=== PATIENT | male | born 1945 | race Caucasian/White ===

== ENCOUNTER 2017-07-20 22:21 | Inpatient (IN) | payer MEDICARE, MEDICAID ==
--- NOTE | 2017-07-20 23:10 | ED Physician Chart ---
ED Chief Complaint/HPI - Patient Information Date Seen:: 07/20/17 Time Seen:: 23:08 Chief Complaint:: Confusion History of Present Illness:: 71 yo homeless male was brought from street to ER by police due to confusion at a store. He was put on 5150 hold as a gravely disabled person. Allergies:: Allergies Allergy/AdvReac Type Severity Reaction Status Date / Time UNOBTN - Unobtainable Allergy Verified 07/20/17 22:44 Vitals:: Vital Signs - 8 hr 07/20/17 22:25 Temp 97.9 F HR 81 RR 18 BP 132/68 O2 Sat % 98 ED Review of Systems - Review of Systems General/Constitutional: No fever Skin: No bruising Head: No headache Eyes: No pain ENT: No nasal drainage Neck: No neck pain Cardio Vascular: No chest pain Pulmonary: No SOB GI: No nausea, No vomiting Musculoskeletal: Bone or joint pain Psychiatric: Prior psych history Neurological: No focal symptoms ED Past Medical History - Past Medical History Past Medical History: Arthritis, Other (B/L planta fasciitis) Social History: Non Smoker, No Alcohol, No Drug Use Surgical History: other (B/L knee replacement) Family Medical History - Family Member Mother History Unknown: Yes ED Physical Exam - Physical Examination General/Constitutional: Awake Head: Atraumatic Eyes: PERRL ENMT: Nasal exam nl Neck: No nuchal rigidity Respiratory: No Wheeze/Rhonchi/Rales Cardio Vascular: RRR, No murmur, gallop, rubs, NL S1 S2 GI: No tenderness/rebounding/guarding Other Extremities comments:: B/L knee pain, B/L feet pain Neuro/Psych: No focal deficits ED Labs/Radiology/EKG Results - Radiology Results Results: CXR: no focal consolidation ED Assessment - Assessment General Assessment: Psychosis Anemia, normocytic Thrombocytopenia B/L planta fasciitis Assessment/Comments:: CBC, CMP, UA CXR, EKG Clear for geropsych admit ED Septic Shock - . Is Septic Shock (SBP<90, OR Lactate>4 mmol\L) present?: No - <6hrs of presentation: Vital Signs: Vital Signs - 8 hr 07/20/17 22:25 Temp 97.9 F HR 81 RR 18 BP 132/68 O2 Sat % 98 ED Reassessment (Disposition) - Reassessment Reassessment Condition:: Unchanged - Patient Disposition Discharge/Transfer:: Debbie w/in this hosp Admitting Medical Physician:: Silas Talley Admitting Psych Physician:: Prashant Barraza ED Discharge Plan - Patient Disposition Admit/Discharge/Transfer: Other Care w/in this hosp Condition at Disposition: Stable
[2017-07-20 23:29] LABS: % BASOPHILS 0.5 % (0.0-2.0); % LYMPHOCYTES 19.6 % (20.0-50.0); % MONOCYTES 8.2 % (2.0-10.0); % NEUTROPHILS 70.7 % (40.0-80.0); EOSINOPHILE ABSOLUTE 0.1 Th/cmm (0.1-0.4); HEMOGLOBIN 10.1 gm/dL (12-16); LYMPHOCYTE ABSOLUTE 1.5 Th/cmm (1.5-3.0); MEAN CELL VOLUME 81.1 fl (80-99); MEAN CORPUSCULAR HEMOGLOBIN 27.3 pg (27.0-31.0); MEAN CORPUSCULAR HGB CONC 33.7 pg (28.0-36.0); MONOCYTE ABSOLUTE 0.6 Th/cmm (0.3-1.0); NEUTROPHILE ABSOLUTE 5.4 Th/cmm (1.8-8.0); PLATELET COUNT 109 Th/cmm (150-400); RED CELL DISTRIBUTION WIDTH 16.6 % (11.5-20.0); WHITE BLOOD COUNT 7.6 Th/cmm (4.8-10.8)
[2017-07-20 23:48] LABS: ALB/GLOB RATIO 1.3 (1.0-1.8); ALBUMIN 3.8 gm/dL (4.2-5.5); ALKALINE PHOSPHATASE 79 U/L (34-104); ANION GAP 11.3 (7.0-16.0); BILIRUBIN,TOTAL 1.1 mg/dL (0.3-1.0); BUN - UREA NITROGEN 33 mg/dL (7-25); CALCIUM SERUM 9.1 mg/dL (8.6-10.3); CARBON DIOXIDE 22.4 mEq/L (21.0-31.0); CHLORIDE 107 mEq/L (98-107); CREATININE - SERUM 1.3 mg/dL (0.7-1.3); GLUCOSE 101 mg/dL (70-105); POTASSIUM SERUM 3.7 mEq/L (3.5-5.1); SGOT 23 U/L (13-39); SGPT/ALT 20 U/L (7-52); SODIUM SERUM 137 mEq/L (136-145); TOTAL PROTEIN,SERUM 6.8 gm/dL (6.0-8.3)
[2017-07-21 02:16] VITALS: BP 153/71
[2017-07-21] MEDS ORDERED: Maalox 30 mL Cup PO PRN (02:19)
[2017-07-21] MEDS ORDERED: Magnesium Hydroxide (MOM) 30 mL UDC PO PRN (02:19)
--- NOTE | 2017-07-21 08:11 | Diagnostic Imaging Report ---
Chest x-ray single view History: Shortness of breath Comparison: None The heart size is normal. No focal pulmonary parenchymal processes. No hilar or mediastinal abnormalities. Very mild congestion cannot be excluded. Impression: No acute abnormalities
[2017-07-21] MEDS: Multivitamin Tab PO SCH (08:18)
--- NOTE | 2017-07-21 10:36 | History & Physical ---
ADMIT DATE: 07/21/2017 REQUESTING PHYSICIAN: Prashant Barraza M.D. CHIEF COMPLAINT: "How long is my hold?" HISTORY OF PRESENT ILLNESS: A 71-year-old [place] male admitted by Dr. Barraza with legal status of 5150 after the patient was found on the street in cold weather with wearing only tank top and noted to have a confused and unable to direct employment security officer where to send him his home. The patient is alert, awake right now and tells me he lives on the street. PAST MEDICAL HISTORY: Negative for diabetes, hypertension, kidney disease, liver disease, but remarkable for osteoarthritis. PAST SURGICAL HISTORY: Remarkable for bilateral knee replacement. MEDICATIONS AT HOME: He is not taking any medicine. ALLERGIES: None. SOCIAL HISTORY: The patient currently lives in the street. The patient has no history of smoking cigarette, alcohol, or drug abuse. FAMILY MEDICAL HISTORY: Remarkable for hypertension. REVIEW OF SYSTEMS: The patient currently denies any headache, blurred vision, double vision, dysphagia, odynophagia, runny nose, stuffy nose, fever, chills, cough, chest pain, shortness of breath, palpitation, dizziness, nausea, vomiting, diarrhea, dysuria, hematuria, hematochezia, melena, no seizure or syncopal episode. PHYSICAL EXAMINATION: GENERAL: Alert, awake, oriented, lying in the bed without any acute distress. VITAL SIGNS: Temperature 97.4, pulse 68, respiratory rate is 20, blood pressure 130/78. HEENT: Normocephalic, atraumatic. Extraocular muscles intact. Tongue was pink and coated. Absent upper and lower dentition noted. NECK: Supple, no JVD, no hepatojugular reflex. No lymphadenopathy, thyromegaly, or carotid bruit. HEART: Both heart sounds are regular. No S3, no S4, no murmur. CHEST: Lung equal in expansion, no wheezing, no crackles. ABDOMEN: Soft. No guarding, no rigidity. Liver and spleen are not palpable. No palpable mass. EXTERNAL GENITALIA AND RECTAL: The patient refused. EXTREMITIES: No edema, no cyanosis. There is tenderness in the bottom of both heel noted as well as surgical scar in both the knee noted. NEUROLOGIC: Alert, awake, oriented to time, place, person, 2-12 cranial nerves are intact. Power in upper and lower extremities 5+. Sensation to touch intact. Babinskis in both toes are going down. No cerebral sign. AVAILABLE DIAGNOSTIC DATA: Hemoglobin reported 10.1, hematocrit is 30.0, and platelet count of 109. White count of 7.6, creatinine is 1.3. Liver functions are within normal limits. TSH is 0.60. Chest x-ray, no infiltrate or no congestion. EKG, no ST-T wave change representing acute ischemia. CLINICAL IMPRESSION: 1. Normocytic normochromic anemia. 2. Mild thrombocytopenia. 3. Bilateral plantar fasciitis. 4. Degenerative joint disease. 5. Status post bilateral knee replacement. 6. Homelessness. 7. Underlying psychotic disorder. PLAN: The patient currently remained medically stable. The patient is cleared to get his psychiatric treatment provided by Dr. Barraza. The patient will have a followup CBC and the patient has persistent thrombocytopenia as well as anemia. We will pursue further workup for now. The patient has been advised to have an arch support for his plantar fasciitis and gave naproxen sodium 500 b.i.d. with food p.r.n. The patient will have further workup as an outpatient for his thrombocytopenia and anemia if persistently present on next CBC. Age appropriate health maintenance has been discussed with the patient as well. I sincerely thank you, Dr. Prashant Barraza, for giving me the opportunity to participate in patient of yours. [facility]# [id number]
--- NOTE | 2017-07-22 01:40 | Psychosocial Evaluation ---
DATE OF SERVICE: 07/21/2017 INITIAL EVALUATION AND MENTAL STATUS EXAM CHIEF COMPLAINT: 5150 hold for dangerous to self and grave disability. REASON FOR HOSPITALIZATION: The patient was admitted to the hospital on a 5150 hold after he was picked up by [place] police and placed on a hold after the patient did not eat all day and he tried to take ferry home and he was not able to provide any information with his address or where he lives. The patient also was incoherent and he was making unknown statements. He also was confused and also walking in cold weather with only top tank. Chart reviewed and the patient interviewed. I also discussed the patient's condition with the staff and reviewed records and labs. The patient seems to be confused and disheveled. The patient also was not able to tell me what kind of arrangement he has for placement or living. He also has been anxious, but at the same time, he was calm and did not have any major behavioral problems during my interview or since he came to the hospital. The patient was not able to tell me when was the last time he ate and what did he eat, but later on he told me "I ate yesterday," but he was not able to tell me what kind of food he ate. PAST PSYCHIATRIC HISTORY: The patient denies. PAST MEDICAL HISTORY: The patient denies and the patient denies taking any medications at home. SOCIAL HISTORY: The patient said that he lives "with other people," but he was not able to tell me where does he live exactly and what kind of arrangement he has for living. He also said that he is and he has 1 son, but no contact and he was not able to give me any more information. 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 He denies alcohol or street drug use or legal issues. ALLERGIES: No known allergies. MENTAL STATUS EXAMINATION: The patient appears slightly older than his stated age. Flat affect. Disheveled. Depressed mood. Thought processes are circumstantial, but no flight of ideas. The patient denies any auditory or visual hallucinations, but seems to be suspicious and paranoid. The patient denies any suicide or homicide. The patient is alert, but seems to be disoriented to place. The patient is alert to the situation and the year he mentioned "2018." Impaired immediate and recent memory, but intact remote memory and he did remember his date. Poor insight and poor judgment. ASSESSMENT: PRIMARY DIAGNOSIS: Unspecified psychosis. SECONDARY DIAGNOSIS: Rule out dementia. TREATMENT PLAN: We will monitor the patient's behavior closely. We will try to get more information about the patient's condition. We will follow up closely. ESTIMATED LENGTH OF STAY: 5-7 days. THE PATIENT'S STRENGTHS AND WEAKNESSES: The patient's strength is not clear at this time. Weaknesses are in effective coping and poor judgment. AFTER DISCHARGE PLANS: The patient might need placement and outpatient treatment and followup will continue as an outpatient. CRITERIA FOR DISCHARGE: Stabilize psychotropic medications and establish outpatient treatment plans. [facility]# [id number]
[2017-07-22 07:37] LABS: % BASOPHILS 0.2 % (0.0-2.0); % EOSINOPHILS 2.1 % (0.0-5.0); % LYMPHOCYTES 18.2 % (20.0-50.0); % MONOCYTES 7.9 % (2.0-10.0); % NEUTROPHILS 71.6 % (40.0-80.0); EOSINOPHILE ABSOLUTE 0.1 Th/cmm (0.1-0.4); HEMATOCRIT 29.5 % (41.0-60); HEMOGLOBIN 10.1 gm/dL (12-16); LYMPHOCYTE ABSOLUTE 0.9 Th/cmm (1.5-3.0); MEAN CELL VOLUME 80.8 fl (80-99); MEAN CORPUSCULAR HEMOGLOBIN 27.8 pg (27.0-31.0); MEAN CORPUSCULAR HGB CONC 34.4 pg (28.0-36.0); MEAN PLATELET VOLUME 7.5 fl; MONOCYTE ABSOLUTE 0.4 Th/cmm (0.3-1.0); NEUTROPHILE ABSOLUTE 3.6 Th/cmm (1.8-8.0); PLATELET COUNT 99 Th/cmm (150-400); RED BLOOD COUNT 3.65 Mil/cmm (3.80-5.80); RED CELL DISTRIBUTION WIDTH 15.9 % (11.5-20.0)
[2017-07-22] MEDS: Multivitamin Tab PO SCH (08:26)
--- NOTE | 2017-07-22 09:59 | General Progress Note ---
Subjective - Review of Systems Subjective: Patient is seen and examined. No new complaints. Objective - Results Result Diagrams: 07/22/17 07:24 07/20/17 23:22 Recent Labs: Laboratory Last Values WBC 5.0 Th/cmm (4.8-10.8) D 07/22/17 07:24 RBC 3.65 Mil/cmm (3.80-5.80) L 07/22/17 07:24 Hgb 10.1 gm/dL (12-16) L 07/22/17 07:24 Hct 29.5 % (41.0-60) L 07/22/17 07:24 MCV 80.8 fl (80-99) 07/22/17 07:24 MCH 27.8 pg (27.0-31.0) 07/22/17 07:24 MCHC Differential 34.4 pg (28.0-36.0) 07/22/17 07:24 RDW 15.9 % (11.5-20.0) 07/22/17 07:24 Plt Count 99 Th/cmm (150-400) L 07/22/17 07:24 MPV 7.5 fl 07/22/17 07:24 Neutrophils % 71.6 % (40.0-80.0) 07/22/17 07:24 Lymphocytes % 18.2 % (20.0-50.0) L 07/22/17 07:24 Monocytes % 7.9 % (2.0-10.0) 07/22/17 07:24 Eosinophils % 2.1 % (0.0-5.0) 07/22/17 07:24 Basophils % 0.2 % (0.0-2.0) 07/22/17 07:24 Sodium 137 mEq/L (136-145) 07/20/17 23:22 Potassium 3.7 mEq/L (3.5-5.1) 07/20/17 23:22 Chloride 107 mEq/L (98-107) 07/20/17 23:22 Carbon Dioxide 22.4 mEq/L (21.0-31.0) 07/20/17 23:22 Anion Gap 11.3 (7.0-16.0) 07/20/17 23:22 BUN 33 mg/dL (7-25) H 07/20/17 23:22 Creatinine 1.3 mg/dL (0.7-1.3) 07/20/17 23:22 Est GFR ( Amer) TNP 07/20/17 23:22 Est GFR (Non-Af Amer) TNP 07/20/17 23:22 BUN/Creatinine Ratio 25.4 07/20/17 23:22 Glucose 101 mg/dL (70-105) 07/20/17 23:22 Calcium 9.1 mg/dL (8.6-10.3) 07/20/17 23:22 Total Bilirubin 1.1 mg/dL (0.3-1.0) H 07/20/17 23:22 AST 23 U/L (13-39) 07/20/17 23:22 ALT 20 U/L (7-52) 07/20/17 23:22 Alkaline Phosphatase 79 U/L (34-104) 07/20/17 23:22 Total Protein 6.8 gm/dL (6.0-8.3) 07/20/17 23:22 Albumin 3.8 gm/dL (4.2-5.5) L 07/20/17 23:22 Globulin 3.0 gm/dL 07/20/17 23:22 Albumin/Globulin Ratio 1.3 (1.0-1.8) 07/20/17 23:22 TSH 0.60 uIU/ml (0.34-5.60) 07/20/17 23:22 - Physical Exam Vitals and I&O: Vital Signs Temp 97.8 F 07/21/17 14:00 Pulse 70 07/21/17 14:00 Resp 20 07/21/17 14:00 BP 139/71 07/21/17 14:00 Pulse Ox 97 07/21/17 14:00 Intake & Output 07/21/17 07/22/17 07/22/17 18:59 06:59 18:59 Intake Total 800 Balance 800 Intake: Oral 800 Other: # Voids 3 # Bowel Movements 0 Active Medications: Current Medications Acetaminophen (Tylenol) 650 mg PO Q4HR PRN PRN Reason: Mild Pain / Temp above 100 Stop: 09/19/17 02:18 Al Hydrox/Mg Hydrox/Simethicone (Maalox) 30 ml PO Q4HR PRN PRN Reason: GI DISTRESS Stop: 09/19/17 02:18 Lorazepam (Ativan) 0.5 mg PO Q4HR PRN; Protocol PRN Reason: Anxiety Stop: 08/20/17 02:18 Magnesium Hydroxide (Milk Of Magnesia) 30 ml PO HS PRN PRN Reason: Constipation Multivitamins/Vitamin C (Theragran) 1 tab PO DAILY CRISTELA Stop: 09/19/17 08:59 Last Admin: 07/22/17 08:26 Dose: 1 tab Naproxen (Naprosyn) 500 mg PO BIDWM PRN PRN Reason: bilateral foot pain Stop: 09/19/17 17:59 Quetiapine Fumarate (Seroquel) 50 mg PO TID CRISTELA PRN Reason: Protocol Stop: 09/20/17 08:59 Last Admin: 07/22/17 08:28 Dose: 50 mg Zolpidem Tartrate (Ambien) 5 mg PO HS PRN PRN Reason: Insomnia Stop: 09/19/17 02:18 General: Alert, Oriented x3, Cooperative, No acute distress HEENT: Atraumatic, PERRLA Neck: Supple, +2 carotid pulse wo bruit Cardiovascular: Regular rate, Normal S1, Normal S2 Lungs: Clear to auscultation Abdomen: Bowel sounds, Soft Extremities: Other (No edema.) Neurological: Normal gait Assessment/Plan - Assessment Assessment: Thrombocytopenia. NCNC Anemia. DJD Psych disorder. S/P Bilateral TKR. - Plan Plan: Work up for anemia and thrombocytopenia. Psych meds and follow up. Fall precautions. General nursing care. Continue current care.
[2017-07-22 12:17] LABS: INR 1.14 (0.5-1.4)
[2017-07-23 08:17] LABS: IRON LC 20 ug/dL (38-169); TIBC (LC) 159 ug/dL (250-450); UIBC 139 ug/dL (111-343)
[2017-07-23] MEDS: Multivitamin Tab PO SCH (09:53)
[2017-07-23 12:14] LABS: FOLIC ACID 12.2 ng/mL (>3.0)
--- NOTE | 2017-07-23 16:48 | Progress Notes ---
DATE: 07/22/2017 SUBJECTIVE: Chart reviewed and the patient interviewed. Also discussed the patient's condition with the staff and reviewed records and labs. The patient is still easily agitated and is still suspicious and paranoid. The patient also is still restless and is still in irritable and angry mood. The patient also is having difficulty following any of staff directions. He also is still guarded and does not want to talk much about his moods. Otherwise, the patient is cooperative in regard to his treatment and medications. ASSESSMENT: The patient is still psychotic and agitated. TREATMENT PLAN: Continue to monitor his behavior and his condition closely. Also, we will start the patient on Seroquel 50 mg three times a day, and we will continue to follow closely. JOB# [id number]
--- NOTE | 2017-07-24 05:13 | Progress Notes ---
DATE: 07/23/2017 SUBJECTIVE: The patient seen and examined. The patient is lying in the bed. The patient has no new complaint. The patient did have further workup for his thrombocytopenia and anemia, which did reveal the patient had a D-dimer of 878. The PT and PTT and fibrinogen are normal. Iron level was 20, TIBC was 159, iron saturation 13%, total bilirubin 1.1 was reported. The patient currently remaining asymptomatic. PHYSICAL EXAMINATION: Today's exam; VITAL SIGNS: Temperature 97.0, pulse is 58, respiratory is 18, and blood pressure 128/65. HEENT: Poor dentition. NECK: Supple, no JVD, no lymphadenopathy. HEART: Both heart sounds are regular. CHEST AND LUNG: Equal in expansion. No wheezing, no crackles. ABDOMEN: Soft. No guarding, rigidity. Bowel sounds present. No palpable mass. EXTREMITIES: No edema, no cyanosis. NEUROLOGIC: Nonfocal. CLINICAL IMPRESSION: 1. Normocytic normochromic anemia, most likely secondary to chronic inflammation. 2. Thrombocytopenia, workup under progress. Elevated D-dimer with a normal fibrinogen does not need any further intervention. 3. Degenerative joint disease. 4. Psychotic disorder. 5. Status post bilateral knee replacement. PLAN: Await further workup for thrombocytopenia. Anemia, we will be observing at this time, we will not do any further workup for now and we will try to evaluate further cause of anemia and thrombocytopenia. After this blood tests are available, if the patient's blood test are in conclusive, the patient may require bone marrow biopsy, which can be done as an outpatient. Psychiatric medication management deferred to psychiatrist. Care plan reviewed and discussed with staff. JOB# [id number]
--- NOTE | 2017-07-24 06:28 | Progress Notes ---
DATE: SUBJECTIVE: Chart reviewed and the patient interviewed. Also discussed the patient's condition with the staff and reviewed the records and labs. The patient is still depressed and his affect is flat. The patient also is still interacting minimally with peers and with others. Also, still having poor personal hygiene. He also is having difficulty with his mood and needs redirections and is still easily agitated. Otherwise, the patient is compliant with taking his medications with no side effects of medications. ASSESSMENT: The patient is still depressed and is still easily agitated. TREATMENT PLAN: Continue to monitor his behavior and his condition closely. Also, continue Seroquel same dose. Also, working with correctional casework specialist in regard to placement issue and discharge plans. JOB# [id number]
[2017-07-24] MEDS: Multivitamin Tab PO SCH (09:21)
[2017-07-25] MEDS: Multivitamin Tab PO SCH (10:00)
--- NOTE | 2017-07-25 14:14 | Progress Notes ---
DATE: SUBJECTIVE: The patient was seen and evaluated. The patient's chart reviewed. This is Dr. Thompson covering for Dr. Barraza. The patient is a 71-year-old male, who was brought in here in a 5150 by [place] after the patient was not eating. He tried to take a ferry home and was not able to provide much information. Today on [id number] evaluation, the patient presents slightly disorganized, is not able to engage in linear conversation, easily derails and tangentially jumps from one topic to another topic and observed to be easily depressed. MENTAL STATUS EXAMINATION: Still depressed and easily agitated. ASSESSMENT AND PLAN: The patient continues to be disorganized, melancholic, and unable to formulate a safe plan. We will continue with primary psychiatric treatment plan and goals as medications were recently initiated as quetiapine 50 mg p.o. t.i.d. [facility]# [id number]
[2017-07-26] MEDS: Multivitamin Tab PO SCH (08:22)
--- NOTE | 2017-07-26 14:30 | Progress Notes ---
DATE: SUBJECTIVE: The patient was seen and evaluated. The patient's chart reviewed. Overnight, nursing staff reported that the patient continues to be easily disorganized. Today on [id number] evaluation, the patient continues to jump from one topic to another topic, disorganized. MENTAL STATUS EXAMINATION: Disorganized, disheveled and malodorous. ASSESSMENT AND PLAN: The patient is a 71-year-old male who continues to find himself disorganized, unable to formulate a safe plan. We will continue with Seroquel at 50 mg p.o. t.i.d., as it was recently increased less than 72 hours ago to target the patient's still residual psychotic symptoms and reduce the risk of any medication interactions and side effects due to his age. [facility]# [id number] MTDD
--- NOTE | 2017-07-26 23:15 | Progress Notes ---
DATE: 07/26/[address] Barraza. Case was discussed with staff of the patient, reviewed record. This is a 71-year-old male who was admitted on 07/21/2017 on a hold for danger to self and grave disability. The patient was picked up by [employer] on a hold after the patient did not eat all day and tried to take ferry home and he was not able to provide any information or his address of where he lives. He was confused, incoherent, making incoherent statements, confused, walking in cold weather with only top tank, unable to provide any statement about where he lives. The patient continues to be unable to provide much information, continues to be acting bizarre with poor memory, unable to participate in a meaningful conversation, unpredictable and impulsive. He has been compliant with the medication with no side effects. He is on Seroquel 50 mg three times a day and a multivitamin. No sedation, no nausea, no extrapyramidal symptoms. We will continue to work with the patient in group therapy, milieu therapy, and adjust medications as needed. JOB# [id number]
[2017-07-27] MEDS: Multivitamin Tab PO SCH (08:25)
--- NOTE | 2017-07-27 16:28 | Progress Notes ---
DATE: 07/27/[address] Barraza. Case was discussed with staff, reviewed records. The patient continues to be depressed, continues to be unable to provide any information about where he is. He is very evasive when I talked to him making including the same time. Unable to make safe plan for self-care or participate in meaningful conversation. He is sleeping better, eating better. He has been compliant with the medication with no side effects, no sedation, no nausea, Debbie symptoms. We will continue to work with the patient in group therapy, milieu therapy, and adjust medications as needed. JOB# [id number]
[2017-07-28] MEDS: Multivitamin Tab PO SCH (08:45)
[2017-07-28 09:22] LABS: HLA CLASS 1 ANTIBODY NEGATIVE; IIB/IIIA ANTIBODY NEGATIVE; Ib/IX ANTIBODY NEGATIVE
[2017-07-28 09:23] LABS: Ia/IIa ANTIBODY NEGATIVE
--- NOTE | 2017-07-29 06:36 | Progress Notes ---
DATE: 07/28/2017 SUBJECTIVE: Chart reviewed and the patient interviewed. Also discussed the patient's condition with the staff and reviewed records and labs. The patient is doing slightly better today and he is able to carry on conversation and "I need shoes". The patient's judgment seems to be slightly better, but he is still most of the time was confused and he still needs lots of redirections. At times, also seems to be suspicious and paranoid and thinks that people stole his shoes that is why has no shoes. Otherwise, the patient is compliant with taking his medications with no side effect of Seroquel 50 mg 3 times a day. ASSESSMENT: The patient is still psychotic and confused. TREATMENT PLAN: Continue monitoring his behavior and his condition closely and continue adjusting psychotropic medications and work on behavioral modification. JOB# [id number]
[2017-07-29] MEDS: Multivitamin Tab PO SCH (09:26)
[2017-07-30] MEDS: Multivitamin Tab PO SCH (08:15)
[2017-07-30 15:52] LABS: PLT ASSOCIATED ANTI-IB/IX NEGATIVE; PLT ASSOCIATED ANTI-IIB/IIIA NEGATIVE
[2017-07-30 15:55] LABS: PLT ASSOCIATED ANTI-IA/IIA NEGATIVE
--- NOTE | 2017-07-31 02:41 | Discharge Summary ---
DATE OF DISCHARGE: 07/30/2017 THE PATIENT'S AGE: 71. SEX: Male. PHYSICIAN: Prashant Barraza M.D., M.P.H. FINAL DIAGNOSIS/PRIMARY DIAGNOSIS: Unspecified psychosis. SECONDARY DIAGNOSIS: Dementia, moderate. REASON FOR HOSPITALIZATION: The patient was admitted to the hospital on 5150 hold after the patient was picked up by the [place] police and the patient has not been eating or drinking 4 days prior to his admission and was confused and was walking in cold weather with only top tank. HOSPITAL COURSE: The patient continued to be agitated and confused. Also was irritable. The patient also was having difficulty following the staff directions. The patient was given Seroquel and dose adjusted to 50 mg 3 times a day. Gradually, the patient's affect was brighter. The patient was less agitated. Placement was an issue. [facility] accepts the patient and the patient was discharged to there. Physical exam of the patient showed no major medical problems, but patient has generalized weakness and needed rehabilitation. AFTER DISCHARGE PLANS: The patient discharged from the hospital with plans to continue his treatment in [facility]. EXPECTED OUTCOME AFTER DISCHARGE: Fair if the patient continue with his outpatient treatment and follow up there. JOB# [id number]
--- NOTE | 2017-08-01 12:34 | Progress Notes ---
DATE: 07/30/2017 SUBJECTIVE: Chart reviewed and the patient interviewed. Also discussed the patient's condition with the staff and reviewed records and labs. The patient's affect is slightly brighter and the patient seems to be less irritable and less agitated. The patient also is cooperative with the staff and he is less irritable and less angry. Also, is compliant with taking his medications with no side effect of medications. ASSESSMENT: The patient is less agitated and less irritable. TREATMENT PLAN: We will continue monitoring his behavior and his condition closely. Also, we will continue Seroquel 50 mg 3 times a day and we will continue to work on discharge plans and placement issue. I spoke with [facility] staff and they are coming to evaluate the patient today. JOB# [id number]
== END 2017-07-30 11:30 | DRG 885 ==
LOC: ER 22:21 → GERO 07-21 00:15
PROVIDERS: ADMIT Psychiatry & Neurology Psychiatry; ATTEND Psychiatry & Neurology Psychiatry
DX: F29 Unspecified psychosis not due to a substance or known physiological condition (principal); D69.6 Thrombocytopenia, unspecified; F03.91 Unspecified dementia, unspecified severity, with behavioral disturbance; D64.9 Anemia, unspecified; M72.2 Plantar fascial fibromatosis; M19.90 Unspecified osteoarthritis, unspecified site; Z96.653 Presence of artificial knee joint, bilateral; Z82.49 Family history of ischemic heart disease and other diseases of the circulatory system; Z59.0 Homelessness
CPT/HCPCS: 36415-UA; 71045-TC; 80053-TC; 82607-90; 82746-90; 83540-90; 83550-90; 84443-TC; 85025-TC; 85049-TC; 85379-TC; 85384-TC; 85610-TC; 85730-TC; 86023-90; 93005; G0410; Z7610

== ENCOUNTER 2017-08-03 13:28 | Inpatient (IN) | payer MEDICARE, MEDICAID ==
[2017-08-03 15:32] VITALS: BP 152/81
[2017-08-03] MEDS ORDERED: Maalox 30 mL Cup PO PRN (15:33)
[2017-08-03] MEDS ORDERED: Magnesium Hydroxide (MOM) 30 mL UDC PO PRN (15:33)
[2017-08-03] MEDS ORDERED: Haloperidol Lactate 5 mg/mL 1mL Vial ONE (16:04)
[2017-08-03] MEDS ORDERED: Haloperidol Lactate 5 mg/mL 1mL Vial IM ONE ×2 (16:05)
[2017-08-04] MEDS ORDERED: Maalox 30 mL Cup PO PRN (05:55)
[2017-08-04] MEDS ORDERED: Magnesium Hydroxide (MOM) 30 mL UDC PO PRN (05:56)
[2017-08-04] MEDS ORDERED: Multivitamin Tab PO SCH (09:00)
[2017-08-04] MEDS: Multivitamin Tab PO SCH (11:23)
[2017-08-04 12:53] LABS: % EOSINOPHILS 1.7 % (0.0-5.0); % LYMPHOCYTES 17.9 % (20.0-50.0); % MONOCYTES 5.2 % (2.0-10.0); % NEUTROPHILS 74.2 % (40.0-80.0); BASOPHILE ABSOLUTE 0.1 Th/cumm (0-0.2); EOSINOPHILE ABSOLUTE 0.1 Th/cmm (0.1-0.4); HEMOGLOBIN 11.5 gm/dL (12-16); LYMPHOCYTE ABSOLUTE 0.9 Th/cmm (1.5-3.0); MEAN CORPUSCULAR HEMOGLOBIN 27.8 pg (27.0-31.0); MEAN CORPUSCULAR HGB CONC 33.9 pg (28.0-36.0); MEAN PLATELET VOLUME 7.4 fl; MONOCYTE ABSOLUTE 0.3 Th/cmm (0.3-1.0); NEUTROPHILE ABSOLUTE 3.8 Th/cmm (1.8-8.0); RED BLOOD COUNT 4.14 Mil/cmm (3.80-5.80); RED CELL DISTRIBUTION WIDTH 15.9 % (11.5-20.0); WHITE BLOOD COUNT 5.2 Th/cmm (4.8-10.8)
[2017-08-04 12:54] LABS: HEMATOCRIT 33.9 % (41.0-60); PLATELET COUNT 145 Th/cmm (150-400)
[2017-08-04 13:05] LABS: ALB/GLOB RATIO 1.5 (1.0-1.8); ALBUMIN 3.9 gm/dL (4.2-5.5); ALKALINE PHOSPHATASE 79 U/L (34-104); ANION GAP 9.2 (7.0-16.0); BILIRUBIN,TOTAL 1.1 mg/dL (0.3-1.0); BUN - UREA NITROGEN 26 mg/dL (7-25); CALCIUM SERUM 9.5 mg/dL (8.6-10.3); CARBON DIOXIDE 27.7 mEq/L (21.0-31.0); CHLORIDE 106 mEq/L (98-107); CREATININE - SERUM 1.3 mg/dL (0.7-1.3); GLUCOSE 147 mg/dL (70-105); POTASSIUM SERUM 3.9 mEq/L (3.5-5.1); SGOT 17 U/L (13-39); SGPT/ALT 16 U/L (7-52); SODIUM SERUM 139 mEq/L (136-145); TOTAL PROTEIN,SERUM 6.5 gm/dL (6.0-8.3)
--- NOTE | 2017-08-04 15:01 | History & Physical ---
ADMIT DATE: 08/03/2017 MEDICAL H AND P PATIENT'S IDENTIFICATION: A 71-year-old male. CHIEF COMPLAINT: "I don't know why I am here." HISTORY OF PRESENT ILLNESS: A 71-year-old [place] male who I knew him from his previous admission at [facility] and the patient was admitted under psychiatrist care when he was found on the street in cold weather with wearing only tank top and noticed he was confused. Now, he is readmitted at this time to [facility] after the patient was noted to have been wandering on the street and the patient was dangerous to himself. The patient was also noted to have homicidal ideation and he was noted to have loud, yelling, rambling speech. PAST MEDICAL HISTORY: Negative for diabetes, hypertension, kidney disease, or liver disease. PAST SURGICAL HISTORY: Remarkable for bilateral knee replacement. ALLERGIES: The patient is not allergic to medication. MEDICATIONS: Currently prescribed medications, taking lorazepam, milk of magnesia, naproxen sodium, Seroquel, and Ambien. SOCIAL HISTORY: The patient is currently homeless. The patient has no history of smoking cigarette, drinking alcohol, or using street drug use. REVIEW OF SYSTEMS: The patient currently denies any headache, blurred vision, double vision, dysphagia, odynophagia, runny nose, stuffy nose, fever, chills, cough, chest pain, shortness of breath, palpitation, dizziness, nausea, vomiting, diarrhea, dysuria, hematuria, hematochezia, or melena. No history of any seizure or syncopal episode. The patient did have previously thrombocytopenia and anemia. PHYSICAL EXAMINATION: GENERAL: A 71-year-old, alert, awake, lying in the bed. VITAL SIGNS: Temperature 98.1, pulse 61, respiratory rate is 20, blood pressure 134/75. HEENT: Normocephalic, atraumatic. Extraocular muscles are intact. Tongue was pink and coated. Poor dentition noted. No oral lesion, no exudate, no sinus tenderness. NECK: Supple. No JVD. No hepatojugular reflex. No lymphadenopathy, thyromegaly, or carotid bruit. HEART: Both heart sounds are regular. No S3, no S4, no murmur. CHEST: Lung equal in expansion. No wheezing. No crackles. ABDOMEN: Soft. No guarding. No rigidity. Liver and spleen palpable. No palpable mass. EXTREMITIES: No edema, no cyanosis, no clubbing. Pulses are +2. No calf tenderness noted. NEUROLOGIC: Alert, awake, oriented to time, place, and person. 2-12 cranial nerves are intact. Power in upper and lower extremity 5-. Sensory to touch intact. Babinski in both toes are going down. No cerebellar sign. AVAILABLE DIAGNOSTIC DATA: None for my review. CLINICAL IMPRESSION: 1. Psychotic disorder exacerbation. 2. Homelessness. 3. Normocytic normochromic anemia. 4. Thrombocytopenia. 5. Degenerative joint disease. 6. Status post bilateral total knee replacement. PLAN: The patient is admitted at this time to [facility]. We will continue to follow this patient during the stay at [facility]. Resume his psychotropic medication as the patient is receiving p.r.n. naproxen for the osteoarthritis, recheck the patient's CBC, CMP and pursue further for his hematological abnormality. The patient is medically stable at this time to participate in activity per the [facility]. Care plan has been reviewed and discussed with nurse as well. JOB# [id number]
[2017-08-05] MEDS: Multivitamin Tab PO SCH (16:26)
--- NOTE | 2017-08-06 00:35 | Progress Notes ---
DATE: IDENTIFICATION: A 71-year-old male. SUBJECTIVE: The patient seen and examined. The patient is saying, "when can I go home." PHYSICAL EXAMINATION: On today's exam, VITAL SIGNS: Temperature 97.7, pulse is 62, respiratory rate is 18, blood pressure 116/62. HEENT: No facial asymmetry. NECK: Supple, no JVD. HEART: Regular. CHEST: Lung equal in expansion, no wheezing, no crackles. ABDOMEN: Soft. No guarding or rigidity. Bowel sounds present. EXTREMITIES: No edema. LABORATORY DATA: White count of 5.2, hemoglobin 11.5, platelet count of 145. BUN and creatinine is 26 and 1.3, glucose 147, bilirubin 1.1, albumin 3.9, potassium 3.9, sodium 139. CLINICAL IMPRESSION: 1. Psychotic disorder exacerbation. 2. Degenerative joint disease. 3. History of knee replacement. 4. Homelessness. 5. Anemia, normocytic normochromic, stable. 6. Thrombocytopenia, improving. PLAN: 1. Psychiatric evaluation and management deferred to psychiatrist. 2. The patient does not need any further workup for anemia and thrombocytopenia. 3. Fall precautions. 4. Nutritional support. 5. General nursing care. 6. We will follow this patient during the stay on as needed basis. JOB# [id number]
--- NOTE | 2017-08-06 03:04 | Psychosocial Evaluation ---
DATE OF SERVICE: 08/04/2017 PATIENT'S AGE: 71. SEX: Male. PHYSICIAN: Prashant Barraza MD, MPH CHIEF COMPLAINT: Confusion and wandering in the streets. HISTORY OF PRESENT ILLNESS: The patient is a 71-year-old male who was just discharged from the hospital and went to live in [facility]. The patient escaped from there and he was found wandering in the street and the patient was taken to [facility] where he was transferred to [facility]. The patient gives no explanation why he escaped from the [facility]. He is slightly confused and anxious and irritable. The patient also has episodes of agitation. He denies any intention to harm himself or others. PAST PSYCHIATRIC HISTORY: The patient was in [facility] and discharged a week ago. PAST MEDICAL HISTORY: The patient has history of hypertension. Also, he has history of bilateral knee surgery. FAMILY PSYCHIATRIC HISTORY: Noncontributory. SOCIAL HISTORY: The patient was living in a intermediate. No known alcohol or drug use. No family issues. ALLERGIES: No known allergies. MENTAL STATUS EXAMINATION: The patient appears his stated age. Anxious. Forgetful. Confused. Thought processes are circumstantial and tangential with occasional flight of ideas. The patient seems to be actively responding to stimuli. The patient denied suicidal or homicidal ideations. The patient is alert and oriented to the situation and the place but not date. Impaired immediate and recent memory, but intact remote memory. Poor insight and poor judgment. ASSESSMENT: PRIMARY DIAGNOSIS: Psychosis, not otherwise specified. Rule out schizoaffective disorder. SECONDARY DIAGNOSIS: Dementia, moderate, with psychotic features. MEDICAL DIAGNOSES: Hypertension and history of gout and history of hypercholesterolemia. TREATMENT PLAN: Continue to monitor his behavior and his condition closely. Also, increase Seroquel to 100 mg 3 times a day. ESTIMATED LENGTH OF STAY: 5-7 days. THE PATIENT'S STRENGTHS AND WEAKNESSES: The patient's strength is not clear at this time. Weaknesses are ineffective coping. AFTER DISCHARGE PLAN: Outpatient treatment and followup but the patient will need also placement. CRITERIA FOR DISCHARGE: Well stabilized psychotropic medications and well establish treatment plans as well as placement issue. JOB# [id number]
[2017-08-06] MEDS: Multivitamin Tab PO SCH (08:29)
--- NOTE | 2017-08-06 11:38 | Progress Notes ---
DATE: 08/05/2017 SUBJECTIVE: Chart reviewed and the patient interviewed. Also discussed the patient's condition with the staff and reviewed records and labs. The patient is guarded and he is still anxious. The patient is still having episodes of agitated, but in general seems to be calmer than yesterday. Also, the patient is not yelling today and he seems to be less agitated and less irritable. Otherwise, the patient is compliant with taking his medications with no side effect of medications. ASSESSMENT: The patient is still psychotic, but less agitated. TREATMENT PLAN: Continue monitoring his behavior and his medications closely. Also, continue to work on his irritability and his periods of agitation and continue to follow up. [facility]# [id number]
--- NOTE | 2017-08-06 12:13 | Progress Notes ---
DATE: 08/06/2017 SUBJECTIVE: Chart reviewed and the patient interviewed. Also discussed the patient's condition with the staff and reviewed records and labs. I also discussed the case with case supervisor. The patient is calm and cooperative and he wants to eat and obsessed with his diet and eating at this time. Also, has no explanation of why he escaped from the other place. The patient also is still restless and he still needs lots of redirections. Also, is still interacting minimally with others. ASSESSMENT: The patient is still agitated and psychotic and also need placement. TREATMENT PLAN: Continue monitoring his behavior and his condition. Also, continue adjusting psychotropic medications and continue to follow up closely. JOB# [id number]
[2017-08-07] MEDS: Multivitamin Tab PO SCH (08:38)
--- NOTE | 2017-08-07 19:02 | Progress Notes ---
DATE: 08/07/2017 SUBJECTIVE: The patient is confused, wandering in the streets, coming from a convalescent home, remains confused, somewhat anxious, irritable, refusing interview this morning. Staff noting he remains impulsive, unpredictable, somewhat unruly, but he is following unit rules and directions and seems to be more redirectable than admission. MEDICATIONS: Reviewed. ASSESSMENT: The patient remains agitated, impulsive, unpredictable, at times unruly but some improvement noted. PLAN: We will continue to monitor. We will continue to titrate and adjust medications. Currently on Seroquel. JOB# [id number]
--- NOTE | 2017-08-08 06:51 | Progress Notes ---
DATE: 08/08/2017 SUBJECTIVE: The patient had been living in a convalescent home, wandering in the streets, taken to [facility], transferred to [place]. The patient still remains somewhat confused, anxious. States he is in the hospital for "villasenor theft and nonsensical responses." The patient has been to this hospital in the past. I do recognize some from previous admissions. ASSESSMENT: The patient remains ruminative, some confusion noted. He does not really know why he is here, still with some pacing episodes with somewhat occlusive, isolative. He has been fairly well compliant, sleeping well. PLAN: We will continue to monitor given his ongoing symptoms. It is not safe for discharge at this time. Given his readmission to the hospital, there are concerns about his ability to function at a lower level of care at this time. JOB# [id number]
[2017-08-08] MEDS: Multivitamin Tab PO SCH (08:24)
[2017-08-09] MEDS: Multivitamin Tab PO SCH (09:51)
[2017-08-10] MEDS: Multivitamin Tab PO SCH (08:32)
--- NOTE | 2017-08-10 13:49 | Progress Notes ---
DATE: 08/09/2017 SUBJECTIVE: The patient is currently in the hospital, confused, wandering in the street. On [id number], the patient rambling, ruminative on calling his brother, talks about many different topics which are nonsensical, and I really cannot follow his train of thought. He then commences to follow me around the unit, going into patients' rooms, turning on and off the lights. The patient is unable to really formulate a realistic plan for self-care. MEDICATIONS: Reviewed. ASSESSMENT: The patient remains confused, disoriented, intrusive, ruminative, unpredictable. PLAN: We will continue to monitor given his ongoing symptoms. There are concerns about his ability to care for his basic needs. [facility]# [id number]
--- NOTE | 2017-08-11 05:45 | Progress Notes ---
DATE: 08/10/2017 SUBJECTIVE: The patient is living in a convalescent home, wandering in the streets, transferred to [place], still somewhat confused, disoriented, but calm, seems to be following unit rules and directions, states he is in the hospital for "villasenor theft," this does not really make much sense. The patient has been in the hospital before, history of mental illness, no confirmed safe discharge plan at this time and there are concerns about the patient's ability to care for himself outside of a structured setting. ASSESSMENT: The patient remains ruminative, some confusion noted, but calmer. PLAN: We will continue to monitor. We will continue to titrate and adjust his medications. Medications were reviewed including the dosages and frequencies. JOB# [id number]
[2017-08-11] MEDS: Multivitamin Tab PO SCH (08:54)
[2017-08-12] MEDS: Multivitamin Tab PO SCH (08:26)
--- NOTE | 2017-08-12 16:56 | Progress Notes ---
DATE: 08/11/2017 SUBJECTIVE: Chart reviewed. The patient interviewed. Also discussed the patient's condition with the staff and reviewed records and labs. The patient's affect is brighter. The patient is less irritable and less agitated. Slightly easier to redirect him. The patient also is compliant with taking his medications with no side effect of medications. He is slightly paranoid about his roommates, but no major behavioral problems at this time. ASSESSMENT: The patient is less agitated and less irritable and shows some improvement. TREATMENT PLAN: Continue monitoring his behavior and his medications and continue to work on adjusting psychotropic medications and followup care. JOB# [id number]
--- NOTE | 2017-08-12 21:39 | Progress Notes ---
DATE: 08/12/2017 SUBJECTIVE: The patient seen and examined. The patient is lying in the bed. The patient has no new complaint. PHYSICAL EXAMINATION: VITAL SIGNS: Temperature 97.2, pulse 60, respiratory rate 18, blood pressure 107/62. HEENT: No facial asymmetry. Poor dentition noted. NECK: Supple, no JVD, no lymphadenopathy, thyromegaly. HEART: Both heart sounds are regular. CHEST: Lung equal in expansion. No wheezing. No crackles. ABDOMEN: Soft. No guarding, rigidity. EXTREMITIES: No edema. NEUROLOGIC: Alert, awake, follows commands. AVAILABLE LAB: None for my review. CLINICAL IMPRESSION: 1. Psychotic disorder exacerbation. 2. Degenerative joint disease. 3. Anemia and thrombocytopenia, stable. 4. Homelessness. 5. Fall risk. PLAN: 1. Psychotic evaluation and management deferred to psychiatrist. 2. Outpatient workup for thrombocytopenia and anemia. 3. The patient is medically stable. At this time, we will see this patient on as needed basis. [facility]# [id number]
--- NOTE | 2017-08-13 08:11 | Discharge Summary ---
DATE OF DISCHARGE: 08/12/2017 THE PATIENT'S AGE: 71. SEX: Male. PHYSICIAN: Prashant Barraza M.D., M.P.H. FINAL DIAGNOSES/PRIMARY DIAGNOSES: Schizoaffective disorder, bipolar type with psychotic features. REASON FOR HOSPITALIZATION: The patient was admitted to the hospital because of increased agitation and irritability and inability to follow any of the staff directions. HOSPITAL COURSE: The patient continued to be agitated and in irritable mood. The patient also was angry. He also was at times threatening others. The patient was given Seroquel. Gradually, the patient's affect was brighter and the patient was less irritable and less agitated and the patient was discharged from the hospital. The patient was accepted by [facility]. Physical exam of the patient showed no major medical problems. The patient has had no emergencies in regard to his health while in the hospital. AFTER DISCHARGE PLANS: The patient discharged from the hospital to [facility] with plan to be followed there. [facility]# [id number]
== END 2017-08-12 12:45 | DRG 885 ==
LOC: GERO 13:28
PROVIDERS: ADMIT Psychiatry & Neurology Psychiatry; ATTEND Psychiatry & Neurology Psychiatry
DX: F25.0 Schizoaffective disorder, bipolar type (principal); D69.6 Thrombocytopenia, unspecified; F03.91 Unspecified dementia, unspecified severity, with behavioral disturbance; F29 Unspecified psychosis not due to a substance or known physiological condition; D64.9 Anemia, unspecified; I10 Essential (primary) hypertension; E78.5 Hyperlipidemia, unspecified; M10.9 Gout, unspecified; M19.90 Unspecified osteoarthritis, unspecified site; Z96.653 Presence of artificial knee joint, bilateral; Z91.81 History of falling; Z59.0 Homelessness
CPT/HCPCS: 36415-UA; 80053-TC; 85025-TC; G0410; J1200; J1630; J2060; Z7610

== ENCOUNTER 2017-12-07 11:02 | Inpatient (IN) | payer MEDICARE, MEDICAID ==
[2017-12-07] MEDS ORDERED: cefTRIAXone 1 GM in Sodium Chloride 0.9% 50 ML IV ONE (11:15)
--- NOTE | 2017-12-07 11:26 | ED Physician Chart ---
ED Chief Complaint/HPI - Patient Information Date Seen:: 12/07/17 Time Seen:: 11:05 Chief Complaint:: Left Leg Redness History of Present Illness:: onset x 3 days of LLE redness, erythema, and swelling; no report of trauma, H/As , S/T, neck pain, C/P, SOB, Abd. Pain, A/N/V/D/C, fever, chills, or urinary s/s ; pt's last tetanus shot: < 5 years; UTD Allergies:: Allergies Allergy/AdvReac Type Severity Reaction Status Date / Time No Known Allergies Allergy Verified 07/22/17 18:45 Vitals:: Vital Signs - 8 hr 12/07/17 11:07 Temp 97.7 F HR 73 RR 16 BP 114/67 O2 Sat % 98 Historian:: Patient, EMS Review:: Nurse's Note Reviewed, Old Chart Reviewed, EMS run form Reviewed ED Review of Systems - Review of Systems General/Constitutional: No fever, No chills, No weight loss, No weakness, No diaphoresis, No edema, No loss of appetite Skin: Skin lesions, Rash, No bruising Head: No headache, No light-headedness Eyes: No loss of vision, No pain, No diplopia ENT: No earache, No nasal drainage, No sore throat, No tinnitus Neck: No neck pain, No swelling, No thyromegaly, No stiffness, No mass noted Cardio Vascular: No chest pain, No palpitations, No PND, No orthopnea, No edema Pulmonary: No SOB, No cough, No sputum, No wheezing GI: No nausea, No vomiting, No diarrhea, No pain, No melena, No hematochezia, No constipation, No hematemesis G/U: No dysuria, No frequency, No hematuria, No nacturia Musculoskeletal: No bone or joint pain, No back pain, No muscle pain Endocrine: No polyuria, No polydipsia Psychiatric: Prior psych history, Depression, Anxiety, No suicidal ideation, No homicidal ideation, Auditory hallucination, No visual hallucination Hematopoietic: No bruising, No lymphadenopathy Allergic/Immuno: No urticaria, No angioedema Neurological: No syncope, No focal symptoms, No weakness, No paresthesia, No headache, No seizure, No dizziness, Confusion, No vertigo ED Past Medical History - Past Medical History Obtainable: Yes Past Medical History: HTN, Dementia Family History: HTN Social History: Non Smoker, No Alcohol, No Drug Use, Single, Care Facility Surgical History: None Psychiatricy History: Depression, Schizophrenia, Bipolar, Dementia Medication: Reviewed Family Medical History - Family Member Mother History Unknown: Yes Ethnicity: Living Status: Unknown ED Physical Exam - Physical Examination General/Constitutional: Awake, Well-developed, well-nourished, Alert, No distress, GCS 15, Non-toxic appearing, Ambulatory Head: Atraumatic Eyes: Lids, conjuctiva normal, PERRL, EOMI Skin: Nl inspection, No ecchymosis, Well hydrated, No lymphadenopathy Other Skin comments:: + Left Thigh Cellulitis; no FBs; good NV functions ENMT: External ears, nose nl, TM canals nl, Nasal exam nl, Lips, teeth, gums nl , Oropharynx nl, Tonsils nl Neck: Nontender, Full ROM w/o pain, No JVD, No nuchal rigidity, No bruit, No mass, No stridor Respiratory: Nl effort/Exclusion, Clear to Auscultation, No Wheeze/Rhonchi/Rales Cardio Vascular: RRR, No murmur, gallop, rubs, NL S1 S2, Carotid/Femoral/Distal pulses equal bilaterally GI: No tenderness/rebounding/guarding, No organomegaly, No hernia, Normal BS's, Nondistended, No mass/bruits, No McBurney tenderness : No CVA tenderness Extremities: No tenderness or effusion, Full ROM, normal strength in all extremities, No edema, Normal digits & nails Neuro/Psych: Alert/oriented, DTR's symmetric, Normal sensory exam, Normal motor strength, Judgement/insight normal, Mood normal, Normal gait, No focal deficits Misc: Normal back, No paraspinal tenderness ED Labs/Radiology/EKG Results - Lab Results Comments:: WBC: 15.1; H/H: 10.7/31.4; BUN: 41; Cr: 1.7 - Radiology Results Comments:: NAD - EKG Interpretations EKG Time:: 11:38 Rate & Rhythm: 70; NSR Comments:: non-specific st-t changes ED Septic Shock - . Is Septic Shock (SBP<90, OR Lactate>4 mmol\L) present?: No - <6hrs of presentation: Vital Signs: Vital Signs - 8 hr 12/07/17 11:07 Temp 97.7 F HR 73 RR 16 BP 114/67 O2 Sat % 98 ED Reassessment (Disposition) - Reassessment Reassessment Condition:: Improved - Diagnosis Diagnosis:: Dx: Cellulitis; Dehydration; Sepsis; Leukocytosis; Anemia - Aftercare/Follow up Instructions Aftercare/Follow-Up Instructions:: Counseled pt regarding lab results/diagnosis & need follow up, Counseled pt & family regarding lab results/diagnosis & need follow up - Patient Disposition Discharge/Transfer:: Acute Care w/in this hosp Accepting Physician:: Dr. Guo Time Called:: 1230 Time Responded:: 12:30 Admitted to:: Med/Surg Spoke to:: Dr. Guo Admitting Medical Physician:: Dr. Guo Condition at Disposition:: Stable, Improved
[2017-12-07 11:52] LABS: HEMATOCRIT 31.4 % (41.0-60); HEMOGLOBIN 10.7 gm/dL (12-16); MEAN CELL VOLUME 81.5 fl (80-99); MEAN CORPUSCULAR HEMOGLOBIN 27.8 pg (27.0-31.0); MEAN CORPUSCULAR HGB CONC 34.2 pg (28.0-36.0); MEAN PLATELET VOLUME 7.4 fl; PLATELET COUNT 121 Th/cmm (150-400); RED BLOOD COUNT 3.86 Mil/cmm (3.80-5.80); RED CELL DISTRIBUTION WIDTH 14.3 % (11.5-20.0)
[2017-12-07 11:55] LABS: WHITE BLOOD COUNT 15.1 Th/cmm (4.8-10.8)
[2017-12-07 11:56] LABS: MANUAL DIFF REQUIRED? YES
[2017-12-07 12:07] LABS: ALBUMIN 3.4 gm/dL (4.2-5.5); ALKALINE PHOSPHATASE 90 U/L (34-104); BILIRUBIN,TOTAL 1.1 mg/dL (0.3-1.0); BUN - UREA NITROGEN 41 mg/dL (7-25); CALCIUM SERUM 9.2 mg/dL (8.6-10.3); CHLORIDE 104 mEq/L (98-107); CREATININE - SERUM 1.7 mg/dL (0.7-1.3); CREATININE KINASE 165 U/L (30-223); GLUCOSE 118 mg/dL (70-105); SGOT 18 U/L (13-39); SGPT/ALT 19 U/L (7-52); SODIUM SERUM 138 mEq/L (136-145); TOTAL PROTEIN,SERUM 6.8 gm/dL (6.0-8.3)
[2017-12-07 12:10] LABS: TROP I 0.01 ng/mL (0.01-0.05)
[2017-12-07 12:16] LABS: TOTAL CELLS COUNTED 100
[2017-12-07 12:17] LABS: BAND NEUTROPHILE 2 % (0-10); BASOPHIL 0 % (0-3); EOSINOPHIL 0 % (0-5); LYMPHOCYTE 3 % (20-50); MONOCYTE 3 % (2-10); NEUTROPHILS 92 % (40-80)
--- NOTE | 2017-12-07 12:22 | Diagnostic Imaging Report ---
Bilateral lower extremity DVT study HISTORY: Pain, rule out DVT COMPARISON: None Technique: Longitudinal and transverse sonographic images of the bilateral lower extremity veins were obtained with doppler analysis. FINDINGS: There is normal compressibility, augmentation and phasicity of the bilateral common femoral, superficial femoral, popliteal, and posterior tibial veins. No thrombus is visualized. IMPRESSION: No evidence of thrombus within the bilateral lower extremity veins.
[2017-12-07 12:28] LABS: INR 1.18 (0.5-1.4); PROTHROMBIN TIME (TEST) 12.4 SECONDS (9.5-11.5)
[2017-12-07] MEDS ORDERED: Morphine Sulfate 2 mg/mL 1mL Syr IM PRN ×2 (15:29→15:30)
[2017-12-07] MEDS: Vancomycin HCl 1.5 GM in Sodium Chloride 0.9% 500 ML IV SCH (18:00)
[2017-12-07] MEDS ORDERED: Maalox 30 mL Cup PO PRN (22:19)
[2017-12-07] MEDS ORDERED: Magnesium Hydroxide (MOM) 30 mL UDC PO PRN (22:19)
--- NOTE | 2017-12-07 22:32 | Consultation ---
Consult Note - Consult Note Service Date: 12/07/17 Referring Physician: Juan Guo Consult Note: PHYSICIAN Consultation Note: Date of Admission: 12/07/17 Purpose of Consultation: left thigh cellulitis Chief Complaint: Patient AUSTIN RUST was admitted to location Medical/ Surgical Unit I with CELLULITIS OF LEFT LEG. History of Present Illness: 72 year-old male presented to the ER for swelling, and redness of the left thigh. He was afebrile, but his WBC Count was 15K. He was diagnosed Cellulitis of the left thigh. Vnacomycin IV and Zosyn iv were started and ID consult was called for antibiotic management. Past Medical History: h/o normocytic anemia, thrombocytopenia, Psych disorder. Allergies Allergy/AdvReac Type Severity Reaction Status Date / Time No Known Allergies Allergy Verified 07/22/17 18:45 Vital Signs Temp 97.2 F 12/07/17 20:00 Pulse 92 12/07/17 20:00 Resp 18 12/07/17 20:00 BP 114/62 12/07/17 20:00 Pulse Ox 99 12/07/17 20:00 Intake & Output 12/07/17 12/07/17 12/08/17 06:59 18:59 06:59 Intake Total 50 Balance 50 Weight (lbs) 110.223 kg Intake: Intake, IV Amount 50 Other: Weight Source Estimated Laboratory Results - last 24 hr 12/07/17 12/07/17 12/07/17 11:36 11:36 11:36 WBC 15.1 H RBC 3.86 Hgb 10.7 L Hct 31.4 L MCV 81.5 MCH 27.8 MCHC Differential 34.2 RDW 14.3 Plt Count 121 L MPV 7.4 Band Neutrophils % 2 Neutrophils (Manual) 92 H Lymphocytes 3 L Monocytes 3 Eosinophils 0 Basophils 0 PT 12.4 H INR 1.18 PTT (Actin FS) 28.8 Sodium 138 Potassium 4.0 Chloride 104 Carbon Dioxide 24.0 Anion Gap 14.0 BUN 41 H Creatinine 1.7 H Est GFR ( Amer) TNP Est GFR (Non-Af Amer) TNP BUN/Creatinine Ratio 24.1 Glucose 118 H Whole Bld Lactic Acid Calcium 9.2 Total Bilirubin 1.1 H AST 18 ALT 19 Alkaline Phosphatase 90 Creatine Kinase 165 Troponin I Total Protein 6.8 Albumin 3.4 L Globulin 3.4 Albumin/Globulin Ratio 1.0 12/07/17 11:36 WBC RBC Hgb Hct MCV MCH MCHC Differential RDW Plt Count MPV Band Neutrophils % Neutrophils (Manual) Lymphocytes Monocytes Eosinophils Basophils PT INR PTT (Actin FS) Sodium Potassium Chloride Carbon Dioxide Anion Gap BUN Creatinine Est GFR ( Amer) Est GFR (Non-Af Amer) BUN/Creatinine Ratio Glucose Whole Bld Lactic Acid 1.38 Calcium Total Bilirubin AST ALT Alkaline Phosphatase Creatine Kinase Troponin I 0.01 Total Protein Albumin Globulin Albumin/Globulin Ratio Home Medication Medication Instructions Recorded Type Acetaminophen [Tylenol] 650 mg PO Q4HR PRN tab 08/12/17 Rx Al Hyd/Mg Hyd/Simethicone [Maalox] 30 ml PO Q4HR PRN udc 08/12/17 Rx Lorazepam [Ativan] 0.5 mg PO Q4HR PRN tab 08/12/17 Rx Magnesium Hydroxide [Milk of 30 ml PO HS PRN udc 08/12/17 Rx Magnesia] Multivitamin [Theragran] 1 tab PO DAILY tab 08/12/17 Rx Naproxen [Naprosyn] 500 mg PO BIDWM PRN tab 08/12/17 Rx QUEtiapine Fumarate [SEROquel] 100 mg PO TID tab 08/12/17 Rx Zolpidem Tartrate [Ambien] 5 mg PO HS PRN tab 08/12/17 Rx Current Medications Generic Name Dose Route Start Last Admin Trade Name Freq PRN Reason Stop Dose Admin Acetaminophen 650 mg 12/07/17 22:19 Tylenol PO 02/05/18 22:18 Q4HR PRN Mild Pain / Temp above 100 Al Hydrox/Mg Hydrox/Simethicone 30 ml 12/07/17 22:19 Maalox PO 02/05/18 22:18 Q4HR PRN GI DISTRESS Vancomycin HCl 1.5 gm/ Sodium 500 mls @ 250 mls/hr 12/07/17 16:00 12/07/17 18 :00 Chloride IV 02/05/18 15:59 250 mls/hr Q24HR@0900 [facility] Administration Piperacillin Sod/Tazobactam 50 mls @ 100 mls/hr 12/07/17 21:00 12/07/17 20:20 Sod 3.375 gm/ Sodium Chloride IV 02/05/18 20:59 100 mls/hr Q8HR [facility] Administration Lorazepam 0.5 mg 12/07/17 15:33 Ativan PO 02/05/18 15:32 Q4HR PRN Anxiety Protocol Lorazepam 0.5 mg 12/07/17 22:19 Ativan PO 02/05/18 22:18 Q4HR PRN Anxiety Protocol Magnesium Hydroxide 30 ml 12/07/17 22:19 Milk Of Magnesia PO 02/05/18 22:18 HS PRN Constipation Miscellaneous 1 ea 12/08/17 09:00 Vancomycin Iv Per Pharmacy [facility] 02/06/18 08:59 DAILY [facility] Morphine Sulfate 1 mg 12/07/17 15:29 Morphine IM 02/05/18 15:28 Q4HR PRN Pain (Moderate) Morphine Sulfate 2 mg 12/07/17 15:30 Morphine IM 02/05/18 15:29 Q4HR PRN Pain (Severe) Multivitamins/Vitamin C 1 tab 12/08/17 09:00 Theragran PO 02/06/18 08:59 DAILY [facility] Naproxen 500 mg 12/07/17 22:19 Naprosyn PO 02/05/18 22:18 BIDWM PRN bilateral foot pain Ondansetron HCl 4 mg 12/07/17 15:30 Zofran IV 02/05/18 15:29 Q4H PRN Nausea / Vomiting Quetiapine Fumarate 100 mg 12/08/17 09:00 Seroquel PO 02/06/18 08:59 TID [facility] Protocol Zolpidem Tartrate 5 mg 12/07/17 22:19 Ambien PO 02/05/18 22:18 HS PRN Insomnia Review of Systems: A 12 point ROS was reviewed with the pertinent positive and negatives noted in the HPI. Social History Smoking Status Smoker, status unknown Family Medical History Noncontributory. Physical Exam: General: Comfortable, not indistress. HEENT: Head NC NT, ORal Cavity, moist, pink tongue. Eys no pallor, no icterus. Pupil DIA, EOMI. Neck: Supple.no JVD, no use of accessory neck muscles. Cardio: S1 and S2 WNl. no M,G,R. Respiratory: CTAP Abdominal: Soft NT ND BS present. Genital/Urinary: deferred Extremities: Left thigh swelling and redness aneriorly. Neurological: AAO x 3, Assessment: 1. Leukocytosis. 2. Cellulitis of the left thigh. 3. Anemia. 4. Thrombocytopenia. 5. Psych diosrder./ Plan: Continue vanco IV and dc zosyn. Follow sepsis W/o. Thank you Dr Guo for involving me in taking care of this Signed, Vincent Morton M.D. [id number]
[2017-12-08 06:27] LABS: ANION GAP 10.6 (7.0-16.0); BUN - UREA NITROGEN 36 mg/dL (7-25); CALCIUM SERUM 8.8 mg/dL (8.6-10.3); CARBON DIOXIDE 23.5 mEq/L (21.0-31.0); CHLORIDE 105 mEq/L (98-107); CREATININE - SERUM 1.5 mg/dL (0.7-1.3); GLUCOSE 127 mg/dL (70-105); POTASSIUM SERUM 4.1 mEq/L (3.5-5.1); SODIUM SERUM 135 mEq/L (136-145)
[2017-12-08] MEDS ORDERED: Multivitamin Tab PO SCH (09:00)
[2017-12-08] MEDS: Vancomycin HCl 1.5 GM in Sodium Chloride 0.9% 500 ML IV SCH (09:00)
--- NOTE | 2017-12-08 23:18 | History & Physical ---
ADMIT DATE: 12/07/2017 HISTORY OF PRESENT ILLNESS: For three days, the patient is complaining of left lower leg redness and swelling and the patient was already seen by the Infectious Disease, DrZi ____. The patient has cellulitis and history of thrombocytopenia, history of anemia, history of leukocytosis, and dehydration. The patient was admitted from the Emergency Room. The patient was seen by Dr. Carlos Garcias. REVIEW OF SYSTEMS: Other than the left lower leg swelling is negative. PAST MEDICAL HISTORY: History of hypertension, history of dementia, and history of psych disorder. PHYSICAL EXAMINATION: HEAD: Normal. ENT: Normal. NECK: Supple, nontender. LUNGS: Clear. CARDIOVASCULAR SYSTEM: S1, S2 heard. ABDOMEN: Soft. Bowel sounds heard. CENTRAL NERVOUS SYSTEM: Grossly normal. Left leg cellulitis was noted. The patient was dry. DIAGNOSES: Dehydration, prerenal azotemia, acute cellulitis, sepsis with leukocytosis, anemia, and history of psych disorder. PLAN: The patient is being admitted. I will go ahead and continue his antibiotics and will also have psych consult. I will follow the patient. JOB# [id number]
[2017-12-09 06:39] LABS: % BASOPHILS 0.2 % (0.0-2.0); % EOSINOPHILS 1.3 % (0.0-5.0); % LYMPHOCYTES 10.6 % (20.0-50.0); % MONOCYTES 6.2 % (2.0-10.0); % NEUTROPHILS 81.7 % (40.0-80.0); EOSINOPHILE ABSOLUTE 0.1 Th/cmm (0.1-0.4); HEMATOCRIT 29.4 % (41.0-60); HEMOGLOBIN 9.7 gm/dL (12-16); LYMPHOCYTE ABSOLUTE 0.9 Th/cmm (1.5-3.0); MEAN CELL VOLUME 82.7 fl (80-99); MEAN CORPUSCULAR HEMOGLOBIN 27.3 pg (27.0-31.0); MEAN PLATELET VOLUME 7.2 fl; MONOCYTE ABSOLUTE 0.5 Th/cmm (0.3-1.0); PLATELET COUNT 164 Th/cmm (150-400); RED BLOOD COUNT 3.56 Mil/cmm (3.80-5.80); RED CELL DISTRIBUTION WIDTH 14.5 % (11.5-20.0); WHITE BLOOD COUNT 8.5 Th/cmm (4.8-10.8)
[2017-12-09 06:54] LABS: ANION GAP 11.3 (7.0-16.0); BUN - UREA NITROGEN 29 mg/dL (7-25); CARBON DIOXIDE 22.7 mEq/L (21.0-31.0); CHLORIDE 107 mEq/L (98-107); CREATININE - SERUM 1.5 mg/dL (0.7-1.3); GLUCOSE 107 mg/dL (70-105); SODIUM SERUM 137 mEq/L (136-145)
--- NOTE | 2017-12-09 08:02 | General Progress Note ---
Subjective - Review of Systems Events since last encounter: left lower leg redness Objective - Results Result Diagrams: 12/09/17 05:36 12/09/17 05:36 Recent Labs: Laboratory Last Values WBC 8.5 Th/cmm (4.8-10.8) 12/09/17 05:36 RBC 3.56 Mil/cmm (3.80-5.80) L 12/09/17 05:36 Hgb 9.7 gm/dL (12-16) L 12/09/17 05:36 Hct 29.4 % (41.0-60) L 12/09/17 05:36 MCV 82.7 fl (80-99) 12/09/17 05:36 MCH 27.3 pg (27.0-31.0) 12/09/17 05:36 MCHC Differential 33.0 pg (28.0-36.0) 12/09/17 05:36 RDW 14.5 % (11.5-20.0) 12/09/17 05:36 Plt Count 164 Th/cmm (150-400) 12/09/17 05:36 MPV 7.2 fl 12/09/17 05:36 Neutrophils % 81.7 % (40.0-80.0) H 12/09/17 05:36 Band Neutrophils % 2 % (0-10) 12/07/17 11:36 Lymphocytes % 10.6 % (20.0-50.0) L 12/09/17 05:36 Monocytes % 6.2 % (2.0-10.0) 12/09/17 05:36 Eosinophils % 1.3 % (0.0-5.0) 12/09/17 05:36 Basophils % 0.2 % (0.0-2.0) 12/09/17 05:36 Neutrophils (Manual) 92 % (40-80) H 12/07/17 11:36 Lymphocytes 3 % (20-50) L 12/07/17 11:36 Monocytes 3 % (2-10) 12/07/17 11:36 Eosinophils 0 % (0-5) 12/07/17 11:36 Basophils 0 % (0-3) 12/07/17 11:36 PT 12.4 SECONDS (9.5-11.5) H 12/07/17 11:36 INR 1.18 (0.5-1.4) 12/07/17 11:36 PTT (Actin FS) 28.8 SECONDS (26.0-38.0) 12/07/17 11:36 Sodium 137 mEq/L (136-145) 12/09/17 05:36 Potassium 4.0 mEq/L (3.5-5.1) 12/09/17 05:36 Chloride 107 mEq/L (98-107) 12/09/17 05:36 Carbon Dioxide 22.7 mEq/L (21.0-31.0) 12/09/17 05:36 Anion Gap 11.3 (7.0-16.0) 12/09/17 05:36 BUN 29 mg/dL (7-25) H 12/09/17 05:36 Creatinine 1.5 mg/dL (0.7-1.3) H 12/09/17 05:36 Est GFR ( Amer) TNP 12/09/17 05:36 Est GFR (Non-Af Amer) TNP 12/09/17 05:36 BUN/Creatinine Ratio 19.3 12/09/17 05:36 Glucose 107 mg/dL (70-105) H 12/09/17 05:36 Whole Bld Lactic Acid 1.38 mmol/L (0.60-1.99) 12/07/17 11:36 Calcium 9.0 mg/dL (8.6-10.3) 12/09/17 05:36 Total Bilirubin 1.1 mg/dL (0.3-1.0) H 12/07/17 11:36 AST 18 U/L (13-39) 12/07/17 11:36 ALT 19 U/L (7-52) 12/07/17 11:36 Alkaline Phosphatase 90 U/L (34-104) 12/07/17 11:36 Creatine Kinase 165 U/L (30-223) 12/07/17 11:36 Troponin I 0.01 ng/mL (0.01-0.05) 12/07/17 11:36 Total Protein 6.8 gm/dL (6.0-8.3) 12/07/17 11:36 Albumin 3.4 gm/dL (4.2-5.5) L 12/07/17 11:36 Globulin 3.4 gm/dL 12/07/17 11:36 Albumin/Globulin Ratio 1.0 (1.0-1.8) 12/07/17 11:36 - Physical Exam Vitals and I&O: Vital Signs Temp 96.7 F 12/09/17 04:00 Pulse 70 12/09/17 04:00 Resp 20 12/09/17 04:00 BP 128/72 12/09/17 04:00 Pulse Ox 100 12/09/17 04:00 Intake & Output 12/08/17 12/09/17 12/09/17 18:59 06:59 18:59 Intake Total 850 150 Balance 850 150 Weight (lbs) 110.223 kg 68.538 kg Intake: Oral 850 150 Other: # Voids 3 0 # Bowel Movements 0 Weight Source Bedscale Bedscale Active Medications: Current Medications Acetaminophen (Tylenol) 650 mg PO Q4HR PRN PRN Reason: Mild Pain / Temp above 100 Stop: 02/05/18 22:18 Al Hydrox/Mg Hydrox/Simethicone (Maalox) 30 ml PO Q4HR PRN PRN Reason: GI DISTRESS Stop: 02/05/18 22:18 Clindamycin HCl (Cleocin Hcl) 150 mg PO Q6HR [facility] Stop: 02/06/18 11:59 Last Admin: 12/09/17 05:41 Dose: 150 mg Vancomycin HCl 1.5 gm/ Sodium (Chloride) 500 mls @ 250 mls/hr IV Q24HR@0900 [facility] Stop: 02/05/18 15:59 Last Admin: 12/08/17 09:00 Dose: 250 mls/hr Lorazepam (Ativan) 0.5 mg PO Q4HR PRN; Protocol PRN Reason: Anxiety Stop: 02/05/18 15:32 Last Admin: 12/08/17 10:30 Dose: 0.5 mg Magnesium Hydroxide (Milk Of Magnesia) 30 ml PO HS PRN PRN Reason: Constipation Stop: 02/05/18 22:18 Miscellaneous (Vancomycin Iv Per Pharmacy) 1 ea MC DAILY [facility] Stop: 02/06/18 08:59 Morphine Sulfate (Morphine) 1 mg IM Q4HR PRN PRN Reason: Pain (Moderate) Stop: 02/05/18 15:28 Morphine Sulfate (Morphine) 2 mg IM Q4HR PRN PRN Reason: Pain (Severe) Stop: 02/05/18 15:29 Multivitamins/Vitamin C (Theragran) 1 tab PO DAILY [facility] Stop: 02/06/18 08:59 Last Admin: 12/08/17 08:58 Dose: 1 tab Naproxen (Naprosyn) 500 mg PO BIDWM PRN PRN Reason: bilateral foot pain Stop: 02/05/18 22:18 Ondansetron HCl (Zofran) 4 mg IV Q4H PRN PRN Reason: Nausea / Vomiting Stop: 02/05/18 15:29 Quetiapine Fumarate (Seroquel) 100 mg PO TID [facility]; Protocol Stop: 02/06/18 08:59 Last Admin: 12/08/17 22:13 Dose: 100 mg Zolpidem Tartrate (Ambien) 5 mg PO HS PRN PRN Reason: Insomnia Stop: 02/05/18 22:18
--- NOTE | 2017-12-09 13:08 | Infectious Disease Prog Note ---
Infectious Disease Subjective - Review of Systems Service Date: 12/09/17 Subjective: There is no new change, no fever. Infectious Disease Objective - Results Result Diagrams: 12/09/17 05:36 12/09/17 05:36 Recent Labs: Laboratory Last Values WBC 8.5 Th/cmm (4.8-10.8) 12/09/17 05:36 RBC 3.56 Mil/cmm (3.80-5.80) L 12/09/17 05:36 Hgb 9.7 gm/dL (12-16) L 12/09/17 05:36 Hct 29.4 % (41.0-60) L 12/09/17 05:36 MCV 82.7 fl (80-99) 12/09/17 05:36 MCH 27.3 pg (27.0-31.0) 12/09/17 05:36 MCHC Differential 33.0 pg (28.0-36.0) 12/09/17 05:36 RDW 14.5 % (11.5-20.0) 12/09/17 05:36 Plt Count 164 Th/cmm (150-400) 12/09/17 05:36 MPV 7.2 fl 12/09/17 05:36 Neutrophils % 81.7 % (40.0-80.0) H 12/09/17 05:36 Band Neutrophils % 2 % (0-10) 12/07/17 11:36 Lymphocytes % 10.6 % (20.0-50.0) L 12/09/17 05:36 Monocytes % 6.2 % (2.0-10.0) 12/09/17 05:36 Eosinophils % 1.3 % (0.0-5.0) 12/09/17 05:36 Basophils % 0.2 % (0.0-2.0) 12/09/17 05:36 Neutrophils (Manual) 92 % (40-80) H 12/07/17 11:36 Lymphocytes 3 % (20-50) L 12/07/17 11:36 Monocytes 3 % (2-10) 12/07/17 11:36 Eosinophils 0 % (0-5) 12/07/17 11:36 Basophils 0 % (0-3) 12/07/17 11:36 PT 12.4 SECONDS (9.5-11.5) H 12/07/17 11:36 INR 1.18 (0.5-1.4) 12/07/17 11:36 PTT (Actin FS) 28.8 SECONDS (26.0-38.0) 12/07/17 11:36 Sodium 137 mEq/L (136-145) 12/09/17 05:36 Potassium 4.0 mEq/L (3.5-5.1) 12/09/17 05:36 Chloride 107 mEq/L (98-107) 12/09/17 05:36 Carbon Dioxide 22.7 mEq/L (21.0-31.0) 12/09/17 05:36 Anion Gap 11.3 (7.0-16.0) 12/09/17 05:36 BUN 29 mg/dL (7-25) H 12/09/17 05:36 Creatinine 1.5 mg/dL (0.7-1.3) H 12/09/17 05:36 Est GFR ( Amer) TNP 12/09/17 05:36 Est GFR (Non-Af Amer) TNP 12/09/17 05:36 BUN/Creatinine Ratio 19.3 12/09/17 05:36 Glucose 107 mg/dL (70-105) H 12/09/17 05:36 Whole Bld Lactic Acid 1.38 mmol/L (0.60-1.99) 12/07/17 11:36 Calcium 9.0 mg/dL (8.6-10.3) 12/09/17 05:36 Total Bilirubin 1.1 mg/dL (0.3-1.0) H 12/07/17 11:36 AST 18 U/L (13-39) 12/07/17 11:36 ALT 19 U/L (7-52) 12/07/17 11:36 Alkaline Phosphatase 90 U/L (34-104) 12/07/17 11:36 Creatine Kinase 165 U/L (30-223) 12/07/17 11:36 Troponin I 0.01 ng/mL (0.01-0.05) 12/07/17 11:36 Total Protein 6.8 gm/dL (6.0-8.3) 12/07/17 11:36 Albumin 3.4 gm/dL (4.2-5.5) L 12/07/17 11:36 Globulin 3.4 gm/dL 12/07/17 11:36 Albumin/Globulin Ratio 1.0 (1.0-1.8) 12/07/17 11:36 Vancomycin Trough 4.9 ug/mL (5-10) L 12/09/17 07:57 - Physical Exam Vitals and I&O: Vital Signs Temp 96.7 F 12/09/17 04:00 Pulse 70 12/09/17 04:00 Resp 20 12/09/17 04:00 BP 128/72 12/09/17 04:00 Pulse Ox 100 12/09/17 04:00 Intake & Output 12/08/17 12/09/17 12/09/17 18:59 06:59 18:59 Intake Total 850 150 Balance 850 150 Weight (lbs) 110.223 kg 68.538 kg Intake: Oral 850 150 Other: # Voids 3 0 # Bowel Movements 0 Weight Source Bedscale Bedscale Active Medications: Current Medications Acetaminophen (Tylenol) 650 mg PO Q4HR PRN PRN Reason: Mild Pain / Temp above 100 Stop: 02/05/18 22:18 Al Hydrox/Mg Hydrox/Simethicone (Maalox) 30 ml PO Q4HR PRN PRN Reason: GI DISTRESS Stop: 02/05/18 22:18 Clindamycin HCl (Cleocin Hcl) 150 mg PO Q6HR [facility] Stop: 02/06/18 11:59 Last Admin: 12/09/17 05:41 Dose: 150 mg Vancomycin HCl 1 gm/ Sodium (Chloride) 250 mls @ 165 mls/hr IV Q12H [facility] Stop: 02/07/18 11:59 Lorazepam (Ativan) 0.5 mg PO Q4HR PRN; Protocol PRN Reason: Anxiety Stop: 02/05/18 15:32 Last Admin: 12/08/17 10:30 Dose: 0.5 mg Magnesium Hydroxide (Milk Of Magnesia) 30 ml PO HS PRN PRN Reason: Constipation Stop: 02/05/18 22:18 Miscellaneous (Vancomycin Iv Per Pharmacy) 1 ea MC DAILY [facility] Stop: 02/06/18 08:59 Morphine Sulfate (Morphine) 1 mg IM Q4HR PRN PRN Reason: Pain (Moderate) Stop: 02/05/18 15:28 Morphine Sulfate (Morphine) 2 mg IM Q4HR PRN PRN Reason: Pain (Severe) Stop: 02/05/18 15:29 Multivitamins/Vitamin C (Theragran) 1 tab PO DAILY [facility] Stop: 02/06/18 08:59 Last Admin: 12/08/17 08:58 Dose: 1 tab Naproxen (Naprosyn) 500 mg PO BIDWM PRN PRN Reason: bilateral foot pain Stop: 02/05/18 22:18 Ondansetron HCl (Zofran) 4 mg IV Q4H PRN PRN Reason: Nausea / Vomiting Stop: 02/05/18 15:29 Quetiapine Fumarate (Seroquel) 100 mg PO TID [facility]; Protocol Stop: 02/06/18 08:59 Last Admin: 12/08/17 22:13 Dose: 100 mg Zolpidem Tartrate (Ambien) 5 mg PO HS PRN PRN Reason: Insomnia Stop: 02/05/18 22:18 General: no acute distress, well developed, well nourished HEENT: atraumatic, normocephalic, PERRLA Neck: supple, no thyromegaly Cardiovascular: S1S2, regular Lungs: clear to auscultation bilaterally, clear to percussion Abdomen: soft, no tender, no distended, no mass, no hepatomegaly, no splenomegaly, no ascites, no bowel sounds, no obese, no catheter Extremities: no cyanosis, no clubbing, no edema Neurological: awake, alert, oriented Skin: intact Infectious Disease Assmt/Plan - Assessment Assessment: 1. Leukocytosis. 2. Cellulitis of the left thigh. 3. Anemia. 4. Thrombocytopenia. 5. Psych diosrder./ - Plan Plan: Continue same treatment
== END 2017-12-09 16:08 | DRG 871 ==
LOC: ER 11:02 → MSI 13:26
PROVIDERS: ADMIT Internal Medicine; ATTEND Internal Medicine
DX: A41.9 Sepsis, unspecified organism (principal); E43 Unspecified severe protein-calorie malnutrition; L03.116 Cellulitis of left lower limb; D64.9 Anemia, unspecified; D69.6 Thrombocytopenia, unspecified; F29 Unspecified psychosis not due to a substance or known physiological condition; F03.90 Unspecified dementia, unspecified severity, without behavioral disturbance, psychotic disturbance, mood disturbance, and anxiety; I10 Essential (primary) hypertension; E86.0 Dehydration; R79.89 Other specified abnormal findings of blood chemistry; F31.9 Bipolar disorder, unspecified; F20.9 Schizophrenia, unspecified; Z79.899 Other long term (current) drug therapy; Z82.49 Family history of ischemic heart disease and other diseases of the circulatory system
CPT/HCPCS: 36415-UA; 80048-TC; 80053-TC; 80202-TC; 82550-TC; 83605; 84484-TC; 85007-TC; 85025-TC; 85027-TC; 85610-TC; 85730-TC; 93005; 93970-TC-50; J0696; J2543; J3370; J7040; Z7610

== ENCOUNTER 2017-12-09 16:12 | Inpatient (IN) | payer MEDICARE, MEDICAID ==
[2017-12-09] MEDS ORDERED: Haloperidol Lactate 5 mg/mL 1mL Vial ONE (16:18)
[2017-12-09] MEDS ORDERED: Haloperidol Lactate 5 mg/mL 1mL Vial IM ONE (16:25)
[2017-12-09] MEDS ORDERED: Magnesium Hydroxide (MOM) 30 mL UDC PO PRN (16:30)
[2017-12-09] MEDS ORDERED: Maalox 30 mL Cup PO PRN ×2 (16:30→19:58)
[2017-12-09 17:35] VITALS: BP 124/63
--- NOTE | 2017-12-10 00:04 | Consultation ---
DATE OF CONSULTATION: 12/09/2017 PATIENT'S AGE: 72. SEX: Male. PHYSICIAN: Dr. Guo. [employer] TECHNICIAN: Dr. Barraza. TYPE OF THE REPORT: Psychiatric consult. REASON FOR THE CONSULT: Agitation and confusion. HISTORY OF PRESENT ILLNESS: The patient is a 72-year-old male who lives in senior care. The patient was admitted to the hospital because of increased agitation and irritability. The patient has been confused and has been in irritable mood. When I tried to interview the patient, the patient was lucid and he was not able to answer my questions coherently. He has cellulitis of left leg. Also, he has been feeling hopeless and helpless. PAST PSYCHIATRIC HISTORY: The patient has a history of what seems to be depression and agitation. The patient is taking Seroquel 100 mg 3 times a day. PAST MEDICAL HISTORY: The patient has cellulitis of his left thigh and left leg. SOCIAL HISTORY: He lives in a senior care. No known alcohol or drug use. ALLERGIES: No known allergies. MENTAL STATUS EXAM: The patient appears slightly older than his stated age. Anxious. Depressed and irritable mood. Thought processes are mainly goal directed. The patient denies hallucinations or delusions. The patient denies any thoughts of suicide or homicide. The patient is alert and oriented to situation, but not to place and person. Impaired immediate and recent memory, but intact to remote memories. Poor insight and poor judgment. ASSESSMENT: PRIMARY DIAGNOSES: Schizoaffective disorder, bipolar type, with psychosis. TREATMENT PLAN: Continue Seroquel, same dose. Continue to monitor his behavior. Also, continue to work on his mood and we will continue evaluation for further recommendations. Thanks to Dr. Guo and we will follow up with you. JOB# [id number]
[2017-12-10] MEDS: Multivitamin Tab PO SCH (09:29)
--- NOTE | 2017-12-10 20:39 | Psychosocial Evaluation ---
DATE OF SERVICE: PSYCHIATRIC INITIAL EVALUATION AND MENTAL STATUS EXAM AGE: 72. SEX: Male. PHYSICIAN: Dr. Barraza. CHIEF COMPLAINT: Agitation and irritability. HISTORY OF PRESENT ILLNESS: The patient is a 72-year-old male who was transferred from Med-Surg unit because of increased agitation and irritability. The patient tried to strike out at staff and nurses and also was trying to hit himself while in the Med-Surg unit. The patient was also trying to take off his clothes. The patient was transferred to [facility]. The patient also was extremely agitated and he was given Haldol, Ativan and Benadryl emergency dose yesterday to help with his confusion and his agitation and irritability. PAST PSYCHIATRIC HISTORY: The patient has long history of psychosis and agitation. The patient is taking Seroquel and Ativan. PAST MEDICAL HISTORY: Noncontributory. SOCIAL HISTORY: No known alcohol or drug use. ALLERGIES: No known allergies. MENTAL STATUS EXAMINATION: The patient appears his stated age. Agitated. Irritable mood. Angry. It is difficult to answer questions coherently because of his agitation and confusion. The patient is alert, but unable to assess orientation and memory at this time. Poor insight and poor judgment. ASSESSMENT: PRIMARY DIAGNOSIS: Unspecified psychosis. TREATMENT PLAN: We will continue monitoring his behavior and his condition closely. We will continue Seroquel and adjusting the dose. ESTIMATED LENGTH OF STAY: 5-7 days. AFTER DISCHARGE PLAN: The patient will return to alf with plans for outpatient treatment and follow up to continue as an outpatient. [facility]# [id number]
[2017-12-11] MEDS: Multivitamin Tab PO SCH (09:39)
--- NOTE | 2017-12-11 10:46 | History & Physical ---
ADMIT DATE: 12/11/2017 CHIEF COMPLAINT: Agitation and irritability. HISTORY OF PRESENT ILLNESS: This is a 72-year-old male who was originally admitted from the Med-Surg unit due to agitation and irritability and because of aggressive behavior towards the staff, the patient was moved to the psychiatric unit. SOCIAL HISTORY: No known alcohol or drug use. PAST MEDICAL HISTORY: Osteoarthritis. FAMILY HISTORY: Unremarkable. SURGICAL HISTORY: Unremarkable. PHYSICAL EXAMINATION: VITAL SIGNS: Temperature 97.4, heart rate 75, blood pressure 129/62, respirations 20, 97% on room air. HEENT: Head is atraumatic and normocephalic. Eyes, bilateral conjunctivae are clear. Bilateral pupils are equally round, reactive. NECK: Supple. No JVD. CARDIOVASCULAR: S1 and S2, without murmur. PULMONARY: Clear to auscultation. GASTROINTESTINAL: Soft and nontender without guarding. Positive bowel sounds. MUSCULOSKELETAL: No clubbing. No cyanosis noted. ASSESSMENT: 1. Psychosis. 2. Osteoarthritis. PLAN: We will admit the patient to Psychiatric Unit. We will follow up with a psychiatrist to monitor the patient's condition and behavior. We are also going to do medication reconciliation accordingly. Treatment plans were discussed with the patient's nurse. Treatment plans were discussed with Dr. Guo. [facility]# [id number]
--- NOTE | 2017-12-12 06:50 | Progress Notes ---
DATE: SUBJECTIVE: Chart reviewed and the patient interviewed. Also discussed the patient's condition with the staff and reviewed records and labs. The patient continued to be easily agitated and he is still actively responding to stimuli. The patient also is talking to himself. He also is still feeling hopeless and he is still careless. He also is still having severe mood swings. Otherwise, the patient is compliant with taking his medications with no side effects of medications. ASSESSMENT: The patient is still agitated and can be dangerous to others. TREATMENT PLAN: Continue to monitor his behavior and his condition closely. Also, we will continue to work on behavior modification and followup. JOB# [id number]
--- NOTE | 2017-12-12 07:05 | General Progress Note ---
Subjective - Review of Systems Events since last encounter: patient awake irritable unpredictable Objective - Physical Exam Vitals and I&O: Vital Signs Temp 98.6 F 12/12/17 06:42 Pulse 72 12/12/17 06:42 Resp 19 12/12/17 06:42 BP 124/69 12/12/17 06:42 Pulse Ox 98 12/12/17 06:42 Intake & Output 12/11/17 12/12/17 12/12/17 18:59 06:59 18:59 Intake Total 1500 120 Balance 1500 120 Intake: Oral 1500 120 Other: # Voids 5 2 # Bowel Movements 0 Active Medications: Current Medications Acetaminophen (Tylenol) 650 mg PO Q4HR PRN PRN Reason: Mild Pain / Temp above 100 Stop: 02/07/18 16:29 Al Hydrox/Mg Hydrox/Simethicone (Maalox) 30 ml PO Q4HR PRN PRN Reason: GI DISTRESS Stop: 02/07/18 16:29 Clindamycin HCl (Cleocin Hcl) 150 mg PO Q6HR [facility] Stop: 02/08/18 00:00 Last Admin: 12/12/17 06:39 Dose: 150 mg Lorazepam (Ativan) 0.5 mg PO Q4HR PRN; Protocol PRN Reason: Anxiety Stop: 02/07/18 16:34 Last Admin: 12/11/17 13:22 Dose: 0.5 mg Magnesium Hydroxide (Milk Of Magnesia) 30 ml PO HS PRN PRN Reason: Constipation Multivitamins/Vitamin C (Theragran) 1 tab PO DAILY [facility] Stop: 02/08/18 08:59 Last Admin: 12/11/17 09:39 Dose: 1 tab Naproxen (Naprosyn) 500 mg PO BIDWM PRN PRN Reason: bilateral foot pain Stop: 02/07/18 19:57 Quetiapine Fumarate (Seroquel) 100 mg PO TID CRISTELA; Protocol Stop: 02/07/18 20:59 Last Admin: 12/11/17 20:49 Dose: 100 mg Zolpidem Tartrate (Ambien) 5 mg PO HS PRN PRN Reason: Insomnia Stop: 02/07/18 16:29 Last Admin: 12/11/17 21:11 Dose: 5 mg
[2017-12-12] MEDS: Multivitamin Tab PO SCH (09:08)
--- NOTE | 2017-12-12 17:46 | Progress Notes ---
DATE: SUBJECTIVE: Chart reviewed and the patient interviewed. Also discussed the patient's condition with the staff and reviewed records and labs. The patient is still easily agitated. The patient also is still actively responding to stimuli. Also, is talking to himself. The patient also is still argumentative. Otherwise, the patient is compliant with taking his medications with no side effect of medications. ASSESSMENT: The patient is still psychotic. TREATMENT PLAN: We will continue monitoring his behavior and his condition and continue adjusting psychotropic medications and working on his poor impulse control. JOB# [id number]
--- NOTE | 2017-12-13 08:46 | General Progress Note ---
Subjective - Review of Systems Events since last encounter: patient awake still psychotic Objective - Physical Exam Vitals and I&O: Vital Signs Temp 97.8 F 12/13/17 06:44 Pulse 65 12/13/17 06:44 Resp 20 12/13/17 06:44 BP 130/71 12/13/17 06:44 Pulse Ox 99 12/13/17 06:44 Intake & Output 12/12/17 12/13/17 12/13/17 18:59 06:59 18:59 Intake Total 1000 120 Balance 1000 120 Intake: Oral 1000 120 Other: # Voids 3 3 # Bowel Movements 1 Active Medications: Current Medications Acetaminophen (Tylenol) 650 mg PO Q4HR PRN PRN Reason: Mild Pain / Temp above 100 Stop: 02/07/18 16:29 Al Hydrox/Mg Hydrox/Simethicone (Maalox) 30 ml PO Q4HR PRN PRN Reason: GI DISTRESS Stop: 02/07/18 16:29 Clindamycin HCl (Cleocin Hcl) 150 mg PO Q6HR CRISTELA Stop: 02/08/18 00:00 Last Admin: 12/13/17 06:24 Dose: 150 mg Lorazepam (Ativan) 0.5 mg PO Q4HR PRN; Protocol PRN Reason: Anxiety Stop: 02/07/18 16:34 Last Admin: 12/11/17 13:22 Dose: 0.5 mg Magnesium Hydroxide (Milk Of Magnesia) 30 ml PO HS PRN PRN Reason: Constipation Multivitamins/Vitamin C (Theragran) 1 tab PO DAILY CRISTELA Stop: 02/08/18 08:59 Last Admin: 12/12/17 09:08 Dose: 1 tab Naproxen (Naprosyn) 500 mg PO BIDWM PRN PRN Reason: bilateral foot pain Stop: 02/07/18 19:57 Last Admin: 12/12/17 09:14 Dose: 500 mg Quetiapine Fumarate (Seroquel) 100 mg PO TID CRISTELA; Protocol Stop: 02/07/18 20:59 Last Admin: 12/12/17 21:02 Dose: 100 mg Zolpidem Tartrate (Ambien) 5 mg PO HS PRN PRN Reason: Insomnia Stop: 02/07/18 16:29 Last Admin: 12/11/17 21:11 Dose: 5 mg General: No acute distress HEENT: Atraumatic Neck: Supple Cardiovascular: Regular rate, Normal S1, Normal S2 Abdomen: Bowel sounds Assessment/Plan - Plan Plan: as per psych will monitor
[2017-12-13] MEDS: Multivitamin Tab PO SCH (09:37)
[2017-12-14] MEDS: Multivitamin Tab PO SCH (09:09)
--- NOTE | 2017-12-14 22:39 | Progress Notes ---
DATE: 12/14/2017 PSYCHIATRIC PROGRESS NOTE: Chart reviewed and the patient interviewed. Also discussed the patient's condition with the staff and reviewed records and labs. The patient seems to be quite and is isolative. The patient also is still withdrawn and is still interacting minimally. He also today seems to be not complaining of roommate and of the space in the room like yesterday. The patient also is compliant with taking Seroquel with no side effects. ASSESSMENT: The patient is less agitated and seems to be less paranoid and reactive. TREATMENT PLAN: Continue Seroquel 100 mg 3 times a day. Also, continue to monitor his behavior and continue to follow up. JOB# [id number]
[2017-12-15] MEDS: Multivitamin Tab PO SCH (09:38)
--- NOTE | 2017-12-15 16:27 | General Progress Note ---
Subjective - Review of Systems Events since last encounter: anxious paranoid Objective - Physical Exam Vitals and I&O: Vital Signs Temp 97.1 F 12/15/17 14:00 Pulse 85 12/15/17 14:00 Resp 20 12/15/17 14:00 BP 128/74 12/15/17 14:00 Pulse Ox 97 12/15/17 14:00 Intake & Output 12/14/17 12/15/17 12/15/17 18:59 06:59 18:59 Intake Total 1300 360 Balance 1300 360 Intake: Oral 1300 360 Other: # Voids 3 1 # Bowel Movements 1 0 Active Medications: Current Medications Acetaminophen (Tylenol) 650 mg PO Q4HR PRN PRN Reason: Mild Pain / Temp above 100 Stop: 02/07/18 16:29 Al Hydrox/Mg Hydrox/Simethicone (Maalox) 30 ml PO Q4HR PRN PRN Reason: GI DISTRESS Stop: 02/07/18 16:29 Clindamycin HCl (Cleocin Hcl) 150 mg PO Q6HR CRISTELA Stop: 02/08/18 00:00 Last Admin: 12/15/17 12:55 Dose: Not Given Lorazepam (Ativan) 0.5 mg PO Q4HR PRN; Protocol PRN Reason: Anxiety Stop: 02/07/18 16:34 Last Admin: 12/14/17 14:33 Dose: 0.5 mg Magnesium Hydroxide (Milk Of Magnesia) 30 ml PO HS PRN PRN Reason: Constipation Multivitamins/Vitamin C (Theragran) 1 tab PO DAILY [facility] Stop: 02/08/18 08:59 Last Admin: 12/15/17 09:38 Dose: 1 tab Naproxen (Naprosyn) 500 mg PO BIDWM PRN PRN Reason: bilateral foot pain Stop: 02/07/18 19:57 Last Admin: 12/12/17 09:14 Dose: 500 mg Quetiapine Fumarate (Seroquel) 100 mg PO TID CRISTELA; Protocol Stop: 02/07/18 20:59 Last Admin: 12/15/17 14:56 Dose: Not Given Zolpidem Tartrate (Ambien) 5 mg PO HS PRN PRN Reason: Insomnia Stop: 02/07/18 16:29 Last Admin: 12/14/17 20:05 Dose: 5 mg General: No acute distress HEENT: Atraumatic Neck: Supple Cardiovascular: Regular rate, Normal S1, Normal S2 Abdomen: Bowel sounds Assessment/Plan - Plan Plan: as per psych will monitor Nutritional Asmnt/Malnutr-PDOC - Dietary Evaluation Malnutrition Findings (Please click <Entered> for more info): Nutritional Asmnt/Malnutrition Start: 12/13/17 14: 47 Text: Status: Complete Freq: Protocol: Document 12/13/17 14:47 ANGELG (Rec: 12/13/17 14:50 LCELLIOTT [email or web address]) Nutritional Asmnt/Malnutrition Patient General Information Nutritional Screening Moderate Risk Diagnosis psychosis Pertinent Medical Hx/Surgical Hx OA Subjective Information Pt seen eating lunch in his room at time of visit. Pt was confused, stated good appetite , not able to provide more infomation. Per EMR, PO intake 100% of meals. Current Diet Order/ Nutrition Support cardiac Pertinent Medications theragra, seroquel Pertinent Labs no labs Nutritional Hx/Data Height 1.88 m Height (Calculated Centimeters) 188.0 Current Weight (lbs) 68.492 kg Weight (Calculated Kilograms) 68.5 Weight (Calculated Grams) 03912.4 [place] Body Weight 190 Body Mass Index (BMI) 19.3 Weight Status Approriate GI Symptoms GI Symptoms None Last BM 12/12 Difficult in: None Skin Integrity/Comment: cellulitis Current %PO Good (75-100%) Estimated Nutritional Goals BEE in Kcals: Using Current wt Calories/Kcals/Kg 25-30 Kcals Calculated 0367-4318 Protein: Using Current wt Protein g/k.8-1 Protein Calculated 54-68 Fluid: ml 1725-2070ml (1ml/kcal) Nutritional Problem No current Nutrition Prob Problem N/A Malnutrition Alert Is there a minimum of two criteria No selected? Query Text:Check all the applicable criteria. A minimum of two criteria are recommended for diagnosis of either severe or non-severe malnutrition. Malnutrition Related to Morbid Obesity Malnutrition related to morbid obesity No Intervention/Recommendation Comments 1. Continue with current diet as ordered. 2. Monitor PO intake, wt, labs and skin integrity 3. F/U as low risk in 7 days, 12/20 Expected Outcomes/Goals Expected Outcomes/Goals 1. PO intake to meet at least 75% of nutritional needs. 2. Wt stability, skin to remain intact
--- NOTE | 2017-12-15 16:37 | Progress Notes ---
DATE: 12/13/2017 SUBJECTIVE: Chart reviewed and the patient interviewed. Also discussed the patient's condition with the staff and reviewed records and labs. The patient is still obsessed with his space and he has difficulty when leaving the room, thinking that the patient's tend a bit closer to the door is occupying the exit. He gets angry and agitated at that time. Also is still slightly suspicious and slightly paranoid and easily agitated. On the other hand, the patient continued to comply with taking his medications and no side effects. ASSESSMENT: The patient is still psychotic and agitated. TREATMENT PLAN: Continue monitoring his condition and behavior and continue to work on behavioral modification. Also, continue Seroquel in a dose of 100 mg 3 times a day and continue to follow up. JOB# [id number]
--- NOTE | 2017-12-15 20:45 | Progress Notes ---
DATE: 12/15/2017 SUBJECTIVE: Chart reviewed and the patient interviewed. Also, discussed the patient's condition with the staff and reviewed records and labs. The patient is confused and he is still withdrawn. The patient also is talking to himself. He also is still covering his face with his gown, exposing himself inappropriately. The patient also is still preoccupied and talking to self. Otherwise, the patient is compliant with taking his medications and no side effects of Seroquel and the patient does not seem sedated. ASSESSMENT: The patient is still confused and psychotic. TREATMENT PLAN: We will continue monitoring his behavior and his condition closely. Also, continue Seroquel same dose and we will continue to follow up closely. JOB# [id number]
[2017-12-16] MEDS: Multivitamin Tab PO SCH (09:44)
--- NOTE | 2017-12-16 11:28 | General Progress Note ---
Subjective - Review of Systems Events since last encounter: no change Objective - Physical Exam Vitals and I&O: Vital Signs Temp 97.2 F 12/16/17 06:10 Pulse 62 12/16/17 06:10 Resp 20 12/16/17 06:10 BP 120/67 12/16/17 06:10 Pulse Ox 98 12/16/17 06:10 Intake & Output 12/15/17 12/16/17 12/16/17 18:59 06:59 18:59 Intake Total 1100 120 Balance 1100 120 Intake: Oral 1100 120 Other: # Voids 4 2 # Bowel Movements 1 Active Medications: Current Medications Acetaminophen (Tylenol) 650 mg PO Q4HR PRN PRN Reason: Mild Pain / Temp above 100 Stop: 02/07/18 16:29 Al Hydrox/Mg Hydrox/Simethicone (Maalox) 30 ml PO Q4HR PRN PRN Reason: GI DISTRESS Stop: 02/07/18 16:29 Clindamycin HCl (Cleocin Hcl) 150 mg PO Q6HR CRISTELA Stop: 02/08/18 00:00 Last Admin: 12/16/17 06:36 Dose: 150 mg Lorazepam (Ativan) 0.5 mg PO Q4HR PRN; Protocol PRN Reason: Anxiety Stop: 02/07/18 16:34 Last Admin: 12/14/17 14:33 Dose: 0.5 mg Magnesium Hydroxide (Milk Of Magnesia) 30 ml PO HS PRN PRN Reason: Constipation Multivitamins/Vitamin C (Theragran) 1 tab PO DAILY CRISTELA Stop: 02/08/18 08:59 Last Admin: 12/16/17 09:44 Dose: 1 tab Naproxen (Naprosyn) 500 mg PO BIDWM PRN PRN Reason: bilateral foot pain Stop: 02/07/18 19:57 Last Admin: 12/12/17 09:14 Dose: 500 mg Quetiapine Fumarate (Seroquel) 100 mg PO TID CRISTELA; Protocol Stop: 02/07/18 20:59 Last Admin: 12/16/17 09:44 Dose: 100 mg Zolpidem Tartrate (Ambien) 5 mg PO HS PRN PRN Reason: Insomnia Stop: 02/07/18 16:29 Last Admin: 12/15/17 20:04 Dose: 5 mg General: No acute distress HEENT: Atraumatic Neck: Supple Cardiovascular: Regular rate, Normal S1, Normal S2 Abdomen: Bowel sounds Assessment/Plan - Plan Plan: as per psych will monitor Nutritional Asmnt/Malnutr-PDOC - Dietary Evaluation Malnutrition Findings (Please click <Entered> for more info): Nutritional Asmnt/Malnutrition Start: 12/13/17 14: 47 Text: Status: Complete Freq: Protocol: Document 12/13/17 14:47 ANGELG (Rec: 12/13/17 14:50 LCELLIOTT [id number]) Nutritional Asmnt/Malnutrition Patient General Information Nutritional Screening Moderate Risk Diagnosis psychosis Pertinent Medical Hx/Surgical Hx OA Subjective Information Pt seen eating lunch in his room at time of visit. Pt was confused, stated good appetite , not able to provide more infomation. Per EMR, PO intake 100% of meals. Current Diet Order/ Nutrition Support cardiac Pertinent Medications theragra, seroquel Pertinent Labs no labs Nutritional Hx/Data Height 1.88 m Height (Calculated Centimeters) 188.0 Current Weight (lbs) 68.492 kg Weight (Calculated Kilograms) 68.5 Weight (Calculated Grams) 44727.4 [place] Body Weight 190 Body Mass Index (BMI) 19.3 Weight Status Approriate GI Symptoms GI Symptoms None Last BM 12/12 Difficult in: None Skin Integrity/Comment: cellulitis Current %PO Good (75-100%) Estimated Nutritional Goals BEE in Kcals: Using Current wt Calories/Kcals/Kg 25-30 Kcals Calculated 3434-3502 Protein: Using Current wt Protein g/k.8-1 Protein Calculated 54-68 Fluid: ml 1725-2070ml (1ml/kcal) Nutritional Problem No current Nutrition Prob Problem N/A Malnutrition Alert Is there a minimum of two criteria No selected? Query Text:Check all the applicable criteria. A minimum of two criteria are recommended for diagnosis of either severe or non-severe malnutrition. Malnutrition Related to Morbid Obesity Malnutrition related to morbid obesity No Intervention/Recommendation Comments 1. Continue with current diet as ordered. 2. Monitor PO intake, wt, labs and skin integrity 3. F/U as low risk in 7 days, 12/20 Expected Outcomes/Goals Expected Outcomes/Goals 1. PO intake to meet at least 75% of nutritional needs. 2. Wt stability, skin to remain intact
--- NOTE | 2017-12-17 00:29 | Progress Notes ---
DATE: SUBJECTIVE: Chart reviewed and the patient interviewed. Also discussed the patient's condition with the staff and reviewed records and labs. The patient continued to be impulsive and has disorganized thoughts. The patient also is preoccupied and is confused. Also, unpredictable. The patient also is still easily agitated and is still talking to himself. Also, during my trial to talk to the patient, the patient to continue covering his face with his hospital gown. ASSESSMENT: The patient is still psychotic and unpredictable. TREATMENT PLAN: We will continue monitoring his behavior and his condition closely. Also, continue adjusting psychotropic medications and working on his psychosis and continue to follow up. JOB# [id number]
[2017-12-17] MEDS: Multivitamin Tab PO SCH (08:37)
--- NOTE | 2017-12-17 15:43 | Progress Notes ---
DATE: 12/17/2017 SUBJECTIVE: Chart reviewed and the patient interviewed. Also discussed the patient's condition with the staff and reviewed records and labs. The patient is still confused and isolative. The patient also is interacting minimally with others. He is still at time gets obsessed with certain things, but easier to redirect him. Also seems to be preoccupied and impulsive at times. Otherwise, the patient is compliant with taking his medications with no side effects. ASSESSMENT: The patient is still psychotic and needs lots of redirections. TREATMENT PLAN: Continue Seroquel in a dose of 100 mg 3 times a day. Also, continue to work on his poor impulse control and his irritability and continue to follow up. JOB# [id number]
--- NOTE | 2017-12-17 15:59 | Internal Medicine Prog Note ---
Internal Medicine Subjective - Subjective Service Date: 12/17/17 Patient seen and examined:: with staff Patient is:: awake Per staff patient has:: no adverse event, tolerating meds Internal Medicine Objective - Physical Exam Vitals and I&O: Vital Signs Temp 97.3 F 12/17/17 14:00 Pulse 72 12/17/17 14:00 Resp 20 12/17/17 14:00 BP 142/64 12/17/17 14:00 Pulse Ox 99 12/17/17 14:00 Intake & Output 12/16/17 12/17/17 12/17/17 18:59 06:59 18:59 Intake Total 1500 120 Balance 1500 120 Intake: Oral 1500 120 Other: # Voids 3 2 Active Medications: Current Medications Acetaminophen (Tylenol) 650 mg PO Q4HR PRN PRN Reason: Mild Pain / Temp above 100 Stop: 02/07/18 16:29 Al Hydrox/Mg Hydrox/Simethicone (Maalox) 30 ml PO Q4HR PRN PRN Reason: GI DISTRESS Stop: 02/07/18 16:29 Lorazepam (Ativan) 0.5 mg PO Q4HR PRN; Protocol PRN Reason: Anxiety Stop: 02/07/18 16:34 Last Admin: 12/14/17 14:33 Dose: 0.5 mg Magnesium Hydroxide (Milk Of Magnesia) 30 ml PO HS PRN PRN Reason: Constipation Multivitamins/Vitamin C (Theragran) 1 tab PO DAILY CRISTELA Stop: 02/08/18 08:59 Last Admin: 12/17/17 08:37 Dose: 1 tab Naproxen (Naprosyn) 500 mg PO BIDWM PRN PRN Reason: bilateral foot pain Stop: 02/07/18 19:57 Last Admin: 12/12/17 09:14 Dose: 500 mg Quetiapine Fumarate (Seroquel) 100 mg PO TID CRISTELA; Protocol Stop: 02/07/18 20:59 Last Admin: 12/17/17 14:52 Dose: 100 mg Zolpidem Tartrate (Ambien) 5 mg PO HS PRN PRN Reason: Insomnia Stop: 02/07/18 16:29 Last Admin: 12/16/17 20:03 Dose: 5 mg General: alert HEENT: NC/AT, PERRLA Neck: Supple Lungs: CTAB Cardiovascular: RRR, Normal S1, Normal S2, without murmur Neurological: no change Internal Medicine Assmt/Plan - Assessment Assessment: oa psychosis - Plan Plan: cpm Nutritional Asmnt/Malnutr-PDOC - Dietary Evaluation Malnutrition Findings (Please click <Entered> for more info): Nutritional Asmnt/Malnutrition Start: 12/13/17 14: 47 Text: Status: Complete Freq: Protocol: Document 12/13/17 14:47 KARIN (Rec: 12/13/17 14:50 LCELLIOTT [email or web address]) Nutritional Asmnt/Malnutrition Patient General Information Nutritional Screening Moderate Risk Diagnosis psychosis Pertinent Medical Hx/Surgical Hx OA Subjective Information Pt seen eating lunch in his room at time of visit. Pt was confused, stated good appetite , not able to provide more infomation. Per EMR, PO intake 100% of meals. Current Diet Order/ Nutrition Support cardiac Pertinent Medications theragra, seroquel Pertinent Labs no labs Nutritional Hx/Data Height 6 ft 2 in Height (Calculated Centimeters) 188.0 Current Weight (lbs) 151 lb Weight (Calculated Kilograms) 68.5 Weight (Calculated Grams) 50100.4 [place] Body Weight 190 Body Mass Index (BMI) 19.3 Weight Status Approriate GI Symptoms GI Symptoms None Last BM 12/12 Difficult in: None Skin Integrity/Comment: cellulitis Current %PO Good (75-100%) Estimated Nutritional Goals BEE in Kcals: Using Current wt Calories/Kcals/Kg 25-30 Kcals Calculated 9430-0644 Protein: Using Current wt Protein g/k.8-1 Protein Calculated 54-68 Fluid: ml 1725-2070ml (1ml/kcal) Nutritional Problem No current Nutrition Prob Problem N/A Malnutrition Alert Is there a minimum of two criteria No selected? Query Text:Check all the applicable criteria. A minimum of two criteria are recommended for diagnosis of either severe or non-severe malnutrition. Malnutrition Related to Morbid Obesity Malnutrition related to morbid obesity No Intervention/Recommendation Comments 1. Continue with current diet as ordered. 2. Monitor PO intake, wt, labs and skin integrity 3. F/U as low risk in 7 days, 12/20 Expected Outcomes/Goals Expected Outcomes/Goals 1. PO intake to meet at least 75% of nutritional needs. 2. Wt stability, skin to remain intact
[2017-12-18] MEDS: Multivitamin Tab PO SCH (08:02)
--- NOTE | 2017-12-18 17:04 | Progress Notes ---
DATE: SUBJECTIVE: Chart reviewed and the patient interviewed. Also discussed the patient's condition with the staff and reviewed records and labs. The patient remains confused and anxious. The patient also is still easily agitated. The patient kept shaking my hands and talking to me about different topics and needs lots of redirections. He also is still wants to be left alone at times and other times is suspicious and paranoid and hypertalkative. ASSESSMENT: The patient is still agitated and psychotic. TREATMENT PLAN: Continue to monitor his behavior and his condition closely. Also, continue Seroquel 100 mg 3 times a day. Also, continue to work on his mood swings and confusion and continue to follow up. JOB# [id number]
[2017-12-19] MEDS: Multivitamin Tab PO SCH (08:50)
--- NOTE | 2017-12-19 11:38 | General Progress Note ---
Subjective - Review of Systems Events since last encounter: patient agitated in no distress Objective - Physical Exam Vitals and I&O: Vital Signs Temp 98.4 F 12/19/17 06:11 Pulse 58 12/19/17 06:11 Resp 20 12/19/17 06:11 BP 129/71 12/19/17 06:11 Pulse Ox 98 12/19/17 06:11 Intake & Output 12/18/17 12/19/17 12/19/17 18:59 06:59 18:59 Intake Total 1000 480 Balance 1000 480 Intake: Oral 1000 480 Other: # Voids 4 1 # Bowel Movements 1 Active Medications: Current Medications Acetaminophen (Tylenol) 650 mg PO Q4HR PRN PRN Reason: Mild Pain / Temp above 100 Stop: 02/07/18 16:29 Al Hydrox/Mg Hydrox/Simethicone (Maalox) 30 ml PO Q4HR PRN PRN Reason: GI DISTRESS Stop: 02/07/18 16:29 Lorazepam (Ativan) 0.5 mg PO Q4HR PRN; Protocol PRN Reason: Anxiety Stop: 02/07/18 16:34 Last Admin: 12/14/17 14:33 Dose: 0.5 mg Magnesium Hydroxide (Milk Of Magnesia) 30 ml PO HS PRN PRN Reason: Constipation Multivitamins/Vitamin C (Theragran) 1 tab PO DAILY CRISTELA Stop: 02/08/18 08:59 Last Admin: 12/19/17 08:50 Dose: 1 tab Naproxen (Naprosyn) 500 mg PO BIDWM PRN PRN Reason: bilateral foot pain Stop: 02/07/18 19:57 Last Admin: 12/19/17 09:08 Dose: 500 mg Quetiapine Fumarate (Seroquel) 100 mg PO TID CRISTELA; Protocol Stop: 02/07/18 20:59 Last Admin: 12/19/17 08:50 Dose: 100 mg Zolpidem Tartrate (Ambien) 5 mg PO HS PRN PRN Reason: Insomnia Stop: 02/07/18 16:29 Last Admin: 12/18/17 21:04 Dose: 5 mg General: No acute distress HEENT: Atraumatic Neck: Supple Cardiovascular: Regular rate, Normal S1, Normal S2 Abdomen: Bowel sounds Assessment/Plan - Plan Plan: as per psych will monitor Nutritional Asmnt/Malnutr-PDOC - Dietary Evaluation Malnutrition Findings (Please click <Entered> for more info): Nutritional Asmnt/Malnutrition Start: 12/13/17 14: 47 Text: Status: Complete Freq: Protocol: Document 12/13/17 14:47 KARIN (Rec: 12/13/17 14:50 KARIN [email or web address]) Nutritional Asmnt/Malnutrition Patient General Information Nutritional Screening Moderate Risk Diagnosis psychosis Pertinent Medical Hx/Surgical Hx OA Subjective Information Pt seen eating lunch in his room at time of visit. Pt was confused, stated good appetite , not able to provide more infomation. Per EMR, PO intake 100% of meals. Current Diet Order/ Nutrition Support cardiac Pertinent Medications theragra, seroquel Pertinent Labs no labs Nutritional Hx/Data Height 1.88 m Height (Calculated Centimeters) 188.0 Current Weight (lbs) 68.492 kg Weight (Calculated Kilograms) 68.5 Weight (Calculated Grams) 34300.4 [place] Body Weight 190 Body Mass Index (BMI) 19.3 Weight Status Approriate GI Symptoms GI Symptoms None Last BM 12/12 Difficult in: None Skin Integrity/Comment: cellulitis Current %PO Good (75-100%) Estimated Nutritional Goals BEE in Kcals: Using Current wt Calories/Kcals/Kg 25-30 Kcals Calculated 2636-8568 Protein: Using Current wt Protein g/k.8-1 Protein Calculated 54-68 Fluid: ml 1725-2070ml (1ml/kcal) Nutritional Problem No current Nutrition Prob Problem N/A Malnutrition Alert Is there a minimum of two criteria No selected? Query Text:Check all the applicable criteria. A minimum of two criteria are recommended for diagnosis of either severe or non-severe malnutrition. Malnutrition Related to Morbid Obesity Malnutrition related to morbid obesity No Intervention/Recommendation Comments 1. Continue with current diet as ordered. 2. Monitor PO intake, wt, labs and skin integrity 3. F/U as low risk in 7 days, 12/20 Expected Outcomes/Goals Expected Outcomes/Goals 1. PO intake to meet at least 75% of nutritional needs. 2. Wt stability, skin to remain intact
--- NOTE | 2017-12-20 08:32 | Progress Notes ---
DATE: 12/19/2017 SUBJECTIVE: Chart reviewed and the patient interviewed. Also discussed the patient's condition with the staff and reviewed records and labs. The patient continued to be confused and he is still easily agitated and is hyperverbal. The patient also is intrusive to others. The patient also still needs lots of redirections. He also pacing up and down the unit. Otherwise, the patient is compliant with taking his medications with no side effects of medications. ASSESSMENT: The patient is still psychotic. TREATMENT PLAN: Continue to monitor his behavior and his condition closely. Also, continue current psychotropic medications and working on placement issue and discharge plans. JOB# [id number]
[2017-12-20] MEDS: Multivitamin Tab PO SCH (09:07)
--- NOTE | 2017-12-20 16:00 | General Progress Note ---
Subjective - Review of Systems Events since last encounter: patient still psychotic no change Objective - Physical Exam Vitals and I&O: Vital Signs Temp 97.2 F 12/20/17 15:34 Pulse 83 12/20/17 15:34 Resp 19 12/20/17 15:34 BP 158/78 12/20/17 15:34 Pulse Ox 99 12/20/17 15:34 Intake & Output 12/19/17 12/20/17 12/20/17 18:59 06:59 18:59 Intake Total 1200 360 Balance 1200 360 Intake: Oral 1200 360 Other: # Voids 4 1 # Bowel Movements 1 0 Active Medications: Current Medications Acetaminophen (Tylenol) 650 mg PO Q4HR PRN PRN Reason: Mild Pain / Temp above 100 Stop: 02/07/18 16:29 Al Hydrox/Mg Hydrox/Simethicone (Maalox) 30 ml PO Q4HR PRN PRN Reason: GI DISTRESS Stop: 02/07/18 16:29 Lorazepam (Ativan) 0.5 mg PO Q4HR PRN; Protocol PRN Reason: Anxiety Stop: 02/07/18 16:34 Last Admin: 12/14/17 14:33 Dose: 0.5 mg Magnesium Hydroxide (Milk Of Magnesia) 30 ml PO HS PRN PRN Reason: Constipation Multivitamins/Vitamin C (Theragran) 1 tab PO DAILY CRISTELA Stop: 02/08/18 08:59 Last Admin: 12/20/17 09:07 Dose: 1 tab Naproxen (Naprosyn) 500 mg PO BIDWM PRN PRN Reason: bilateral foot pain Stop: 02/07/18 19:57 Last Admin: 12/19/17 09:08 Dose: 500 mg Quetiapine Fumarate (Seroquel) 100 mg PO TID CRISTELA Stop: 02/18/18 13:59 Last Admin: 12/20/17 13:34 Dose: 100 mg Zolpidem Tartrate (Ambien) 5 mg PO HS PRN PRN Reason: Insomnia Stop: 02/07/18 16:29 Last Admin: 12/19/17 21:11 Dose: 5 mg General: No acute distress HEENT: Atraumatic Neck: Supple Cardiovascular: Regular rate, Normal S1, Normal S2 Abdomen: Bowel sounds Assessment/Plan - Plan Plan: as per psych will monitor Nutritional Asmnt/Malnutr-PDOC - Dietary Evaluation Malnutrition Findings (Please click <Entered> for more info): Nutritional Asmnt/Malnutrition Start: 12/13/17 14: 47 Text: Status: Complete Freq: Protocol: Document 12/13/17 14:47 KARIN (Rec: 12/13/17 14:50 KARIN [email or web address]) Nutritional Asmnt/Malnutrition Patient General Information Nutritional Screening Moderate Risk Diagnosis psychosis Pertinent Medical Hx/Surgical Hx OA Subjective Information Pt seen eating lunch in his room at time of visit. Pt was confused, stated good appetite , not able to provide more infomation. Per EMR, PO intake 100% of meals. Current Diet Order/ Nutrition Support cardiac Pertinent Medications theragra, seroquel Pertinent Labs no labs Nutritional Hx/Data Height 1.88 m Height (Calculated Centimeters) 188.0 Current Weight (lbs) 68.492 kg Weight (Calculated Kilograms) 68.5 Weight (Calculated Grams) 74053.4 [place] Body Weight 190 Body Mass Index (BMI) 19.3 Weight Status Approriate GI Symptoms GI Symptoms None Last BM 12/12 Difficult in: None Skin Integrity/Comment: cellulitis Current %PO Good (75-100%) Estimated Nutritional Goals BEE in Kcals: Using Current wt Calories/Kcals/Kg 25-30 Kcals Calculated 0775-3367 Protein: Using Current wt Protein g/k.8-1 Protein Calculated 54-68 Fluid: ml 1725-2070ml (1ml/kcal) Nutritional Problem No current Nutrition Prob Problem N/A Malnutrition Alert Is there a minimum of two criteria No selected? Query Text:Check all the applicable criteria. A minimum of two criteria are recommended for diagnosis of either severe or non-severe malnutrition. Malnutrition Related to Morbid Obesity Malnutrition related to morbid obesity No Intervention/Recommendation Comments 1. Continue with current diet as ordered. 2. Monitor PO intake, wt, labs and skin integrity 3. F/U as low risk in 7 days, 12/20 Expected Outcomes/Goals Expected Outcomes/Goals 1. PO intake to meet at least 75% of nutritional needs. 2. Wt stability, skin to remain intact
--- NOTE | 2017-12-21 03:07 | Progress Notes ---
DATE: 12/20/[address] Barraza. SUBJECTIVE: Case was discussed with staff of the patient, reviewed records. This is a 72-year-old male, who was admitted on 12/09/2017 because of agitation, irritability, striking out the staff and nurses, and trying to hit himself while in the med-surg unit. He was also trying to take off his clothes. The patient was transferred to [facility]. He was also extremely agitated, had to be medicated. He is confused and easily irritable. He continues to have poor insight. He continues to be unable to make safe plan for self-care. He continues to be easily agitated, needing redirection. Dr. Barraza have him on Seroquel, the dose was increased to 100 mg 3 times a day and with no side effects, no sedation or nausea, and no extrapyramidal symptoms. He is still unpredictable, impulsive, psychotic, and agitated. We will continue to work with the patient in group therapy, milieu therapy, and adjust the medications as needed. JOB# [id number]
[2017-12-21] MEDS: Multivitamin Tab PO SCH (08:26)
--- NOTE | 2017-12-21 21:25 | General Progress Note ---
Subjective - Review of Systems Service Date: 12/21/17 Subjective: lying comfortably in bed nad Objective - Physical Exam Vitals and I&O: Vital Signs Temp 97.6 F 12/21/17 14:44 Pulse 68 12/21/17 14:44 Resp 20 12/21/17 14:44 BP 115/72 12/21/17 14:44 Pulse Ox 100 12/21/17 14:44 Intake & Output 12/21/17 12/21/17 12/22/17 06:59 18:59 06:59 Intake Total 420 900 Balance 420 900 Intake: Oral 420 900 Other: # Voids 2 4 # Bowel Movements 0 1 Active Medications: Current Medications Acetaminophen (Tylenol) 650 mg PO Q4HR PRN PRN Reason: Mild Pain / Temp above 100 Stop: 02/07/18 16:29 Al Hydrox/Mg Hydrox/Simethicone (Maalox) 30 ml PO Q4HR PRN PRN Reason: GI DISTRESS Stop: 02/07/18 16:29 Lorazepam (Ativan) 0.5 mg PO Q4HR PRN; Protocol PRN Reason: Anxiety Stop: 02/07/18 16:34 Last Admin: 12/20/17 20:22 Dose: 0.5 mg Magnesium Hydroxide (Milk Of Magnesia) 30 ml PO HS PRN PRN Reason: Constipation Multivitamins/Vitamin C (Theragran) 1 tab PO DAILY [facility] Stop: 02/08/18 08:59 Last Admin: 12/21/17 08:26 Dose: 1 tab Naproxen (Naprosyn) 500 mg PO BIDWM PRN PRN Reason: bilateral foot pain Stop: 02/07/18 19:57 Last Admin: 12/19/17 09:08 Dose: 500 mg Quetiapine Fumarate (Seroquel) 100 mg PO TID CRISTELA Stop: 02/18/18 13:59 Last Admin: 12/21/17 20:32 Dose: 100 mg Zolpidem Tartrate (Ambien) 5 mg PO HS PRN PRN Reason: Insomnia Stop: 02/07/18 16:29 Last Admin: 12/21/17 20:32 Dose: 5 mg General: No acute distress HEENT: Atraumatic Neck: Supple Cardiovascular: Regular rate, Normal S1, Normal S2 Abdomen: Bowel sounds Assessment/Plan - Plan Plan: as per psych will monitor Nutritional Asmnt/Malnutr-PDOC - Dietary Evaluation Malnutrition Findings (Please click <Entered> for more info): Nutritional Asmnt/Malnutrition Start: 12/13/17 14: 47 Text: Status: Complete Freq: Protocol: Document 12/13/17 14:47 CANELOELLIOTT (Rec: 12/13/17 14:50 LCELLIOTT [email or web address]) Nutritional Asmnt/Malnutrition Patient General Information Nutritional Screening Moderate Risk Diagnosis psychosis Pertinent Medical Hx/Surgical Hx OA Subjective Information Pt seen eating lunch in his room at time of visit. Pt was confused, stated good appetite , not able to provide more infomation. Per EMR, PO intake 100% of meals. Current Diet Order/ Nutrition Support cardiac Pertinent Medications theragra, seroquel Pertinent Labs no labs Nutritional Hx/Data Height 1.88 m Height (Calculated Centimeters) 188.0 Current Weight (lbs) 68.492 kg Weight (Calculated Kilograms) 68.5 Weight (Calculated Grams) 23662.4 [place] Body Weight 190 Body Mass Index (BMI) 19.3 Weight Status Approriate GI Symptoms GI Symptoms None Last BM 12/12 Difficult in: None Skin Integrity/Comment: cellulitis Current %PO Good (75-100%) Estimated Nutritional Goals BEE in Kcals: Using Current wt Calories/Kcals/Kg 25-30 Kcals Calculated 9939-8771 Protein: Using Current wt Protein g/k.8-1 Protein Calculated 54-68 Fluid: ml 1725-2070ml (1ml/kcal) Nutritional Problem No current Nutrition Prob Problem N/A Malnutrition Alert Is there a minimum of two criteria No selected? Query Text:Check all the applicable criteria. A minimum of two criteria are recommended for diagnosis of either severe or non-severe malnutrition. Malnutrition Related to Morbid Obesity Malnutrition related to morbid obesity No Intervention/Recommendation Comments 1. Continue with current diet as ordered. 2. Monitor PO intake, wt, labs and skin integrity 3. F/U as low risk in 7 days, 12/20 Expected Outcomes/Goals Expected Outcomes/Goals 1. PO intake to meet at least 75% of nutritional needs. 2. Wt stability, skin to remain intact
--- NOTE | 2017-12-21 23:01 | Discharge Summary ---
DATE OF DISCHARGE: 12/21/2017 PATIENT'S AGE: 72. SEX: Male. PHYSICIAN: Prashant Barraza MD, MPH FINAL DIAGNOSIS/PRIMARY DIAGNOSIS: Unspecified psychosis. SECONDARY DIAGNOSIS: Dementia, [id number]. REASON FOR HOSPITALIZATION: The patient was admitted to the hospital from [facility] because of increased agitation and confusion and irritability. HOSPITAL COURSE: The patient continued to be confused and agitated. The patient was irritable as well as withdrawn. The patient gradually became brighter. The patient was less agitated. It was easier to follow directions. The patient was discharged from the hospital back to [facility]. Physical examination of the patient showed no major medical problems. AFTER DISCHARGE PLANS: The patient discharged from the hospital. She says that she stayed with plans for outpatient treatment and followup. EXPECTED OUTCOME AFTER DISCHARGE: Fair if the patient continues to take the psychotropic medications and follow up with discharge. [facility]# [id number]
--- NOTE | 2017-12-22 00:29 | Progress Notes ---
DATE: 12/21/2017 SUBJECTIVE: Case was discussed with staff of the patient and reviewed records and lab work. The patient continues to be confused, easily agitated, at times hyperverbal, intrusive, hard to redirect, unpredictable, impulsive, needing redirection. He is compliant with the medication with no side effects, no sedation, no nausea, no extrapyramidal symptoms. PLAN: His Seroquel was increased yesterday to 100 mg 3 times a day, so we will continue to work with the patient in group therapy, milieu therapy, adjust medication as needed. JOB# [id number]
[2017-12-22] MEDS: Multivitamin Tab PO SCH (09:10)
--- NOTE | 2017-12-22 15:11 | General Progress Note ---
Subjective - Review of Systems Events since last encounter: in no distress Subjective: lying comfortably in bed nad Objective - Physical Exam Vitals and I&O: Vital Signs Temp 97.0 F 12/22/17 14:38 Pulse 73 12/22/17 14:38 Resp 20 12/22/17 14:38 BP 130/76 12/22/17 14:38 Pulse Ox 97 12/22/17 14:38 Intake & Output 12/21/17 12/22/17 12/22/17 18:59 06:59 18:59 Intake Total 900 120 Balance 900 120 Intake: Oral 900 120 Other: # Voids 4 2 # Bowel Movements 1 Active Medications: Current Medications Acetaminophen (Tylenol) 650 mg PO Q4HR PRN PRN Reason: Mild Pain / Temp above 100 Stop: 02/07/18 16:29 Al Hydrox/Mg Hydrox/Simethicone (Maalox) 30 ml PO Q4HR PRN PRN Reason: GI DISTRESS Stop: 02/07/18 16:29 Lorazepam (Ativan) 0.5 mg PO Q4HR PRN; Protocol PRN Reason: Anxiety Stop: 02/07/18 16:34 Last Admin: 12/20/17 20:22 Dose: 0.5 mg Magnesium Hydroxide (Milk Of Magnesia) 30 ml PO HS PRN PRN Reason: Constipation Multivitamins/Vitamin C (Theragran) 1 tab PO DAILY CRISTELA Stop: 02/08/18 08:59 Last Admin: 12/22/17 09:10 Dose: 1 tab Naproxen (Naprosyn) 500 mg PO BIDWM PRN PRN Reason: bilateral foot pain Stop: 02/07/18 19:57 Last Admin: 12/19/17 09:08 Dose: 500 mg Quetiapine Fumarate (Seroquel) 100 mg PO TID CRISTELA Stop: 02/18/18 13:59 Last Admin: 12/22/17 13:23 Dose: 100 mg Zolpidem Tartrate (Ambien) 5 mg PO HS PRN PRN Reason: Insomnia Stop: 02/07/18 16:29 Last Admin: 12/21/17 20:32 Dose: 5 mg General: No acute distress HEENT: Atraumatic Neck: Supple Cardiovascular: Regular rate, Normal S1, Normal S2 Abdomen: Bowel sounds Assessment/Plan - Plan Plan: as per psych will monitor Nutritional Asmnt/Malnutr-PDOC - Dietary Evaluation Malnutrition Findings (Please click <Entered> for more info): Nutritional Asmnt/Malnutrition Start: 12/13/17 14: 47 Text: Status: Complete Freq: Protocol: Document 12/13/17 14:47 ANGELTeresa (Rec: 12/13/17 14:50 [email or web address]) Nutritional Asmnt/Malnutrition Patient General Information Nutritional Screening Moderate Risk Diagnosis psychosis Pertinent Medical Hx/Surgical Hx OA Subjective Information Pt seen eating lunch in his room at time of visit. Pt was confused, stated good appetite , not able to provide more infomation. Per EMR, PO intake 100% of meals. Current Diet Order/ Nutrition Support cardiac Pertinent Medications theragra, seroquel Pertinent Labs no labs Nutritional Hx/Data Height 1.88 m Height (Calculated Centimeters) 188.0 Current Weight (lbs) 68.492 kg Weight (Calculated Kilograms) 68.5 Weight (Calculated Grams) 61358.4 [place] Body Weight 190 Body Mass Index (BMI) 19.3 Weight Status Approriate GI Symptoms GI Symptoms None Last BM 12/12 Difficult in: None Skin Integrity/Comment: cellulitis Current %PO Good (75-100%) Estimated Nutritional Goals BEE in Kcals: Using Current wt Calories/Kcals/Kg 25-30 Kcals Calculated 4784-4889 Protein: Using Current wt Protein g/k.8-1 Protein Calculated 54-68 Fluid: ml 1725-2070ml (1ml/kcal) Nutritional Problem No current Nutrition Prob Problem N/A Malnutrition Alert Is there a minimum of two criteria No selected? Query Text:Check all the applicable criteria. A minimum of two criteria are recommended for diagnosis of either severe or non-severe malnutrition. Malnutrition Related to Morbid Obesity Malnutrition related to morbid obesity No Intervention/Recommendation Comments 1. Continue with current diet as ordered. 2. Monitor PO intake, wt, labs and skin integrity 3. F/U as low risk in 7 days, 12/20 Expected Outcomes/Goals Expected Outcomes/Goals 1. PO intake to meet at least 75% of nutritional needs. 2. Wt stability, skin to remain intact
--- NOTE | 2017-12-22 22:33 | Discharge Summary ---
DATE OF DISCHARGE: 12/22/2017 PATIENT'S AGE: 72. SEX: Male. PHYSICIAN: Said Kat Barraza MD, MPH I did dictate the discharge summary yesterday and that the number of dictation is [id number] and another number [id number]. The only thing that the date of discharge was not yesterday. The patient after all did not leave yesterday and he left today, so please dictate discharge summary with today's date. JOB# [id number]
== END 2017-12-22 15:10 | DRG 885 ==
LOC: GERO 16:12
PROVIDERS: ADMIT Psychiatry & Neurology Psychiatry; ATTEND Psychiatry & Neurology Psychiatry
DX: F29 Unspecified psychosis not due to a substance or known physiological condition (principal); M19.90 Unspecified osteoarthritis, unspecified site; F32.9 Major depressive disorder, single episode, unspecified; F25.0 Schizoaffective disorder, bipolar type; F03.90 Unspecified dementia, unspecified severity, without behavioral disturbance, psychotic disturbance, mood disturbance, and anxiety
CPT/HCPCS: 90899; G0410; J1200; J1630; J2060; Z7610

== ENCOUNTER 2018-06-03 17:05 | Inpatient (IN) | payer MEDICARE, MEDICAID ==
[2018-06-03 17:34] LABS: % BASOPHILS 0.7 % (0.0-2.0); % EOSINOPHILS 2.8 % (0.0-5.0); % LYMPHOCYTES 23.9 % (20.0-50.0); % MONOCYTES 6.5 % (2.0-10.0); % NEUTROPHILS 66.1 % (40.0-80.0); EOSINOPHILE ABSOLUTE 0.1 Th/cmm (0.1-0.4); HEMATOCRIT 35.3 % (41.0-60); LYMPHOCYTE ABSOLUTE 1.2 Th/cmm (1.5-3.0); MEAN CELL VOLUME 83.8 fl (80-99); MEAN CORPUSCULAR HEMOGLOBIN 28.6 pg (27.0-31.0); MEAN CORPUSCULAR HGB CONC 34.1 pg (28.0-36.0); MEAN PLATELET VOLUME 7.2 fl; MONOCYTE ABSOLUTE 0.3 Th/cmm (0.3-1.0); NEUTROPHILE ABSOLUTE 3.6 Th/cmm (1.8-8.0); PLATELET COUNT 118 Th/cmm (150-400); RED BLOOD COUNT 4.21 Mil/cmm (3.80-5.80); RED CELL DISTRIBUTION WIDTH 13.6 % (11.5-20.0); WHITE BLOOD COUNT 5.2 Th/cmm (4.8-10.8)
[2018-06-03 17:52] LABS: ALB/GLOB RATIO 1.3 (1.0-1.8); ALBUMIN 3.6 gm/dL (4.2-5.5); ALKALINE PHOSPHATASE 62 U/L (34-104); ANION GAP 12.2 (7.0-16.0); BILIRUBIN,TOTAL 1.1 mg/dL (0.3-1.0); BUN - UREA NITROGEN 34 mg/dL (7-25); CALCIUM SERUM 9.5 mg/dL (8.6-10.3); CARBON DIOXIDE 22.8 mEq/L (21.0-31.0); CHLORIDE 107 mEq/L (98-107); CREATININE - SERUM 1.6 mg/dL (0.7-1.3); GLUCOSE 131 mg/dL (70-105); MAGNESIUM 1.8 mg/dL (1.9-2.7); PHOSPHOROUS 2.5 mg/dL (2.5-5.0); SGOT 15 U/L (13-39); SGPT/ALT 12 U/L (7-52); SODIUM SERUM 138 mEq/L (136-145); TOTAL PROTEIN,SERUM 6.3 gm/dL (6.0-8.3)
[2018-06-03 18:01] LABS: URINE SOURCE CLEAN C
[2018-06-03 18:03] LABS: URINE BILIRUBIN NEGATIVE (NEGATIVE); URINE BLOOD NEGATIVE (NEGATIVE); URINE GLUCOSE (UA) NEGATIVE (NEGATIVE); URINE KETONE NEGATIVE (NEGATIVE); URINE LEUKOCYTE ESTERASE TRACE (NEGATIVE); URINE MICROSCOPIC INDICATED? YES; URINE NITRATE NEGATIVE (NEGATIVE); URINE PROTEIN NEGATIVE (NEGATIVE); URINE UROBILINOGEN 0.2 E.U./dL (0.2 - 1.0)
[2018-06-03 18:04] LABS: URINE CLARITY CLEAR (CLEAR); URINE COLOR YELLOW
[2018-06-03 18:48] LABS: AMPHETAMINE URINE NEGATIVE (NEGATIVE); BARBITURATES URINE NEGATIVE (NEGATIVE); BENZODIAZEPINES QUAL URINE NEGATIVE (NEGATIVE); CANNABINOID THC NEGATIVE (NEGATIVE); COCAINE METABOLITE QUAL URINE NEGATIVE (NEGATIVE); METHADONE URINE NEGATIVE (NEGATIVE); METHAMPHETAMINES QUAL URINE NEGATIVE (NEGATIVE); OPIATES (MORPHINE) QUAL. URINE NEGATIVE (NEGATIVE); PHENCYCLIDINE (PCP) URINE NEGATIVE (NEGATIVE); TRICYCLICS (TCA) QUAL. URINE POSITIVE (NEGATIVE)
[2018-06-03 18:50] LABS: URINE BACTERIA FEW /hpf (NONE SEEN); URINE EPITHELIAL CELLS FEW /lpf (FEW); URINE RBC 0-2 /hpf (0-5)
--- NOTE | 2018-06-03 18:55 | ED Physician Chart ---
ED Chief Complaint/HPI - Patient Information Date Seen:: 06/03/18 Time Seen:: 17:13 Chief Complaint:: increased agitation, psychosis History of Present Illness:: increased agitation, psychosis trying to go over a fence verbally aggressive and yells with re-direction started a few days ago Allergies:: Allergies Allergy/AdvReac Type Severity Reaction Status Date / Time No Known Allergies Allergy Verified 07/22/17 18:45 Vitals:: Vital Signs - 8 hr 06/03/18 17:13 Temp 98.5 F HR 83 RR 17 BP 140/70 O2 Sat % 98 Historian:: Medical Records Review:: Nurse's Note Reviewed, Transfer documents Reviewed ED Review of Systems - Review of Systems General/Constitutional: No fever, No chills, No weight loss, No weakness, No diaphoresis, No edema, No loss of appetite Skin: No skin lesions, No rash, No bruising Head: No headache, No light-headedness Eyes: No loss of vision, No pain, No diplopia ENT: No earache, No nasal drainage, No sore throat, No tinnitus Neck: No neck pain, No swelling, No thyromegaly, No stiffness, No mass noted Cardio Vascular: No chest pain, No palpitations, No PND, No orthopnea, No edema Pulmonary: No SOB, No cough, No sputum, No wheezing GI: No nausea, No vomiting, No diarrhea, No pain, No melena, No hematochezia, No constipation, No hematemesis G/U: No dysuria, No frequency, No hematuria Musculoskeletal: No bone or joint pain, No back pain, No muscle pain Endocrine: No polyuria, No polydipsia Psychiatric: Prior psych history, Anxiety, No suicidal ideation, No homicidal ideation, No auditory hallucination, No visual hallucination, Other (increased agitation and psychosis) Hematopoietic: No bruising, No lymphadenopathy Allergic/Immuno: No urticaria, No angioedema Neurological: No syncope, No focal symptoms, No weakness, No paresthesia, No headache, No seizure, No dizziness, No confusion, No vertigo ED Past Medical History - Past Medical History Obtainable: No Past Medical History: Dementia, Other (anemia) Psychiatricy History: Dementia, Other (schizoaffective disorder; anxiety disorder; insomnia) Family Medical History - Family Member Mother History Unknown: Yes Ethnicity: Living Status: Unknown ED Physical Exam - Physical Examination General/Constitutional: Awake, Well-developed, well-nourished, Alert, No distress, GCS 15, Non-toxic appearing, Ambulatory Head: Atraumatic Eyes: Lids, conjuctiva normal, PERRL, EOMI Skin: Nl inspection, No rash, No skin lesions, No ecchymosis, Well hydrated, No lymphadenopathy ENMT: External ears, nose nl Neck: Nontender, No nuchal rigidity, No stridor Respiratory: Nl effort/Exclusion, Clear to Auscultation, No Wheeze/Rhonchi/Rales Cardio Vascular: RRR, No murmur, gallop, rubs, NL S1 S2 GI: No tenderness/rebounding/guarding, No organomegaly, No hernia, Normal BS's, Nondistended, No mass/bruits, No McBurney tenderness : No CVA tenderness Extremities: No tenderness or effusion, Full ROM, normal strength in all extremities, No edema, Normal digits & nails Neuro/Psych: Alert/oriented, Normal sensory exam, Normal motor strength, Judgement/insight normal, Mood normal, Normal gait, No focal deficits Other Neuro/Psych comments:: anxious from the time that he stepped into the ER. Wanted to go back to his facility from the beginning. When told that he was going to go to the geropsych unit, he became quite irritated, angry and started to yell. Misc: Normal back, No paraspinal tenderness ED Labs/Radiology/EKG Results - Lab Results Results: Laboratory Tests 06/03/18 06/03/18 06/03/18 17:20 17:20 17:50 WBC 5.2 RBC 4.21 Hgb 12.0 Hct 35.3 L MCV 83.8 MCH 28.6 MCHC Differential 34.1 RDW 13.6 Plt Count 118 L MPV 7.2 Neutrophils % 66.1 Lymphocytes % 23.9 Monocytes % 6.5 Eosinophils % 2.8 Basophils % 0.7 Sodium 138 Potassium 4.0 Chloride 107 Carbon Dioxide 22.8 Anion Gap 12.2 BUN 34 H Creatinine 1.6 H Est GFR ( Amer) TNP Est GFR (Non-Af Amer) TNP BUN/Creatinine Ratio 21.3 Glucose 131 H Calcium 9.5 Phosphorus 2.5 Magnesium 1.8 L Total Bilirubin 1.1 H AST 15 ALT 12 Alkaline Phosphatase 62 Total Protein 6.3 Albumin 3.6 L Globulin 2.7 Albumin/Globulin Ratio 1.3 Urine Source Urine Color Urine Clarity Urine pH Ur Specific [place] Urine Protein Urine Glucose (UA) Urine Ketones Urine Blood Urine Nitrate Urine Bilirubin Urine Urobilinogen Ur Leukocyte Esterase Urine RBC Urine WBC Ur Epithelial Cells Urine Bacteria Urine Mucus Urine Opiates Screen NEGATIVE Urine Methadone Screen NEGATIVE Ur Barbiturates Screen NEGATIVE Ur Tricyclics Screen POSITIVE H Ur Phencyclidine Scrn NEGATIVE Amphetamines Screen NEGATIVE U Methamphetamines Scrn NEGATIVE U Benzodiazepines Scrn NEGATIVE U Cocaine Metab Screen NEGATIVE U Cannabinoids Screen NEGATIVE 06/03/18 17:58 WBC RBC Hgb Hct MCV MCH MCHC Differential RDW Plt Count MPV Neutrophils % Lymphocytes % Monocytes % Eosinophils % Basophils % Sodium Potassium Chloride Carbon Dioxide Anion Gap BUN Creatinine Est GFR ( Amer) Est GFR (Non-Af Amer) BUN/Creatinine Ratio Glucose Calcium Phosphorus Magnesium Total Bilirubin AST ALT Alkaline Phosphatase Total Protein Albumin Globulin Albumin/Globulin Ratio Urine Source CLEAN C Urine Color YELLOW Urine Clarity CLEAR Urine pH 6.0 Ur Specific [place] 1.020 Urine Protein NEGATIVE Urine Glucose (UA) NEGATIVE Urine Ketones NEGATIVE Urine Blood NEGATIVE Urine Nitrate NEGATIVE Urine Bilirubin NEGATIVE Urine Urobilinogen 0.2 Ur Leukocyte Esterase TRACE H Urine RBC 0-2 H Urine WBC 2-5 Ur Epithelial Cells FEW Urine Bacteria FEW Urine Mucus FEW Urine Opiates Screen Urine Methadone Screen Ur Barbiturates Screen Ur Tricyclics Screen Ur Phencyclidine Scrn Amphetamines Screen U Methamphetamines Scrn U Benzodiazepines Scrn U Cocaine Metab Screen U Cannabinoids Screen ED Assessment - Assessment General Assessment: PATIENT IS CLEAR FROM A MEDICAL STANDPOINT FOR THE GEROPSYCH UNIT. ED Septic Shock - . Is Septic Shock (SBP<90, OR Lactate>4 mmol\L) present?: No - <6hrs of presentation: Vital Signs: Vital Signs - 8 hr 06/03/18 17:13 Temp 98.5 F HR 83 RR 17 BP 140/70 O2 Sat % 98 ED Reassessment (Disposition) - Reassessment Reassessment Condition:: Worsened - Diagnosis Diagnosis:: INCREASED AGITATION PSYCHOSIS PATIENT IS CLEAR FROM A MEDICAL STANDPOINT FOR THE GEROPSYCH UNIT - Patient Disposition Discharge/Transfer:: Acute Care w/in this hosp Admitted to:: [facility] Condition at Disposition:: Stable
[2018-06-03] MEDS ORDERED: Magnesium Hydroxide (MOM) 30 mL UDC PO PRN (20:08)
[2018-06-03 23:59] VITALS: BP 135/64
[2018-06-04 06:41] LABS: CHOLESTEROL 146 mg/dL (<200); HDL -HIGH DENSITY LIPOPROTEIN 41 mg/dL (23-92); TRIGLYCERIDES 105 mg/dL (<150)
[2018-06-04] MEDS: Multivitamin w/ Minerals Tab PO SCH (09:03)
--- NOTE | 2018-06-04 13:36 | History & Physical ---
ADMIT DATE: 06/03/2018 IDENTIFYING INFORMATION: The patient is a 72-year-old male. CHIEF COMPLAINT: "I don't know." HISTORY OF PRESENT ILLNESS: The patient was admitted because [place] acting erratic, agitated, and irritable. The patient was a poor historian. 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 The patient was very disorganized, internally preoccupied, unable to participate in a meaningful conversation. He reports he is here because of contempt of court. He knows he is in [place] but he is not sure that if he is in the hospital or where. He has been sleeping well, eating well. He reports he denies any use of alcohol or drugs. PAST PSYCHIATRIC HISTORY: He was hospitalized here before back in November of this year with a history of agitation and irritability. He was striking out at staff, trying to hit himself while in the Med-Surg unit. He also trying to take off his clothes. The patient was very agitated with long history of psychosis, agitation. PAST PSYCHIATRIC HISTORY: The patient has been started on Seroquel 100 mg 3 times a day. He is also on Naprosyn, multivitamin. MEDICAL HISTORY: Deferred to the medical doctor. ALLERGIES: The patient has no known drug allergies. MEDICATIONS: The patient stated I was trying to get over her shins verbally aggressive, yelling and this has been going on for a few days, was cleared medically. FAMILY AND SOCIAL HISTORY: The patient reports that he was for some time, first told me he said he has 3 sons here, unable tell the age. He has 12th grade education. His job was to shoot at people in [place], unable to participate in meaningful conversation or make safe plan for self-care. MENTAL STATUS EXAMINATION: The patient is appropriately dressed, not well groomed. He was not making sense. He was irritable, unpredictable and impulsive. He reports his sleeps well, eats well. Unable to tell me the date, where he is, why he is here. He is unable to specify his age, he believes he is 74 years of age, in reality is 72. He reports his date being 1945 which is correct. Long and short term memory is poor, insight and judgment is impaired. IMPRESSION: Psychosis, not otherwise specified, rule out bipolar disorder, also dementia. MEDICAL DIAGNOSES: Deferred to the medical doctor. I would recommend continue to his medication, which has already started to do group therapy, milieu therapy, and individual therapy. ESTIMATED LENGTH OF STAY: 3-7 days. DISCHARGE CRITERIA: Decrease agitation, no longer acting in a dangerous manner after discharge, outpatient treatment. JOB# [id number]
[2018-06-05] MEDS: Multivitamin w/ Minerals Tab PO SCH (08:47)
--- NOTE | 2018-06-05 23:04 | Progress Notes ---
DATE: 06/05/2018 Case was discussed with staff of the patient, reviewed records. The patient continues to be easily agitated, acting erratic, irritable, continues to be a poor historian. Continues to have poor insight, unable to carry on a conversation or make safe plan for self-care. The patient has been sleeping better, eating better, and no side effects with the medication, no sedation, no nausea, no extrapyramidal symptoms. We will continue to work with the patient in group therapy, milieu therapy, adjust the medication as needed. JOB# [id number]
[2018-06-06] MEDS: Multivitamin w/ Minerals Tab PO SCH (08:43)
[2018-06-07] MEDS: Multivitamin w/ Minerals Tab PO SCH (08:49)
--- NOTE | 2018-06-08 04:52 | Progress Notes ---
DATE: 06/06/2018 Chart reviewed and the patient interviewed. Also discussed the patient's condition with the staff and reviewed records and labs. The patient remains severely irritable and he is still in angry mood. The patient also is still pacing up and down the unit, talking incoherently and with paranoia. Also, is still thinking that there are different people on the unit and that there are aliens and spies. Otherwise, the patient is compliant with taking his medications with no side effects of medications. He is still considered to be gravely disabled and unable to provide any safe plan for self-care. ASSESSMENT: The patient is still psychotic and confused and agitated. TREATMENT PLAN: Continue monitoring his behavior and his condition closely. Also, continue Seroquel 100 mg 3 times a day and follow up closely. JOB# [id number]
[2018-06-08] MEDS: Multivitamin w/ Minerals Tab PO SCH (09:26)
--- NOTE | 2018-06-08 20:40 | Progress Notes ---
DATE: 06/07/2018 SUBJECTIVE: Chart reviewed and the patient interviewed. Also discussed the patient's condition with the staff and reviewed records and labs. The patient is still severely delusional and paranoid and talking about aliens and about [employer] and different topics that are not related and with severe paranoia. The patient also is restless and needed lots of redirections. Otherwise, the patient is compliant with taking medications with no side effect. ASSESSMENT: The patient is still psychotic and confused. TREATMENT PLAN: Continue to monitor behavior and condition closely. Also, we will increase Seroquel and we will work on his confusion and paranoia and also his severe agitation. Seroquel will be increased to 200 mg 3 times a day. JOB# [id number]
[2018-06-09] MEDS: Multivitamin w/ Minerals Tab PO SCH (08:43)
[2018-06-10] MEDS: Multivitamin w/ Minerals Tab PO SCH (10:33)
--- NOTE | 2018-06-10 20:48 | Progress Notes ---
DATE: 06/10/2018 PSYCHIATRIC PROGRESS NOTE SUBJECTIVE: Chart reviewed and the patient interviewed. Also discussed the patient's condition with the staff and reviewed records and labs. The patient continued to be extremely agitated and is still severely irritable and confused. The patient also is trying to fight with other patient and he still has difficulty with his mood. Also, is restless. The patient also still needs lots of redirections and gets aggressive with the staff when staff tries to redirect him. Otherwise, the patient is compliant with taking his medications with no side effects of medications. ASSESSMENT: The patient is agitated and still aggressive. TREATMENT PLAN: We will monitor his behavior and condition closely. Also, decrease Celexa to 20 mg every day and Wellbutrin to 100 mg every day. Also, we will increase Seroquel to 100 mg in the morning and 200 mg at bedtime and we will continue to follow up closely. JOB# [id number]
--- NOTE | 2018-06-11 05:36 | History & Physical ---
ADMIT DATE: 06/10/2018 CHIEF COMPLAINT: Increased agitation and psychosis. HISTORY OF PRESENT ILLNESS: The patient is a 72-year-old male with a past medical history of dementia, schizoaffective disorder, anemia, anxiety disorder, and insomnia, admitted to the hospital through the ER for increased agitation. He was yelling on the people. So, he was brought to the ER for further evaluation and management. PAST MEDICAL HISTORY: Includes anemia, dementia, schizoaffective disorder, anxiety disorder, and insomnia. PAST SURGICAL HISTORY: Noncontributory. SOCIAL HISTORY: The patient lives at nursing facility. No history of smoking, alcohol, and drug use. REVIEW OF SYSTEMS: GENERAL: The patient is a poor historian. The patient has no fever, no chills. HEENT: No diplopia, no photophobia, no sore throat. RESPIRATORY: No cough, no shortness of breath. CARDIOVASCULAR: No chest pain or palpitation. GASTROINTESTINAL: No nausea, no vomiting, no diarrhea, no constipation. GENITOURINARY: No dysuria. NEUROLOGIC: No headache, no dizziness, no focal weakness. PHYSICAL EXAMINATION: VITAL SIGNS: Temperature is 97.9, pulse 78, respiration 19, blood pressure 117/60. GENERAL: The patient is comfortable lying in the bed, not in acute distress. HEENT: Head is normocephalic, atraumatic. Oral cavity moist, pink. Eyes, no pallor, no icterus. Pupils PERRLA, EOMI. NECK: Supple, no JVD, no carotid bruit. Trachea in midline. CHEST: Bilateral breath sounds. No crackles or wheezing. HEART: S1, S2 within normal limits. Regular rhythm. No murmur, no gallop. ABDOMEN: Soft, nontender, nondistended. Bowel sounds present. EXTREMITIES: No cyanosis, no clubbing, no edema. NEUROLOGIC: Alert, awake, and oriented x 3. LABORATORY DATA: Current lab shows WBC count is 5200, hemoglobin 12, hematocrit 35.3, and platelets are 118,000, neutrophil is 66.1%. Sodium 138, potassium 4, chloride 107, bicarbonate is 28, BUN is 34, creatinine 1.6, and glucose is 131. Urinalysis; negative nitrite, negative leukoesterase, wbc 2-5, and rbc's 0-2. IMPRESSION: 1. Agitation. 2. Acute kidney injury. 3. History of anemia, resolved. PLAN AND RECOMMENDATIONS: We will continue current management. We will check a renal ultrasound and check BMP again today. May increase oral fluid intake. If the patient's creatinine continues to rise, may require transfer to acute care setting. JOB# [id number]
[2018-06-11 07:39] LABS: % EOSINOPHILS 3.7 % (0.0-5.0); % LYMPHOCYTES 26.6 % (20.0-50.0); % MONOCYTES 8.4 % (2.0-10.0); % NEUTROPHILS 60.3 % (40.0-80.0); EOSINOPHILE ABSOLUTE 0.2 Th/cmm (0.1-0.4); HEMATOCRIT 37.4 % (41.0-60); HEMOGLOBIN 12.4 gm/dL (12-16); LYMPHOCYTE ABSOLUTE 1.2 Th/cmm (1.5-3.0); MEAN CELL VOLUME 84.7 fl (80-99); MEAN CORPUSCULAR HEMOGLOBIN 28.1 pg (27.0-31.0); MEAN CORPUSCULAR HGB CONC 33.1 pg (28.0-36.0); MEAN PLATELET VOLUME 7.4 fl; MONOCYTE ABSOLUTE 0.4 Th/cmm (0.3-1.0); NEUTROPHILE ABSOLUTE 2.8 Th/cmm (1.8-8.0); PLATELET COUNT 106 Th/cmm (150-400); RED BLOOD COUNT 4.41 Mil/cmm (3.80-5.80); RED CELL DISTRIBUTION WIDTH 13.7 % (11.5-20.0); WHITE BLOOD COUNT 4.6 Th/cmm (4.8-10.8)
[2018-06-11 07:59] LABS: ANION GAP 11.5 (7.0-16.0); BUN - UREA NITROGEN 45 mg/dL (7-25); CALCIUM SERUM 9.6 mg/dL (8.6-10.3); CARBON DIOXIDE 25.8 mEq/L (21.0-31.0); CHLORIDE 107 mEq/L (98-107); CREATININE - SERUM 1.8 mg/dL (0.7-1.3); GLUCOSE 106 mg/dL (70-105); POTASSIUM SERUM 4.3 mEq/L (3.5-5.1); SODIUM SERUM 140 mEq/L (136-145)
[2018-06-11] MEDS: Multivitamin w/ Minerals Tab PO SCH (09:15)
--- NOTE | 2018-06-11 15:48 | Discharge Summary ---
DATE OF DISCHARGE: 06/11/2018 CHIEF COMPLAINT: Increased agitation and psychosis. HOSPITAL COURSE: The patient is a 72-year-old male with past medical history of dementia, schizoaffective disorder, anemia, anxiety disorder and insomnia, admitted to the hospital through the ER for increased agitation. He was yelling on the people, so he was brought to the ER for further evaluation and management. On initial evaluation, the patient's labs were increased, except increased creatinine. His creatinine has increased in recent months, otherwise his creatinine was less than 1 in early months of the year. Creatinine was 1.6. So, the patient was diagnosed to have agitation, increased creatinine consistent with acute kidney injury versus chronic kidney failure, renal failure. Creatinine was checked again and it went up to 1.8. So, the patient required IV fluids. Maybe, he may have acute kidney injury on chronic kidney injury. As IV fluids cannot be given in the Geropsych Unit, the patient was discharged to acute care for further care. Renal ultrasound was ordered, which can be done in Med/Surg Unit. DISCHARGE DIAGNOSES: 1. Agitation. 2. Acute kidney injury on chronic kidney disease. DISCHARGE DISPOSITION: Med/Surg Unit. CONSULTANTS CALLED: Dr. Barraza. DISCHARGE CONDITION: Stable. JOB# [id number]
--- NOTE | 2018-06-12 01:53 | Progress Notes ---
DATE: 06/11/2018 SUBJECTIVE: The patient in the hospital, was apparently on the highway acting erratically agitated, poor historian, wanting to shoot people and was disorganized and not making any sense. Per staff, very confused, disoriented, nonsensical, only knows his name, calmer at this time, but apparently with unruly behaviors, hoarding things, confused, paranoid, roaming around the hallways at times and is very restless at times requiring high level of prompting, staff prompting, redirection, remains impulsive, unpredictable, given confused. ASSESSMENT: The patient remains symptomatic, ongoing confusion, will continue Seroquel. The patient remains impulsive, unpredictable. JOB# [id number]
--- NOTE | 2018-06-14 07:52 | Progress Notes ---
DATE: 06/08/2018 PSYCHIATRIC PROGRESS NOTE DATE OF SERVICE: 06/08/2018. SUBJECTIVE: Chart reviewed and the patient interviewed. Also discussed the patient's condition with the staff and reviewed records and labs. The patient continued to be delusional and paranoid. The patient also is still in irritable and angry mood and wants to be left alone. Also, is interacting minimally with peers and others. The patient also has severe mood swings. Otherwise, the patient still needs close monitoring and he also compliant with taking medications with no side effects of medications. ASSESSMENT: The patient is still psychotic and irritable moods. TREATMENT PLAN: Continue to monitor his behavior and his condition closely. Also, continue adjusting psychotropic medications and working on behavioral modification. JOB# [id number]
== END 2018-06-11 11:53 | disposition short-term general hospital (02) | DRG 885 ==
LOC: ER 17:05 → GERO 19:00
PROVIDERS: ADMIT Psychiatry & Neurology Psychiatry; ATTEND Psychiatry & Neurology Psychiatry
DX: F29 Unspecified psychosis not due to a substance or known physiological condition (principal); N17.9 Acute kidney failure, unspecified; N18.9 Chronic kidney disease, unspecified; F03.90 Unspecified dementia, unspecified severity, without behavioral disturbance, psychotic disturbance, mood disturbance, and anxiety; F41.9 Anxiety disorder, unspecified; G47.00 Insomnia, unspecified
CPT/HCPCS: 36415-UA; 80048-TC; 80053-TC; 80061-TC; 80307; 81001-TC; 83036-90; 83735-TC; 84100-TC; 85025-TC; Z7610

== ENCOUNTER 2018-06-11 12:02 | Inpatient (IN) | payer MEDICARE, MEDICAID ==
[2018-06-11] MEDS ORDERED: Magnesium Hydroxide (MOM) 30 mL UDC PO PRN (14:03)
[2018-06-11] MEDS ORDERED: Sodium Chloride 0.45% 1,000 ML IV SCH (15:38)
--- NOTE | 2018-06-11 17:21 | History & Physical ---
ADMIT DATE: 06/11/2018 CHIEF COMPLAINT: Increased creatinine and abnormal labs. HISTORY OF PRESENT ILLNESS: The patient is a 72-year-old male with past medical history of anemia, dementia, schizoaffective disorder, anxiety disorder, insomnia, brought to the ER for increased agitation. He was yelling on the people and the staff at the nursing facility, so he was brought to the ER for further evaluation and management and ultimately the patient was admitted to the Geropsych Unit. On initial evaluation, last vitals were stable, labs were normal except creatinine was 1.6. It was noted that the patient had normal creatinine in early months of the year, now creatinine went up to 1.6. Repeat BMP was performed and it showed increase in creatinine to 1.8. The patient stated that he was not drinking enough water lately. Otherwise, the patient also has one lump noted on left lower back laterally. There is no erythema, no discharge, no tenderness. PAST MEDICAL HISTORY: Includes anemia, dementia, schizoaffective disorder, anxiety disorder, and insomnia. PAST SURGICAL HISTORY: He has some surgical scar on the left lower back, he was unable to recall the surgical intervention. SOCIAL HISTORY: The patient lives at nursing facility. No history of smoking, alcohol or drug use. FAMILY HISTORY: Not available. REVIEW OF SYSTEMS: GENERAL: The patient has no fever, no chills. HEENT: No diplopia, no photophobia, no sore throat. RESPIRATORY: No cough, no shortness of breath. CARDIOVASCULAR: No chest pain or palpitation. GASTROINTESTINAL: No nausea, no vomiting, no diarrhea, no constipation. GENITOURINARY: No dysuria. NEUROLOGIC: No headache, no dizziness, no focal weakness, but the patient says that he feels some weakness in the left lower extremity. PHYSICAL EXAMINATION: CURRENT VITAL SIGNS: Show temperature is 97.8 degrees Fahrenheit, pulse 78, respirations 18, blood pressure 154/66, oxygen saturation 99%. GENERAL: The patient is comfortable, not in acute distress. HEENT: Head is normocephalic, atraumatic. Oral cavity moist. [place] tongue. Eyes: No pallor, no icterus. PERRLA, EOMI. NECK: Supple. No JVD. No carotid bruit. Trachea in midline. CHEST: Bilateral breath sounds. No crackles or wheezing. HEART: S1 and S2 within normal limits. Regular rhythm. No murmur, no gallop. ABDOMEN: Soft, nontender, nondistended. Bowel sounds present. On the left lower back, the patient has surgical scar and beneath it, the patient has some soft tissue swelling, nontender, no erythema, no discharge, no ____. No splenomegaly, no hepatomegaly. Otherwise, soft, nontender, nondistended. Bowel sounds are present. EXTREMITIES: No cyanosis, no clubbing, no edema. NEUROLOGICAL: Alert, awake, oriented x 3. No focal deficit. LABORATORY DATA: Current lab shows WBC count is 4600, hemoglobin 12.4, hematocrit 37.4, platelets are 106,000, neutrophils 60.3%. Sodium 140, potassium 4.3, chloride 107, bicarbonate is 26, BUN is 45, creatinine is 1.8, glucose is 106. Urinalysis shows RBC 0.02 and WBC 2-5. MRSA screen was negative. IMPRESSION: 1. Increase in creatinine, acute kidney injury, most likely dehydration. 2. Agitation. 3. Left lower back mass, unknown etiology. 4. History of anemia, improved. 5. Seizures. 6. Thrombocytopenia. PLAN: We will consult Dr. Barraza, consult Dr. Madison for left lower leg weakness, and call Dr. Zee for acute kidney injury. We will ask for renal ultrasound and abdominal ultrasound to look at the lump. If needed, we will offer CT scan of abdomen and pelvis. JOB# [id number]
[2018-06-11] MEDS: Sodium Chloride 0.45% 1,000 ML IV SCH (18:36)
--- NOTE | 2018-06-11 22:25 | Consultation ---
DATE OF CONSULTATION: 06/11/2018 ATTENDING: Vasyl Morton M.D. GRAIN OPERATOR: John Zee M.D. REASON FOR CONSULTATION: Worsening kidney function, electrolyte imbalance, and fluid management. HISTORY OF PRESENT ILLNESS: This is a 72-year-old male with past medical history of chronic kidney disease, who was transferred from [facility] to med/surg due to worsening kidney function. The patient was admitted at [facility] on 06/03 due to aggressive behavior. His BUN/creatinine at that time were 24/1.6. Repeat labs a week later revealed a BUN/creatinine of 45/1.8. He had no history of nausea and vomiting as well as diarrhea. He is currently on Naprosyn. PAST MEDICAL HISTORY: 1. Psychosis. 2. Alzheimer dementia. 3. Anemia of chronic disease. 4. Anxiety disorder. CURRENT MEDICATIONS: Currently on escitalopram, lorazepam, magnesium hydroxide, multivitamins, Naprosyn, sodium chloride, quetiapine fumarate, zolpidem. ALLERGIES: No known drug allergies. SOCIAL AND FAMILY HISTORY: I was not able to obtain directly from the patient because of him being confused, disoriented, and unable to concentrate. REVIEW OF SYSTEMS: Again, I was not able to decipher directly from the patient and the patient is only able to give pieces of information. GENERAL: The patient is awake, verbal, but as mentioned, quite confused, unable to concentrate with only one topic. VITAL SIGNS: His blood pressure is 154/66, pulse 70, temperature 97.8 degrees. SKIN: Poor turgor, warm, no rash, no jaundice appreciated. HEENT: Head normocephalic, atraumatic. Eyes: Extraocular muscles intact. Pupils equal, round, reactive to light and accommodates. Anicteric sclerae, pale conjunctivae. Nose, midline nasal septum. Mouth: Dry mucosa with adequate dentition. NECK: Supple, no adenopathy, no thyromegaly, no bruits. Trachea palpated in the midline. CHEST AND CARDIOVASCULAR: S1, S2. No rub, murmur, or gallop appreciated. Point of maximal impulse fifth intercostal space, left midclavicular line. No abdominal or femoral bruits appreciated. LUNGS: Equal expansion. Minimal use of accessory muscles. No supraclavicular retractions. Decreased breath sounds, few rhonchi, but no rales nor wheezes appreciated. ABDOMEN: Mildly globular, soft. Positive for bowel sounds. No bruits either diastolic or systolic. RECTAL: The patient refused. GENITOURINARY: Normal appearing male genitalia. MUSCULOSKELETAL: No effusions present in his joints with adequate range of motion. EXTREMITIES: He has a surgical scar over his right clavicle. There is no edema, cyanosis nor clubbing. He has a palpable femoral, but unable to fully appreciate popliteal and dorsalis pedis pulses. NEUROLOGIC: As mentioned, the patient seems confused, unable to follow my neuro commands, so I was not able to pursue further my neuro exam. LABORATORY DATA: Labs did reveal sodium 140, potassium 4.3, chloride 107, bicarbonate 25, BUN 45, creatinine 1.8, glucose 106, calcium 9.6, white count 4.6, hemoglobin , platelets 106, polys 60.3%. IMPRESSION: 1. Chronic kidney disease. The patient's chronic kidney disease is secondary to hypertensive nephrosclerosis, but however, we should also consider the patient's exposure to nonsteroidals for a long duration of time for wherein he could have developed chronic interstitial nephritis. 2. Essential hypertension. 3. Psychosis. 4. Alzheimer dementia. 5. Anemia of chronic disease. 6. Anxiety disorder. PLAN: 1. Urinalysis. 2. Urine spot sodium, eosinophils, and creatinine. 3. Renal ultrasound. 4. Follow up electrolytes. 5. Continue on with IV fluids for now. 6. Discontinue Naprosyn. Thank you, Dr. Morton for this consult. We will follow the patient closely with you. JOB# [id number]
[2018-06-12 06:07] LABS: % BASOPHILS 0.4 % (0.0-2.0); % EOSINOPHILS 4.1 % (0.0-5.0); % LYMPHOCYTES 29.9 % (20.0-50.0); % MONOCYTES 7.5 % (2.0-10.0); % NEUTROPHILS 58.1 % (40.0-80.0); EOSINOPHILE ABSOLUTE 0.2 Th/cmm (0.1-0.4); HEMATOCRIT 34.6 % (41.0-60); HEMOGLOBIN 11.7 gm/dL (12-16); LYMPHOCYTE ABSOLUTE 1.2 Th/cmm (1.5-3.0); MEAN CELL VOLUME 85.6 fl (80-99); MEAN CORPUSCULAR HGB CONC 33.9 pg (28.0-36.0); MEAN PLATELET VOLUME 8.4 fl; MONOCYTE ABSOLUTE 0.3 Th/cmm (0.3-1.0); NEUTROPHILE ABSOLUTE 2.3 Th/cmm (1.8-8.0); PLATELET COUNT 79 Th/cmm (150-400); RED BLOOD COUNT 4.05 Mil/cmm (3.80-5.80); RED CELL DISTRIBUTION WIDTH 13.6 % (11.5-20.0)
[2018-06-12 06:22] LABS: ALB/GLOB RATIO 1.2 (1.0-1.8); ALBUMIN 3.2 gm/dL (4.2-5.5); ALKALINE PHOSPHATASE 55 U/L (34-104); ANION GAP 10.1 (7.0-16.0); BILIRUBIN,TOTAL 1.1 mg/dL (0.3-1.0); BUN - UREA NITROGEN 41 mg/dL (7-25); CARBON DIOXIDE 23.7 mEq/L (21.0-31.0); CHLORIDE 110 mEq/L (98-107); CREATININE - SERUM 1.5 mg/dL (0.7-1.3); GLUCOSE 96 mg/dL (70-105); MAGNESIUM 2.1 mg/dL (1.9-2.7); PHOSPHOROUS 2.6 mg/dL (2.5-5.0); POTASSIUM SERUM 3.8 mEq/L (3.5-5.1); SGOT 14 U/L (13-39); SGPT/ALT 9 U/L (7-52); SODIUM SERUM 140 mEq/L (136-145); TOTAL PROTEIN,SERUM 5.8 gm/dL (6.0-8.3)
[2018-06-12] MEDS: Multivitamin w/ Minerals Tab PO SCH (11:55)
[2018-06-12 12:58] LABS: URINE SOURCE MIDSTREAM
[2018-06-12 13:01] LABS: URINE BILIRUBIN NEGATIVE (NEGATIVE); URINE BLOOD NEGATIVE (NEGATIVE); URINE GLUCOSE (UA) NEGATIVE (NEGATIVE); URINE KETONE NEGATIVE (NEGATIVE); URINE LEUKOCYTE ESTERASE TRACE (NEGATIVE); URINE MICROSCOPIC INDICATED? YES; URINE NITRATE NEGATIVE (NEGATIVE); URINE PROTEIN NEGATIVE (NEGATIVE); URINE UROBILINOGEN 0.2 E.U./dL (0.2 - 1.0)
[2018-06-12 13:07] LABS: URINE CLARITY CLEAR (CLEAR); URINE COLOR YELLOW
[2018-06-12 13:09] LABS: URINE BACTERIA FEW /hpf (NONE SEEN); URINE EPITHELIAL CELLS FEW /lpf (FEW); URINE RBC 0-2 /hpf (0-5)
[2018-06-12 14:29] LABS: EOSINOPHIL SMEAR SOURCE URINE; EOSINOPHILS SMEAR COUNT NONE SEEN (NONE SEEN)
--- NOTE | 2018-06-12 14:45 | General Progress Note ---
Subjective - Review of Systems Service Date: 06/12/18 Subjective: awake, but very confused, disoriented Objective - Results Result Diagrams: 06/12/18 05:45 06/12/18 05:45 Recent Labs: Laboratory Last Values WBC 4.0 Th/cmm (4.8-10.8) L 06/12/18 05:45 RBC 4.05 Mil/cmm (3.80-5.80) 06/12/18 05:45 Hgb 11.7 gm/dL (12-16) L 06/12/18 05:45 Hct 34.6 % (41.0-60) L 06/12/18 05:45 MCV 85.6 fl (80-99) 06/12/18 05:45 MCH 29.0 pg (27.0-31.0) 06/12/18 05:45 MCHC Differential 33.9 pg (28.0-36.0) 06/12/18 05:45 RDW 13.6 % (11.5-20.0) 06/12/18 05:45 Plt Count 79 Th/cmm (150-400) L 06/12/18 05:45 MPV 8.4 fl 06/12/18 05:45 Neutrophils % 58.1 % (40.0-80.0) 06/12/18 05:45 Lymphocytes % 29.9 % (20.0-50.0) 06/12/18 05:45 Monocytes % 7.5 % (2.0-10.0) 06/12/18 05:45 Eosinophils % 4.1 % (0.0-5.0) 06/12/18 05:45 Basophils % 0.4 % (0.0-2.0) 06/12/18 05:45 Eos Smear Source URINE 06/12/18 12:00 Eos Smear Total Cells NONE SEEN (NONE SEEN) 06/12/18 12:00 Sodium 140 mEq/L (136-145) 06/12/18 05:45 Potassium 3.8 mEq/L (3.5-5.1) 06/12/18 05:45 Chloride 110 mEq/L (98-107) H 06/12/18 05:45 Carbon Dioxide 23.7 mEq/L (21.0-31.0) 06/12/18 05:45 Anion Gap 10.1 (7.0-16.0) 06/12/18 05:45 BUN 41 mg/dL (7-25) H 06/12/18 05:45 Creatinine 1.5 mg/dL (0.7-1.3) H 06/12/18 05:45 Est GFR ( Amer) TNP 06/12/18 05:45 Est GFR (Non-Af Amer) TNP 06/12/18 05:45 BUN/Creatinine Ratio 27.3 06/12/18 05:45 Glucose 96 mg/dL (70-105) 06/12/18 05:45 POC Glucose 103 MG/DL (70 - 105) 06/11/18 13:20 Calcium 9.0 mg/dL (8.6-10.3) 06/12/18 05:45 Phosphorus 2.6 mg/dL (2.5-5.0) 06/12/18 05:45 Magnesium 2.1 mg/dL (1.9-2.7) 06/12/18 05:45 Total Bilirubin 1.1 mg/dL (0.3-1.0) H 06/12/18 05:45 AST 14 U/L (13-39) 06/12/18 05:45 ALT 9 U/L (7-52) 06/12/18 05:45 Alkaline Phosphatase 55 U/L (34-104) 06/12/18 05:45 Total Protein 5.8 gm/dL (6.0-8.3) L 06/12/18 05:45 Albumin 3.2 gm/dL (4.2-5.5) L 06/12/18 05:45 Globulin 2.6 gm/dL 06/12/18 05:45 Albumin/Globulin Ratio 1.2 (1.0-1.8) 06/12/18 05:45 Urine Source MIDSTREAM 06/12/18 12:00 Urine Color YELLOW 06/12/18 12:00 Urine Clarity CLEAR (CLEAR) 06/12/18 12:00 Urine pH 6.0 (4.6 - 8.0) 06/12/18 12:00 Ur Specific [place] 1.010 (1.005-1.030) 06/12/18 12:00 Urine Protein NEGATIVE mg/dL (NEGATIVE) 06/12/18 12:00 Urine Glucose (UA) NEGATIVE mg/dL (NEGATIVE) 06/12/18 12:00 Urine Ketones NEGATIVE mg/dL (NEGATIVE) 06/12/18 12:00 Urine Blood NEGATIVE (NEGATIVE) 06/12/18 12:00 Urine Nitrate NEGATIVE (NEGATIVE) 06/12/18 12:00 Urine Bilirubin NEGATIVE (NEGATIVE) 06/12/18 12:00 Urine Urobilinogen 0.2 E.U./dL (0.2 - 1.0) 06/12/18 12:00 Ur Leukocyte Esterase TRACE (NEGATIVE) H 06/12/18 12:00 Urine RBC 0-2 /hpf (0-5) H 06/12/18 12:00 Urine WBC 2-5 /hpf (0-5) 06/12/18 12:00 Ur Epithelial Cells FEW /lpf (FEW) 06/12/18 12:00 Urine Bacteria FEW /hpf (NONE SEEN) 06/12/18 12:00 Ur Random Sodium 39 mmol/L 06/12/18 12:00 Urine Creatinine 99.0 mg/dl (39.0-259.0) 06/12/18 12:00 - Physical Exam Vitals and I&O: Vital Signs Temp 97.2 F 06/12/18 11:33 Pulse 64 06/12/18 11:33 Resp 17 06/12/18 11:33 BP 127/76 06/12/18 11:33 Pulse Ox 99 06/12/18 11:33 Intake & Output 06/11/18 06/12/18 06/12/18 18:59 06:59 18:59 Intake Total 700 200 Output Total 750 Balance -50 200 Weight (lbs) 102.058 kg 102.058 kg 115.666 kg Intake: Oral 700 200 Output: Urine 750 Other: # Voids 1 # Bowel Movements 0 Weight Source Bedscale Bedscale Bedscale Active Medications: Current Medications Escitalopram Oxalate (Lexapro) 10 mg PO HS CRISTELA; Protocol Stop: 08/10/18 20:59 Last Admin: 06/11/18 20:52 Dose: 10 mg Sodium Chloride (Nacl 0.45%) 1,000 mls @ 75 mls/hr IV .[id number] CRISTELA Stop: 08/10/18 16:44 Last Admin: 06/11/18 18:36 Dose: 75 mls/hr Lorazepam (Ativan) 0.5 mg PO Q4HR PRN; Protocol PRN Reason: Anxiety Stop: 08/10/18 14:02 Magnesium Hydroxide (Milk Of Magnesia) 30 ml PO HS PRN PRN Reason: IF STOOL SOFTENERS INEFFECTIVE Stop: 08/10/18 14:02 Quetiapine Fumarate (Seroquel) 200 mg PO TID CRISTELA; Protocol Stop: 08/10/18 20:59 Last Admin: 06/12/18 13:38 Dose: 200 mg Zolpidem Tartrate (Ambien) 5 mg PO HS PRN PRN Reason: Insomnia Stop: 08/10/18 14:02 Last Admin: 06/11/18 20:52 Dose: 5 mg General: No acute distress HEENT: Atraumatic, Mucous membr. moist/pink Neck: Supple, +2 carotid pulse wo bruit Cardiovascular: Regular rate, Normal S1, Normal S2 Lungs: Normal air movement Abdomen: Bowel sounds, Soft Extremities: no Edema Neurological: Sensation intact Skin: no Rash Psych/Mental Status: Mood NL Assessment/Plan - Assessment Assessment: CKD Ess Htn Psychosis Alzh Dementia Anemia of CD Anxiety disorder Partial Outlet Obstruciton( Right [place], distended bladder) - Plan Plan: Lab - Result Diagrams 06/12/18 05:45 06/12/18 05:45 Current Medications Escitalopram Oxalate (Lexapro) 10 mg PO HS CRISTELA; Protocol Stop: 08/10/18 20:59 Last Admin: 06/11/18 20:52 Dose: 10 mg Sodium Chloride (Nacl 0.45%) 1,000 mls @ 75 mls/hr IV .[id number] CRISTELA Stop: 08/10/18 16:44 Last Admin: 06/11/18 18:36 Dose: 75 mls/hr Lorazepam (Ativan) 0.5 mg PO Q4HR PRN; Protocol PRN Reason: Anxiety Stop: 08/10/18 14:02 Magnesium Hydroxide (Milk Of Magnesia) 30 ml PO HS PRN PRN Reason: IF STOOL SOFTENERS INEFFECTIVE Stop: 08/10/18 14:02 Quetiapine Fumarate (Seroquel) 200 mg PO TID CRISTELA; Protocol Stop: 08/10/18 20:59 Last Admin: 06/12/18 13:38 Dose: 200 mg Zolpidem Tartrate (Ambien) 5 mg PO HS PRN PRN Reason: Insomnia Stop: 08/10/18 14:02 Last Admin: 06/11/18 20:52 Dose: 5 mg Lab - Result Diagrams 06/12/18 05:45 06/12/18 05:45 Cr. slightly improved to 1.5 continue IVF since pt. has partial obstruction FE Na 0.42 % suggestive or pre renal f/u electrolytes
[2018-06-12] MEDS: Sodium Chloride 0.45% 1,000 ML IV SCH ×2 (21:13→22:20)
--- NOTE | 2018-06-13 02:14 | History & Physical ---
ADMIT DATE: 06/12/2018 CHIEF COMPLAINT: Increased creatinine and abnormal labs. Left lower quadrant mass. HISTORY OF PRESENT ILLNESS: The patient is a 72-year-old male with a past medical history of anemia, dementia, schizoaffective disorder, anxiety disorder, insomnia, brought to the ER for increased agitation. He was yelling on the people and the staff at the nursing facility. He was brought to the ER for further evaluation and management and ultimately the patient was admitted to Geropsych Unit. On initial evaluation, his vitals were stable. Labs are normal except creatinine was 1.6. It was noted that the patient had a normal creatinine early months of this year. Now creatinine went up to 1.6. Repeat BMP performed and it showed increase in creatinine to 1.8. The patient stated that he was not taking enough water lately. Otherwise, the patient has a lump, besides this patient has noted one lump on the left lower back laterally. There is no erythema, no discharge, no tenderness. PAST MEDICAL HISTORY: Anemia, dementia, schizoaffective disorder, anxiety disorder, insomnia. PAST SURGICAL HISTORY: He has a surgical scar on the left lower back. He is unable to recall the surgical intervention. SOCIAL HISTORY: The patient lives at nursing facility. No history of smoking, alcohol or drug use. FAMILY HISTORY: Not available. REVIEW OF SYSTEMS: GENERAL: The patient has no fever, no chills, no generalized weakness. HEENT: No diplopia, no photophobia, no sore throat. RESPIRATORY: No cough, no shortness of breath. CVS: No chest pain. No palpitation. GASTROINTESTINAL: No nausea, no vomiting, no diarrhea, no constipation, no abdominal pain. GENITOURINARY: No dysuria. NEUROLOGICAL: No headache, no dizziness, no focal weakness, but the patient said that he felt some weakness in the left lower extremity. PHYSICAL EXAMINATION: VITAL SIGNS: Shows temperature is 98 degrees Fahrenheit, pulse 75, respiration 18, blood pressure 131/70. GENERAL: The patient is comfortable lying in the bed, not in acute distress. HEENT: Head is normocephalic, atraumatic. Oral cavity moist, pink tongue. Eyes: No pallor, no icterus. Pupils PERRLA, EOMI. NECK: Supple, no JVD, no carotid bruit. Trachea in midline. CHEST: Bilateral breath sounds. No crackles or wheezing. CARDIOVASCULAR: S1, S2 within normal limits. Regular rhythm. No murmur, no gallop. ABDOMEN: Soft, nontender, nondistended. Bowel sounds present. MUSCULOSKELETAL: On the left lower back, the patient has a surgical scar and underneath it, there is some soft swelling, nontender, no erythema, no discharge. No splenomegaly, no hepatomegaly appreciated. Otherwise, soft, nontender, and nondistended. Bowel sounds present. EXTREMITIES: No cyanosis, no clubbing, no edema. NEUROLOGICAL: Alert, awake, oriented x 3. No focal deficits. LABORATORY DATA: Current lab shows WBC count 4000, hemoglobin 11.7, hematocrit 34.6, platelets are 79,000. Sodium is 140, potassium 3.8, chloride 110, bicarbonate is 23.7, BUN is 41, creatinine 1.5 and glucose is 96. Ammonia is 112. ____ was reviewed. Renal ultrasound shows hydronephrosis on the right side and left lower quadrant abdominal mass. Hepatomegaly and splenomegaly. IMPRESSION: 1. Increasing creatinine and acute kidney injury, most likely mildly increase in creatinine, acute kidney injury, most likely dehydration. 2. Agitation. 3. Left lower back mass, unknown etiology. 4. History of anemia, improved. 5. Seizure disorder. 6. Thrombocytopenia. RECOMMENDATIONS AND PLAN: We will consult Dr. Barraza, Dr. Madison and Dr. Zee. We will order CT scan of abdomen and pelvis. A urologic consultation with Dr. Graham. We will consult Dr. Whitehead for thrombocytopenia and continue his home medication. [facility]# [id number]
[2018-06-13 04:54] LABS: EOSINOPHILE ABSOLUTE 0.2 Th/cmm (0.1-0.4); LYMPHOCYTE ABSOLUTE 1.3 Th/cmm (1.5-3.0); MEAN CORPUSCULAR HEMOGLOBIN 28.9 pg (27.0-31.0); MONOCYTE ABSOLUTE 0.4 Th/cmm (0.3-1.0); RED CELL DISTRIBUTION WIDTH 13.5 % (11.5-20.0)
[2018-06-13 05:12] LABS: % BASOPHILS 0.4 % (0.0-2.0); % EOSINOPHILS 3.2 % (0.0-5.0); % LYMPHOCYTES 27.1 % (20.0-50.0); % NEUTROPHILS 61.3 % (40.0-80.0); HEMATOCRIT 36.5 % (41.0-60); HEMOGLOBIN 12.2 gm/dL (12-16); MEAN CELL VOLUME 86.7 fl (80-99); MEAN CORPUSCULAR HGB CONC 33.3 pg (28.0-36.0); MEAN PLATELET VOLUME 8.3 fl; NEUTROPHILE ABSOLUTE 2.9 Th/cmm (1.8-8.0); PLATELET COUNT 90 Th/cmm (150-400); RED BLOOD COUNT 4.21 Mil/cmm (3.80-5.80); WHITE BLOOD COUNT 4.8 Th/cmm (4.8-10.8)
[2018-06-13 05:28] LABS: ANION GAP 11.3 (7.0-16.0); BUN - UREA NITROGEN 39 mg/dL (7-25); CALCIUM SERUM 9.1 mg/dL (8.6-10.3); CARBON DIOXIDE 24.7 mEq/L (21.0-31.0); CHLORIDE 109 mEq/L (98-107); CREATININE - SERUM 1.7 mg/dL (0.7-1.3); CREATININE KINASE 39 U/L (30-223); GLUCOSE 94 mg/dL (70-105); SODIUM SERUM 141 mEq/L (136-145)
--- NOTE | 2018-06-13 06:53 | Consultation ---
DATE OF CONSULTATION: 06/12/2018 NEUROLOGIC CONSULT The patient confused and weak, seems to be somewhat better. The patient is somewhat paranoid, history of schizoaffective disorder. The patient was noted to be not his normal self. Noticed that he was much more weaker than usual. PAST MEDICAL HISTORY: Dementia, schizoaffective disorder, anxiety, insomnia. PAST SURGICAL HISTORY: The patient had back scar. SOCIAL HISTORY: Does not smoke or drink. MEDICATIONS: Per reconciliation. Here, the patient on Lexapro, Ativan, Seroquel 200 t.i.d., Ambien 5 mg. REVIEW OF SYSTEMS: On direct questioning from the patient, he has had bilateral knee surgeries. The patient has no headache, somewhat unsteady. Gait, he still is not sure of himself. He feels unsteady. The patient is able to move all extremities, ate okay. No seizures. PHYSICAL EXAMINATION: VITAL SIGNS: Temperature 96.9, blood pressure 125/73, pulse is 80. NECK: Supple, no bruits. HEART: Sounds S1, S2. LUNGS: Clear. NEUROLOGIC: The patient is lying in bed. The patient gives me his name, his age. He knew today was Wednesday. He knew the month. He did not know the year. He got the date right. He is able to name simple objects. Short term memory is 1-2/3. Pupils react to light. No marked facial weakness. MOTOR: He will lift both arms up. No weakness in the legs. He lifts them up. The patient's strength is about 4+ upper extremity, lower extremity about 4. He complains of some pain in the left leg with some weakness there. Reflexes: About 1 upper extremity, -1 at the knees. Ankles are difficult to get. INVESTIGATIONS: I did not see any CT scan. I will do a CT scan of the head. LABORATORY DATA: WBC 4.0, hemoglobin 11.7. Sodium 140, potassium 3.8, BUN is 41, creatinine 1.5, bilirubin 101. ASSESSMENT: 1. Encephalopathy. 2. History of schizoaffective disorder. 3. Weakness somewhat more in the left leg, not much in the arm, rule out cerebrovascular accident. We will get a CT scan done of the head. 4. Dehydration. 5. Seizure history. 6. Thrombocytopenia. 7. History of anemia. PLAN: CT scan of the head. The patient also, physical therapy rehab. JOB# [id number]
--- NOTE | 2018-06-13 08:34 | Diagnostic Imaging Report ---
Abdominal ultrasound HISTORY: Pain, mass The liver is enlarged. No focal lesions. The exam of the gallbladder demonstrates low-level intraluminal echoes consistent with "sludge". Additional intraluminal echogenic density consistent with cholelithiasis also noted. No biliary dilatation. The pancreas cannot be seen due to bowel gas. The exam of the right kidney demonstrates evidence of severe hydronephrosis with generalized renal enlargement. Etiology uncertain. The left kidney cannot be seen. The spleen is somewhat increased in size. There is a distended urinary bladder associated with several low-level intraluminal echoes. The finding should be correlated clinically and with urinalysis. Within the subcutaneous tissues over the dorsal aspect of the left lower abdomen there is suggestion of a heterogeneous density/mass. A CT scan recommended for further assessment and evaluation. IMPRESSION: 1. Questionable heterogeneous ill-defined density in the left lower subcutaneous region. Etiology uncertain. A CT scan would provide further assessment and detail. 2. Findings consistent with cholelithiasis 3. Severe right-sided hydronephrosis. Etiology uncertain 4. Hepatosplenomegaly
[2018-06-13] MEDS: Multivitamin w/ Minerals Tab PO SCH (09:58)
--- NOTE | 2018-06-13 13:13 | History & Physical ---
ADMIT DATE: 06/13/2018 HEMATOLOGY/ONCOLOGY CONSULTATION REFERRING PHYSICIAN: Dr. Vincent Morton. REASON FOR CONSULTATION: Thrombocytopenia. HISTORY OF PRESENT ILLNESS: The patient is a 72-year-old male with history of schizophrenia. The patient had a left lower quadrant mass and worsening renal function, therefore admitted. He was also found to have low platelet count, therefore, I was asked to evaluate. The patient was agitated in the nursing facility, admitted to Bro-Psych unit, and found to have multiple medical problems and admitted to the medical floor. PAST MEDICAL HISTORY: Anemia, dementia, schizophrenia, anxiety, and insomnia. PAST SURGICAL HISTORY: Left flank surgery of unknown nature. SOCIAL HISTORY: Resident of a nursing facility. MEDICATIONS: Lexapro, Ativan, Ditropan, Seroquel, and Ambien. PHYSICAL EXAMINATION: GENERAL: The patient is awake, not in distress. VITAL SIGNS: Temperature 97, blood pressure 140/84. HEENT: Atraumatic. NECK: Supple. No lymphadenopathy. CHEST: Good air entry. ABDOMEN: Soft. There is scar on the left flank area and also has a scar on the left hip and low back. EXTREMITIES: No edema. Baez catheter in place. LABORATORY DATA: White count 4.8, hemoglobin 12.2, platelets 90,000 with normal mean platelet volume. Creatinine 1.7. Liver function is normal. Ultrasound of the abdomen showed gallstones, ill-defined density in the left lower quadrant, subcutaneous region, and severe right-sided hydronephrosis with hepatosplenomegaly. ASSESSMENT AND PLAN: Thrombocytopenia since admission. The platelet counts were normal in November of this year, but they were abnormal before that. It looks like the baseline of the platelet count is around 100,000 and this is likely from the splenomegaly. The patient has right-sided hydronephrosis and will need to be evaluated by the urologist. His renal functions have been abnormal and this is likely chronic kidney disease as contributing to the anemia and anemia workup will be obtained. No need for transfusion at this time. I will obtain coagulation panel, anemia workup, and monitor. Thank you, Dr. Morton, for the opportunity to participate in the care of this interesting case. JOB# [id number]
--- NOTE | 2018-06-13 13:21 | Diagnostic Imaging Report ---
CT scan abdomen and pelvis without intravenous contrast HISTORY: Hydronephrosis, pain Total DLP equals 904 CTDI equals 17.0 Axial sections were obtained from the xiphoid process down to the pubic symphysis. The exam is limited and compromised due to patient motion artifact. No focal lesions seen within the liver. The spleen appears normal. No definite focal amenities seen within the pancreas. There is a hyperdense fluid level within the dependent region of the gallbladder. Findings are consistent with changes of "milk of calcium". Sonographically demonstrated calculi cannot be distinguished. The exam of the right kidney demonstrates severe dilatation of the right renal collecting system and dilatation of the proximal portion of the right ureter. Ill-defined density suggested about the midportion of the right ureter. Etiology uncertain. Surgical clips noted in the left periaortic region along with absence of the left kidney. Findings consistent with changes of prior nephrectomy. There is preservation of normal fat planes within the pelvis. No abnormal soft tissue masses are seen. There is a cyst severely thick-walled urinary bladder. Marked enlargement of the prostate gland with encroachment on the adjacent urinary bladder. Neoplastic involvement cannot be excluded. Baez catheter is seen within the urinary bladder lumen. Atherosclerotic calcification noted throughout the abdominal aorta. Severe degenerative changes noted to the spine. IMPRESSION: 1. Findings consistent with a prior left nephrectomy 2. Severe dilatation of the right renal collecting system and proximal portion of the right ureter. Questionable heterogeneous density noted about the midportion of the right ureter. Etiology uncertain. 3. Enlarged prostate gland with encroachment on a severely thick-walled urinary bladder. Neoplastic involvement cannot be excluded. Clinical correlation is needed. 4. Distended stool-filled rectum consistent with a degree of fecal impaction 5. Hyperdense fluid level within the gallbladder consistent with "milk of calcium". Sonographically demonstrated cholelithiasis cannot be clearly distinguished. 6. Atherosclerotic vascular changes 7. Severe degenerative changes throughout the spine
--- NOTE | 2018-06-13 13:31 | General Progress Note ---
Subjective - Review of Systems Service Date: 06/13/18 Subjective: awake, but very confused, disoriented Objective - Results Result Diagrams: 06/13/18 04:40 06/13/18 04:40 Recent Labs: Laboratory Last Values WBC 4.8 Th/cmm (4.8-10.8) 06/13/18 04:40 RBC 4.21 Mil/cmm (3.80-5.80) 06/13/18 04:40 Hgb 12.2 gm/dL (12-16) 06/13/18 04:40 Hct 36.5 % (41.0-60) L 06/13/18 04:40 MCV 86.7 fl (80-99) 06/13/18 04:40 MCH 28.9 pg (27.0-31.0) 06/13/18 04:40 MCHC Differential 33.3 pg (28.0-36.0) 06/13/18 04:40 RDW 13.5 % (11.5-20.0) 06/13/18 04:40 Plt Count 90 Th/cmm (150-400) L 06/13/18 04:40 MPV 8.3 fl 06/13/18 04:40 Neutrophils % 61.3 % (40.0-80.0) 06/13/18 04:40 Lymphocytes % 27.1 % (20.0-50.0) 06/13/18 04:40 Monocytes % 8.0 % (2.0-10.0) 06/13/18 04:40 Eosinophils % 3.2 % (0.0-5.0) 06/13/18 04:40 Basophils % 0.4 % (0.0-2.0) 06/13/18 04:40 Eos Smear Source URINE 06/12/18 12:00 Eos Smear Total Cells NONE SEEN (NONE SEEN) 06/12/18 12:00 Sodium 141 mEq/L (136-145) 06/13/18 04:40 Potassium 4.0 mEq/L (3.5-5.1) 06/13/18 04:40 Chloride 109 mEq/L (98-107) H 06/13/18 04:40 Carbon Dioxide 24.7 mEq/L (21.0-31.0) 06/13/18 04:40 Anion Gap 11.3 (7.0-16.0) 06/13/18 04:40 BUN 39 mg/dL (7-25) H 06/13/18 04:40 Creatinine 1.7 mg/dL (0.7-1.3) H 06/13/18 04:40 Est GFR ( Amer) TNP 06/13/18 04:40 Est GFR (Non-Af Amer) TNP 06/13/18 04:40 BUN/Creatinine Ratio 22.9 06/13/18 04:40 Glucose 94 mg/dL (70-105) 06/13/18 04:40 POC Glucose 103 MG/DL (70 - 105) 06/11/18 13:20 Calcium 9.1 mg/dL (8.6-10.3) 06/13/18 04:40 Phosphorus 2.6 mg/dL (2.5-5.0) 06/12/18 05:45 Magnesium 2.1 mg/dL (1.9-2.7) 06/12/18 05:45 Total Bilirubin 1.1 mg/dL (0.3-1.0) H 06/12/18 05:45 AST 14 U/L (13-39) 06/12/18 05:45 ALT 9 U/L (7-52) 06/12/18 05:45 Alkaline Phosphatase 55 U/L (34-104) 06/12/18 05:45 Ammonia 112 umol/L (16-53) H 06/12/18 05:45 Creatine Kinase 39 U/L (30-223) 06/13/18 04:40 Total Protein 5.8 gm/dL (6.0-8.3) L 06/12/18 05:45 Albumin 3.2 gm/dL (4.2-5.5) L 06/12/18 05:45 Globulin 2.6 gm/dL 06/12/18 05:45 Albumin/Globulin Ratio 1.2 (1.0-1.8) 06/12/18 05:45 TSH 0.61 uIU/ml (0.34-5.60) 06/13/18 04:40 Urine Source MIDSTREAM 06/12/18 12:00 Urine Color YELLOW 06/12/18 12:00 Urine Clarity CLEAR (CLEAR) 06/12/18 12:00 Urine pH 6.0 (4.6 - 8.0) 06/12/18 12:00 Ur Specific [place] 1.010 (1.005-1.030) 06/12/18 12:00 Urine Protein NEGATIVE mg/dL (NEGATIVE) 06/12/18 12:00 Urine Glucose (UA) NEGATIVE mg/dL (NEGATIVE) 06/12/18 12:00 Urine Ketones NEGATIVE mg/dL (NEGATIVE) 06/12/18 12:00 Urine Blood NEGATIVE (NEGATIVE) 06/12/18 12:00 Urine Nitrate NEGATIVE (NEGATIVE) 06/12/18 12:00 Urine Bilirubin NEGATIVE (NEGATIVE) 06/12/18 12:00 Urine Urobilinogen 0.2 E.U./dL (0.2 - 1.0) 06/12/18 12:00 Ur Leukocyte Esterase TRACE (NEGATIVE) H 06/12/18 12:00 Urine RBC 0-2 /hpf (0-5) H 06/12/18 12:00 Urine WBC 2-5 /hpf (0-5) 06/12/18 12:00 Ur Epithelial Cells FEW /lpf (FEW) 06/12/18 12:00 Urine Bacteria FEW /hpf (NONE SEEN) 06/12/18 12:00 Ur Random Sodium 39 mmol/L 06/12/18 12:00 Urine Creatinine 99.0 mg/dl (39.0-259.0) 06/12/18 12:00 Microalb/Creat Ratio 49.2 mg/g creat (0.0-30.0) H 06/12/18 12:00 - Physical Exam Vitals and I&O: Vital Signs Temp 97.8 F 06/13/18 12:00 Pulse 75 06/13/18 12:00 Resp 18 06/13/18 12:00 BP 127/79 06/13/18 12:00 Pulse Ox 96 06/13/18 12:00 Intake & Output 06/12/18 06/13/18 06/13/18 18:59 06:59 18:59 Intake Total 2200 665.00 Output Total 3550 1750 Balance -1350 -1085.00 Weight (lbs) 115.666 kg 111.493 kg Intake: Intake, IV Amount 1000 665.00 Sodium Chloride 0.45% 1, 1000 665.00 000 ml @ 75 mls/hr IV . [id number] [facility] Rx#:[id number] Oral 1200 Output: Urine 3550 1750 Other: # Voids 1 # Bowel Movements 1 1 Weight Source Bedscale Bedscale Active Medications: Current Medications Escitalopram Oxalate (Lexapro) 10 mg PO HS [facility]; Protocol Stop: 08/10/18 20:59 Last Admin: 06/12/18 20:38 Dose: 10 mg Sodium Chloride (Nacl 0.45%) 1,000 mls @ 75 mls/hr IV .[id number] [facility] Stop: 08/10/18 16:44 Last Infusion: 06/13/18 06:05 Dose: 75 mls/hr Lorazepam (Ativan) 0.5 mg PO Q4HR PRN; Protocol PRN Reason: Anxiety Stop: 08/10/18 14:02 Last Admin: 06/13/18 02:06 Dose: 0.5 mg Magnesium Hydroxide (Milk Of Magnesia) 30 ml PO HS PRN PRN Reason: IF STOOL SOFTENERS INEFFECTIVE Stop: 08/10/18 14:02 Oxybutynin Chloride (Ditropan) 5 mg PO Q8HR [facility] Stop: 08/11/18 20:59 Last Admin: 06/13/18 04:07 Dose: 5 mg Quetiapine Fumarate (Seroquel) 200 mg PO TID [facility]; Protocol Stop: 08/10/18 20:59 Last Admin: 06/13/18 09:58 Dose: 200 mg Zolpidem Tartrate (Ambien) 5 mg PO HS PRN PRN Reason: Insomnia Stop: 08/10/18 14:02 Last Admin: 06/12/18 23:11 Dose: 5 mg General: No acute distress HEENT: Atraumatic, Mucous membr. moist/pink Neck: Supple, +2 carotid pulse wo bruit Cardiovascular: Regular rate, Normal S1, Normal S2 Lungs: Normal air movement Abdomen: Bowel sounds, Soft Extremities: no Edema Neurological: Sensation intact Skin: no Rash Psych/Mental Status: Mood NL, Other (confused) Assessment/Plan - Assessment Assessment: CKD Ess Htn Psychosis Alzh Dementia Anemia of CD Anxiety disorder Partial Outlet Obstruciton( Right [place], distended bladder) BPH S/P Left Nephrectomy Dilated Right renal collecting system Distended Stool filled rectum Cholelithiasis - Plan Plan: Lab - Result Diagrams 06/12/18 05:45 06/12/18 05:45 Current Medications Escitalopram Oxalate (Lexapro) 10 mg PO HS [facility]; Protocol Stop: 08/10/18 20:59 Last Admin: 06/11/18 20:52 Dose: 10 mg Sodium Chloride (Nacl 0.45%) 1,000 mls @ 75 mls/hr IV .[id number] [facility] Stop: 08/10/18 16:44 Last Admin: 06/11/18 18:36 Dose: 75 mls/hr Lorazepam (Ativan) 0.5 mg PO Q4HR PRN; Protocol PRN Reason: Anxiety Stop: 08/10/18 14:02 Magnesium Hydroxide (Milk Of Magnesia) 30 ml PO HS PRN PRN Reason: IF STOOL SOFTENERS INEFFECTIVE Stop: 08/10/18 14:02 Quetiapine Fumarate (Seroquel) 200 mg PO TID [facility]; Protocol Stop: 08/10/18 20:59 Last Admin: 06/12/18 13:38 Dose: 200 mg Zolpidem Tartrate (Ambien) 5 mg PO HS PRN PRN Reason: Insomnia Stop: 08/10/18 14:02 Last Admin: 06/11/18 20:52 Dose: 5 mg Lab - Result Diagrams 06/13/18 04:40 06/13/18 04:40 Cr. slightly improved to 1.7 continue IVF since pt. has partial obstruction FE Na 0.42 % suggestive or pre renal f/u electrolytes f/u recommendations of Urology
--- NOTE | 2018-06-13 14:14 | Diagnostic Imaging Report ---
CT scan of the brain without intravenous contrast HISTORY: Stroke, CVA Total DLP equals 772 CTDI equals 41.2 Axial sections were obtained from the base of the skull to the vertex. There is enlargement of the ventricular system along with enlargement of cerebral sulci and subarachnoid cisterns reflecting atrophy. No acute parenchymal abnormalities. No intracerebral hemorrhage. No mass effect or shift of midline structures. No extra-axial masses or abnormal fluid collections. IMPRESSION: 1. No acute abnormalities 2. Generalized cerebral atrophy
--- NOTE | 2018-06-13 21:15 | Progress Notes ---
DATE: 06/13/2018 Case was discussed with staff of the patient, reviewed records. The patient is a well-known case to me as I have seen him before covering for Dr. Barraza while he was in [facility]. He was transferred 3 days ago because apparently the patient became dehydrated and transferred here on 06/11/2018. When I talked to him, apparently he has been dehydrated. He was confused, unable to carry on a conversation, tell me why he is here, how long he is here. In general, he is unpredictable, impulsive, confused, and unable to make safe plan for self-care. He denies any intent to harm himself or anybody. He has been soft mittens on both of his hands apparently has been pulling his IVs and the patient can continue his medication from [facility] and can go back to [facility] when medically cleared. Thank you very much for allowing me to participate in the care of this most interesting gentleman. JOB# [id number]
[2018-06-14 07:29] LABS: ANION GAP 11.8 (7.0-16.0); BUN - UREA NITROGEN 35 mg/dL (7-25); CALCIUM SERUM 9.4 mg/dL (8.6-10.3); CARBON DIOXIDE 24.2 mEq/L (21.0-31.0); CHLORIDE 108 mEq/L (98-107); CREATININE - SERUM 1.5 mg/dL (0.7-1.3); GLUCOSE 88 mg/dL (70-105); SODIUM SERUM 140 mEq/L (136-145)
[2018-06-14 08:08] LABS: IRON LC 50 ug/dL (38-169); TIBC (LC) 217 ug/dL (250-450); UIBC 167 ug/dL (111-343)
[2018-06-14] MEDS: Multivitamin w/ Minerals Tab PO SCH ×2 (09:00→09:44)
--- NOTE | 2018-06-14 12:00 | Progress Notes ---
DATE: 06/13/2018 SUBJECTIVE: The patient is lying in the bed, not in acute distress. No fever, no chills. OBJECTIVE: VITAL SIGNS: Temperature is 97.4 degrees Fahrenheit, pulse 78, respirations 19, blood pressure 140/74. GENERAL: The patient is comfortable, lying in the bed, in no acute distress. HEENT: Head is normocephalic, atraumatic. Oral cavity moist. [place] tongue. NECK: Supple. No JVD. No carotid bruit. Trachea in midline. CHEST: Bilateral breath sounds. No crackles or wheezing. HEART: S1 and S2 within normal limits. Regular rhythm. No murmur. No gallop. ABDOMEN: Soft, nontender, nondistended. Bowel sounds present. EXTREMITIES: No cyanosis. No clubbing. No edema. NEUROLOGIC: Alert and awake. He communicates well. LABORATORY DATA: WBC count 4800, hemoglobin 12.0, hematocrit 36.5, platelets are 90,000, neutrophils 61.3%. Sodium is 141, potassium 4, chloride 109, bicarbonate is 24.7, BUN is 39, creatinine 1.7, glucose is 94. Urinalysis shows negative nitrite, wbc's 2-5, trace leukocyte esterase, a few bacteria. Urine culture, mixed geoffrey. RADIOLOGY: CT scan of the head suggested no acute abnormality. Generalized cerebral atrophy. CT scan of the abdomen and pelvis showed left nephrectomy, severe dilatation of the right renal collecting system and proximal portion of the right ureter, questionable heterogeneous density noted about the mid portion of the right ureter - etiology uncertain, enlarged prostate gland with encroachment and severely thick walled urinary bladder - neoplastic involvement cannot be excluded, distended stool-filled rectum consistent with the degree of fecal impaction, hyperdense fluid level within the gallbladder consistent with milk of calcium. Sonographically demonstrated cholelithiasis, cannot be clearly distinguished, severe DJD. IMPRESSION: 1. Increased creatinine and acute kidney injury, most likely dehydration. 2. Agitation, stable. 3. Left lower back mass, unknown. 4. Cholelithiasis, asymptomatic. 5. Seizure disorder. 6. Thrombocytopenia. 7. Right-sided hydronephrosis. 8. Benign prostatic hypertrophy. RECOMMENDATION AND PLAN: Continue as per the [employer] consultant. Continue same treatment. IV hydration. JOB# [id number]
[2018-06-14 12:11] LABS: FOLIC ACID 9.2 ng/mL (>3.0)
[2018-06-14] MEDS ORDERED: Fleet Enema 135 mL RC PRN (12:36)
[2018-06-14 13:08] LABS: INR 1.08 (0.5-1.4); PROTHROMBIN TIME (TEST) 11.2 SECONDS (9.5-11.5)
--- NOTE | 2018-06-14 13:29 | General Progress Note ---
Subjective - Review of Systems Service Date: 06/14/18 Subjective: awake, but very confused, disoriented Objective - Results Result Diagrams: 06/13/18 04:40 06/14/18 04:25 Recent Labs: Laboratory Last Values WBC 4.8 Th/cmm (4.8-10.8) 06/13/18 04:40 RBC 4.21 Mil/cmm (3.80-5.80) 06/13/18 04:40 Hgb 12.2 gm/dL (12-16) 06/13/18 04:40 Hct 36.5 % (41.0-60) L 06/13/18 04:40 MCV 86.7 fl (80-99) 06/13/18 04:40 MCH 28.9 pg (27.0-31.0) 06/13/18 04:40 MCHC Differential 33.3 pg (28.0-36.0) 06/13/18 04:40 RDW 13.5 % (11.5-20.0) 06/13/18 04:40 Plt Count 90 Th/cmm (150-400) L 06/13/18 04:40 MPV 8.3 fl 06/13/18 04:40 Neutrophils % 61.3 % (40.0-80.0) 06/13/18 04:40 Lymphocytes % 27.1 % (20.0-50.0) 06/13/18 04:40 Monocytes % 8.0 % (2.0-10.0) 06/13/18 04:40 Eosinophils % 3.2 % (0.0-5.0) 06/13/18 04:40 Basophils % 0.4 % (0.0-2.0) 06/13/18 04:40 Eos Smear Source URINE 06/12/18 12:00 Eos Smear Total Cells NONE SEEN (NONE SEEN) 06/12/18 12:00 PT 11.2 SECONDS (9.5-11.5) 06/14/18 12:50 INR 1.08 (0.5-1.4) 06/14/18 12:50 PTT (Actin FS) 26.7 SECONDS (26.0-38.0) 06/14/18 12:50 Sodium 140 mEq/L (136-145) 06/14/18 04:25 Potassium 4.0 mEq/L (3.5-5.1) 06/14/18 04:25 Chloride 108 mEq/L (98-107) H 06/14/18 04:25 Carbon Dioxide 24.2 mEq/L (21.0-31.0) 06/14/18 04:25 Anion Gap 11.8 (7.0-16.0) 06/14/18 04:25 BUN 35 mg/dL (7-25) H 06/14/18 04:25 Creatinine 1.5 mg/dL (0.7-1.3) H 06/14/18 04:25 Est GFR ( Amer) TNP 06/14/18 04:25 Est GFR (Non-Af Amer) TNP 06/14/18 04:25 BUN/Creatinine Ratio 23.3 06/14/18 04:25 Glucose 88 mg/dL (70-105) 06/14/18 04:25 POC Glucose 103 MG/DL (70 - 105) 06/11/18 13:20 Calcium 9.4 mg/dL (8.6-10.3) 06/14/18 04:25 Phosphorus 2.6 mg/dL (2.5-5.0) 06/12/18 05:45 Magnesium 2.1 mg/dL (1.9-2.7) 06/12/18 05:45 Iron 50 ug/dL (38-169) 06/13/18 04:40 TIBC 217 ug/dL (250-450) L 06/13/18 04:40 Iron Saturation 23 % (15-55) 06/13/18 04:40 Unsaturated IBC 167 ug/dL (111-343) 06/13/18 04:40 Ferritin 92 ng/mL (30-400) 06/13/18 04:40 Total Bilirubin 1.1 mg/dL (0.3-1.0) H 06/12/18 05:45 AST 14 U/L (13-39) 06/12/18 05:45 ALT 9 U/L (7-52) 06/12/18 05:45 Alkaline Phosphatase 55 U/L (34-104) 06/12/18 05:45 Ammonia 112 umol/L (16-53) H 06/12/18 05:45 Creatine Kinase 39 U/L (30-223) 06/13/18 04:40 Total Protein 5.8 gm/dL (6.0-8.3) L 06/12/18 05:45 Albumin 3.2 gm/dL (4.2-5.5) L 06/12/18 05:45 Globulin 2.6 gm/dL 06/12/18 05:45 Albumin/Globulin Ratio 1.2 (1.0-1.8) 06/12/18 05:45 Vitamin B12 574 pg/mL (232-1245) 06/13/18 04:40 Folic Acid 9.2 ng/mL (>3.0) 06/13/18 04:40 TSH 0.61 uIU/ml (0.34-5.60) 06/13/18 04:40 Urine Source MIDSTREAM 06/12/18 12:00 Urine Color YELLOW 06/12/18 12:00 Urine Clarity CLEAR (CLEAR) 06/12/18 12:00 Urine pH 6.0 (4.6 - 8.0) 06/12/18 12:00 Ur Specific [place] 1.010 (1.005-1.030) 06/12/18 12:00 Urine Protein NEGATIVE mg/dL (NEGATIVE) 06/12/18 12:00 Urine Glucose (UA) NEGATIVE mg/dL (NEGATIVE) 06/12/18 12:00 Urine Ketones NEGATIVE mg/dL (NEGATIVE) 06/12/18 12:00 Urine Blood NEGATIVE (NEGATIVE) 06/12/18 12:00 Urine Nitrate NEGATIVE (NEGATIVE) 06/12/18 12:00 Urine Bilirubin NEGATIVE (NEGATIVE) 06/12/18 12:00 Urine Urobilinogen 0.2 E.U./dL (0.2 - 1.0) 06/12/18 12:00 Ur Leukocyte Esterase TRACE (NEGATIVE) H 06/12/18 12:00 Urine RBC 0-2 /hpf (0-5) H 06/12/18 12:00 Urine WBC 2-5 /hpf (0-5) 06/12/18 12:00 Ur Epithelial Cells FEW /lpf (FEW) 06/12/18 12:00 Urine Bacteria FEW /hpf (NONE SEEN) 06/12/18 12:00 Ur Random Sodium 39 mmol/L 06/12/18 12:00 Urine Creatinine 99.0 mg/dl (39.0-259.0) 06/12/18 12:00 Microalb/Creat Ratio 49.2 mg/g creat (0.0-30.0) H 06/12/18 12:00 - Physical Exam Vitals and I&O: Vital Signs Temp 97.3 F 06/14/18 08:00 Pulse 71 06/14/18 08:00 Resp 18 06/14/18 08:00 BP 167/86 06/14/18 08:00 Pulse Ox 96 06/14/18 08:00 Intake & Output 06/13/18 06/14/18 06/14/18 18:59 06:59 18:59 Intake Total 350 720 Output Total 1250 1000 Balance -900 -280 Weight (lbs) 111.13 kg 110.478 kg Intake: Oral 300 720 Other 50 Output: Urine 1250 1000 Other: Weight [facility] Active Medications: Current Medications Bisacodyl (Dulcolax 10 Mg Supp) 10 mg RC DAILY PRN PRN Reason: Constipation Stop: 08/13/18 12:35 Escitalopram Oxalate (Lexapro) 10 mg PO HS CRISTELA; Protocol Stop: 08/10/18 20:59 Last Admin: 06/13/18 20:02 Dose: 10 mg Sodium Chloride (Nacl 0.45%) 1,000 mls @ 75 mls/hr IV .[id number] CRISTELA Stop: 08/10/18 16:44 Last Infusion: 06/13/18 06:05 Dose: 75 mls/hr Lorazepam (Ativan) 0.5 mg PO Q4HR PRN; Protocol PRN Reason: Anxiety Stop: 08/10/18 14:02 Last Admin: 06/14/18 04:02 Dose: 0.5 mg Magnesium Hydroxide (Milk Of Magnesia) 30 ml PO HS PRN PRN Reason: IF STOOL SOFTENERS INEFFECTIVE Stop: 08/10/18 14:02 Oxybutynin Chloride (Ditropan) 5 mg PO Q8HR CRISTELA Stop: 08/11/18 20:59 Last Admin: 06/14/18 05:12 Dose: 5 mg Quetiapine Fumarate (Seroquel) 200 mg PO TID CRISTELA; Protocol Stop: 08/10/18 20:59 Last Admin: 06/14/18 09:00 Dose: Not Given Sodium Phosphate (Fleet Enema) 135 ml RC Q48H PRN PRN Reason: IF MOM/DULCOLAX INEFFECTIVE Stop: 08/13/18 12:35 Zolpidem Tartrate (Ambien) 5 mg PO HS PRN PRN Reason: Insomnia Stop: 08/10/18 14:02 Last Admin: 06/13/18 23:39 Dose: 5 mg General: No acute distress HEENT: Atraumatic, Mucous membr. moist/pink Neck: Supple, +2 carotid pulse wo bruit Cardiovascular: Regular rate, Normal S1, Normal S2 Lungs: Normal air movement Abdomen: Bowel sounds, Soft Extremities: no Edema Neurological: Sensation intact Skin: no Rash Psych/Mental Status: Mood NL, Other (confused) Assessment/Plan - Assessment Assessment: CKD Ess Htn Psychosis Alzh Dementia Anemia of CD Anxiety disorder Partial Outlet Obstruciton( Right [place], distended bladder) BPH S/P Left Nephrectomy Dilated Right renal collecting system Distended Stool filled rectum Cholelithiasis - Plan Plan: Lab - Result Diagrams 06/12/18 05:45 06/12/18 05:45 Current Medications Escitalopram Oxalate (Lexapro) 10 mg PO HS CRISTELA; Protocol Stop: 08/10/18 20:59 Last Admin: 06/11/18 20:52 Dose: 10 mg Sodium Chloride (Nacl 0.45%) 1,000 mls @ 75 mls/hr IV .[id number] CRISTELA Stop: 08/10/18 16:44 Last Admin: 06/11/18 18:36 Dose: 75 mls/hr Lorazepam (Ativan) 0.5 mg PO Q4HR PRN; Protocol PRN Reason: Anxiety Stop: 08/10/18 14:02 Magnesium Hydroxide (Milk Of Magnesia) 30 ml PO HS PRN PRN Reason: IF STOOL SOFTENERS INEFFECTIVE Stop: 08/10/18 14:02 Quetiapine Fumarate (Seroquel) 200 mg PO TID CRISTELA; Protocol Stop: 08/10/18 20:59 Last Admin: 06/12/18 13:38 Dose: 200 mg Zolpidem Tartrate (Ambien) 5 mg PO HS PRN PRN Reason: Insomnia Stop: 08/10/18 14:02 Last Admin: 06/11/18 20:52 Dose: 5 mg Lab - Result Diagrams 06/13/18 04:40 06/14/18 04:25 Cr. slightly improved to 1.5 continue IVF since pt. has partial obstruction FE Na 0.42 % suggestive or pre renal f/u electrolytes f/u recommendations of Urology Nutritional Asmnt/Malnutr-PDOC - Dietary Evaluation Malnutrition Findings (Please click <Entered> for more info): Nutritional Asmnt/Malnutrition Start: 06/13/18 16: 18 Text: Status: Complete Freq: Protocol: Document 06/13/18 17:35 [facility]ENG (Rec: 06/13/18 17:44 [facility] Nutritional Asmnt/Malnutrition Patient General Information Nutritional Screening High Risk Diagnosis dehydration Pertinent Medical Hx/Surgical Hx anemia, dementia, schizoaffective disorder, anxiety, insomia Subjective Information pt seen lyingin bed at time of visit, awake and confused. Pt has no teeth noted. Pt denied chewing difficulty with dentures on regular textured food. Per EMR, PO intake 100%. Current Diet Order/ Nutrition Support regular Pertinent Medications seroquel, nacl 0.45% Pertinent Labs 06/13 Cl 109, BUN 39, Cr 1.7 06/12 Cl 110, BUN 41, Cr 1.5 Nutritional Hx/Data Height 1.88 m Height (Calculated Centimeters) 188.0 Current Weight (lbs) 111.584 kg Weight (Calculated Kilograms) 111.6 Weight (Calculated Grams) 828108.7 [place] Body Weight 190 Body Mass Index (BMI) 31.6 Weight Status Obese GI Symptoms GI Symptoms None Last BM 06/13 Difficult in: None Skin Integrity/Comment: intact Current %PO Good (75-100%) Estimated Nutritional Goals BEE in Kcals: Adj wt of IBW Calories/Kcals/Kg 25-30 Kcals Calculated 8172-3396 Protein: Adj wt of IBW Protein g/k Protein Calculated 93 Fluid: ml 2325-2790ml (1ml/kcal) Nutritional Problem 1. Problem Problem altered nutrition related labs Etiology electrolytes/fluid imbalance Signs/Symptoms: Cl 109, BUN 39 Malnutrition Alert Is there a minimum of two criteria No selected? Query Text:Check all the applicable criteria. A minimum of two criteria are recommended for diagnosis of either severe or non-severe malnutrition. Malnutrition Related to Morbid Obesity Malnutrition related to morbid obesity No Intervention/Recommendation Comments 1. Continue with regular diet as ordered. 2. Monitor PO intake, wt, labs and skin integrity 3. F/U as low risk in 7 days, 06/20, PO check 06/16 Expected Outcomes/Goals Expected Outcomes/Goals 1. PO intake to meet at least 75% of nutritional needs. 2. Wt stability, skin to remain intact, labs to approach WNL.
--- NOTE | 2018-06-14 17:10 | Consultation ---
DATE OF CONSULTATION: 06/14/2018 REASON FOR CONSULTATION: Seen for right hydronephrosis and renal insufficiency. HISTORY OF PRESENT ILLNESS: The patient is a 72-year-old who was admitted for psychological or psychiatric problems. From the [facility]ops[facility] Unit, he was then transferred here when his creatinine was found to be 1.6 compared to normal levels in the recent past. The patient is unable to provide any history. CT and ultrasound showed severe right hydronephrosis in the solitary kidney with a history of left nephrectomy in the past. Baez was then placed with a large amount of urine output initially and then subsequently became bloody requiring intermittent irrigation and now clearing up quite a bit currently light brown urine output. His creatinine has progressively come down, but I am not sure what his normal levels or baseline numbers have been. MEDICAL HISTORY: Anemia. History of psychological disorder may be schizophrenia and dementia. History of anxiety as well and insomnia. PAST SURGICAL HISTORY: There is a scar on his lower back, but details are not available. SOCIAL HISTORY: group home resident without any significant tobacco, alcohol, or drug issues. HOME MEDICATIONS: Lorazepam, escitalopram, some kind of sedative; magnesium hydroxide, multivitamins, naproxen, quetiapine, and zolpidem. ALLERGIES: None. REVIEW OF SYSTEMS: Altered level of consciousness improved, agitation is less. No fever or chills or weight loss. No report of headache or seizures. Again, no documentation of chest pain, coughing, or shortness of breath. No abdominal pain, vomiting or diarrhea noted, but constipation present. No skin or joint problems recorded. PHYSICAL EXAMINATION: VITAL SIGNS: On exam, temperature 97.3, heart rate 71, blood pressure 167/86. No fever documented in the hospital. HEAD AND NECK: Normocephalic. Trachea central. Pupils equal and reactive. No jaundice. Thyroid and lymph nodes not palpable. Carotid bruit absent. CHEST: Symmetrical. LUNGS: Clear. No rales or rhonchi. HEART: Sounds normal in sinus rhythm, no murmur. ABDOMEN: Soft, nontender, no organomegaly, mass, or hernia. GENITALIA: Normal male. Penis uncircumcised. No scrotal masses. RECTAL: Sphincter tone normal. Prostate is barely palpable and very small, unless it is very high to reach since the position of the patient is not very helpful in exam due to him being quite uncooperative. There is a scar over his right clavicle. EXTREMITIES: No edema or lymphadenopathy. NEUROLOGIC: Nonfocal, but altered. LABORATORY DATA: White count 4.8, hemoglobin 12.2. Sodium and potassium are normal, creatinine 1.7 and then 1.5 today, relatively elevated from his baseline apparently, bilirubin 1.1, ammonia elevated to 112, which is difficult to explain if he does not have liver disorder. Urinalysis quite unremarkable and within normal range. Culture grew out mixed geoffrey and not conclusive and the CT scan of the abdomen and pelvis showed the absent left kidney, hydronephrotic right kidney and right ureter down to the bladder, which is thickened, but the ureter is only dilated up to the mid portion where there is a heterogeneous density of questionable nature. Prostate is shown to be enlarged and may be the cause of his hydronephrosis. Distended rectum with stool impaction and milk of calcium in the gallbladder, otherwise unremarkable. IMPRESSION: 1. Right hydronephrosis and hydroureter with increased creatinine, now hematuria. Recommend cystoscopy, right retrograde pyelogram, possible stent, possible TURP or bladder tumor resection depending on the pathology discovered. We will have to obtain consent from appropriate people or two independent physicians to approve the procedure. 2. Schizoaffective disorder, psychosis, dementia of unclear nature. 3. History of anemia. JOB# [id number]
--- NOTE | 2018-06-14 22:04 | Progress Notes ---
DATE: 06/14/2018 SUBJECTIVE: The patient is actually in a Sandra chair. He is sleeping. He has become agitated for the last couple of days, somewhat resting now. Still on and off confused, moving everything. The patient actually will withdraw the legs about the same as before may be little bit more. MEDICATIONS: Lexapro, Ativan p.r.n., Seroquel 200 t.i.d., Ambien p.r.n. OBJECTIVE: VITAL SIGNS: Temperature 97.5, blood pressure 150/68, pulse is 74. NECK: Supple. EXTREMITIES: The patient will withdraw upper extremity, will withdraw lower extremity about the same, some weakness, leg. MOTOR: Reflexes 1+. IMAGING: CT scan of the head, no acute process. LABORATORY DATA: WBC is 4.8. Hemoglobin 12.2, BUN is 35, creatinine 1.5. His ammonia level on 06/12/2018 was 112. Rest of the labs pending. ASSESSMENT: 1. Encephalopathy. 2. Underlying dementia. 3. No history of acute stroke noted on the CAT scan. I could not rule out a small lacunar infarction without MRI, but I do not think we need to do that. 4. History of seizure, but no seizures here. 5. History of schizoaffective disorder. 6. The patient has high ammonia, etiology unclear. PLAN: Continue neurologically at the present treatment. JOB# [id number]
--- NOTE | 2018-06-14 23:49 | Progress Notes ---
DATE: 06/14/2018 The patient is currently in the Med-Surg Unit because of dehydration. The patient also is anemic. He has worsening of his renal functioning, therefore transferred to the Med-Surg Unit, has a very low platelet count. Therefore, he was seen by Dr. Morton. The patient continues to have episodes of agitation. The patient has multiple medical problems and need to be taken care of and medically cleared before he can go back to [facility]. So far, continue with his medication. The patient can go back to [facility] when medically cleared. He is currently on Seroquel 200 mg 3 times a day and Lexapro 10 mg daily. Thank you very much for allowing me to participate in the care of this most interesting gentleman. JOB# [id number]
--- NOTE | 2018-06-15 02:49 | Progress Notes ---
DATE: 06/14/2018 SUBJECTIVE: The patient lying in the bed, not in acute distress. PHYSICAL EXAMINATION: VITAL SIGNS: Current vital signs shows temperature is 98.4, pulse is 68, respirations 19, blood pressure 109/56. GENERAL: The patient is comfortable lying in the bed, not in acute distress. HEENT: Head is normocephalic, atraumatic. Oral cavity moist, pink tongue. NECK: Supple, no JVD, no carotid bruit. Trachea midline. CHEST: Bilateral breath sounds. No crackles or wheezing. HEART: S1, S2 within normal limits. Regular rhythm. No murmur, no gallop. ABDOMEN: Soft, nontender, nondistended. Bowel sounds present. EXTREMITIES: No cyanosis, no clubbing, no edema. NEUROLOGIC: Alert and awake. LABORATORY DATA: Current lab shows WBC count is 4800. Creatinine is 1.5. IMPRESSION: 1. Increased creatinine and acute kidney injury, most likely dehydration versus secondary to BPH. 2. Agitation, stable. 3. Left lower back pain, unknown etiology. 4. Cholelithiasis, asymptomatic. 5. Seizure disorder. 6. Thrombocytopenia. 7. Right-sided hydronephrosis. 8. Benign prostatic hypertrophy. RECOMMENDATION: Continue as per the advanced manufacturing consultant. Discuss with Dr. Graham and has planned to do cystoscopy and biopsy and to go with pyelogram and stent placement. Informed Dr. Vasquez and case management. JOB# [id number]
[2018-06-15] MEDS: Multivitamin w/ Minerals Tab PO SCH (09:00)
--- NOTE | 2018-06-15 10:16 | General Progress Note ---
Subjective - Review of Systems Service Date: 06/15/18 Subjective: awake, but very confused, disoriented Objective - Results Result Diagrams: 06/13/18 04:40 06/14/18 04:25 Recent Labs: Laboratory Last Values WBC 4.8 Th/cmm (4.8-10.8) 06/13/18 04:40 RBC 4.21 Mil/cmm (3.80-5.80) 06/13/18 04:40 Hgb 12.2 gm/dL (12-16) 06/13/18 04:40 Hct 36.5 % (41.0-60) L 06/13/18 04:40 MCV 86.7 fl (80-99) 06/13/18 04:40 MCH 28.9 pg (27.0-31.0) 06/13/18 04:40 MCHC Differential 33.3 pg (28.0-36.0) 06/13/18 04:40 RDW 13.5 % (11.5-20.0) 06/13/18 04:40 Plt Count 90 Th/cmm (150-400) L 06/13/18 04:40 MPV 8.3 fl 06/13/18 04:40 Neutrophils % 61.3 % (40.0-80.0) 06/13/18 04:40 Lymphocytes % 27.1 % (20.0-50.0) 06/13/18 04:40 Monocytes % 8.0 % (2.0-10.0) 06/13/18 04:40 Eosinophils % 3.2 % (0.0-5.0) 06/13/18 04:40 Basophils % 0.4 % (0.0-2.0) 06/13/18 04:40 Eos Smear Source URINE 06/12/18 12:00 Eos Smear Total Cells NONE SEEN (NONE SEEN) 06/12/18 12:00 PT 11.2 SECONDS (9.5-11.5) 06/14/18 12:50 INR 1.08 (0.5-1.4) 06/14/18 12:50 PTT (Actin FS) 26.7 SECONDS (26.0-38.0) 06/14/18 12:50 Sodium 140 mEq/L (136-145) 06/14/18 04:25 Potassium 4.0 mEq/L (3.5-5.1) 06/14/18 04:25 Chloride 108 mEq/L (98-107) H 06/14/18 04:25 Carbon Dioxide 24.2 mEq/L (21.0-31.0) 06/14/18 04:25 Anion Gap 11.8 (7.0-16.0) 06/14/18 04:25 BUN 35 mg/dL (7-25) H 06/14/18 04:25 Creatinine 1.5 mg/dL (0.7-1.3) H 06/14/18 04:25 Est GFR ( Amer) TNP 06/14/18 04:25 Est GFR (Non-Af Amer) TNP 06/14/18 04:25 BUN/Creatinine Ratio 23.3 06/14/18 04:25 Glucose 88 mg/dL (70-105) 06/14/18 04:25 POC Glucose 103 MG/DL (70 - 105) 06/11/18 13:20 Calcium 9.4 mg/dL (8.6-10.3) 06/14/18 04:25 Phosphorus 2.6 mg/dL (2.5-5.0) 06/12/18 05:45 Magnesium 2.1 mg/dL (1.9-2.7) 06/12/18 05:45 Iron 50 ug/dL (38-169) 06/13/18 04:40 TIBC 217 ug/dL (250-450) L 06/13/18 04:40 Iron Saturation 23 % (15-55) 06/13/18 04:40 Unsaturated IBC 167 ug/dL (111-343) 06/13/18 04:40 Ferritin 92 ng/mL (30-400) 06/13/18 04:40 Total Bilirubin 1.1 mg/dL (0.3-1.0) H 06/12/18 05:45 AST 14 U/L (13-39) 06/12/18 05:45 ALT 9 U/L (7-52) 06/12/18 05:45 Alkaline Phosphatase 55 U/L (34-104) 06/12/18 05:45 Ammonia 112 umol/L (16-53) H 06/12/18 05:45 Creatine Kinase 39 U/L (30-223) 06/13/18 04:40 Total Protein 5.8 gm/dL (6.0-8.3) L 06/12/18 05:45 Albumin 3.2 gm/dL (4.2-5.5) L 06/12/18 05:45 Globulin 2.6 gm/dL 06/12/18 05:45 Albumin/Globulin Ratio 1.2 (1.0-1.8) 06/12/18 05:45 Aldolase 3.5 U/L (3.3-10.3) 06/13/18 04:40 Vitamin B12 574 pg/mL (232-1245) 06/13/18 04:40 Folic Acid 9.2 ng/mL (>3.0) 06/13/18 04:40 TSH 0.61 uIU/ml (0.34-5.60) 06/13/18 04:40 Urine Source MIDSTREAM 06/12/18 12:00 Urine Color YELLOW 06/12/18 12:00 Urine Clarity CLEAR (CLEAR) 06/12/18 12:00 Urine pH 6.0 (4.6 - 8.0) 06/12/18 12:00 Ur Specific [place] 1.010 (1.005-1.030) 06/12/18 12:00 Urine Protein NEGATIVE mg/dL (NEGATIVE) 06/12/18 12:00 Urine Glucose (UA) NEGATIVE mg/dL (NEGATIVE) 06/12/18 12:00 Urine Ketones NEGATIVE mg/dL (NEGATIVE) 06/12/18 12:00 Urine Blood NEGATIVE (NEGATIVE) 06/12/18 12:00 Urine Nitrate NEGATIVE (NEGATIVE) 06/12/18 12:00 Urine Bilirubin NEGATIVE (NEGATIVE) 06/12/18 12:00 Urine Urobilinogen 0.2 E.U./dL (0.2 - 1.0) 06/12/18 12:00 Ur Leukocyte Esterase TRACE (NEGATIVE) H 06/12/18 12:00 Urine RBC 0-2 /hpf (0-5) H 06/12/18 12:00 Urine WBC 2-5 /hpf (0-5) 06/12/18 12:00 Ur Epithelial Cells FEW /lpf (FEW) 06/12/18 12:00 Urine Bacteria FEW /hpf (NONE SEEN) 06/12/18 12:00 Ur Random Sodium 39 mmol/L 06/12/18 12:00 Urine Creatinine 99.0 mg/dl (39.0-259.0) 06/12/18 12:00 Microalb/Creat Ratio 49.2 mg/g creat (0.0-30.0) H 06/12/18 12:00 - Physical Exam Vitals and I&O: Vital Signs Temp 98.4 F 06/15/18 07:58 Pulse 68 06/15/18 07:58 Resp 18 06/15/18 09:19 BP 136/83 06/15/18 07:58 Pulse Ox 99 06/15/18 07:58 Intake & Output 06/14/18 06/15/18 06/15/18 18:59 06:59 18:59 Intake Total 200 480 Output Total 850 800 Balance -650 -320 Weight (lbs) 110.223 kg 109.769 kg Intake: Oral 200 480 Output: Urine 850 800 Other: # Bowel Movements 1 3 Stool Characteristics Liquid Weight Source Bedscale Bedscale Active Medications: Current Medications Bisacodyl (Dulcolax 10 Mg Supp) 10 mg RC DAILY PRN PRN Reason: Constipation Stop: 08/13/18 12:35 Escitalopram Oxalate (Lexapro) 10 mg PO HS CRISTELA; Protocol Stop: 08/10/18 20:59 Last Admin: 06/14/18 21:44 Dose: Not Given Sodium Chloride (Nacl 0.45%) 1,000 mls @ 75 mls/hr IV .[id number] CRISTELA Stop: 08/10/18 16:44 Last Infusion: 06/13/18 06:05 Dose: 75 mls/hr Lorazepam (Ativan) 0.5 mg PO Q4HR PRN; Protocol PRN Reason: Anxiety Stop: 08/10/18 14:02 Last Admin: 06/14/18 04:02 Dose: 0.5 mg Magnesium Hydroxide (Milk Of Magnesia) 30 ml PO HS PRN PRN Reason: IF STOOL SOFTENERS INEFFECTIVE Stop: 08/10/18 14:02 Oxybutynin Chloride (Ditropan) 5 mg PO Q8HR CRISTELA Stop: 08/11/18 20:59 Last Admin: 06/15/18 07:02 Dose: Not Given Quetiapine Fumarate (Seroquel) 200 mg PO TID CRISTELA; Protocol Stop: 08/10/18 20:59 Last Admin: 06/15/18 09:00 Dose: 200 mg Sodium Phosphate (Fleet Enema) 135 ml RC Q48H PRN PRN Reason: IF MOM/DULCOLAX INEFFECTIVE Stop: 08/13/18 12:35 Zolpidem Tartrate (Ambien) 5 mg PO HS PRN PRN Reason: Insomnia Stop: 08/10/18 14:02 Last Admin: 06/13/18 23:39 Dose: 5 mg General: No acute distress HEENT: Atraumatic, Mucous membr. moist/pink Neck: Supple, +2 carotid pulse wo bruit Cardiovascular: Regular rate, Normal S1, Normal S2 Lungs: Normal air movement Abdomen: Bowel sounds, Soft Extremities: no Edema Neurological: Sensation intact Skin: no Rash Psych/Mental Status: Mood NL, Other (confused) Assessment/Plan - Assessment Assessment: CKD Ess Htn Psychosis Alzh Dementia Anemia of CD Anxiety disorder Partial Outlet Obstruciton( Right Dora, distended bladder) BPH S/P Left Nephrectomy Dilated Right renal collecting system Distended Stool filled rectum Cholelithiasis - Plan Plan: Lab - Result Diagrams 06/12/18 05:45 06/12/18 05:45 Current Medications Escitalopram Oxalate (Lexapro) 10 mg PO HS CRISTELA; Protocol Stop: 08/10/18 20:59 Last Admin: 06/11/18 20:52 Dose: 10 mg Sodium Chloride (Nacl 0.45%) 1,000 mls @ 75 mls/hr IV .[id number] CRISTELA Stop: 08/10/18 16:44 Last Admin: 06/11/18 18:36 Dose: 75 mls/hr Lorazepam (Ativan) 0.5 mg PO Q4HR PRN; Protocol PRN Reason: Anxiety Stop: 08/10/18 14:02 Magnesium Hydroxide (Milk Of Magnesia) 30 ml PO HS PRN PRN Reason: IF STOOL SOFTENERS INEFFECTIVE Stop: 08/10/18 14:02 Quetiapine Fumarate (Seroquel) 200 mg PO TID CRISTELA; Protocol Stop: 08/10/18 20:59 Last Admin: 06/12/18 13:38 Dose: 200 mg Zolpidem Tartrate (Ambien) 5 mg PO HS PRN PRN Reason: Insomnia Stop: 08/10/18 14:02 Last Admin: 06/11/18 20:52 Dose: 5 mg Lab - Result Diagrams 06/13/18 04:40 06/14/18 04:25 no change kidney fnc continue IVF since pt. has partial obstruction FE Na 0.42 % suggestive or pre renal f/u electrolytes f/u recommendations of Urology Nutritional Asmnt/Malnutr-PDOC - Dietary Evaluation Malnutrition Findings (Please click <Entered> for more info): Nutritional Asmnt/Malnutrition Start: 06/13/18 16: 18 Text: Status: Complete Freq: Protocol: Document 06/13/18 17:35 LCHENG (Rec: 06/13/18 17:44 LCHENG [email or web address]) Nutritional Asmnt/Malnutrition Patient General Information Nutritional Screening High Risk Diagnosis dehydration Pertinent Medical Hx/Surgical Hx anemia, dementia, schizoaffective disorder, anxiety, insomia Subjective Information pt seen lyingin bed at time of visit, awake and confused. Pt has no teeth noted. Pt denied chewing difficulty with dentures on regular textured food. Per EMR, PO intake 100%. Current Diet Order/ Nutrition Support regular Pertinent Medications seroquel, nacl 0.45% Pertinent Labs 06/13 Cl 109, BUN 39, Cr 1.7 06/12 Cl 110, BUN 41, Cr 1.5 Nutritional Hx/Data Height 1.88 m Height (Calculated Centimeters) 188.0 Current Weight (lbs) 111.584 kg Weight (Calculated Kilograms) 111.6 Weight (Calculated Grams) 932996.7 [place] Body Weight 190 Body Mass Index (BMI) 31.6 Weight Status Obese GI Symptoms GI Symptoms None Last BM 06/13 Difficult in: None Skin Integrity/Comment: intact Current %PO Good (75-100%) Estimated Nutritional Goals BEE in Kcals: Adj wt of IBW Calories/Kcals/Kg 25-30 Kcals Calculated 1153-0441 Protein: Adj wt of IBW Protein g/k Protein Calculated 93 Fluid: ml 2325-2790ml (1ml/kcal) Nutritional Problem 1. Problem Problem altered nutrition related labs Etiology electrolytes/fluid imbalance Signs/Symptoms: Cl 109, BUN 39 Malnutrition Alert Is there a minimum of two criteria No selected? Query Text:Check all the applicable criteria. A minimum of two criteria are recommended for diagnosis of either severe or non-severe malnutrition. Malnutrition Related to Morbid Obesity Malnutrition related to morbid obesity No Intervention/Recommendation Comments 1. Continue with regular diet as ordered. 2. Monitor PO intake, wt, labs and skin integrity 3. F/U as low risk in 7 days, 06/20, PO check 06/16 Expected Outcomes/Goals Expected Outcomes/Goals 1. PO intake to meet at least 75% of nutritional needs. 2. Wt stability, skin to remain intact, labs to approach WNL.
--- NOTE | 2018-06-15 11:19 | General Progress Note ---
Subjective - Review of Systems Service Date: 06/15/18 Events since last encounter: no new sxs Objective - Results Result Diagrams: 06/13/18 04:40 06/14/18 04:25 Recent Labs: Laboratory Last Values WBC 4.8 Th/cmm (4.8-10.8) 06/13/18 04:40 RBC 4.21 Mil/cmm (3.80-5.80) 06/13/18 04:40 Hgb 12.2 gm/dL (12-16) 06/13/18 04:40 Hct 36.5 % (41.0-60) L 06/13/18 04:40 MCV 86.7 fl (80-99) 06/13/18 04:40 MCH 28.9 pg (27.0-31.0) 06/13/18 04:40 MCHC Differential 33.3 pg (28.0-36.0) 06/13/18 04:40 RDW 13.5 % (11.5-20.0) 06/13/18 04:40 Plt Count 90 Th/cmm (150-400) L 06/13/18 04:40 MPV 8.3 fl 06/13/18 04:40 Neutrophils % 61.3 % (40.0-80.0) 06/13/18 04:40 Lymphocytes % 27.1 % (20.0-50.0) 06/13/18 04:40 Monocytes % 8.0 % (2.0-10.0) 06/13/18 04:40 Eosinophils % 3.2 % (0.0-5.0) 06/13/18 04:40 Basophils % 0.4 % (0.0-2.0) 06/13/18 04:40 Eos Smear Source URINE 06/12/18 12:00 Eos Smear Total Cells NONE SEEN (NONE SEEN) 06/12/18 12:00 PT 11.2 SECONDS (9.5-11.5) 06/14/18 12:50 INR 1.08 (0.5-1.4) 06/14/18 12:50 PTT (Actin FS) 26.7 SECONDS (26.0-38.0) 06/14/18 12:50 Sodium 140 mEq/L (136-145) 06/14/18 04:25 Potassium 4.0 mEq/L (3.5-5.1) 06/14/18 04:25 Chloride 108 mEq/L (98-107) H 06/14/18 04:25 Carbon Dioxide 24.2 mEq/L (21.0-31.0) 06/14/18 04:25 Anion Gap 11.8 (7.0-16.0) 06/14/18 04:25 BUN 35 mg/dL (7-25) H 06/14/18 04:25 Creatinine 1.5 mg/dL (0.7-1.3) H 06/14/18 04:25 Est GFR ( Amer) TNP 06/14/18 04:25 Est GFR (Non-Af Amer) TNP 06/14/18 04:25 BUN/Creatinine Ratio 23.3 06/14/18 04:25 Glucose 88 mg/dL (70-105) 06/14/18 04:25 POC Glucose 103 MG/DL (70 - 105) 06/11/18 13:20 Calcium 9.4 mg/dL (8.6-10.3) 06/14/18 04:25 Phosphorus 2.6 mg/dL (2.5-5.0) 06/12/18 05:45 Magnesium 2.1 mg/dL (1.9-2.7) 06/12/18 05:45 Iron 50 ug/dL (38-169) 06/13/18 04:40 TIBC 217 ug/dL (250-450) L 06/13/18 04:40 Iron Saturation 23 % (15-55) 06/13/18 04:40 Unsaturated IBC 167 ug/dL (111-343) 06/13/18 04:40 Ferritin 92 ng/mL (30-400) 06/13/18 04:40 Total Bilirubin 1.1 mg/dL (0.3-1.0) H 06/12/18 05:45 AST 14 U/L (13-39) 06/12/18 05:45 ALT 9 U/L (7-52) 06/12/18 05:45 Alkaline Phosphatase 55 U/L (34-104) 06/12/18 05:45 Ammonia 112 umol/L (16-53) H 06/12/18 05:45 Creatine Kinase 39 U/L (30-223) 06/13/18 04:40 Total Protein 5.8 gm/dL (6.0-8.3) L 06/12/18 05:45 Albumin 3.2 gm/dL (4.2-5.5) L 06/12/18 05:45 Globulin 2.6 gm/dL 06/12/18 05:45 Albumin/Globulin Ratio 1.2 (1.0-1.8) 06/12/18 05:45 Aldolase 3.5 U/L (3.3-10.3) 06/13/18 04:40 Vitamin B12 574 pg/mL (232-1245) 06/13/18 04:40 Folic Acid 9.2 ng/mL (>3.0) 06/13/18 04:40 TSH 0.61 uIU/ml (0.34-5.60) 06/13/18 04:40 Urine Source MIDSTREAM 06/12/18 12:00 Urine Color YELLOW 06/12/18 12:00 Urine Clarity CLEAR (CLEAR) 06/12/18 12:00 Urine pH 6.0 (4.6 - 8.0) 06/12/18 12:00 Ur Specific [place] 1.010 (1.005-1.030) 06/12/18 12:00 Urine Protein NEGATIVE mg/dL (NEGATIVE) 06/12/18 12:00 Urine Glucose (UA) NEGATIVE mg/dL (NEGATIVE) 06/12/18 12:00 Urine Ketones NEGATIVE mg/dL (NEGATIVE) 06/12/18 12:00 Urine Blood NEGATIVE (NEGATIVE) 06/12/18 12:00 Urine Nitrate NEGATIVE (NEGATIVE) 06/12/18 12:00 Urine Bilirubin NEGATIVE (NEGATIVE) 06/12/18 12:00 Urine Urobilinogen 0.2 E.U./dL (0.2 - 1.0) 06/12/18 12:00 Ur Leukocyte Esterase TRACE (NEGATIVE) H 06/12/18 12:00 Urine RBC 0-2 /hpf (0-5) H 06/12/18 12:00 Urine WBC 2-5 /hpf (0-5) 06/12/18 12:00 Ur Epithelial Cells FEW /lpf (FEW) 06/12/18 12:00 Urine Bacteria FEW /hpf (NONE SEEN) 06/12/18 12:00 Ur Random Sodium 39 mmol/L 06/12/18 12:00 Urine Creatinine 99.0 mg/dl (39.0-259.0) 06/12/18 12:00 Microalb/Creat Ratio 49.2 mg/g creat (0.0-30.0) H 06/12/18 12:00 - Physical Exam Vitals and I&O: Vital Signs Temp 98.4 F 06/15/18 07:58 Pulse 68 06/15/18 07:58 Resp 18 06/15/18 09:19 BP 136/83 06/15/18 07:58 Pulse Ox 99 06/15/18 07:58 Intake & Output 06/14/18 06/15/18 06/15/18 18:59 06:59 18:59 Intake Total 200 480 Output Total 850 800 Balance -650 -320 Weight (lbs) 110.223 kg 109.769 kg Intake: Oral 200 480 Output: Urine 850 800 Other: # Bowel Movements 1 3 Stool Characteristics Liquid Weight Source Bedscale Bedscale Active Medications: Current Medications Bisacodyl (Dulcolax 10 Mg Supp) 10 mg RC DAILY PRN PRN Reason: Constipation Stop: 08/13/18 12:35 Escitalopram Oxalate (Lexapro) 10 mg PO HS CRISTELA; Protocol Stop: 08/10/18 20:59 Last Admin: 06/14/18 21:44 Dose: Not Given Sodium Chloride (Nacl 0.45%) 1,000 mls @ 75 mls/hr IV .[id number] CRISTELA Stop: 08/10/18 16:44 Last Infusion: 06/13/18 06:05 Dose: 75 mls/hr Lorazepam (Ativan) 0.5 mg PO Q4HR PRN; Protocol PRN Reason: Anxiety Stop: 08/10/18 14:02 Last Admin: 06/14/18 04:02 Dose: 0.5 mg Magnesium Hydroxide (Milk Of Magnesia) 30 ml PO HS PRN PRN Reason: IF STOOL SOFTENERS INEFFECTIVE Stop: 08/10/18 14:02 Oxybutynin Chloride (Ditropan) 5 mg PO Q8HR CRISTELA Stop: 08/11/18 20:59 Last Admin: 06/15/18 07:02 Dose: Not Given Quetiapine Fumarate (Seroquel) 200 mg PO TID CRISTELA; Protocol Stop: 08/10/18 20:59 Last Admin: 06/15/18 09:00 Dose: 200 mg Sodium Phosphate (Fleet Enema) 135 ml RC Q48H PRN PRN Reason: IF MOM/DULCOLAX INEFFECTIVE Stop: 08/13/18 12:35 Zolpidem Tartrate (Ambien) 5 mg PO HS PRN PRN Reason: Insomnia Stop: 08/10/18 14:02 Last Admin: 06/13/18 23:39 Dose: 5 mg General: No acute distress HEENT: Atraumatic, Mucous membr. moist/pink Neck: Supple, +2 carotid pulse wo bruit Cardiovascular: Regular rate, Normal S1, Normal S2 Lungs: Normal air movement Abdomen: Bowel sounds, Soft Extremities: no Edema Neurological: Sensation intact Skin: no Rash Psych/Mental Status: Mood NL, Other (confused) Assessment/Plan - Assessment Assessment: Thrombocytopenia since admission. The platelet counts were normal in November of this year, but they were abnormal before that. It looks like the baseline of the platelet count is around 100,000 and this is likely from the splenomegaly. The patient has right-sided hydronephrosis and will need to be evaluated by the urologist. His renal functions have been abnormal and this is likely chronic kidney disease as contributing to the anemia and anemia workup will be obtained. No need for transfusion at this time. I will obtain coagulation panel, anemia workup, and monitor. 06/15: lab noted and discussed. anemia likely of chronic kid. disease. ferritin in suboptimal for CKD. Start ferrlecit. plt are back to baseline with splenomegaly Nutritional Asmnt/Malnutr-PDOC - Dietary Evaluation Malnutrition Findings (Please click <Entered> for more info): Nutritional Asmnt/Malnutrition Start: 06/13/18 16: 18 Text: Status: Complete Freq: Protocol: Document 06/13/18 17:35 LCHENG (Rec: 06/13/18 17:44 LCHENG [email or web address]) Nutritional Asmnt/Malnutrition Patient General Information Nutritional Screening High Risk Diagnosis dehydration Pertinent Medical Hx/Surgical Hx anemia, dementia, schizoaffective disorder, anxiety, insomia Subjective Information pt seen lyingin bed at time of visit, awake and confused. Pt has no teeth noted. Pt denied chewing difficulty with dentures on regular textured food. Per EMR, PO intake 100%. Current Diet Order/ Nutrition Support regular Pertinent Medications seroquel, nacl 0.45% Pertinent Labs 06/13 Cl 109, BUN 39, Cr 1.7 06/12 Cl 110, BUN 41, Cr 1.5 Nutritional Hx/Data Height 1.88 m Height (Calculated Centimeters) 188.0 Current Weight (lbs) 111.584 kg Weight (Calculated Kilograms) 111.6 Weight (Calculated Grams) 765747.7 [place] Body Weight 190 Body Mass Index (BMI) 31.6 Weight Status Obese GI Symptoms GI Symptoms None Last BM 06/13 Difficult in: None Skin Integrity/Comment: intact Current %PO Good (75-100%) Estimated Nutritional Goals BEE in Kcals: Adj wt of IBW Calories/Kcals/Kg 25-30 Kcals Calculated 8714-6505 Protein: Adj wt of IBW Protein g/k Protein Calculated 93 Fluid: ml 2325-2790ml (1ml/kcal) Nutritional Problem 1. Problem Problem altered nutrition related labs Etiology electrolytes/fluid imbalance Signs/Symptoms: Cl 109, BUN 39 Malnutrition Alert Is there a minimum of two criteria No selected? Query Text:Check all the applicable criteria. A minimum of two criteria are recommended for diagnosis of either severe or non-severe malnutrition. Malnutrition Related to Morbid Obesity Malnutrition related to morbid obesity No Intervention/Recommendation Comments 1. Continue with regular diet as ordered. 2. Monitor PO intake, wt, labs and skin integrity 3. F/U as low risk in 7 days, 06/20, PO check 06/16 Expected Outcomes/Goals Expected Outcomes/Goals 1. PO intake to meet at least 75% of nutritional needs. 2. Wt stability, skin to remain intact, labs to approach WNL.
[2018-06-15] MEDS: Sodium Ferric Gluconate 125 MG in Sodium Chloride 0.9% 100 ML IV SCH (14:03)
--- NOTE | 2018-06-15 16:11 | Infectious Disease Prog Note ---
Infectious Disease Subjective - Review of Systems Service Date: 06/15/18 Subjective: There is no new change, no fever. Infectious Disease Objective - Results Result Diagrams: 06/13/18 04:40 06/14/18 04:25 Recent Labs: Laboratory Last Values WBC 4.8 Th/cmm (4.8-10.8) 06/13/18 04:40 RBC 4.21 Mil/cmm (3.80-5.80) 06/13/18 04:40 Hgb 12.2 gm/dL (12-16) 06/13/18 04:40 Hct 36.5 % (41.0-60) L 06/13/18 04:40 MCV 86.7 fl (80-99) 06/13/18 04:40 MCH 28.9 pg (27.0-31.0) 06/13/18 04:40 MCHC Differential 33.3 pg (28.0-36.0) 06/13/18 04:40 RDW 13.5 % (11.5-20.0) 06/13/18 04:40 Plt Count 90 Th/cmm (150-400) L 06/13/18 04:40 MPV 8.3 fl 06/13/18 04:40 Neutrophils % 61.3 % (40.0-80.0) 06/13/18 04:40 Lymphocytes % 27.1 % (20.0-50.0) 06/13/18 04:40 Monocytes % 8.0 % (2.0-10.0) 06/13/18 04:40 Eosinophils % 3.2 % (0.0-5.0) 06/13/18 04:40 Basophils % 0.4 % (0.0-2.0) 06/13/18 04:40 Eos Smear Source URINE 06/12/18 12:00 Eos Smear Total Cells NONE SEEN (NONE SEEN) 06/12/18 12:00 PT 11.2 SECONDS (9.5-11.5) 06/14/18 12:50 INR 1.08 (0.5-1.4) 06/14/18 12:50 PTT (Actin FS) 26.7 SECONDS (26.0-38.0) 06/14/18 12:50 Sodium 140 mEq/L (136-145) 06/14/18 04:25 Potassium 4.0 mEq/L (3.5-5.1) 06/14/18 04:25 Chloride 108 mEq/L (98-107) H 06/14/18 04:25 Carbon Dioxide 24.2 mEq/L (21.0-31.0) 06/14/18 04:25 Anion Gap 11.8 (7.0-16.0) 06/14/18 04:25 BUN 35 mg/dL (7-25) H 06/14/18 04:25 Creatinine 1.5 mg/dL (0.7-1.3) H 06/14/18 04:25 Est GFR ( Amer) TNP 06/14/18 04:25 Est GFR (Non-Af Amer) TNP 06/14/18 04:25 BUN/Creatinine Ratio 23.3 06/14/18 04:25 Glucose 88 mg/dL (70-105) 06/14/18 04:25 POC Glucose 103 MG/DL (70 - 105) 06/11/18 13:20 Calcium 9.4 mg/dL (8.6-10.3) 06/14/18 04:25 Phosphorus 2.6 mg/dL (2.5-5.0) 06/12/18 05:45 Magnesium 2.1 mg/dL (1.9-2.7) 06/12/18 05:45 Iron 50 ug/dL (38-169) 06/13/18 04:40 TIBC 217 ug/dL (250-450) L 06/13/18 04:40 Iron Saturation 23 % (15-55) 06/13/18 04:40 Unsaturated IBC 167 ug/dL (111-343) 06/13/18 04:40 Ferritin 92 ng/mL (30-400) 06/13/18 04:40 Total Bilirubin 1.1 mg/dL (0.3-1.0) H 06/12/18 05:45 AST 14 U/L (13-39) 06/12/18 05:45 ALT 9 U/L (7-52) 06/12/18 05:45 Alkaline Phosphatase 55 U/L (34-104) 06/12/18 05:45 Ammonia 112 umol/L (16-53) H 06/12/18 05:45 Creatine Kinase 39 U/L (30-223) 06/13/18 04:40 Total Protein 5.8 gm/dL (6.0-8.3) L 06/12/18 05:45 Albumin 3.2 gm/dL (4.2-5.5) L 06/12/18 05:45 Globulin 2.6 gm/dL 06/12/18 05:45 Albumin/Globulin Ratio 1.2 (1.0-1.8) 06/12/18 05:45 Aldolase 3.5 U/L (3.3-10.3) 06/13/18 04:40 Vitamin B12 574 pg/mL (232-1245) 06/13/18 04:40 Folic Acid 9.2 ng/mL (>3.0) 06/13/18 04:40 TSH 0.61 uIU/ml (0.34-5.60) 06/13/18 04:40 Urine Source MIDSTREAM 06/12/18 12:00 Urine Color YELLOW 06/12/18 12:00 Urine Clarity CLEAR (CLEAR) 06/12/18 12:00 Urine pH 6.0 (4.6 - 8.0) 06/12/18 12:00 Ur Specific [place] 1.010 (1.005-1.030) 06/12/18 12:00 Urine Protein NEGATIVE mg/dL (NEGATIVE) 06/12/18 12:00 Urine Glucose (UA) NEGATIVE mg/dL (NEGATIVE) 06/12/18 12:00 Urine Ketones NEGATIVE mg/dL (NEGATIVE) 06/12/18 12:00 Urine Blood NEGATIVE (NEGATIVE) 06/12/18 12:00 Urine Nitrate NEGATIVE (NEGATIVE) 06/12/18 12:00 Urine Bilirubin NEGATIVE (NEGATIVE) 06/12/18 12:00 Urine Urobilinogen 0.2 E.U./dL (0.2 - 1.0) 06/12/18 12:00 Ur Leukocyte Esterase TRACE (NEGATIVE) H 06/12/18 12:00 Urine RBC 0-2 /hpf (0-5) H 06/12/18 12:00 Urine WBC 2-5 /hpf (0-5) 06/12/18 12:00 Ur Epithelial Cells FEW /lpf (FEW) 06/12/18 12:00 Urine Bacteria FEW /hpf (NONE SEEN) 06/12/18 12:00 Ur Random Sodium 39 mmol/L 06/12/18 12:00 Urine Creatinine 99.0 mg/dl (39.0-259.0) 06/12/18 12:00 Microalb/Creat Ratio 49.2 mg/g creat (0.0-30.0) H 06/12/18 12:00 - Physical Exam Vitals and I&O: Vital Signs Temp 98.2 F 06/15/18 15:58 Pulse 65 06/15/18 15:58 Resp 17 06/15/18 15:58 BP 136/75 06/15/18 15:58 Pulse Ox 99 06/15/18 15:58 Intake & Output 06/14/18 06/15/18 06/15/18 18:59 06:59 18:59 Intake Total 200 480 Output Total 850 800 Balance -650 -320 Weight (lbs) 110.223 kg 109.769 kg Intake: Oral 200 480 Output: Urine 850 800 Other: # Bowel Movements 1 3 Stool Characteristics Liquid Weight Source Bedscale Bedscale Active Medications: Current Medications Bisacodyl (Dulcolax 10 Mg Supp) 10 mg RC DAILY PRN PRN Reason: Constipation Stop: 08/13/18 12:35 Escitalopram Oxalate (Lexapro) 10 mg PO HS [facility]; Protocol Stop: 08/10/18 20:59 Last Admin: 06/14/18 21:44 Dose: Not Given Sodium Chloride (Nacl 0.45%) 1,000 mls @ 75 mls/hr IV .[id number] [facility] Stop: 08/10/18 16:44 Last Infusion: 06/13/18 06:05 Dose: 75 mls/hr Ferric Sodium Gluconate Complex 125 mg/ Sodium Chloride 110 mls @ 100 mls/hr IV Q24HR [facility] Stop: 06/23/18 11:59 Last Admin: 06/15/18 14:03 Dose: 100 mls/hr Lorazepam (Ativan) 0.5 mg PO Q4HR PRN; Protocol PRN Reason: Anxiety Stop: 08/10/18 14:02 Last Admin: 06/14/18 04:02 Dose: 0.5 mg Magnesium Hydroxide (Milk Of Magnesia) 30 ml PO HS PRN PRN Reason: IF STOOL SOFTENERS INEFFECTIVE Stop: 08/10/18 14:02 Oxybutynin Chloride (Ditropan) 5 mg PO Q8HR [facility] Stop: 08/11/18 20:59 Last Admin: 06/15/18 14:09 Dose: 5 mg Quetiapine Fumarate (Seroquel) 200 mg PO TID [facility]; Protocol Stop: 08/10/18 20:59 Last Admin: 06/15/18 14:09 Dose: 200 mg Sodium Phosphate (Fleet Enema) 135 ml RC Q48H PRN PRN Reason: IF MOM/DULCOLAX INEFFECTIVE Stop: 08/13/18 12:35 Zolpidem Tartrate (Ambien) 5 mg PO HS PRN PRN Reason: Insomnia Stop: 08/10/18 14:02 Last Admin: 06/13/18 23:39 Dose: 5 mg General: no acute distress, well developed, well nourished HEENT: atraumatic, normocephalic, PERRLA Neck: supple, no thyromegaly, no lymphadenopathy Cardiovascular: S1S2, regular Lungs: clear to auscultation bilaterally, clear to percussion Abdomen: soft, mass (Left lower back), no tender, no distended Extremities: no cyanosis, no clubbing, no edema Neurological: awake, alert, oriented Skin: intact Infectious Disease Assmt/Plan - Assessment Assessment: 1. Increasing creatinine and acute kidney injury, most likely mildly increase in creatinine, acute kidney injury, most likely dehydration. 2. Agitation. 3. Left lower back mass, unknown etiology. 4. History of anemia, improved. 5. Seizure disorder. 6. Thrombocytopenia. - Plan Plan: Continue as per consultants. Surgery consult. Nutritional Asmnt/Malnutr-PDOC - Dietary Evaluation Malnutrition Findings (Please click <Entered> for more info): Nutritional Asmnt/Malnutrition Start: 06/13/18 16: 18 Text: Status: Complete Freq: Protocol: Document 06/13/18 17:35 LCHENG (Rec: 06/13/18 17:44 LCHENG [email or web address]) Nutritional Asmnt/Malnutrition Patient General Information Nutritional Screening High Risk Diagnosis dehydration Pertinent Medical Hx/Surgical Hx anemia, dementia, schizoaffective disorder, anxiety, insomia Subjective Information pt seen lyingin bed at time of visit, awake and confused. Pt has no teeth noted. Pt denied chewing difficulty with dentures on regular textured food. Per EMR, PO intake 100%. Current Diet Order/ Nutrition Support regular Pertinent Medications seroquel, nacl 0.45% Pertinent Labs 06/13 Cl 109, BUN 39, Cr 1.7 06/12 Cl 110, BUN 41, Cr 1.5 Nutritional Hx/Data Height 1.88 m Height (Calculated Centimeters) 188.0 Current Weight (lbs) 111.584 kg Weight (Calculated Kilograms) 111.6 Weight (Calculated Grams) 274798.7 [place] Body Weight 190 Body Mass Index (BMI) 31.6 Weight Status Obese GI Symptoms GI Symptoms None Last BM 06/13 Difficult in: None Skin Integrity/Comment: intact Current %PO Good (75-100%) Estimated Nutritional Goals BEE in Kcals: Adj wt of IBW Calories/Kcals/Kg 25-30 Kcals Calculated 7178-2410 Protein: Adj wt of IBW Protein g/k Protein Calculated 93 Fluid: ml 2325-2790ml (1ml/kcal) Nutritional Problem 1. Problem Problem altered nutrition related labs Etiology electrolytes/fluid imbalance Signs/Symptoms: Cl 109, BUN 39 Malnutrition Alert Is there a minimum of two criteria No selected? Query Text:Check all the applicable criteria. A minimum of two criteria are recommended for diagnosis of either severe or non-severe malnutrition. Malnutrition Related to Morbid Obesity Malnutrition related to morbid obesity No Intervention/Recommendation Comments 1. Continue with regular diet as ordered. 2. Monitor PO intake, wt, labs and skin integrity 3. F/U as low risk in 7 days, 06/20, PO check 06/16 Expected Outcomes/Goals Expected Outcomes/Goals 1. PO intake to meet at least 75% of nutritional needs. 2. Wt stability, skin to remain intact, labs to approach WNL.
[2018-06-15 17:58] LABS: % BASOPHILS 0.3 % (0.0-2.0); % EOSINOPHILS 2.8 % (0.0-5.0); % LYMPHOCYTES 12.8 % (20.0-50.0); % MONOCYTES 8.6 % (2.0-10.0); % NEUTROPHILS 75.5 % (40.0-80.0); EOSINOPHILE ABSOLUTE 0.2 Th/cmm (0.1-0.4); HEMATOCRIT 41.2 % (41.0-60); HEMOGLOBIN 13.7 gm/dL (12-16); MEAN CELL VOLUME 85.7 fl (80-99); MEAN CORPUSCULAR HEMOGLOBIN 28.4 pg (27.0-31.0); MEAN CORPUSCULAR HGB CONC 33.2 pg (28.0-36.0); MEAN PLATELET VOLUME 7.5 fl; MONOCYTE ABSOLUTE 0.7 Th/cmm (0.3-1.0); NEUTROPHILE ABSOLUTE 5.8 Th/cmm (1.8-8.0); PLATELET COUNT 114 Th/cmm (150-400); RED BLOOD COUNT 4.81 Mil/cmm (3.80-5.80); RED CELL DISTRIBUTION WIDTH 13.7 % (11.5-20.0); WHITE BLOOD COUNT 7.7 Th/cmm (4.8-10.8)
--- NOTE | 2018-06-15 21:18 | Progress Notes ---
DATE: 06/15/2018 SUBJECTIVE: The patient is without much pain and intermittent pinkish urine being irrigated as needed. His mental status is basically unchanged. OBJECTIVE: GENERAL: On exam, he is afebrile with stable vital signs. ABDOMEN: Soft, nondistended. Flanks and bladder are nontender. Baez catheter with very light pink-tinged urine. No clots. EXTREMITIES: No edema. HEART AND LUNG: Sounds normal. IMPRESSION: 1. Right hydronephrosis in the solitary kidney. Needs a cystoscopy and retrograde. 2. Hematuria, needs cystoscopy. 3. Retention, needs a possible TURP. I have discussed all of these options with his son, Andrea, who understands and agrees especially given the fact that this is a solitary kidney. We will schedule him for tomorrow to have the procedure done. Complications were explained to the son and options were discussed. 4. History of anemia, currently stable. 5. History of psychosis, on medications. 6. Thrombocytopenia, significantly improved. JOB# [id number]
[2018-06-16 07:38] LABS: % BASOPHILS 0.3 % (0.0-2.0); % EOSINOPHILS 2.7 % (0.0-5.0); % LYMPHOCYTES 9.8 % (20.0-50.0); % MONOCYTES 7.7 % (2.0-10.0); % NEUTROPHILS 79.5 % (40.0-80.0); EOSINOPHILE ABSOLUTE 0.2 Th/cmm (0.1-0.4); HEMATOCRIT 35.3 % (41.0-60); HEMOGLOBIN 11.8 gm/dL (12-16); LYMPHOCYTE ABSOLUTE 0.6 Th/cmm (1.5-3.0); MEAN CELL VOLUME 85.4 fl (80-99); MEAN CORPUSCULAR HEMOGLOBIN 28.6 pg (27.0-31.0); MEAN CORPUSCULAR HGB CONC 33.5 pg (28.0-36.0); MEAN PLATELET VOLUME 8.3 fl; MONOCYTE ABSOLUTE 0.5 Th/cmm (0.3-1.0); PLATELET COUNT 81 Th/cmm (150-400); RED BLOOD COUNT 4.13 Mil/cmm (3.80-5.80); RED CELL DISTRIBUTION WIDTH 13.7 % (11.5-20.0); WHITE BLOOD COUNT 6.3 Th/cmm (4.8-10.8)
[2018-06-16 08:12] LABS: ANION GAP 12.1 (7.0-16.0); BUN - UREA NITROGEN 31 mg/dL (7-25); CALCIUM SERUM 8.4 mg/dL (8.6-10.3); CHLORIDE 108 mEq/L (98-107); CREATININE - SERUM 1.5 mg/dL (0.7-1.3); GLUCOSE 92 mg/dL (70-105); POTASSIUM SERUM 4.1 mEq/L (3.5-5.1); SODIUM SERUM 137 mEq/L (136-145)
--- NOTE | 2018-06-16 08:43 | Progress Notes ---
DATE: 06/16/2018 PSYCHIATRIC PROGRESS NOTE SUBJECTIVE: Chart reviewed and the patient interviewed. Also discussed the patient's condition with the staff and reviewed records and labs. The patient's affect is brighter. The patient is less irritable and less agitated. Also is interacting more with his peers and seems to be less agitated and more oriented. Otherwise, the patient is compliant with taking his medications with no side effects of medications. ASSESSMENT: The patient is less agitated and less psychotic. TREATMENT PLAN: We will continue to monitor his behavior and his condition closely. Also, continue adjusting psychotropic medications and the patient at this time can be treated in a lower level of care. JOB# [id number]
[2018-06-16] MEDS: Multivitamin w/ Minerals Tab PO SCH (08:50)
[2018-06-16] MEDS ORDERED: IOHEXOL 300mgI/mL 50 ML VIAL ONE (10:20)
[2018-06-16] MEDS: Sodium Ferric Gluconate 125 MG in Sodium Chloride 0.9% 100 ML IV SCH (11:14)
--- NOTE | 2018-06-16 11:23 | Diagnostic Imaging Report ---
Exam: HIDA scan. HISTORY: Cholecystitis. Findings: Utilizing 4.9 mCi of technetium 99 Choletec examination of liver and biliary tree was obtained. The study demonstrates normal concentration and excretion of radiopharmaceutical throughout the liver parenchyma. The common bile duct and gallbladder are normal. Progression of the right radiopharmaceutical into small bowel is noted. IMPRESSION: Normal HIDA scan.
--- NOTE | 2018-06-16 11:30 | General Progress Note ---
Subjective - Review of Systems Service Date: 06/16/18 Subjective: denied pain no bleeding Objective - Results Result Diagrams: 06/16/18 05:44 06/16/18 05:44 Recent Labs: Laboratory Last Values WBC 6.3 Th/cmm (4.8-10.8) 06/16/18 05:44 RBC 4.13 Mil/cmm (3.80-5.80) 06/16/18 05:44 Hgb 11.8 gm/dL (12-16) L 06/16/18 05:44 Hct 35.3 % (41.0-60) L D 06/16/18 05:44 MCV 85.4 fl (80-99) 06/16/18 05:44 MCH 28.6 pg (27.0-31.0) 06/16/18 05:44 MCHC Differential 33.5 pg (28.0-36.0) 06/16/18 05:44 RDW 13.7 % (11.5-20.0) 06/16/18 05:44 Plt Count 81 Th/cmm (150-400) L 06/16/18 05:44 MPV 8.3 fl 06/16/18 05:44 Neutrophils % 79.5 % (40.0-80.0) 06/16/18 05:44 Lymphocytes % 9.8 % (20.0-50.0) L 06/16/18 05:44 Monocytes % 7.7 % (2.0-10.0) 06/16/18 05:44 Eosinophils % 2.7 % (0.0-5.0) 06/16/18 05:44 Basophils % 0.3 % (0.0-2.0) 06/16/18 05:44 Eos Smear Source URINE 06/12/18 12:00 Eos Smear Total Cells NONE SEEN (NONE SEEN) 06/12/18 12:00 PT 11.2 SECONDS (9.5-11.5) 06/14/18 12:50 INR 1.08 (0.5-1.4) 06/14/18 12:50 PTT (Actin FS) 26.7 SECONDS (26.0-38.0) 06/14/18 12:50 Sodium 137 mEq/L (136-145) 06/16/18 05:44 Potassium 4.1 mEq/L (3.5-5.1) 06/16/18 05:44 Chloride 108 mEq/L (98-107) H 06/16/18 05:44 Carbon Dioxide 21.0 mEq/L (21.0-31.0) 06/16/18 05:44 Anion Gap 12.1 (7.0-16.0) 06/16/18 05:44 BUN 31 mg/dL (7-25) H 06/16/18 05:44 Creatinine 1.5 mg/dL (0.7-1.3) H 06/16/18 05:44 Est GFR ( Amer) TNP 06/16/18 05:44 Est GFR (Non-Af Amer) TNP 06/16/18 05:44 BUN/Creatinine Ratio 20.7 06/16/18 05:44 Glucose 92 mg/dL (70-105) 06/16/18 05:44 POC Glucose 103 MG/DL (70 - 105) 06/11/18 13:20 Calcium 8.4 mg/dL (8.6-10.3) L 06/16/18 05:44 Phosphorus 2.6 mg/dL (2.5-5.0) 06/12/18 05:45 Magnesium 2.1 mg/dL (1.9-2.7) 06/12/18 05:45 Iron 50 ug/dL (38-169) 06/13/18 04:40 TIBC 217 ug/dL (250-450) L 06/13/18 04:40 Iron Saturation 23 % (15-55) 06/13/18 04:40 Unsaturated IBC 167 ug/dL (111-343) 06/13/18 04:40 Ferritin 92 ng/mL (30-400) 06/13/18 04:40 Total Bilirubin 1.1 mg/dL (0.3-1.0) H 06/12/18 05:45 AST 14 U/L (13-39) 06/12/18 05:45 ALT 9 U/L (7-52) 06/12/18 05:45 Alkaline Phosphatase 55 U/L (34-104) 06/12/18 05:45 Ammonia 112 umol/L (16-53) H 06/12/18 05:45 Creatine Kinase 39 U/L (30-223) 06/13/18 04:40 Total Protein 5.8 gm/dL (6.0-8.3) L 06/12/18 05:45 Albumin 3.2 gm/dL (4.2-5.5) L 06/12/18 05:45 Globulin 2.6 gm/dL 06/12/18 05:45 Albumin/Globulin Ratio 1.2 (1.0-1.8) 06/12/18 05:45 Aldolase 3.5 U/L (3.3-10.3) 06/13/18 04:40 Vitamin B12 574 pg/mL (232-1245) 06/13/18 04:40 Folic Acid 9.2 ng/mL (>3.0) 06/13/18 04:40 TSH 0.61 uIU/ml (0.34-5.60) 06/13/18 04:40 Urine Source MIDSTREAM 06/12/18 12:00 Urine Color YELLOW 06/12/18 12:00 Urine Clarity CLEAR (CLEAR) 06/12/18 12:00 Urine pH 6.0 (4.6 - 8.0) 06/12/18 12:00 Ur Specific [place] 1.010 (1.005-1.030) 06/12/18 12:00 Urine Protein NEGATIVE mg/dL (NEGATIVE) 06/12/18 12:00 Urine Glucose (UA) NEGATIVE mg/dL (NEGATIVE) 06/12/18 12:00 Urine Ketones NEGATIVE mg/dL (NEGATIVE) 06/12/18 12:00 Urine Blood NEGATIVE (NEGATIVE) 06/12/18 12:00 Urine Nitrate NEGATIVE (NEGATIVE) 06/12/18 12:00 Urine Bilirubin NEGATIVE (NEGATIVE) 06/12/18 12:00 Urine Urobilinogen 0.2 E.U./dL (0.2 - 1.0) 06/12/18 12:00 Ur Leukocyte Esterase TRACE (NEGATIVE) H 06/12/18 12:00 Urine RBC 0-2 /hpf (0-5) H 06/12/18 12:00 Urine WBC 2-5 /hpf (0-5) 06/12/18 12:00 Ur Epithelial Cells FEW /lpf (FEW) 06/12/18 12:00 Urine Bacteria FEW /hpf (NONE SEEN) 06/12/18 12:00 Ur Random Sodium 39 mmol/L 06/12/18 12:00 Urine Creatinine 99.0 mg/dl (39.0-259.0) 06/12/18 12:00 Microalb/Creat Ratio 49.2 mg/g creat (0.0-30.0) H 06/12/18 12:00 - Physical Exam Vitals and I&O: Vital Signs Temp 98.6 F 06/16/18 08:00 Pulse 75 06/16/18 08:00 Resp 19 06/16/18 08:00 BP 137/74 06/16/18 08:00 Pulse Ox 96 06/16/18 08:00 Intake & Output 06/15/18 06/16/18 06/16/18 18:59 06:59 18:59 Intake Total 710 Output Total 550 Balance 160 Weight (lbs) 109.769 kg 109.769 kg Intake: Intake, IV Amount 110 Sodium Ferric Gluconate 110 125 mg In Sodium Chloride 0.9% 100 ml @ 100 mls/hr IV Q24HR [facility] Rx#: [id number] Oral 600 Output: Urine 550 Other: # Voids 3 # Bowel Movements 2 1 Stool Characteristics Liquid Liquid Liquid Weight Source Bedscale Bedscale Active Medications: Current Medications Bisacodyl (Dulcolax 10 Mg Supp) 10 mg RC DAILY PRN PRN Reason: Constipation Stop: 08/13/18 12:35 Escitalopram Oxalate (Lexapro) 10 mg PO HS [facility]; Protocol Stop: 08/10/18 20:59 Last Admin: 06/15/18 20:29 Dose: 10 mg Sodium Chloride (Nacl 0.45%) 1,000 mls @ 75 mls/hr IV .[id number] [facility] Stop: 08/10/18 16:44 Last Infusion: 06/13/18 06:05 Dose: 75 mls/hr Ferric Sodium Gluconate Complex 125 mg/ Sodium Chloride 110 mls @ 100 mls/hr IV Q24HR [facility] Stop: 06/23/18 11:59 Last Admin: 06/16/18 11:14 Dose: 100 mls/hr Lorazepam (Ativan) 0.5 mg PO Q4HR PRN; Protocol PRN Reason: Anxiety Stop: 08/10/18 14:02 Last Admin: 06/14/18 04:02 Dose: 0.5 mg Magnesium Hydroxide (Milk Of Magnesia) 30 ml PO HS PRN PRN Reason: IF STOOL SOFTENERS INEFFECTIVE Stop: 08/10/18 14:02 Oxybutynin Chloride (Ditropan) 5 mg PO Q8HR [facility] Stop: 08/11/18 20:59 Last Admin: 06/16/18 04:20 Dose: Not Given Quetiapine Fumarate (Seroquel) 200 mg PO TID [facility]EL[facility]; Protocol Stop: 08/10/18 20:59 Last Admin: 06/16/18 08:50 Dose: Not Given Sodium Phosphate (Fleet Enema) 135 ml RC Q48H PRN PRN Reason: IF MOM/DULCOLAX INEFFECTIVE Stop: 08/13/18 12:35 Zolpidem Tartrate (Ambien) 5 mg PO HS PRN PRN Reason: Insomnia Stop: 08/10/18 14:02 Last Admin: 06/13/18 23:39 Dose: 5 mg General: No acute distress HEENT: Atraumatic, Mucous membr. moist/pink Neck: Supple, +2 carotid pulse wo bruit Cardiovascular: Regular rate, Normal S1, Normal S2 Lungs: Normal air movement Abdomen: Bowel sounds, Soft Extremities: no Edema Neurological: Sensation intact Skin: no Rash Psych/Mental Status: Mood NL, Other (confused) Assessment/Plan - Assessment Assessment: Thrombocytopenia since admission. The platelet counts were normal in November of this year, but they were abnormal before that. It looks like the baseline of the platelet count is around 100,000 and this is likely from the splenomegaly. The patient has right-sided hydronephrosis and will need to be evaluated by the urologist. His renal functions have been abnormal and this is likely chronic kidney disease as contributing to the anemia and anemia workup will be obtained. No need for transfusion at this time. I will obtain coagulation panel, anemia workup, and monitor. 06/15: lab noted and discussed. anemia likely of chronic kid. disease. ferritin in suboptimal for CKD. Start ferrlecit. plt are back to baseline with splenomegaly 06/16: hgb is slightly lower. Continue iv ferrlecit and po folic acid. Nutritional Asmnt/Malnutr-PDOC - Dietary Evaluation Malnutrition Findings (Please click <Entered> for more info): Nutritional Asmnt/Malnutrition Start: 06/13/18 16: 18 Text: Status: Complete Freq: Protocol: Document 06/13/18 17:35 LCHENG (Rec: 06/13/18 17:44 KARIN [email or web address]) Nutritional Asmnt/Malnutrition Patient General Information Nutritional Screening High Risk Diagnosis dehydration Pertinent Medical Hx/Surgical Hx anemia, dementia, schizoaffective disorder, anxiety, insomia Subjective Information pt seen lyingin bed at time of visit, awake and confused. Pt has no teeth noted. Pt denied chewing difficulty with dentures on regular textured food. Per EMR, PO intake 100%. Current Diet Order/ Nutrition Support regular Pertinent Medications seroquel, nacl 0.45% Pertinent Labs 06/13 Cl 109, BUN 39, Cr 1.7 06/12 Cl 110, BUN 41, Cr 1.5 Nutritional Hx/Data Height 1.88 m Height (Calculated Centimeters) 188.0 Current Weight (lbs) 111.584 kg Weight (Calculated Kilograms) 111.6 Weight (Calculated Grams) 112837.7 [place] Body Weight 190 Body Mass Index (BMI) 31.6 Weight Status Obese GI Symptoms GI Symptoms None Last BM 06/13 Difficult in: None Skin Integrity/Comment: intact Current %PO Good (75-100%) Estimated Nutritional Goals BEE in Kcals: Adj wt of IBW Calories/Kcals/Kg 25-30 Kcals Calculated 8915-3594 Protein: Adj wt of IBW Protein g/k Protein Calculated 93 Fluid: ml 2325-2790ml (1ml/kcal) Nutritional Problem 1. Problem Problem altered nutrition related labs Etiology electrolytes/fluid imbalance Signs/Symptoms: Cl 109, BUN 39 Malnutrition Alert Is there a minimum of two criteria No selected? Query Text:Check all the applicable criteria. A minimum of two criteria are recommended for diagnosis of either severe or non-severe malnutrition. Malnutrition Related to Morbid Obesity Malnutrition related to morbid obesity No Intervention/Recommendation Comments 1. Continue with regular diet as ordered. 2. Monitor PO intake, wt, labs and skin integrity 3. F/U as low risk in 7 days, 06/20, PO check 06/16 Expected Outcomes/Goals Expected Outcomes/Goals 1. PO intake to meet at least 75% of nutritional needs. 2. Wt stability, skin to remain intact, labs to approach WNL.
[2018-06-16] MEDS ORDERED: Lidocaine 2% Gel 5 mL TP ONE (13:50)
--- NOTE | 2018-06-16 14:01 | General Progress Note ---
Subjective - Review of Systems Service Date: 06/16/18 Subjective: awake, remains confused, disoriented Objective - Results Result Diagrams: 06/16/18 05:44 06/16/18 05:44 Recent Labs: Laboratory Last Values WBC 6.3 Th/cmm (4.8-10.8) 06/16/18 05:44 RBC 4.13 Mil/cmm (3.80-5.80) 06/16/18 05:44 Hgb 11.8 gm/dL (12-16) L 06/16/18 05:44 Hct 35.3 % (41.0-60) L D 06/16/18 05:44 MCV 85.4 fl (80-99) 06/16/18 05:44 MCH 28.6 pg (27.0-31.0) 06/16/18 05:44 MCHC Differential 33.5 pg (28.0-36.0) 06/16/18 05:44 RDW 13.7 % (11.5-20.0) 06/16/18 05:44 Plt Count 81 Th/cmm (150-400) L 06/16/18 05:44 MPV 8.3 fl 06/16/18 05:44 Neutrophils % 79.5 % (40.0-80.0) 06/16/18 05:44 Lymphocytes % 9.8 % (20.0-50.0) L 06/16/18 05:44 Monocytes % 7.7 % (2.0-10.0) 06/16/18 05:44 Eosinophils % 2.7 % (0.0-5.0) 06/16/18 05:44 Basophils % 0.3 % (0.0-2.0) 06/16/18 05:44 Eos Smear Source URINE 06/12/18 12:00 Eos Smear Total Cells NONE SEEN (NONE SEEN) 06/12/18 12:00 PT 11.2 SECONDS (9.5-11.5) 06/14/18 12:50 INR 1.08 (0.5-1.4) 06/14/18 12:50 PTT (Actin FS) 26.7 SECONDS (26.0-38.0) 06/14/18 12:50 Sodium 137 mEq/L (136-145) 06/16/18 05:44 Potassium 4.1 mEq/L (3.5-5.1) 06/16/18 05:44 Chloride 108 mEq/L (98-107) H 06/16/18 05:44 Carbon Dioxide 21.0 mEq/L (21.0-31.0) 06/16/18 05:44 Anion Gap 12.1 (7.0-16.0) 06/16/18 05:44 BUN 31 mg/dL (7-25) H 06/16/18 05:44 Creatinine 1.5 mg/dL (0.7-1.3) H 06/16/18 05:44 Est GFR ( Amer) TNP 06/16/18 05:44 Est GFR (Non-Af Amer) TNP 06/16/18 05:44 BUN/Creatinine Ratio 20.7 06/16/18 05:44 Glucose 92 mg/dL (70-105) 06/16/18 05:44 POC Glucose 103 MG/DL (70 - 105) 06/11/18 13:20 Calcium 8.4 mg/dL (8.6-10.3) L 06/16/18 05:44 Phosphorus 2.6 mg/dL (2.5-5.0) 06/12/18 05:45 Magnesium 2.1 mg/dL (1.9-2.7) 06/12/18 05:45 Iron 50 ug/dL (38-169) 06/13/18 04:40 TIBC 217 ug/dL (250-450) L 06/13/18 04:40 Iron Saturation 23 % (15-55) 06/13/18 04:40 Unsaturated IBC 167 ug/dL (111-343) 06/13/18 04:40 Ferritin 92 ng/mL (30-400) 06/13/18 04:40 Total Bilirubin 1.1 mg/dL (0.3-1.0) H 06/12/18 05:45 AST 14 U/L (13-39) 06/12/18 05:45 ALT 9 U/L (7-52) 06/12/18 05:45 Alkaline Phosphatase 55 U/L (34-104) 06/12/18 05:45 Ammonia 112 umol/L (16-53) H 06/12/18 05:45 Creatine Kinase 39 U/L (30-223) 06/13/18 04:40 Total Protein 5.8 gm/dL (6.0-8.3) L 06/12/18 05:45 Albumin 3.2 gm/dL (4.2-5.5) L 06/12/18 05:45 Globulin 2.6 gm/dL 06/12/18 05:45 Albumin/Globulin Ratio 1.2 (1.0-1.8) 06/12/18 05:45 Aldolase 3.5 U/L (3.3-10.3) 06/13/18 04:40 Vitamin B12 574 pg/mL (232-1245) 06/13/18 04:40 Folic Acid 9.2 ng/mL (>3.0) 06/13/18 04:40 TSH 0.61 uIU/ml (0.34-5.60) 06/13/18 04:40 Urine Source MIDSTREAM 06/12/18 12:00 Urine Color YELLOW 06/12/18 12:00 Urine Clarity CLEAR (CLEAR) 06/12/18 12:00 Urine pH 6.0 (4.6 - 8.0) 06/12/18 12:00 Ur Specific [place] 1.010 (1.005-1.030) 06/12/18 12:00 Urine Protein NEGATIVE mg/dL (NEGATIVE) 06/12/18 12:00 Urine Glucose (UA) NEGATIVE mg/dL (NEGATIVE) 06/12/18 12:00 Urine Ketones NEGATIVE mg/dL (NEGATIVE) 06/12/18 12:00 Urine Blood NEGATIVE (NEGATIVE) 06/12/18 12:00 Urine Nitrate NEGATIVE (NEGATIVE) 06/12/18 12:00 Urine Bilirubin NEGATIVE (NEGATIVE) 06/12/18 12:00 Urine Urobilinogen 0.2 E.U./dL (0.2 - 1.0) 06/12/18 12:00 Ur Leukocyte Esterase TRACE (NEGATIVE) H 06/12/18 12:00 Urine RBC 0-2 /hpf (0-5) H 06/12/18 12:00 Urine WBC 2-5 /hpf (0-5) 06/12/18 12:00 Ur Epithelial Cells FEW /lpf (FEW) 06/12/18 12:00 Urine Bacteria FEW /hpf (NONE SEEN) 06/12/18 12:00 Ur Random Sodium 39 mmol/L 06/12/18 12:00 Urine Creatinine 99.0 mg/dl (39.0-259.0) 06/12/18 12:00 Microalb/Creat Ratio 49.2 mg/g creat (0.0-30.0) H 06/12/18 12:00 - Physical Exam Vitals and I&O: Vital Signs Temp 97.3 F 06/16/18 11:56 Pulse 86 06/16/18 11:56 Resp 19 06/16/18 11:56 BP 143/69 06/16/18 11:56 Pulse Ox 97 06/16/18 11:56 Intake & Output 06/15/18 06/16/18 06/16/18 18:59 06:59 18:59 Intake Total 710 Output Total 550 Balance 160 Weight (lbs) 109.769 kg 109.769 kg Intake: Intake, IV Amount 110 Sodium Ferric Gluconate 110 125 mg In Sodium Chloride 0.9% 100 ml @ 100 mls/hr IV Q24HR [facility] Rx#: [id number] Oral 600 Output: Urine 550 Other: # Voids 3 # Bowel Movements 2 1 Stool Characteristics Liquid Liquid Liquid Weight Source Bedscale Bedscale Active Medications: Current Medications Bisacodyl (Dulcolax 10 Mg Supp) 10 mg RC DAILY PRN PRN Reason: Constipation Stop: 08/13/18 12:35 Escitalopram Oxalate (Lexapro) 10 mg PO HS [facility]; Protocol Stop: 08/10/18 20:59 Last Admin: 06/15/18 20:29 Dose: 10 mg Folic Acid (Folate) 1 mg PO DAILY [facility] Stop: 08/16/18 08:59 Sodium Chloride (Nacl 0.45%) 1,000 mls @ 75 mls/hr IV .[id number] [facility] Stop: 08/10/18 16:44 Last Infusion: 06/13/18 06:05 Dose: 75 mls/hr Ferric Sodium Gluconate Complex 125 mg/ Sodium Chloride 110 mls @ 100 mls/hr IV Q24HR [facility] Stop: 06/23/18 11:59 Last Admin: 06/16/18 11:14 Dose: 100 mls/hr Lorazepam (Ativan) 0.5 mg PO Q4HR PRN; Protocol PRN Reason: Anxiety Stop: 08/10/18 14:02 Last Admin: 06/14/18 04:02 Dose: 0.5 mg Magnesium Hydroxide (Milk Of Magnesia) 30 ml PO HS PRN PRN Reason: IF STOOL SOFTENERS INEFFECTIVE Stop: 08/10/18 14:02 Oxybutynin Chloride (Ditropan) 5 mg PO Q8HR [facility] Stop: 08/11/18 20:59 Last Admin: 06/16/18 04:20 Dose: Not Given Quetiapine Fumarate (Seroquel) 200 mg PO TID [facility]; Protocol Stop: 08/10/18 20:59 Last Admin: 06/16/18 08:50 Dose: Not Given Sodium Phosphate (Fleet Enema) 135 ml RC Q48H PRN PRN Reason: IF MOM/DULCOLAX INEFFECTIVE Stop: 08/13/18 12:35 Zolpidem Tartrate (Ambien) 5 mg PO HS PRN PRN Reason: Insomnia Stop: 08/10/18 14:02 Last Admin: 06/13/18 23:39 Dose: 5 mg General: No acute distress HEENT: Atraumatic, Mucous membr. moist/pink Neck: Supple, +2 carotid pulse wo bruit Cardiovascular: Regular rate, Normal S1, Normal S2 Lungs: Normal air movement Abdomen: Bowel sounds, Soft Extremities: no Edema Neurological: Sensation intact Skin: no Rash Psych/Mental Status: Mood NL, Other (confused) Assessment/Plan - Assessment Assessment: CKD Ess Htn Psychosis Alzh Dementia Anemia of CD Anxiety disorder Partial Outlet Obstruciton( Right Max, distended bladder) BPH S/P Left Nephrectomy Dilated Right renal collecting system Distended Stool filled rectum Cholelithiasis - Plan Plan: Lab - Result Diagrams 06/12/18 05:45 06/12/18 05:45 Current Medications Escitalopram Oxalate (Lexapro) 10 mg PO HS [facility]; Protocol Stop: 08/10/18 20:59 Last Admin: 06/11/18 20:52 Dose: 10 mg Sodium Chloride (Nacl 0.45%) 1,000 mls @ 75 mls/hr IV .[id number] [facility] Stop: 08/10/18 16:44 Last Admin: 06/11/18 18:36 Dose: 75 mls/hr Lorazepam (Ativan) 0.5 mg PO Q4HR PRN; Protocol PRN Reason: Anxiety Stop: 08/10/18 14:02 Magnesium Hydroxide (Milk Of Magnesia) 30 ml PO HS PRN PRN Reason: IF STOOL SOFTENERS INEFFECTIVE Stop: 08/10/18 14:02 Quetiapine Fumarate (Seroquel) 200 mg PO TID [facility]; Protocol Stop: 08/10/18 20:59 Last Admin: 06/12/18 13:38 Dose: 200 mg Zolpidem Tartrate (Ambien) 5 mg PO HS PRN PRN Reason: Insomnia Stop: 08/10/18 14:02 Last Admin: 06/11/18 20:52 Dose: 5 mg Lab - Result Diagrams 06/16/18 05:44 06/16/18 05:44 kidney fnc remain stable continue IVF since pt. has partial obstruction f/u electrolytes f/u recommendations of Urology Nutritional Asmnt/Malnutr-PDOC - Dietary Evaluation Malnutrition Findings (Please click <Entered> for more info): Nutritional Asmnt/Malnutrition Start: 06/13/18 16: 18 Text: Status: Complete Freq: Protocol: Document 06/13/18 17:35 LCHENG (Rec: 06/13/18 17:44 LCHENG [email or web address]) Nutritional Asmnt/Malnutrition Patient General Information Nutritional Screening High Risk Diagnosis dehydration Pertinent Medical Hx/Surgical Hx anemia, dementia, schizoaffective disorder, anxiety, insomia Subjective Information pt seen lyingin bed at time of visit, awake and confused. Pt has no teeth noted. Pt denied chewing difficulty with dentures on regular textured food. Per EMR, PO intake 100%. Current Diet Order/ Nutrition Support regular Pertinent Medications seroquel, nacl 0.45% Pertinent Labs 06/13 Cl 109, BUN 39, Cr 1.7 06/12 Cl 110, BUN 41, Cr 1.5 Nutritional Hx/Data Height 1.88 m Height (Calculated Centimeters) 188.0 Current Weight (lbs) 111.584 kg Weight (Calculated Kilograms) 111.6 Weight (Calculated Grams) 160106.7 [place] Body Weight 190 Body Mass Index (BMI) 31.6 Weight Status Obese GI Symptoms GI Symptoms None Last BM 06/13 Difficult in: None Skin Integrity/Comment: intact Current %PO Good (75-100%) Estimated Nutritional Goals BEE in Kcals: Adj wt of IBW Calories/Kcals/Kg 25-30 Kcals Calculated 9078-0513 Protein: Adj wt of IBW Protein g/k Protein Calculated 93 Fluid: ml 2325-2790ml (1ml/kcal) Nutritional Problem 1. Problem Problem altered nutrition related labs Etiology electrolytes/fluid imbalance Signs/Symptoms: Cl 109, BUN 39 Malnutrition Alert Is there a minimum of two criteria No selected? Query Text:Check all the applicable criteria. A minimum of two criteria are recommended for diagnosis of either severe or non-severe malnutrition. Malnutrition Related to Morbid Obesity Malnutrition related to morbid obesity No Intervention/Recommendation Comments 1. Continue with regular diet as ordered. 2. Monitor PO intake, wt, labs and skin integrity 3. F/U as low risk in 7 days, 06/20, PO check 06/16 Expected Outcomes/Goals Expected Outcomes/Goals 1. PO intake to meet at least 75% of nutritional needs. 2. Wt stability, skin to remain intact, labs to approach WNL.
[2018-06-16] MEDS ORDERED: fentaNYL Citrate 100 mcg/2mL Vial ONE (14:09)
[2018-06-16] MEDS ORDERED: Neostigmine 10mg/10mL Vial ONE (14:12)
[2018-06-16] MEDS ORDERED: Propofol **SURGERY USE ONLY** 20 ML IV ONE (14:12)
[2018-06-16] MEDS: Sodium Chloride 0.45% 1,000 ML IV SCH (21:21)
[2018-06-16] MEDS: ceFAZolin 1 GM in Sodium Chloride 0.9% 50 ML IV SCH (21:30)
--- NOTE | 2018-06-17 02:25 | Operative Report ---
DATE OF SURGERY: 06/16/2018 PREOPERATIVE DIAGNOSES: Urinary retention, hematuria and right hydronephrosis in solitary kidney. POSTOPERATIVE DIAGNOSES: Urinary retention, hematuria, right hydronephrosis in solitary kidney as well as obstructing benign prostatic hyperplasia. SURGEON: Jennifer Graham M.D. NAME OF PROCEDURE: Cystoscopy and TURP under general anesthesia. INDICATION: The patient is a 72-year-old with initially seen for psychiatric disorder and then subsequently developed urinary retention, requiring a Baez and was found to have right hydronephrosis in a solitary kidney with renal insufficiency. He then started bleeding in the Baez that was controlled with irrigation. His creatinine improved with the Baez, but just a little bit. Cystoscopy was recommended for further diagnosis and treatment. FINDINGS: Cystoscopy revealed the patient's urethra is quite long, more than normal and difficult to reach the bladder satisfactorily with regular instruments. The prostate was occlusive and showed high-grade obstruction with lateral lobes meeting in the midline with very little room if any for urination. It was also the source of bleeding and started to bleed as soon as the cystoscope was introduced. The bladder was heavily trabeculated with saccules and no tumors or stones were seen, although visibility was not very good due to persistent oozing in spite of frequent bladder irrigations. Retrograde showed the hydroureter to extend all the way to the bladder indicating outlet obstruction. Due to the bleeding from the prostatic fossa I tried to simply fulgurated, but ended up having more bleeding, and therefore, was forced to resect the prostate and I ended up resecting the left lobe with great difficulty. Bleeding was significantly excessive than usual with every cut that was made and after that difficult to control in spite of the fulguration directly on the bleeding point. Additionally, the chips all collected in the prostatic fossa, crowding it and not allowing adequate visibility or movement of the scope and the loop. On top of that, the patient's bladder compliance seems to be low and he could tolerate very little fluid requiring repeated emptying of the bladder in spite of using a continuous irrigating resectoscope. All of these problems made it extremely difficult to carry out a satisfactory resection. I, therefore, resected the left lobe in the hopes of controlling the bleeding, mostly and then coming back again if necessary for the rest of the gland using better and adequate instruments, namely an extra-long resectoscope and a bipolar cautery. He may also require a suprapubic tube due to the bladder pathology, which is probably resulting in worsening of his hydronephrosis. Blood loss was about 100-200 mL and there were no complications. PROCEDURE: The patient was brought to the operating room, prepped and draped in the dorsal lithotomy position after general anesthesia was induced. After dilating the meatus and the urethra, the cystoscope was introduced and the area was examined in the usual manner and then a continuous irrigating resectoscope was introduced mostly to control the bleeding that got worse with the instrumentation. As I started to fulgurate the prostatic fossa, it resulted in more bleeding and so I decided to try resection of this area. I began on the left lobe at 3 o'clock moving towards the 6 o'clock position, but this was extremely difficult with heavy bleeding from every cut very difficult to control. Little by little I was able to get some tissue out at the same time avoiding excessive bleeding and had to continuously fulgurate the opposite side, which kept bleeding as well. It was difficult to irrigate the chips as the instrument did not reach inside the bladder easily and barely reached the bladder neck. I got out as many chips as possible, hopefully most of them and then put in a 3-way Baez size 22 with almost clear returns. He was then returned to recovery room in stable condition without any complications. JOB# [id number]
[2018-06-17] MEDS: ceFAZolin 1 GM in Sodium Chloride 0.9% 50 ML IV SCH ×2 (04:50→13:12)
[2018-06-17 07:56] VITALS: BP 128/77
[2018-06-17 08:09] LABS: % BASOPHILS 0.5 % (0.0-2.0); % EOSINOPHILS 2.9 % (0.0-5.0); % LYMPHOCYTES 8.8 % (20.0-50.0); % MONOCYTES 9.6 % (2.0-10.0); % NEUTROPHILS 78.2 % (40.0-80.0); EOSINOPHILE ABSOLUTE 0.2 Th/cmm (0.1-0.4); HEMATOCRIT 32.4 % (41.0-60); HEMOGLOBIN 10.5 gm/dL (12-16); LYMPHOCYTE ABSOLUTE 0.7 Th/cmm (1.5-3.0); MEAN CELL VOLUME 86.1 fl (80-99); MEAN CORPUSCULAR HEMOGLOBIN 28.1 pg (27.0-31.0); MEAN CORPUSCULAR HGB CONC 32.6 pg (28.0-36.0); MEAN PLATELET VOLUME 8.1 fl; MONOCYTE ABSOLUTE 0.8 Th/cmm (0.3-1.0); NEUTROPHILE ABSOLUTE 6.3 Th/cmm (1.8-8.0); PLATELET COUNT 85 Th/cmm (150-400); RED BLOOD COUNT 3.76 Mil/cmm (3.80-5.80); RED CELL DISTRIBUTION WIDTH 13.6 % (11.5-20.0)
--- NOTE | 2018-06-17 08:58 | Diagnostic Imaging Report ---
Right retrograde pyelogram (intraoperative fluoroscopic images and services) HISTORY: Retrograde pyelogram Intraoperative fluoroscopic images and services were provided for facilitation of surgical intervention. 17 seconds fluoroscopy time was utilized.
[2018-06-17] MEDS: Multivitamin w/ Minerals Tab PO SCH (09:24)
[2018-06-17] MEDS: Sodium Chloride 0.45% 1,000 ML IV SCH ×2 (10:40→19:00)
[2018-06-17] MEDS: Sodium Ferric Gluconate 125 MG in Sodium Chloride 0.9% 100 ML IV SCH (13:51)
[2018-06-17] MEDS ORDERED: Probiotic Screen MC PRN (14:27)
--- NOTE | 2018-06-17 14:54 | General Progress Note ---
Subjective - Review of Systems Service Date: 06/17/18 Subjective: awake denied pain no bleeding Objective - Results Result Diagrams: 06/17/18 07:50 06/16/18 05:44 Recent Labs: Laboratory Last Values WBC 8.0 Th/cmm (4.8-10.8) 06/17/18 07:50 RBC 3.76 Mil/cmm (3.80-5.80) L 06/17/18 07:50 Hgb 10.5 gm/dL (12-16) L 06/17/18 07:50 Hct 32.4 % (41.0-60) L 06/17/18 07:50 MCV 86.1 fl (80-99) 06/17/18 07:50 MCH 28.1 pg (27.0-31.0) 06/17/18 07:50 MCHC Differential 32.6 pg (28.0-36.0) 06/17/18 07:50 RDW 13.6 % (11.5-20.0) 06/17/18 07:50 Plt Count 85 Th/cmm (150-400) L 06/17/18 07:50 MPV 8.1 fl 06/17/18 07:50 Neutrophils % 78.2 % (40.0-80.0) 06/17/18 07:50 Lymphocytes % 8.8 % (20.0-50.0) L 06/17/18 07:50 Monocytes % 9.6 % (2.0-10.0) 06/17/18 07:50 Eosinophils % 2.9 % (0.0-5.0) 06/17/18 07:50 Basophils % 0.5 % (0.0-2.0) 06/17/18 07:50 Eos Smear Source URINE 06/12/18 12:00 Eos Smear Total Cells NONE SEEN (NONE SEEN) 06/12/18 12:00 PT 11.2 SECONDS (9.5-11.5) 06/14/18 12:50 INR 1.08 (0.5-1.4) 06/14/18 12:50 PTT (Actin FS) 26.7 SECONDS (26.0-38.0) 06/14/18 12:50 Sodium 137 mEq/L (136-145) 06/16/18 05:44 Potassium 4.1 mEq/L (3.5-5.1) 06/16/18 05:44 Chloride 108 mEq/L (98-107) H 06/16/18 05:44 Carbon Dioxide 21.0 mEq/L (21.0-31.0) 06/16/18 05:44 Anion Gap 12.1 (7.0-16.0) 06/16/18 05:44 BUN 31 mg/dL (7-25) H 06/16/18 05:44 Creatinine 1.5 mg/dL (0.7-1.3) H 06/16/18 05:44 Est GFR ( Amer) TNP 06/16/18 05:44 Est GFR (Non-Af Amer) TNP 06/16/18 05:44 BUN/Creatinine Ratio 20.7 06/16/18 05:44 Glucose 92 mg/dL (70-105) 06/16/18 05:44 POC Glucose 103 MG/DL (70 - 105) 06/11/18 13:20 Calcium 8.4 mg/dL (8.6-10.3) L 06/16/18 05:44 Phosphorus 2.6 mg/dL (2.5-5.0) 06/12/18 05:45 Magnesium 2.1 mg/dL (1.9-2.7) 06/12/18 05:45 Iron 50 ug/dL (38-169) 06/13/18 04:40 TIBC 217 ug/dL (250-450) L 06/13/18 04:40 Iron Saturation 23 % (15-55) 06/13/18 04:40 Unsaturated IBC 167 ug/dL (111-343) 06/13/18 04:40 Ferritin 92 ng/mL (30-400) 06/13/18 04:40 Total Bilirubin 1.1 mg/dL (0.3-1.0) H 06/12/18 05:45 AST 14 U/L (13-39) 06/12/18 05:45 ALT 9 U/L (7-52) 06/12/18 05:45 Alkaline Phosphatase 55 U/L (34-104) 06/12/18 05:45 Ammonia 112 umol/L (16-53) H 06/12/18 05:45 Creatine Kinase 39 U/L (30-223) 06/13/18 04:40 Total Protein 5.8 gm/dL (6.0-8.3) L 06/12/18 05:45 Albumin 3.2 gm/dL (4.2-5.5) L 06/12/18 05:45 Globulin 2.6 gm/dL 06/12/18 05:45 Albumin/Globulin Ratio 1.2 (1.0-1.8) 06/12/18 05:45 Aldolase 3.5 U/L (3.3-10.3) 06/13/18 04:40 Vitamin B12 574 pg/mL (232-1245) 06/13/18 04:40 Folic Acid 9.2 ng/mL (>3.0) 06/13/18 04:40 TSH 0.61 uIU/ml (0.34-5.60) 06/13/18 04:40 Urine Source MIDSTREAM 06/12/18 12:00 Urine Color YELLOW 06/12/18 12:00 Urine Clarity CLEAR (CLEAR) 06/12/18 12:00 Urine pH 6.0 (4.6 - 8.0) 06/12/18 12:00 Ur Specific [place] 1.010 (1.005-1.030) 06/12/18 12:00 Urine Protein NEGATIVE mg/dL (NEGATIVE) 06/12/18 12:00 Urine Glucose (UA) NEGATIVE mg/dL (NEGATIVE) 06/12/18 12:00 Urine Ketones NEGATIVE mg/dL (NEGATIVE) 06/12/18 12:00 Urine Blood NEGATIVE (NEGATIVE) 06/12/18 12:00 Urine Nitrate NEGATIVE (NEGATIVE) 06/12/18 12:00 Urine Bilirubin NEGATIVE (NEGATIVE) 06/12/18 12:00 Urine Urobilinogen 0.2 E.U./dL (0.2 - 1.0) 06/12/18 12:00 Ur Leukocyte Esterase TRACE (NEGATIVE) H 06/12/18 12:00 Urine RBC 0-2 /hpf (0-5) H 06/12/18 12:00 Urine WBC 2-5 /hpf (0-5) 06/12/18 12:00 Ur Epithelial Cells FEW /lpf (FEW) 06/12/18 12:00 Urine Bacteria FEW /hpf (NONE SEEN) 06/12/18 12:00 Ur Random Sodium 39 mmol/L 06/12/18 12:00 Urine Creatinine 99.0 mg/dl (39.0-259.0) 06/12/18 12:00 Microalb/Creat Ratio 49.2 mg/g creat (0.0-30.0) H 06/12/18 12:00 - Physical Exam Vitals and I&O: Vital Signs Temp 98.1 F 06/17/18 13:00 Pulse 67 06/17/18 13:00 Resp 10 06/17/18 13:00 BP 114/59 06/17/18 13:00 Pulse Ox 100 06/17/18 13:00 Intake & Output 06/16/18 06/17/18 06/17/18 18:59 06:59 18:59 Intake Total 981 893 1767 Balance 122 913 5717 Intake: Intake, IV Amount 117 466 2277 Sodium Chloride 0.45% 1, 1000 000 ml @ 100 mls/hr IV . Q10H [facility] Rx#:[id number] Sodium Ferric Gluconate 110 125 mg In Sodium Chloride 0.9% 100 ml @ 100 mls/hr IV Q24HR [facility] Rx#: [id number] ceFAZolin 1 gm In Sodium 100 Chloride 0.9% 50 ml @ 100 mls/hr IV Q8HR [facility] Rx#: [id number] Other: Stool Characteristics Liquid Liquid Soft Brown Liquid Active Medications: Current Medications Bisacodyl (Dulcolax 10 Mg Supp) 10 mg RC DAILY PRN PRN Reason: Constipation Stop: 08/13/18 12:35 Escitalopram Oxalate (Lexapro) 10 mg PO [facility]; Protocol Stop: 08/10/18 20:59 Last Admin: 06/16/18 21:00 Dose: Not Given Folic Acid (Folate) 1 mg PO DAILY [facility] Stop: 08/16/18 08:59 Last Admin: 06/17/18 09:24 Dose: 1 mg Ferric Sodium Gluconate Complex 125 mg/ Sodium Chloride 110 mls @ 100 mls/hr IV Q24HR [facility] Stop: 06/23/18 11:59 Last Admin: 06/17/18 13:51 Dose: 100 mls/hr Cefazolin Sodium 1 gm/ Sodium (Chloride) 50 mls @ 100 mls/hr IV Q8HR [facility] Stop: 06/17/18 20:59 Last Admin: 06/17/18 13:12 Dose: 100 mls/hr Sodium Chloride (Nacl 0.45%) 1,000 mls @ 100 mls/hr IV .Q10H [facility] Stop: 08/15/18 20:59 Last Admin: 06/17/18 10:40 Dose: 100 mls/hr Ketorolac Tromethamine (Toradol) 30 mg IVP Q8HR PRN PRN Reason: Pain (Moderate) Stop: 08/15/18 20:47 Last Admin: 06/16/18 22:07 Dose: 30 mg Lactobacillus Rhamnosus (Culturelle 15b) 1 each PO DAILY [facility] Stop: 08/17/18 08:59 Lorazepam (Ativan) 0.5 mg PO Q4HR [facility]; Protocol PRN Reason: Anxiety Stop: 08/10/18 14:02 Last Admin: 06/14/18 04:02 Dose: 0.5 mg Magnesium Hydroxide (Milk Of Magnesia) 30 ml PO HS PRN PRN Reason: IF STOOL SOFTENERS INEFFECTIVE Stop: 08/10/18 14:02 Miscellaneous (Probiotic Screen) 1 ea MC PRN PRN PRN Reason: PROTOCOL Stop: 08/16/18 14:26 Oxybutynin Chloride (Ditropan) 5 mg PO BID [facility] Stop: 06/19/18 20:59 Last Admin: 06/17/18 09:24 Dose: 5 mg Psyllium Hydrophilic Mucilloid (Metamucil) 1 pkt PO DAILY PRN PRN Reason: Constipation Stop: 08/15/18 18:16 Quetiapine Fumarate (Seroquel) 200 mg PO TID [facility]; Protocol Stop: 08/10/18 20:59 Last Admin: 06/17/18 13:09 Dose: Not Given Sodium Phosphate (Fleet Enema) 135 ml RC Q48H PRN PRN Reason: IF MOM/DULCOLAX INEFFECTIVE Stop: 08/13/18 12:35 Zolpidem Tartrate (Ambien) 5 mg PO HS PRN PRN Reason: Insomnia Stop: 08/10/18 14:02 Last Admin: 06/13/18 23:39 Dose: 5 mg General: No acute distress HEENT: Atraumatic, Mucous membr. moist/pink Neck: Supple, +2 carotid pulse wo bruit Cardiovascular: Regular rate, Normal S1, Normal S2 Lungs: Normal air movement Abdomen: Bowel sounds, Soft Extremities: no Edema Neurological: Sensation intact Skin: no Rash Psych/Mental Status: Mood NL, Other (confused) - Procedures Procedures: Procedures Procedure Code Date INSPECTION OF BLADDER, ENDO [id number] 06/11/18 RESECTION OF PROSTATE, ENDO [id number] 06/11/18 Assessment/Plan - Assessment Assessment: Thrombocytopenia since admission. The platelet counts were normal in November of this year, but they were abnormal before that. It looks like the baseline of the platelet count is around 100,000 and this is likely from the splenomegaly. The patient has right-sided hydronephrosis and will need to be evaluated by the urologist. His renal functions have been abnormal and this is likely chronic kidney disease as contributing to the anemia and anemia workup will be obtained. No need for transfusion at this time. I will obtain coagulation panel, anemia workup, and monitor. 06/15: lab noted and discussed. anemia likely of chronic kid. disease. ferritin in suboptimal for CKD. Start ferrlecit. plt are back to baseline with splenomegaly 06/16: hgb is slightly lower. Continue iv ferrlecit and po folic acid. 06/17: lab noted. Continue iv ferrlecit, folate. chr low plt Nutritional Asmnt/Malnutr-PDOC - Dietary Evaluation Malnutrition Findings (Please click <Entered> for more info): Nutritional Asmnt/Malnutrition Start: 06/13/18 16: 18 Text: Status: Complete Freq: Protocol: Document 06/13/18 17:35 LCHENG (Rec: 06/13/18 17:44 LCHENG [email or web address]) Nutritional Asmnt/Malnutrition Patient General Information Nutritional Screening High Risk Diagnosis dehydration Pertinent Medical Hx/Surgical Hx anemia, dementia, schizoaffective disorder, anxiety, insomia Subjective Information pt seen lyingin bed at time of visit, awake and confused. Pt has no teeth noted. Pt denied chewing difficulty with dentures on regular textured food. Per EMR, PO intake 100%. Current Diet Order/ Nutrition Support regular Pertinent Medications seroquel, nacl 0.45% Pertinent Labs 06/13 Cl 109, BUN 39, Cr 1.7 06/12 Cl 110, BUN 41, Cr 1.5 Nutritional Hx/Data Height 1.88 m Height (Calculated Centimeters) 188.0 Current Weight (lbs) 111.584 kg Weight (Calculated Kilograms) 111.6 Weight (Calculated Grams) 802078.7 [place] Body Weight 190 Body Mass Index (BMI) 31.6 Weight Status Obese GI Symptoms GI Symptoms None Last BM 06/13 Difficult in: None Skin Integrity/Comment: intact Current %PO Good (75-100%) Estimated Nutritional Goals BEE in Kcals: Adj wt of IBW Calories/Kcals/Kg 25-30 Kcals Calculated 0780-8674 Protein: Adj wt of IBW Protein g/k Protein Calculated 93 Fluid: ml 2325-2790ml (1ml/kcal) Nutritional Problem 1. Problem Problem altered nutrition related labs Etiology electrolytes/fluid imbalance Signs/Symptoms: Cl 109, BUN 39 Malnutrition Alert Is there a minimum of two criteria No selected? Query Text:Check all the applicable criteria. A minimum of two criteria are recommended for diagnosis of either severe or non-severe malnutrition. Malnutrition Related to Morbid Obesity Malnutrition related to morbid obesity No Intervention/Recommendation Comments 1. Continue with regular diet as ordered. 2. Monitor PO intake, wt, labs and skin integrity 3. F/U as low risk in 7 days, 06/20, PO check 06/16 Expected Outcomes/Goals Expected Outcomes/Goals 1. PO intake to meet at least 75% of nutritional needs. 2. Wt stability, skin to remain intact, labs to approach WNL.
[2018-06-17 18:37] LABS: % BASOPHILS 0.3 % (0.0-2.0); % EOSINOPHILS 2.7 % (0.0-5.0); % LYMPHOCYTES 11.3 % (20.0-50.0); % MONOCYTES 8.2 % (2.0-10.0); % NEUTROPHILS 77.5 % (40.0-80.0); EOSINOPHILE ABSOLUTE 0.2 Th/cmm (0.1-0.4); HEMATOCRIT 31.7 % (41.0-60); HEMOGLOBIN 10.6 gm/dL (12-16); LYMPHOCYTE ABSOLUTE 0.8 Th/cmm (1.5-3.0); MEAN CELL VOLUME 85.2 fl (80-99); MEAN CORPUSCULAR HEMOGLOBIN 28.5 pg (27.0-31.0); MEAN CORPUSCULAR HGB CONC 33.5 pg (28.0-36.0); MEAN PLATELET VOLUME 6.7 fl; MONOCYTE ABSOLUTE 0.5 Th/cmm (0.3-1.0); NEUTROPHILE ABSOLUTE 5.2 Th/cmm (1.8-8.0); PLATELET COUNT 95 Th/cmm (150-400); RED BLOOD COUNT 3.73 Mil/cmm (3.80-5.80); RED CELL DISTRIBUTION WIDTH 13.8 % (11.5-20.0); WHITE BLOOD COUNT 6.7 Th/cmm (4.8-10.8)
[2018-06-17 18:57] LABS: ANION GAP 8.6 (7.0-16.0); BUN - UREA NITROGEN 34 mg/dL (7-25); CALCIUM SERUM 8.3 mg/dL (8.6-10.3); CARBON DIOXIDE 26.3 mEq/L (21.0-31.0); CHLORIDE 106 mEq/L (98-107); GLUCOSE 140 mg/dL (70-105); POTASSIUM SERUM 3.9 mEq/L (3.5-5.1); SODIUM SERUM 137 mEq/L (136-145)
[2018-06-18] MEDS: Sodium Chloride 0.45% 1,000 ML IV SCH ×2 (04:45→16:43)
--- NOTE | 2018-06-18 05:34 | Progress Notes ---
DATE: SUBJECTIVE: The patient was seen earlier this morning, postop day 1 after difficult TURP. Urine remains dark pink on irrigation but the traction had been released and was reapplied. OBJECTIVE: On exam, he was afebrile and blood pressure is stable at 107/52. LABORATORY AND DIAGNOSTIC DATA: Lab: White count 6.7, hemoglobin 10.5, slight drop from yesterday and electrolytes unchanged and normal. BUN 31, creatinine 1.5, stable as well. IMPRESSION: Postop day #1 TURP very difficult. Continue same ICU care and Baez catheter monitoring. He may require suprapubic cystostomy if the bleeding does not improve as the TURP is extremely difficult and requires special extra long instruments that will not be available easily at short notice. JOB# [id number]
[2018-06-18] MEDS: Lactobacillus Rhamnosus GG 15 Billion CFU CAP.SPRINK PO SCH (08:37)
[2018-06-18] MEDS: Multivitamin w/ Minerals Tab PO SCH (08:37)
--- NOTE | 2018-06-18 08:40 | Progress Notes ---
DATE: 06/17/2018 SUBJECTIVE: The patient is lying in the bed, not in acute distress. The patient had a cystoscopy performed today and he was transferred to ICU. The patient had cystoscopy with TURP performed. The patient had hematuria, which is natural. The patient was put on bladder irrigation. PHYSICAL EXAMINATION: VITAL SIGNS: Temperature is 98.5 degrees Fahrenheit, pulse 83, respirations 12, blood pressure 111/64. GENERAL: The patient is comfortable lying in the bed, not in acute distress. HEENT: Head is normocephalic, atraumatic. Oral cavity moist, pink tongue. NECK: Supple, no JVD, no bruit. Trachea in midline. CHEST: Bilateral breath sounds. No crackles or wheezing. HEART: S1, S2 within normal limits. Regular rhythm. No murmur, no gallop. ABDOMEN: Soft, nontender, nondistended. Bowel sounds present. Baez catheter is in place and urine is showing blood-tinged urine. The patient is getting bladder irrigation also. NEUROLOGIC: Alert and awake. LABORATORY DATA: Current labs show WBC count 6700, hemoglobin 10.6, hematocrit 31.7, platelets are 95,000. Sodium is 137, potassium 3.9, chloride 106, bicarbonate 26, BUN 34, creatinine 2.0, glucose is 140. IMPRESSION: 1. Increase in creatinine with acute kidney injury, most likely mild increase in creatinine, acute kidney injury, most likely dehydration. 2. Agitation. 3. Left lower back mass, unknown etiology. 4. History of anemia. 5. Seizure disorder. 6. Thrombocytopenia. RECOMMENDATION AND PLAN: Continue as per the configuration consultant. Continue as per Dr. Graham. JOB# [id number]
[2018-06-18 09:33] LABS: ALB/GLOB RATIO 1.3 (1.0-1.8); ALKALINE PHOSPHATASE 60 U/L (34-104); ANION GAP 9.1 (7.0-16.0); BILIRUBIN,TOTAL 0.7 mg/dL (0.3-1.0); BUN - UREA NITROGEN 32 mg/dL (7-25); CALCIUM SERUM 8.5 mg/dL (8.6-10.3); CARBON DIOXIDE 25.6 mEq/L (21.0-31.0); CHLORIDE 106 mEq/L (98-107); CREATININE - SERUM 1.4 mg/dL (0.7-1.3); GLUCOSE 152 mg/dL (70-105); POTASSIUM SERUM 3.7 mEq/L (3.5-5.1); SGOT 15 U/L (13-39); SGPT/ALT 9 U/L (7-52); SODIUM SERUM 137 mEq/L (136-145); TOTAL PROTEIN,SERUM 5.4 gm/dL (6.0-8.3)
[2018-06-18] MEDS: Sodium Ferric Gluconate 125 MG in Sodium Chloride 0.9% 100 ML IV SCH (12:22)
--- NOTE | 2018-06-18 13:30 | General Progress Note ---
Subjective - Review of Systems Service Date: 06/18/18 Subjective: awake denied pain on 3 way irrigation, no hematuria Objective - Results Result Diagrams: 06/17/18 18:30 06/18/18 09:10 Recent Labs: Laboratory Last Values WBC 6.7 Th/cmm (4.8-10.8) 06/17/18 18:30 RBC 3.73 Mil/cmm (3.80-5.80) L 06/17/18 18:30 Hgb 10.6 gm/dL (12-16) L 06/17/18 18:30 Hct 31.7 % (41.0-60) L 06/17/18 18:30 MCV 85.2 fl (80-99) 06/17/18 18:30 MCH 28.5 pg (27.0-31.0) 06/17/18 18:30 MCHC Differential 33.5 pg (28.0-36.0) 06/17/18 18:30 RDW 13.8 % (11.5-20.0) 06/17/18 18:30 Plt Count 95 Th/cmm (150-400) L 06/17/18 18:30 MPV 6.7 fl 06/17/18 18:30 Neutrophils % 77.5 % (40.0-80.0) 06/17/18 18:30 Lymphocytes % 11.3 % (20.0-50.0) L 06/17/18 18:30 Monocytes % 8.2 % (2.0-10.0) 06/17/18 18:30 Eosinophils % 2.7 % (0.0-5.0) 06/17/18 18:30 Basophils % 0.3 % (0.0-2.0) 06/17/18 18:30 Eos Smear Source URINE 06/12/18 12:00 Eos Smear Total Cells NONE SEEN (NONE SEEN) 06/12/18 12:00 PT 11.2 SECONDS (9.5-11.5) 06/14/18 12:50 INR 1.08 (0.5-1.4) 06/14/18 12:50 PTT (Actin FS) 26.7 SECONDS (26.0-38.0) 06/14/18 12:50 Sodium 137 mEq/L (136-145) 06/18/18 09:10 Potassium 3.7 mEq/L (3.5-5.1) 06/18/18 09:10 Chloride 106 mEq/L (98-107) 06/18/18 09:10 Carbon Dioxide 25.6 mEq/L (21.0-31.0) 06/18/18 09:10 Anion Gap 9.1 (7.0-16.0) 06/18/18 09:10 BUN 32 mg/dL (7-25) H 06/18/18 09:10 Creatinine 1.4 mg/dL (0.7-1.3) H 06/18/18 09:10 Est GFR ( Amer) TNP 06/18/18 09:10 Est GFR (Non-Af Amer) TNP 06/18/18 09:10 BUN/Creatinine Ratio 22.9 06/18/18 09:10 Glucose 152 mg/dL (70-105) H 06/18/18 09:10 POC Glucose 103 MG/DL (70 - 105) 06/11/18 13:20 Calcium 8.5 mg/dL (8.6-10.3) L 06/18/18 09:10 Phosphorus 2.6 mg/dL (2.5-5.0) 06/12/18 05:45 Magnesium 2.1 mg/dL (1.9-2.7) 06/12/18 05:45 Iron 50 ug/dL (38-169) 06/13/18 04:40 TIBC 217 ug/dL (250-450) L 06/13/18 04:40 Iron Saturation 23 % (15-55) 06/13/18 04:40 Unsaturated IBC 167 ug/dL (111-343) 06/13/18 04:40 Ferritin 92 ng/mL (30-400) 06/13/18 04:40 Total Bilirubin 0.7 mg/dL (0.3-1.0) 06/18/18 09:10 AST 15 U/L (13-39) 06/18/18 09:10 ALT 9 U/L (7-52) 06/18/18 09:10 Alkaline Phosphatase 60 U/L (34-104) 06/18/18 09:10 Ammonia 112 umol/L (16-53) H 06/12/18 05:45 Creatine Kinase 39 U/L (30-223) 06/13/18 04:40 Total Protein 5.4 gm/dL (6.0-8.3) L 06/18/18 09:10 Albumin 3.0 gm/dL (4.2-5.5) L 06/18/18 09:10 Globulin 2.4 gm/dL 06/18/18 09:10 Albumin/Globulin Ratio 1.3 (1.0-1.8) 06/18/18 09:10 Aldolase 3.5 U/L (3.3-10.3) 06/13/18 04:40 Vitamin B12 574 pg/mL (232-1245) 06/13/18 04:40 Folic Acid 9.2 ng/mL (>3.0) 06/13/18 04:40 TSH 0.61 uIU/ml (0.34-5.60) 06/13/18 04:40 Urine Source MIDSTREAM 06/12/18 12:00 Urine Color YELLOW 06/12/18 12:00 Urine Clarity CLEAR (CLEAR) 06/12/18 12:00 Urine pH 6.0 (4.6 - 8.0) 06/12/18 12:00 Ur Specific [place] 1.010 (1.005-1.030) 06/12/18 12:00 Urine Protein NEGATIVE mg/dL (NEGATIVE) 06/12/18 12:00 Urine Glucose (UA) NEGATIVE mg/dL (NEGATIVE) 06/12/18 12:00 Urine Ketones NEGATIVE mg/dL (NEGATIVE) 06/12/18 12:00 Urine Blood NEGATIVE (NEGATIVE) 06/12/18 12:00 Urine Nitrate NEGATIVE (NEGATIVE) 06/12/18 12:00 Urine Bilirubin NEGATIVE (NEGATIVE) 06/12/18 12:00 Urine Urobilinogen 0.2 E.U./dL (0.2 - 1.0) 06/12/18 12:00 Ur Leukocyte Esterase TRACE (NEGATIVE) H 06/12/18 12:00 Urine RBC 0-2 /hpf (0-5) H 06/12/18 12:00 Urine WBC 2-5 /hpf (0-5) 06/12/18 12:00 Ur Epithelial Cells FEW /lpf (FEW) 06/12/18 12:00 Urine Bacteria FEW /hpf (NONE SEEN) 06/12/18 12:00 Ur Random Sodium 39 mmol/L 06/12/18 12:00 Urine Creatinine 99.0 mg/dl (39.0-259.0) 06/12/18 12:00 Microalb/Creat Ratio 49.2 mg/g creat (0.0-30.0) H 06/12/18 12:00 - Physical Exam Vitals and I&O: Vital Signs Temp 97.1 F 06/18/18 12:00 Pulse 77 06/18/18 13:00 Resp 14 06/18/18 13:00 BP 120/61 06/18/18 13:00 Pulse Ox 98 06/18/18 13:00 Intake & Output 06/17/18 06/18/18 06/18/18 18:59 06:59 18:59 Intake Total 2556.667 1011.667 Output Total 4900 1300 Balance -2343.333 -288.333 Weight (lbs) 111.584 kg 112.128 kg Intake: Intake, IV Amount 1366.271 8138.667 Sodium Chloride 0.45% 1, 0990.825 0967.667 000 ml @ 100 mls/hr IV . Q10H [facility] Rx#:[id number] Sodium Ferric Gluconate 110 125 mg In Sodium Chloride 0.9% 100 ml @ 100 mls/hr IV Q24HR [facility] Rx#: [id number] ceFAZolin 1 gm In Sodium 50 Chloride 0.9% 50 ml @ 100 mls/hr IV Q8HR [facility] Rx#: [id number] Oral 600 Output: Urine 775 1300 Other 4125 Other: # Bowel Movements 1 2 Stool Characteristics Soft Soft Soft Liquid Liquid Formed Weight Source Bedscale Bedscale Active Medications: Current Medications Bisacodyl (Dulcolax 10 Mg Supp) 10 mg RC DAILY PRN PRN Reason: Constipation Stop: 08/13/18 12:35 Escitalopram Oxalate (Lexapro) 10 mg PO [facility]; Protocol Stop: 08/10/18 20:59 Last Admin: 06/17/18 21:43 Dose: Not Given Folic Acid (Folate) 1 mg PO DAILY [facility] Stop: 08/16/18 08:59 Last Admin: 06/18/18 08:38 Dose: 1 mg Ferric Sodium Gluconate Complex 125 mg/ Sodium Chloride 110 mls @ 100 mls/hr IV Q24HR [facility] Stop: 06/23/18 11:59 Last Admin: 12/22/18 12:22 Dose: 100 mls/hr Sodium Chloride (Nacl 0.45%) 1,000 mls @ 100 mls/hr IV .Q10H [facility] Stop: 08/15/18 20:59 Last Admin: 06/18/18 04:45 Dose: 100 mls/hr Ketorolac Tromethamine (Toradol) 30 mg IVP Q8HR PRN PRN Reason: Pain (Moderate) Stop: 08/15/18 20:47 Last Admin: 06/18/18 00:28 Dose: 30 mg Lactobacillus Rhamnosus (Culturelle 15b) 1 each PO DAILY [facility] Stop: 08/17/18 08:59 Last Admin: 06/18/18 08:37 Dose: 1 each Lorazepam (Ativan) 0.5 mg PO Q4HR PRN; Protocol PRN Reason: Anxiety Stop: 08/10/18 14:02 Last Admin: 06/14/18 04:02 Dose: 0.5 mg Magnesium Hydroxide (Milk Of Magnesia) 30 ml PO HS PRN PRN Reason: IF STOOL SOFTENERS INEFFECTIVE Stop: 08/10/18 14:02 Miscellaneous (Probiotic Screen) 1 ea MC PRN PRN PRN Reason: PROTOCOL Stop: 08/16/18 14:26 Oxybutynin Chloride (Ditropan) 5 mg PO BID [facility] Stop: 06/19/18 20:59 Last Admin: 06/18/18 08:37 Dose: 5 mg Psyllium Hydrophilic Mucilloid (Metamucil) 1 pkt PO DAILY PRN PRN Reason: Constipation Stop: 08/15/18 18:16 Quetiapine Fumarate (Seroquel) 200 mg PO TID [facility]; Protocol Stop: 08/10/18 20:59 Last Admin: 06/18/18 08:37 Dose: 200 mg Sodium Phosphate (Fleet Enema) 135 ml RC Q48H PRN PRN Reason: IF MOM/DULCOLAX INEFFECTIVE Stop: 08/13/18 12:35 Zolpidem Tartrate (Ambien) 5 mg PO HS PRN PRN Reason: Insomnia Stop: 08/10/18 14:02 Last Admin: 06/13/18 23:39 Dose: 5 mg General: No acute distress HEENT: Atraumatic, Mucous membr. moist/pink Neck: Supple, +2 carotid pulse wo bruit Cardiovascular: Regular rate, Normal S1, Normal S2 Lungs: Normal air movement Abdomen: Bowel sounds, Soft Extremities: no Edema Neurological: Sensation intact Skin: no Rash Psych/Mental Status: Mood NL, Other (confused) - Procedures Procedures: Procedures Procedure Code Date INSPECTION OF BLADDER, ENDO [id number] 06/11/18 RESECTION OF PROSTATE, ENDO [id number] 06/11/18 Assessment/Plan - Assessment Assessment: Thrombocytopenia since admission. The platelet counts were normal in November of this year, but they were abnormal before that. It looks like the baseline of the platelet count is around 100,000 and this is likely from the splenomegaly. The patient has right-sided hydronephrosis and will need to be evaluated by the urologist. His renal functions have been abnormal and this is likely chronic kidney disease as contributing to the anemia and anemia workup will be obtained. No need for transfusion at this time. I will obtain coagulation panel, anemia workup, and monitor. 06/15: lab noted and discussed. anemia likely of chronic kid. disease. ferritin in suboptimal for CKD. Start ferrlecit. plt are back to baseline with splenomegaly 06/16: hgb is slightly lower. Continue iv ferrlecit and po folic acid. 06/17: lab noted. Continue iv ferrlecit, folate. chr low plt 06/18: lab noted. plt slightly better. hgb stable. Continue ferrlecit and folic acid. s/p TURP Nutritional Asmnt/Malnutr-PDOC - Dietary Evaluation Malnutrition Findings (Please click <Entered> for more info): Nutritional Asmnt/Malnutrition Start: 06/13/18 16: 18 Text: Status: Complete Freq: Protocol: Document 06/13/18 17:35 LCHENG (Rec: 06/13/18 17:44 LCHENG [email or web address]) Nutritional Asmnt/Malnutrition Patient General Information Nutritional Screening High Risk Diagnosis dehydration Pertinent Medical Hx/Surgical Hx anemia, dementia, schizoaffective disorder, anxiety, insomia Subjective Information pt seen lyingin bed at time of visit, awake and confused. Pt has no teeth noted. Pt denied chewing difficulty with dentures on regular textured food. Per EMR, PO intake 100%. Current Diet Order/ Nutrition Support regular Pertinent Medications seroquel, nacl 0.45% Pertinent Labs 06/13 Cl 109, BUN 39, Cr 1.7 06/12 Cl 110, BUN 41, Cr 1.5 Nutritional Hx/Data Height 1.88 m Height (Calculated Centimeters) 188.0 Current Weight (lbs) 111.584 kg Weight (Calculated Kilograms) 111.6 Weight (Calculated Grams) 999355.7 [place] Body Weight 190 Body Mass Index (BMI) 31.6 Weight Status Obese GI Symptoms GI Symptoms None Last BM 06/13 Difficult in: None Skin Integrity/Comment: intact Current %PO Good (75-100%) Estimated Nutritional Goals BEE in Kcals: Adj wt of IBW Calories/Kcals/Kg 25-30 Kcals Calculated 3826-9540 Protein: Adj wt of IBW Protein g/k Protein Calculated 93 Fluid: ml 2325-2790ml (1ml/kcal) Nutritional Problem 1. Problem Problem altered nutrition related labs Etiology electrolytes/fluid imbalance Signs/Symptoms: Cl 109, BUN 39 Malnutrition Alert Is there a minimum of two criteria No selected? Query Text:Check all the applicable criteria. A minimum of two criteria are recommended for diagnosis of either severe or non-severe malnutrition. Malnutrition Related to Morbid Obesity Malnutrition related to morbid obesity No Intervention/Recommendation Comments 1. Continue with regular diet as ordered. 2. Monitor PO intake, wt, labs and skin integrity 3. F/U as low risk in 7 days, 06/20, PO check 06/16 Expected Outcomes/Goals Expected Outcomes/Goals 1. PO intake to meet at least 75% of nutritional needs. 2. Wt stability, skin to remain intact, labs to approach WNL.
--- NOTE | 2018-06-19 01:24 | Progress Notes ---
DATE: SUBJECTIVE: The patient is postop day #2 from TURP. He was doing quite well this morning with the urine becoming pinkish and hemoglobin staying stable and creatinine coming down. Later on in the day, nurses did not watch the patient as instructed and he pulled out the Baez catheter creating another emergency. This patient's prostate is large and hemorrhagic and reinserting a Baez is not going to be easy or successful. I therefore recommended suprapubic cystostomy to drain the bladder without incurring more risk of the patient pulling out the Baez catheter, which is generally uncomfortable and patients who do not cooperate and pulling it out. Hopefully, the family will consent and proceed accordingly. JOB# [id number]
[2018-06-19 04:28] LABS: INR 1.12 (0.5-1.4); PROTHROMBIN TIME (TEST) 11.5 SECONDS (9.5-11.5)
[2018-06-19 04:41] LABS: % BASOPHILS 0.2 % (0.0-2.0); % EOSINOPHILS 1.8 % (0.0-5.0); % LYMPHOCYTES 12.3 % (20.0-50.0); % MONOCYTES 11.8 % (2.0-10.0); % NEUTROPHILS 73.9 % (40.0-80.0); EOSINOPHILE ABSOLUTE 0.1 Th/cmm (0.1-0.4); HEMATOCRIT 28.1 % (41.0-60); HEMOGLOBIN 9.4 gm/dL (12-16); LYMPHOCYTE ABSOLUTE 0.7 Th/cmm (1.5-3.0); MEAN CELL VOLUME 86.3 fl (80-99); MEAN CORPUSCULAR HEMOGLOBIN 28.9 pg (27.0-31.0); MEAN CORPUSCULAR HGB CONC 33.5 pg (28.0-36.0); MEAN PLATELET VOLUME 7.9 fl; MONOCYTE ABSOLUTE 0.7 Th/cmm (0.3-1.0); NEUTROPHILE ABSOLUTE 4.2 Th/cmm (1.8-8.0); PLATELET COUNT 83 Th/cmm (150-400); RED BLOOD COUNT 3.26 Mil/cmm (3.80-5.80); RED CELL DISTRIBUTION WIDTH 13.7 % (11.5-20.0); WHITE BLOOD COUNT 5.7 Th/cmm (4.8-10.8)
[2018-06-19 04:47] LABS: ALB/GLOB RATIO 1.2 (1.0-1.8); ALBUMIN 2.8 gm/dL (4.2-5.5); ALKALINE PHOSPHATASE 58 U/L (34-104); ANION GAP 9.9 (7.0-16.0); BILIRUBIN,TOTAL 0.7 mg/dL (0.3-1.0); BUN - UREA NITROGEN 26 mg/dL (7-25); CALCIUM SERUM 8.3 mg/dL (8.6-10.3); CARBON DIOXIDE 23.4 mEq/L (21.0-31.0); CHLORIDE 106 mEq/L (98-107); CREATININE - SERUM 1.2 mg/dL (0.7-1.3); GLUCOSE 129 mg/dL (70-105); POTASSIUM SERUM 3.3 mEq/L (3.5-5.1); SGOT 13 U/L (13-39); SGPT/ALT 8 U/L (7-52); SODIUM SERUM 136 mEq/L (136-145); TOTAL PROTEIN,SERUM 5.1 gm/dL (6.0-8.3)
[2018-06-19] MEDS: Sodium Chloride 0.45% 1,000 ML IV SCH ×3 (04:52→22:47)
[2018-06-19 08:10] LABS: IRON LC 24 ug/dL (38-169); TIBC (LC) 159 ug/dL (250-450); UIBC 135 ug/dL (111-343)
[2018-06-19] MEDS: Lactobacillus Rhamnosus GG 15 Billion CFU CAP.SPRINK PO SCH (09:15)
[2018-06-19] MEDS: Multivitamin w/ Minerals Tab PO SCH (09:15)
--- NOTE | 2018-06-19 11:46 | Diagnostic Imaging Report ---
Ultrasound urinary bladder HISTORY: Urinary retention The exam demonstrates low-level intraluminal echoes along the dependent region of the urinary bladder. Exact etiology uncertain. Findings may be associated with debris/hematoma. Correlation with urinalysis recommended. Overall urinary volume equals approximately 886 cc. Post void residual not evaluated at this time. IMPRESSION: 1. Low-level intraluminal echoes within the dependent region of the urinary bladder. Exact etiology uncertain. Debris/hematoma cannot be excluded. Correlation with urinalysis recommended
[2018-06-19] MEDS: Sodium Ferric Gluconate 125 MG in Sodium Chloride 0.9% 100 ML IV SCH (12:17)
[2018-06-19] MEDS ORDERED: fentaNYL Citrate 100 mcg/2mL Vial ONE (13:06)
[2018-06-19] MEDS ORDERED: Neostigmine 10mg/10mL Vial ONE (13:11)
[2018-06-19] MEDS ORDERED: Propofol **SURGERY USE ONLY** 20 ML IV ONE (13:11)
--- NOTE | 2018-06-19 15:59 | Operative Report ---
DATE OF SURGERY: 06/19/2018 PREOPERATIVE DIAGNOSES: Recurrent urinary retention, post-transurethral resection of the prostate after the patient pulled out his Baez catheter. POSTOPERATIVE DIAGNOSES: Recurrent urinary retention, post-transurethral resection of the prostate after the patient pulled out his Baez catheter. SURGEON: Jennifer Graham M.D. NAME OF PROCEDURE: Suprapubic cystostomy under general anesthesia. INDICATION: The patient is a 72-year-old with some sort of psychiatric disorder and BPH, solitary kidney, and post-TURP status. He pulled out his Baez catheter yesterday in spite of being monitored in the ICU very closely and with restraints. He was avoided once after that and ultrasound showed more than 800 mL of urine in the bladder. Therefore, this procedure was recommended and accepted by the patient's family. FINDINGS: Cystoscopy revealed the bladder was markedly distended with clear urine and no blood. A 20-Norwegian suprapubic catheter was placed for ongoing drainage and the procedure completed with blood loss less than 20 mL and no complications. DESCRIPTION OF PROCEDURE: The patient was brought to the operating room, prepped and draped in the dorsal lithotomy position in case we needed to do a cystoscopy. He was prepped and draped in the sterile manner and 3-1/2 inch long suprapubic vertical midline incision was made in the skin and deepened down to subcutaneous tissue and fascia. Rectus muscles were and the bladder was dissected extraperitoneally pushing the peritoneum away cephalad. The bladder was identified and then confirmed with a small needle aspiration to show clear urine. A small cystostomy was then made in the anterior wall of the bladder and about 800-1000 mL of straw-colored urine was drained. A 24-Norwegian 3-way Baez was then placed in the cystostomy and a pursestring suture applied to the cystostomy with 3-0 Vicryl. Next layer was closed with 2-0 Vicryl mattress suture around the catheter and a third layer in the same manner to additionally secure the cystostomy opening. After this, the retropubic space was irrigated and a [place] drain was kept in this and brought out through the midline incision as well as the suprapubic Baez catheter. The wound was then repaired with interrupted and running 0 Vicryl sutures, and the skin with sheela. The Baez was anchored with a silk suture to the skin and the [place] as well with another stitch. Baez was irrigated multiple times during the procedure and at the end to make sure it maintained its place in the bladder and irrigated freely almost clear returns. He was returned to recovery in stable condition with blood loss less than 25 mL and no complications. [facility]# [id number]
[2018-06-19] MEDS: ceFAZolin 1 GM in Sodium Chloride 0.9% 50 ML IV SCH (20:18)
[2018-06-20] MEDS: ceFAZolin 1 GM in Sodium Chloride 0.9% 50 ML IV SCH ×3 (04:42→21:05)
--- NOTE | 2018-06-20 04:55 | Progress Notes ---
DATE: 06/19/2018 SUBJECTIVE: The patient lying in the bed, not in acute distress. The patient was retaining urine, so the patient had a suprapubic catheter performed today. Otherwise, no new change. OBJECTIVE: CURRENT VITAL SIGNS: Shows temperature is 97.8 degrees Fahrenheit, pulse 87, respirations 17, blood pressure 113/58. GENERAL: The patient is comfortable lying in the bed, not in acute distress. HEENT: Head is normocephalic, atraumatic. Oral cavity moist, pink tongue. NECK: Supple, no JVD, no bruit. Trachea midline. CHEST: Bilateral breath sounds. No crackles or wheezing. HEART: S1, S2 within normal limits. Regular rhythm. No murmur, no gallop. ABDOMEN: Soft, nontender, nondistended, bowel sounds present, suprapubic catheter present. EXTREMITIES: No cyanosis, no clubbing, no edema. NEUROLOGIC: Alert, awake. CURRENT LABORATORY DATA: Shows WBC count is 5700, hemoglobin 9.4, hematocrit 28.1, platelets are 83,000, neutrophil is 73.9%. INR 1.12, sodium 136, potassium 3.3, chloride 106, bicarbonate is 23.4, BUN is 26, creatinine 1.2 and glucose is 129. Urinalysis negative nitrite, negative leukoesterase, WBC 2-5, few bacteria. IMPRESSION: 1. Creatinine has improved now most likely secondary to Obstructive uropathy. 2. Agitation. 3. Left lower back mass, cleared. 4. History of anemia. 5. History of seizure disorder. 6. Thrombocytopenia. 7. Neurogenic bladder with a suprapubic catheter placement. RECOMMENDATIONS: Transfer to the med/surg and initiate discharge plan. JOB# [id number] [facility]
[2018-06-20 04:58] LABS: % BASOPHILS 0.4 % (0.0-2.0); % EOSINOPHILS 2.1 % (0.0-5.0); % LYMPHOCYTES 11.8 % (20.0-50.0); % NEUTROPHILS 75.7 % (40.0-80.0); EOSINOPHILE ABSOLUTE 0.1 Th/cmm (0.1-0.4); HEMATOCRIT 29.1 % (41.0-60); HEMOGLOBIN 9.6 gm/dL (12-16); LYMPHOCYTE ABSOLUTE 0.7 Th/cmm (1.5-3.0); MEAN CELL VOLUME 86.4 fl (80-99); MEAN CORPUSCULAR HEMOGLOBIN 28.4 pg (27.0-31.0); MEAN CORPUSCULAR HGB CONC 32.9 pg (28.0-36.0); MEAN PLATELET VOLUME 7.1 fl; MONOCYTE ABSOLUTE 0.6 Th/cmm (0.3-1.0); NEUTROPHILE ABSOLUTE 4.9 Th/cmm (1.8-8.0); PLATELET COUNT 107 Th/cmm (150-400); RED BLOOD COUNT 3.37 Mil/cmm (3.80-5.80); RED CELL DISTRIBUTION WIDTH 13.5 % (11.5-20.0); WHITE BLOOD COUNT 6.3 Th/cmm (4.8-10.8)
[2018-06-20 05:07] LABS: BUN - UREA NITROGEN 27 mg/dL (7-25); CALCIUM SERUM 8.5 mg/dL (8.6-10.3); CARBON DIOXIDE 23.7 mEq/L (21.0-31.0); CHLORIDE 107 mEq/L (98-107); CREATININE - SERUM 1.3 mg/dL (0.7-1.3); GLUCOSE 111 mg/dL (70-105); POTASSIUM SERUM 3.7 mEq/L (3.5-5.1); SODIUM SERUM 138 mEq/L (136-145)
[2018-06-20] MEDS: Lactobacillus Rhamnosus GG 15 Billion CFU CAP.SPRINK PO SCH (08:57)
[2018-06-20] MEDS: Multivitamin w/ Minerals Tab PO SCH (08:57)
[2018-06-20] MEDS: Sodium Chloride 0.45% 1,000 ML IV SCH (09:05)
[2018-06-20] MEDS: Sodium Ferric Gluconate 125 MG in Sodium Chloride 0.9% 100 ML IV SCH (11:56)
[2018-06-21] MEDS: ceFAZolin 1 GM in Sodium Chloride 0.9% 50 ML IV SCH ×3 (05:22→21:13)
[2018-06-21] MEDS: Lactobacillus Rhamnosus GG 15 Billion CFU CAP.SPRINK PO SCH (09:11)
[2018-06-21] MEDS: Multivitamin w/ Minerals Tab PO SCH (09:11)
[2018-06-21] MEDS: Sodium Chloride 0.45% 1,000 ML IV SCH ×2 (09:16→21:56)
[2018-06-21] MEDS: Sodium Ferric Gluconate 125 MG in Sodium Chloride 0.9% 100 ML IV SCH (12:02)
--- NOTE | 2018-06-21 13:31 | Progress Notes ---
DATE: 06/21/2018 SUBJECTIVE: Chart reviewed and the patient interviewed. Also discussed the patient's condition with the staff and reviewed records and labs. The patient is still suspicious and is still paranoid. The patient also is still having episodes of agitation and irritability, but in general, he seems calmer than before and slightly easier to redirect him except when trying to help him with his ADLs. Also, staff reports that ____ suprapubic and they will check later on and also it was discussed in the report; otherwise. The patient is cooperative with taking medications and no side effects of medications. ASSESSMENT: The patient is still agitated, but less than before. TREATMENT PLAN: Continue to monitor his behavior and continue to monitor his condition. Also, continue Lexapro 10 mg at bedtime and continue Seroquel 200 mg 3 times a day and follow up closely. JOB# [id number]
--- NOTE | 2018-06-21 17:49 | General Progress Note ---
Objective - Results Result Diagrams: 06/20/18 04:00 06/20/18 04:00 Recent Labs: Laboratory Last Values WBC 6.3 Th/cmm (4.8-10.8) 06/20/18 04:00 RBC 3.37 Mil/cmm (3.80-5.80) L 06/20/18 04:00 Hgb 9.6 gm/dL (12-16) L 06/20/18 04:00 Hct 29.1 % (41.0-60) L 06/20/18 04:00 MCV 86.4 fl (80-99) 06/20/18 04:00 MCH 28.4 pg (27.0-31.0) 06/20/18 04:00 MCHC Differential 32.9 pg (28.0-36.0) 06/20/18 04:00 RDW 13.5 % (11.5-20.0) 06/20/18 04:00 Plt Count 107 Th/cmm (150-400) L 06/20/18 04:00 MPV 7.1 fl 06/20/18 04:00 Neutrophils % 75.7 % (40.0-80.0) 06/20/18 04:00 Lymphocytes % 11.8 % (20.0-50.0) L 06/20/18 04:00 Monocytes % 10.0 % (2.0-10.0) 06/20/18 04:00 Eosinophils % 2.1 % (0.0-5.0) 06/20/18 04:00 Basophils % 0.4 % (0.0-2.0) 06/20/18 04:00 Eos Smear Source URINE 06/12/18 12:00 Eos Smear Total Cells NONE SEEN (NONE SEEN) 06/12/18 12:00 PT 11.5 SECONDS (9.5-11.5) 06/19/18 03:51 INR 1.12 (0.5-1.4) 06/19/18 03:51 PTT (Actin FS) 30.5 SECONDS (26.0-38.0) 06/19/18 03:51 Sodium 138 mEq/L (136-145) 06/20/18 04:00 Potassium 3.7 mEq/L (3.5-5.1) 06/20/18 04:00 Chloride 107 mEq/L (98-107) 06/20/18 04:00 Carbon Dioxide 23.7 mEq/L (21.0-31.0) 06/20/18 04:00 Anion Gap 11.0 (7.0-16.0) 06/20/18 04:00 BUN 27 mg/dL (7-25) H 06/20/18 04:00 Creatinine 1.3 mg/dL (0.7-1.3) 06/20/18 04:00 Est GFR ( Amer) TNP 06/20/18 04:00 Est GFR (Non-Af Amer) TNP 06/20/18 04:00 BUN/Creatinine Ratio 20.8 06/20/18 04:00 Glucose 111 mg/dL (70-105) H 06/20/18 04:00 POC Glucose 103 MG/DL (70 - 105) 06/11/18 13:20 Calcium 8.5 mg/dL (8.6-10.3) L 06/20/18 04:00 Phosphorus 2.6 mg/dL (2.5-5.0) 06/12/18 05:45 Magnesium 2.1 mg/dL (1.9-2.7) 06/12/18 05:45 Iron 24 ug/dL (38-169) L 06/18/18 09:10 TIBC 159 ug/dL (250-450) L 06/18/18 09:10 Iron Saturation 15 % (15-55) 06/18/18 09:10 Unsaturated IBC 135 ug/dL (111-343) 06/18/18 09:10 Ferritin 475 ng/mL (30-400) H 06/18/18 09:10 Total Bilirubin 0.7 mg/dL (0.3-1.0) 06/19/18 03:51 AST 13 U/L (13-39) 06/19/18 03:51 ALT 8 U/L (7-52) 06/19/18 03:51 Alkaline Phosphatase 58 U/L (34-104) 06/19/18 03:51 Ammonia 112 umol/L (16-53) H 06/12/18 05:45 Creatine Kinase 39 U/L (30-223) 06/13/18 04:40 Total Protein 5.1 gm/dL (6.0-8.3) L 06/19/18 03:51 Albumin 2.8 gm/dL (4.2-5.5) L 06/19/18 03:51 Globulin 2.3 gm/dL 06/19/18 03:51 Albumin/Globulin Ratio 1.2 (1.0-1.8) 06/19/18 03:51 Aldolase 3.5 U/L (3.3-10.3) 06/13/18 04:40 Vitamin B12 574 pg/mL (232-1245) 06/13/18 04:40 Folic Acid 9.2 ng/mL (>3.0) 06/13/18 04:40 TSH 0.61 uIU/ml (0.34-5.60) 06/13/18 04:40 Urine Source MIDSTREAM 06/12/18 12:00 Urine Color YELLOW 06/12/18 12:00 Urine Clarity CLEAR (CLEAR) 06/12/18 12:00 Urine pH 6.0 (4.6 - 8.0) 06/12/18 12:00 Ur Specific [place] 1.010 (1.005-1.030) 06/12/18 12:00 Urine Protein NEGATIVE mg/dL (NEGATIVE) 06/12/18 12:00 Urine Glucose (UA) NEGATIVE mg/dL (NEGATIVE) 06/12/18 12:00 Urine Ketones NEGATIVE mg/dL (NEGATIVE) 06/12/18 12:00 Urine Blood NEGATIVE (NEGATIVE) 06/12/18 12:00 Urine Nitrate NEGATIVE (NEGATIVE) 06/12/18 12:00 Urine Bilirubin NEGATIVE (NEGATIVE) 06/12/18 12:00 Urine Urobilinogen 0.2 E.U./dL (0.2 - 1.0) 06/12/18 12:00 Ur Leukocyte Esterase TRACE (NEGATIVE) H 06/12/18 12:00 Urine RBC 0-2 /hpf (0-5) H 06/12/18 12:00 Urine WBC 2-5 /hpf (0-5) 06/12/18 12:00 Ur Epithelial Cells FEW /lpf (FEW) 06/12/18 12:00 Urine Bacteria FEW /hpf (NONE SEEN) 06/12/18 12:00 Ur Random Sodium 39 mmol/L 06/12/18 12:00 Urine Creatinine 99.0 mg/dl (39.0-259.0) 06/12/18 12:00 Microalb/Creat Ratio 49.2 mg/g creat (0.0-30.0) H 06/12/18 12:00 - Physical Exam Vitals and I&O: Vital Signs Temp 97.4 F 06/21/18 16:24 Pulse 64 06/21/18 16:24 Resp 19 06/21/18 16:24 BP 128/67 06/21/18 16:24 Pulse Ox 98 06/21/18 16:24 Intake & Output 06/20/18 06/21/18 06/21/18 18:59 06:59 18:59 Intake Total 555.087 0549 160 Output Total 100 50 Balance 172.005 2591 160 Weight (lbs) 113.398 kg 113.398 kg Intake: Intake, IV Amount 611.621 1096 160 Sodium Chloride 0.45% 1, 528.276 6458 000 ml @ 100 mls/hr IV . Q10H [facility] Rx#:[id number] Sodium Ferric Gluconate 110 110 125 mg In Sodium Chloride 0.9% 100 ml @ 100 mls/hr IV Q24HR [facility] Rx#: [id number] ceFAZolin 1 gm In Sodium 50 100 50 Chloride 0.9% 50 ml @ 100 mls/hr IV Q8HR [facility] Rx#: [id number] Oral 361 200 Other 200 Output: Urine 100 50 Other: # Bowel Movements 1 1 Weight Source Bedscale Bedscale Active Medications: Current Medications Bisacodyl (Dulcolax 10 Mg Supp) 10 mg RC DAILY PRN PRN Reason: Constipation Stop: 08/13/18 12:35 Escitalopram Oxalate (Lexapro) [address] [facility]; Protocol Stop: 08/10/18 20:59 Last Admin: 06/20/18 21:06 Dose: 10 mg Folic Acid (Folate) 1 mg PO DAILY [facility] Stop: 08/16/18 08:59 Last Admin: 06/21/18 09:11 Dose: 1 mg Ferric Sodium Gluconate Complex 125 mg/ Sodium Chloride 110 mls @ 100 mls/hr IV Q24HR [facility] Stop: 06/23/18 11:59 Last Infusion: 06/21/18 13:33 Dose: Infused Sodium Chloride (Nacl 0.45%) 1,000 mls @ 100 mls/hr IV .Q10H [facility] Stop: 08/15/18 20:59 Last Admin: 06/21/18 09:16 Dose: 100 mls/hr Cefazolin Sodium 1 gm/ Sodium (Chloride) 50 mls @ 100 mls/hr IV Q8HR [facility] Stop: 08/18/18 20:59 Last Infusion: 06/21/18 16:53 Dose: Infused Lactobacillus Rhamnosus (Culturelle 15b) 1 each PO DAILY [facility] Stop: 08/17/18 08:59 Last Admin: 06/21/18 09:11 Dose: 1 each Lorazepam (Ativan) 0.5 mg PO Q4HR PRN; Protocol PRN Reason: Anxiety Stop: 08/10/18 14:02 Last Admin: 06/18/18 18:29 Dose: 0.5 mg Magnesium Hydroxide (Milk Of Magnesia) 30 ml PO HS PRN PRN Reason: IF STOOL SOFTENERS INEFFECTIVE Stop: 08/10/18 14:02 Miscellaneous (Probiotic Screen) 1 ea MC PRN PRN PRN Reason: PROTOCOL Stop: 08/16/18 14:26 Quetiapine Fumarate (Seroquel) 200 mg PO TID [facility]; Protocol Stop: 08/10/18 20:59 Last Admin: 06/21/18 13:37 Dose: 200 mg Sodium Phosphate (Fleet Enema) 135 ml RC Q48H PRN PRN Reason: IF MOM/DULCOLAX INEFFECTIVE Stop: 08/13/18 12:35 Tamsulosin HCl (Flomax) 0.4 mg PO DAILY [facility] Stop: 08/18/18 08:59 Last Admin: 06/21/18 09:11 Dose: 0.4 mg Zolpidem Tartrate (Ambien) 5 mg PO HS PRN PRN Reason: Insomnia Stop: 08/10/18 14:02 Last Admin: 06/13/18 23:39 Dose: 5 mg General: No acute distress HEENT: Atraumatic, Mucous membr. moist/pink Neck: Supple, +2 carotid pulse wo bruit Cardiovascular: Regular rate, Normal S1, Normal S2 Lungs: Normal air movement Abdomen: Bowel sounds, Soft Extremities: no Edema Neurological: Sensation intact Skin: no Rash Psych/Mental Status: Mood NL, Other (confused) - Procedures Procedures: Procedures Procedure Code Date INSPECTION OF BLADDER, ENDO [id number] 06/11/18 RESECTION OF PROSTATE, ENDO [id number] 06/11/18 Nutritional Asmnt/Malnutr-PDOC - Dietary Evaluation Malnutrition Findings (Please click <Entered> for more info): Nutritional Asmnt/Malnutrition Start: 06/13/18 16: 18 Text: Status: Complete Freq: Protocol: Document 06/13/18 17:35 LCHENG (Rec: 06/13/18 17:44 LCHENG [id number]) Nutritional Asmnt/Malnutrition Patient General Information Nutritional Screening High Risk Diagnosis dehydration Pertinent Medical Hx/Surgical Hx anemia, dementia, schizoaffective disorder, anxiety, insomia Subjective Information pt seen lyingin bed at time of visit, awake and confused. Pt has no teeth noted. Pt denied chewing difficulty with dentures on regular textured food. Per EMR, PO intake 100%. Current Diet Order/ Nutrition Support regular Pertinent Medications seroquel, nacl 0.45% Pertinent Labs 06/13 Cl 109, BUN 39, Cr 1.7 06/12 Cl 110, BUN 41, Cr 1.5 Nutritional Hx/Data Height 1.88 m Height (Calculated Centimeters) 188.0 Current Weight (lbs) 111.584 kg Weight (Calculated Kilograms) 111.6 Weight (Calculated Grams) 563132.7 [place] Body Weight 190 Body Mass Index (BMI) 31.6 Weight Status Obese GI Symptoms GI Symptoms None Last BM 06/13 Difficult in: None Skin Integrity/Comment: intact Current %PO Good (75-100%) Estimated Nutritional Goals BEE in Kcals: Adj wt of IBW Calories/Kcals/Kg 25-30 Kcals Calculated 1456-6232 Protein: Adj wt of IBW Protein g/k Protein Calculated 93 Fluid: ml 2325-2790ml (1ml/kcal) Nutritional Problem 1. Problem Problem altered nutrition related labs Etiology electrolytes/fluid imbalance Signs/Symptoms: Cl 109, BUN 39 Malnutrition Alert Is there a minimum of two criteria No selected? Query Text:Check all the applicable criteria. A minimum of two criteria are recommended for diagnosis of either severe or non-severe malnutrition. Malnutrition Related to Morbid Obesity Malnutrition related to morbid obesity No Intervention/Recommendation Comments 1. Continue with regular diet as ordered. 2. Monitor PO intake, wt, labs and skin integrity 3. F/U as low risk in 7 days, 06/20, PO check 06/16 Expected Outcomes/Goals Expected Outcomes/Goals 1. PO intake to meet at least 75% of nutritional needs. 2. Wt stability, skin to remain intact, labs to approach WNL.
[2018-06-22] MEDS: ceFAZolin 1 GM in Sodium Chloride 0.9% 50 ML IV SCH ×2 (05:16→12:16)
[2018-06-22 06:42] LABS: % BASOPHILS 0.3 % (0.0-2.0); % EOSINOPHILS 3.2 % (0.0-5.0); % LYMPHOCYTES 12.8 % (20.0-50.0); % MONOCYTES 8.1 % (2.0-10.0); % NEUTROPHILS 75.6 % (40.0-80.0); EOSINOPHILE ABSOLUTE 0.2 Th/cmm (0.1-0.4); HEMATOCRIT 28.3 % (41.0-60); HEMOGLOBIN 9.3 gm/dL (12-16); LYMPHOCYTE ABSOLUTE 0.6 Th/cmm (1.5-3.0); MEAN CELL VOLUME 86.2 fl (80-99); MEAN CORPUSCULAR HEMOGLOBIN 28.2 pg (27.0-31.0); MEAN CORPUSCULAR HGB CONC 32.7 pg (28.0-36.0); MEAN PLATELET VOLUME 6.8 fl; MONOCYTE ABSOLUTE 0.4 Th/cmm (0.3-1.0); NEUTROPHILE ABSOLUTE 3.7 Th/cmm (1.8-8.0); PLATELET COUNT 130 Th/cmm (150-400); RED BLOOD COUNT 3.28 Mil/cmm (3.80-5.80); RED CELL DISTRIBUTION WIDTH 13.5 % (11.5-20.0); WHITE BLOOD COUNT 4.9 Th/cmm (4.8-10.8)
[2018-06-22 07:10] LABS: ALB/GLOB RATIO 1.1 (1.0-1.8); ALBUMIN 2.8 gm/dL (4.2-5.5); ALKALINE PHOSPHATASE 56 U/L (34-104); ANION GAP 10.8 (7.0-16.0); BILIRUBIN,TOTAL 0.4 mg/dL (0.3-1.0); BUN - UREA NITROGEN 19 mg/dL (7-25); CALCIUM SERUM 8.6 mg/dL (8.6-10.3); CARBON DIOXIDE 21.2 mEq/L (21.0-31.0); CHLORIDE 111 mEq/L (98-107); CREATININE - SERUM 1.2 mg/dL (0.7-1.3); GLUCOSE 120 mg/dL (70-105); SGOT 11 U/L (13-39); SGPT/ALT 3 U/L (7-52); SODIUM SERUM 140 mEq/L (136-145); TOTAL PROTEIN,SERUM 5.4 gm/dL (6.0-8.3)
[2018-06-22] MEDS: Multivitamin w/ Minerals Tab PO SCH ×2 (08:38→09:10)
[2018-06-22] MEDS: Potassium Chloride 20 mEq ER Tab PO SCH ×2 (08:39→09:09)
[2018-06-22] MEDS: Lactobacillus Rhamnosus GG 15 Billion CFU CAP.SPRINK PO SCH ×2 (08:39→09:10)
[2018-06-22] MEDS: Sodium Chloride 0.45% 1,000 ML IV SCH (08:49)
[2018-06-22] MEDS: KCL 20mEq/100mL Premix 20 MEQ/100 ML PIGGYBACK IV SCH ×2 (09:19→12:15)
[2018-06-22] MEDS: Sodium Ferric Gluconate 125 MG in Sodium Chloride 0.9% 100 ML IV SCH (11:03)
--- NOTE | 2018-06-22 14:35 | General Progress Note ---
Subjective - Review of Systems Events since last encounter: pt. lying in bed, no acute distress still has suprapubic catheter in place due to retaining urine Objective - Results Result Diagrams: 06/22/18 06:20 06/22/18 06:20 Recent Labs: Laboratory Last Values WBC 4.9 Th/cmm (4.8-10.8) 06/22/18 06:20 RBC 3.28 Mil/cmm (3.80-5.80) L 06/22/18 06:20 Hgb 9.3 gm/dL (12-16) L 06/22/18 06:20 Hct 28.3 % (41.0-60) L 06/22/18 06:20 MCV 86.2 fl (80-99) 06/22/18 06:20 MCH 28.2 pg (27.0-31.0) 06/22/18 06:20 MCHC Differential 32.7 pg (28.0-36.0) 06/22/18 06:20 RDW 13.5 % (11.5-20.0) 06/22/18 06:20 Plt Count 130 Th/cmm (150-400) L 06/22/18 06:20 MPV 6.8 fl 06/22/18 06:20 Neutrophils % 75.6 % (40.0-80.0) 06/22/18 06:20 Lymphocytes % 12.8 % (20.0-50.0) L 06/22/18 06:20 Monocytes % 8.1 % (2.0-10.0) 06/22/18 06:20 Eosinophils % 3.2 % (0.0-5.0) 06/22/18 06:20 Basophils % 0.3 % (0.0-2.0) 06/22/18 06:20 Eos Smear Source URINE 06/12/18 12:00 Eos Smear Total Cells NONE SEEN (NONE SEEN) 06/12/18 12:00 PT 11.5 SECONDS (9.5-11.5) 06/19/18 03:51 INR 1.12 (0.5-1.4) 06/19/18 03:51 PTT (Actin FS) 30.5 SECONDS (26.0-38.0) 06/19/18 03:51 Sodium 140 mEq/L (136-145) 06/22/18 06:20 Potassium 3.0 mEq/L (3.5-5.1) L 06/22/18 06:20 Chloride 111 mEq/L (98-107) H 06/22/18 06:20 Carbon Dioxide 21.2 mEq/L (21.0-31.0) 06/22/18 06:20 Anion Gap 10.8 (7.0-16.0) 06/22/18 06:20 BUN 19 mg/dL (7-25) 06/22/18 06:20 Creatinine 1.2 mg/dL (0.7-1.3) 06/22/18 06:20 Est GFR ( Amer) TNP 06/22/18 06:20 Est GFR (Non-Af Amer) TNP 06/22/18 06:20 BUN/Creatinine Ratio 15.8 06/22/18 06:20 Glucose 120 mg/dL (70-105) H 06/22/18 06:20 POC Glucose 103 MG/DL (70 - 105) 06/11/18 13:20 Calcium 8.6 mg/dL (8.6-10.3) 06/22/18 06:20 Phosphorus 2.6 mg/dL (2.5-5.0) 06/12/18 05:45 Magnesium 2.1 mg/dL (1.9-2.7) 06/12/18 05:45 Iron 24 ug/dL (38-169) L 06/18/18 09:10 TIBC 159 ug/dL (250-450) L 06/18/18 09:10 Iron Saturation 15 % (15-55) 06/18/18 09:10 Unsaturated IBC 135 ug/dL (111-343) 06/18/18 09:10 Ferritin 475 ng/mL (30-400) H 06/18/18 09:10 Total Bilirubin 0.4 mg/dL (0.3-1.0) 06/22/18 06:20 AST 11 U/L (13-39) L 06/22/18 06:20 ALT 3 U/L (7-52) L 06/22/18 06:20 Alkaline Phosphatase 56 U/L (34-104) 06/22/18 06:20 Ammonia 112 umol/L (16-53) H 06/12/18 05:45 Creatine Kinase 39 U/L (30-223) 06/13/18 04:40 Total Protein 5.4 gm/dL (6.0-8.3) L 06/22/18 06:20 Albumin 2.8 gm/dL (4.2-5.5) L 06/22/18 06:20 Globulin 2.6 gm/dL 06/22/18 06:20 Albumin/Globulin Ratio 1.1 (1.0-1.8) 06/22/18 06:20 Aldolase 3.5 U/L (3.3-10.3) 06/13/18 04:40 Vitamin B12 574 pg/mL (232-1245) 06/13/18 04:40 Folic Acid 9.2 ng/mL (>3.0) 06/13/18 04:40 TSH 0.61 uIU/ml (0.34-5.60) 06/13/18 04:40 Urine Source MIDSTREAM 06/12/18 12:00 Urine Color YELLOW 06/12/18 12:00 Urine Clarity CLEAR (CLEAR) 06/12/18 12:00 Urine pH 6.0 (4.6 - 8.0) 06/12/18 12:00 Ur Specific [place] 1.010 (1.005-1.030) 06/12/18 12:00 Urine Protein NEGATIVE mg/dL (NEGATIVE) 06/12/18 12:00 Urine Glucose (UA) NEGATIVE mg/dL (NEGATIVE) 06/12/18 12:00 Urine Ketones NEGATIVE mg/dL (NEGATIVE) 06/12/18 12:00 Urine Blood NEGATIVE (NEGATIVE) 06/12/18 12:00 Urine Nitrate NEGATIVE (NEGATIVE) 06/12/18 12:00 Urine Bilirubin NEGATIVE (NEGATIVE) 06/12/18 12:00 Urine Urobilinogen 0.2 E.U./dL (0.2 - 1.0) 06/12/18 12:00 Ur Leukocyte Esterase TRACE (NEGATIVE) H 06/12/18 12:00 Urine RBC 0-2 /hpf (0-5) H 06/12/18 12:00 Urine WBC 2-5 /hpf (0-5) 06/12/18 12:00 Ur Epithelial Cells FEW /lpf (FEW) 06/12/18 12:00 Urine Bacteria FEW /hpf (NONE SEEN) 06/12/18 12:00 Ur Random Sodium 39 mmol/L 06/12/18 12:00 Urine Creatinine 99.0 mg/dl (39.0-259.0) 06/12/18 12:00 Microalb/Creat Ratio 49.2 mg/g creat (0.0-30.0) H 06/12/18 12:00 - Physical Exam Vitals and I&O: Vital Signs Temp 97.9 F 06/22/18 13:17 Pulse 64 06/22/18 13:17 Resp 18 06/22/18 13:17 BP 141/60 06/22/18 13:17 Pulse Ox 100 06/22/18 12:00 Intake & Output 06/21/18 06/22/18 06/22/18 18:59 06:59 18:59 Intake Total 160 1500 1100 Output Total 750 Balance 958 048 2536 Weight (lbs) 113.398 kg Intake: Intake, IV Amount 160 1100 1100 KCL 20mEq/100mL Premix 20 100 meq In 100 ml @ 50 mls/ hr IV Q4H [facility] Rx#: [id number] Sodium Chloride 0.45% 1, 1000 1000 000 ml @ 100 mls/hr IV . Q10H [facility] Rx#:[id number] Sodium Ferric Gluconate 110 125 mg In Sodium Chloride 0.9% 100 ml @ 100 mls/hr IV Q24HR [facility] Rx#: [id number] ceFAZolin 1 gm In Sodium 50 100 Chloride 0.9% 50 ml @ 100 mls/hr IV Q8HR [facility] Rx#: [id number] Oral 400 Output: Urine 750 Stool 0 Other: # Voids 2 Weight Source Bedscale Active Medications: Current Medications Bisacodyl (Dulcolax 10 Mg Supp) 10 mg RC DAILY PRN PRN Reason: Constipation Stop: 08/13/18 12:35 Escitalopram Oxalate (Lexapro) 10 mg PO [facility]; Protocol Stop: 08/10/18 20:59 Last Admin: 06/21/18 21:14 Dose: 10 mg Folic Acid (Folate) 1 mg PO DAILY [facility] Stop: 08/16/18 08:59 Last Admin: 06/22/18 09:10 Dose: Not Given Ferric Sodium Gluconate Complex 125 mg/ Sodium Chloride 110 mls @ 100 mls/hr IV Q24HR [facility] Stop: 06/23/18 11:59 Last Admin: 06/22/18 11:03 Dose: 100 mls/hr Sodium Chloride (Nacl 0.45%) 1,000 mls @ 100 mls/hr IV .Q10H [facility] Stop: 08/15/18 20:59 Last Admin: 06/22/18 08:49 Dose: 100 mls/hr Cefazolin Sodium 1 gm/ Sodium (Chloride) 50 mls @ 100 mls/hr IV Q8HR [facility] Stop: 08/18/18 20:59 Last Admin: 06/22/18 12:16 Dose: 100 mls/hr Potassium Chloride (Potassium Chloride) 20 meq in 100 mls @ 50 mls/hr IV Q4H [facility] Stop: 06/22/18 15:14 Last Admin: 06/22/18 12:15 Dose: 50 mls/hr Lactobacillus Rhamnosus (Culturelle 15b) 1 each PO DAILY [facility] Stop: 08/17/18 08:59 Last Admin: 06/22/18 09:10 Dose: Not Given Lorazepam (Ativan) 0.5 mg PO Q4HR PRN; Protocol PRN Reason: Anxiety Stop: 08/10/18 14:02 Last Admin: 06/18/18 18:29 Dose: 0.5 mg Magnesium Hydroxide (Milk Of Magnesia) 30 ml PO HS PRN PRN Reason: IF STOOL SOFTENERS INEFFECTIVE Stop: 08/10/18 14:02 Miscellaneous (Probiotic Screen) 1 ea MC PRN PRN PRN Reason: PROTOCOL Stop: 08/16/18 14:26 Quetiapine Fumarate (Seroquel) 200 mg PO TID [facility]; Protocol Stop: 08/10/18 20:59 Last Admin: 06/22/18 13:27 Dose: Not Given Sodium Phosphate (Fleet Enema) 135 ml RC Q48H PRN PRN Reason: IF MOM/DULCOLAX INEFFECTIVE Stop: 08/13/18 12:35 Tamsulosin HCl (Flomax) 0.4 mg PO DAILY [facility] Stop: 08/18/18 08:59 Last Admin: 06/22/18 09:10 Dose: Not Given Zolpidem Tartrate (Ambien) 5 mg PO HS PRN PRN Reason: Insomnia Stop: 08/10/18 14:02 Last Admin: 06/21/18 21:55 Dose: 5 mg General: No acute distress HEENT: Atraumatic, Mucous membr. moist/pink Neck: Supple, +2 carotid pulse wo bruit Cardiovascular: Regular rate, Normal S1, Normal S2 Lungs: Normal air movement Abdomen: Bowel sounds, Soft Extremities: no Edema Neurological: Sensation intact Skin: no Rash Psych/Mental Status: Mood NL, Other (confused) - Procedures Procedures: Procedures Procedure Code Date INSPECTION OF BLADDER, ENDO [id number] 06/11/18 RESECTION OF PROSTATE, ENDO [id number] 06/11/18 Assessment/Plan - Assessment Assessment: obstructive uropathy agitation left lower back mass h/o anemia h/o seizure disorder thrombocytopenia neurogenic bladder with a suprapubic catheter placement - Plan Plan: cpm d/c planning Nutritional Asmnt/Malnutr-PDOC - Dietary Evaluation Malnutrition Findings (Please click <Entered> for more info): Nutritional Asmnt/Malnutrition Start: 06/13/18 16: 18 Text: Status: Complete Freq: Protocol: Document 06/13/18 17:35 LCHENG (Rec: 06/13/18 17:44 [id number] [place] [id number]) Nutritional Asmnt/Malnutrition Patient General Information Nutritional Screening High Risk Diagnosis dehydration Pertinent Medical Hx/Surgical Hx anemia, dementia, schizoaffective disorder, anxiety, insomia Subjective Information pt seen lyingin bed at time of visit, awake and confused. Pt has no teeth noted. Pt denied chewing difficulty with dentures on regular textured food. Per EMR, PO intake 100%. Current Diet Order/ Nutrition Support regular Pertinent Medications seroquel, nacl 0.45% Pertinent Labs 06/13 Cl 109, BUN 39, Cr 1.7 06/12 Cl 110, BUN 41, Cr 1.5 Nutritional Hx/Data Height 1.88 m Height (Calculated Centimeters) 188.0 Current Weight (lbs) 111.584 kg Weight (Calculated Kilograms) 111.6 Weight (Calculated Grams) 578391.7 [place] Body Weight 190 Body Mass Index (BMI) 31.6 Weight Status Obese GI Symptoms GI Symptoms None Last BM 06/13 Difficult in: None Skin Integrity/Comment: intact Current %PO Good (75-100%) Estimated Nutritional Goals BEE in Kcals: Adj wt of IBW Calories/Kcals/Kg 25-30 Kcals Calculated 1334-4988 Protein: Adj wt of IBW Protein g/k Protein Calculated 93 Fluid: ml 2325-2790ml (1ml/kcal) Nutritional Problem 1. Problem Problem altered nutrition related labs Etiology electrolytes/fluid imbalance Signs/Symptoms: Cl 109, BUN 39 Malnutrition Alert Is there a minimum of two criteria No selected? Query Text:Check all the applicable criteria. A minimum of two criteria are recommended for diagnosis of either severe or non-severe malnutrition. Malnutrition Related to Morbid Obesity Malnutrition related to morbid obesity No Intervention/Recommendation Comments 1. Continue with regular diet as ordered. 2. Monitor PO intake, wt, labs and skin integrity 3. F/U as low risk in 7 days, 06/20, PO check 06/16 Expected Outcomes/Goals Expected Outcomes/Goals 1. PO intake to meet at least 75% of nutritional needs. 2. Wt stability, skin to remain intact, labs to approach WNL.
[2018-06-22 16:17] LABS: BUN - UREA NITROGEN 17 mg/dL (7-25); CALCIUM SERUM 8.8 mg/dL (8.6-10.3); CARBON DIOXIDE 22.9 mEq/L (21.0-31.0); CHLORIDE 110 mEq/L (98-107); CREATININE - SERUM 1.2 mg/dL (0.7-1.3); GLUCOSE 109 mg/dL (70-105); POTASSIUM SERUM 3.9 mEq/L (3.5-5.1); SODIUM SERUM 141 mEq/L (136-145)
--- NOTE | 2018-06-22 19:49 | Consultation ---
DATE OF CONSULTATION: 06/22/[address] Guo. HISTORY OF PRESENT ILLNESS: This is a 72-year-old male patient who was in [facility]. The patient had obstructive uropathy. Following this, the patient has suprapubic catheter and the renal status improved. At this time, the patient has hypokalemia and hence Cardiology consult is requested. PAST MEDICAL HISTORY: Suprapubic catheter, BPH with obstructive uropathy, acute renal failure secondary to obstructive uropathy, iron-deficiency anemia, seizure disorder, thrombocytopenia, schizophrenia, dementia, psychosis, cholelithiasis, status post left nephrectomy. FAMILY HISTORY: Unremarkable. SOCIAL HISTORY: No history of smoking, alcohol abuse. ALLERGIES: No known allergies. PHYSICAL EXAMINATION: VITAL SIGNS: Blood pressure 130/82, pulse 70, and respirations 20. HEAD: Normocephalic. No lumps or bumps. EYES: Pupils equal, reactive to light. Fundi show AV nicking, sclerae white, conjunctivae pink. NECK: Carotid 2+. Normal upstroke. JVD flat. Thyroid not palpable. Lymph nodes not palpable. CHEST: Shows increased AP diameter. No kyphosis, scoliosis. LUNGS: Bilateral bronchovesicular breath sounds. HEART: PMI fifth intercostal space with lateral to midclavicular line. S1, S2. No S3, S4, soft systolic murmur. ABDOMEN: Soft. Liver, spleen not palpable. No organomegaly. Bowel sounds active. NEUROLOGIC: Unremarkable. EXTREMITIES: Peripheral pulses 2+. No pedal edema. CLINICAL IMPRESSION: Hypokalemia, potassium supplement; suprapubic catheter secondary to obstructive uropathy and benign prostatic hypertrophy; acute renal failure secondary to obstructive uropathy; iron deficiency anemia; seizure disorder; thrombocytopenia; schizophrenia; depression; dementia; psychosis; cholelithiasis; and status post left nephrectomy. PLAN: We will give potassium supplement. Repeat lab and monitor the patient for any arrhythmias. JOB# [id number]
--- NOTE | 2018-06-22 20:55 | Pathology Report ---
[id number] Collection Date: 06/16/2018 Surgeon: Dr. Graham. Specimen Description: Prostate tissue. Gross Description: Received in formalin are multiple irregular sanabria-turner soft tissue fragments having a rubbery twisted appearance, ranging from 0.5 to 1.8 cm in greatest dimension. The tissue fragments aggregate to an area of 2 x 2 x 1.2 cm and is totally submitted in 5 cassettes labeled A1-A5. Microscopic Description: The histologic sections show prostate tissue with areas of acute and chronic inflammation consisting of increased numbers of neutrophils and lymphocytes. The prostate shows mild glandular and fibromuscular hyperplasia. Diagnosis: Acute and chronic prostatitis, prostate TUR. Comment: There is no evidence for malignancy. [facility]# [id number] [facility]
--- NOTE | 2018-06-23 00:32 | Progress Notes ---
DATE: 06/22/2018 SUBJECTIVE: Chart reviewed and the patient interviewed. Also, discussed the patient's condition with the staff and reviewed the records and labs. The patient seems to be less agitated and less irritable. The patient is still suspicious and has been paranoid. Otherwise, the patient is compliant with taking his medications with no side effects of Seroquel or Lexapro. ASSESSMENT: The patient is still agitated, but less than before. TREATMENT PLAN: Continue current medications and continue to monitor behavior and followup. [facility]# [id number]
[2018-06-25] MEDS ORDERED: fentaNYL Citrate 100 mcg/2mL Vial ONE (11:26)
[2018-06-25] MEDS ORDERED: Propofol **SURGERY USE ONLY** 20 ML IV ONE (11:40)
[2018-06-25] MEDS ORDERED: Neostigmine 10mg/10mL Vial ONE (11:40)
== END 2018-06-22 20:10 | DRG 662 ==
LOC: MSI 12:02 → ICU 06-16 19:47 → MSI 06-20 16:00
PROVIDERS: ADMIT Internal Medicine; ATTEND Internal Medicine
PROC: 0V508ZZ Destruction of Prostate, Via Natural or Artificial Opening Endoscopic (ICD-10-PCS; principal; 2018-06-16)
PROC: 0VT08ZZ Resection of Prostate, Via Natural or Artificial Opening Endoscopic (ICD-10-PCS; 2018-06-16)
PROC: 0T9B00Z Drainage of Bladder with Drainage Device, Open Approach (ICD-10-PCS; 2018-06-19)
DX: N17.9 Acute kidney failure, unspecified (principal); R53.2 Functional quadriplegia; G93.40 Encephalopathy, unspecified; N13.8 Other obstructive and reflux uropathy; N40.1 Benign prostatic hyperplasia with lower urinary tract symptoms; N13.6 Pyonephrosis; E86.0 Dehydration; R31.9 Hematuria, unspecified; R22.2 Localized swelling, mass and lump, trunk; G40.909 Epilepsy, unspecified, not intractable, without status epilepticus; D69.6 Thrombocytopenia, unspecified; I12.9 Hypertensive chronic kidney disease with stage 1 through stage 4 chronic kidney disease, or unspecified chronic kidney disease; F29 Unspecified psychosis not due to a substance or known physiological condition; G30.9 Alzheimer's disease, unspecified; F02.80 Dementia in other diseases classified elsewhere, unspecified severity, without behavioral disturbance, psychotic disturbance, mood disturbance, and anxiety; D63.1 Anemia in chronic kidney disease; K80.20 Calculus of gallbladder without cholecystitis without obstruction; R16.1 Splenomegaly, not elsewhere classified; F25.9 Schizoaffective disorder, unspecified; F41.9 Anxiety disorder, unspecified; G47.00 Insomnia, unspecified; M54.5 Low back pain; R33.8 Other retention of urine; N31.9 Neuromuscular dysfunction of bladder, unspecified; E87.6 Hypokalemia; D50.9 Iron deficiency anemia, unspecified; F32.9 Major depressive disorder, single episode, unspecified; N18.2 Chronic kidney disease, stage 2 (mild); Z90.5 Acquired absence of kidney
CPT/HCPCS: 36415-UA; 70450-TC; 76000-TC; 76700-TC; 76857-TC; 78226-TC; 80048-TC; 80053-TC; 81001-TC; 81015-TC; 82043-90; 82085-90; 82140-TC; 82550-TC; 82570-TC; 82607-90; 82728-90; 82746-90; 82948-90; 83540-90; 83550-90; 83735-TC; 84100-TC; 84300-TC; 84443-TC; 85025-TC; 85610-TC; 87086-90; 87230-TC; 93005; 94760; 96372; 97530; A4217; A9537; J0690; J1885; J2405; J2704; J2710; J2916; J3010; J3480; J7030; Q9967; V2790; X3904; X6258; X7704; Z7610

== ENCOUNTER 2018-06-23 17:00 | Inpatient (IN) | payer MEDICARE, MEDICAID ==
--- NOTE | 2018-06-23 17:23 | ED Physician Chart ---
ED Chief Complaint/HPI - Patient Information Date Seen:: 06/23/18 Time Seen:: 17:10 Chief Complaint:: leaking suprapubic catheter History of Present Illness:: Patient's suprapubic Baez catheter has apparently been leaking possibly because he has been pulling on it. He has also been exhibiting aggressive behavior to the staff. Patient was admitted to [facility] here June 11 for dehydration and transferred to [facility] and discharged yesterday. Allergies:: Allergies Allergy/AdvReac Type Severity Reaction Status Date / Time No Known Allergies Allergy Verified 07/22/17 18:45 Historian:: Patient Review:: Transfer documents Reviewed ED Review of Systems - Review of Systems General/Constitutional: No fever, No chills, No weight loss, No weakness, No diaphoresis, No edema, No loss of appetite Skin: No skin lesions, No rash, No bruising Head: No headache, No light-headedness Eyes: No loss of vision, No pain, No diplopia ENT: No earache, No nasal drainage, No sore throat, No tinnitus Neck: No neck pain, No swelling, No thyromegaly, No stiffness, No mass noted Cardio Vascular: No chest pain, No palpitations, No PND, No orthopnea, No edema Pulmonary: No SOB, No cough, No sputum, No wheezing GI: No nausea, No vomiting, No diarrhea, No pain, No melena, No hematochezia, No constipation, No hematemesis G/U: No dysuria, No frequency, No hematuria Musculoskeletal: No bone or joint pain, No back pain, No muscle pain Endocrine: No polyuria, No polydipsia Psychiatric: No prior psych history, No depression, No anxiety, No suicidal ideation Hematopoietic: No bruising, No lymphadenopathy Allergic/Immuno: No urticaria, No angioedema Neurological: No syncope, No focal symptoms, No weakness, No paresthesia, No headache, No seizure, No dizziness, No confusion, No vertigo ED Past Medical History - Past Medical History Past Medical History: Dementia, Other (schizoaffective disorder; anxiety; psychosis; neurogenic bladder with urinary retention) Family History: Other (not available) Social History: Care Facility Surgical History: other (suprapubic catheter) Medication: Reviewed Family Medical History - Family Member Mother History Unknown: Yes Ethnicity: Unknown Living Status: Unknown ED Physical Exam - Physical Examination General/Constitutional: Awake, Well-developed, well-nourished, Alert, No distress, Non-toxic appearing Other Gen/Cons comments:: Patient alert and confused; he states the year is 1972 Head: Atraumatic Eyes: Lids, conjuctiva normal, PERRL, EOMI Skin: Nl inspection, No rash, No skin lesions, No ecchymosis, Well hydrated, No lymphadenopathy ENMT: External ears, nose nl, Nasal exam nl, Lips, teeth, gums nl Neck: Nontender, Full ROM w/o pain, No JVD, No nuchal rigidity, No bruit, No mass, No stridor Respiratory: Nl effort/Exclusion, Clear to Auscultation, No Wheeze/Rhonchi/Rales Cardio Vascular: RRR, No murmur, gallop, rubs, NL S1 S2 GI: No tenderness/rebounding/guarding, No organomegaly, No hernia, Normal BS's, Nondistended, No mass/bruits, No McBurney tenderness : No CVA tenderness Extremities: No tenderness or effusion, Full ROM, normal strength in all extremities, No edema, Normal digits & nails Neuro/Psych: Alert/oriented, DTR's symmetric, Normal sensory exam, Normal motor strength, Judgement/insight normal, Mood normal, Normal gait, No focal deficits Misc: Normal back, No paraspinal tenderness ED Labs/Radiology/EKG Results - Lab Results Results: Abnormal Lab Results 06/23/18 06/23/18 06/23/18 17:38 17:38 17:38 WBC 6.4 RBC 3.51 L Hgb 9.9 L Hct 30.5 L MCV 86.8 MCH 28.1 MCHC Differential 32.4 RDW 13.6 Plt Count 182 MPV 6.2 Neutrophils % 81.9 H Lymphocytes % 8.6 L Monocytes % 7.2 Eosinophils % 2.1 Basophils % 0.2 Sodium 140 Potassium 3.4 L Chloride 108 H Carbon Dioxide 21.7 Anion Gap 13.7 BUN 17 Creatinine 1.1 Est GFR ( Amer) TNP Est GFR (Non-Af Amer) TNP BUN/Creatinine Ratio 15.5 Glucose 101 Calcium 8.9 Total Bilirubin 0.6 AST 18 ALT 3 L Alkaline Phosphatase 58 Total Protein 5.8 L Albumin 3.1 L Globulin 2.7 Albumin/Globulin Ratio 1.2 Triglycerides 91 Cholesterol 112 LDL Cholesterol Direct 77 HDL Cholesterol 25 TSH 1.70 - EKG Interpretations Rate & Rhythm: normal sinus rhythm with a rate of 64 [place]: normal axis Comments:: Low-voltage and extremity leads ED Septic Shock - . Is Septic Shock (SBP<90, OR Lactate>4 mmol\L) present?: No ED Reassessment (Disposition) - Reassessment Reassessment Condition:: Unchanged - Diagnosis Diagnosis:: Dementia with aggressive behavior; anemia; status post recent suprapubic catheter placement - Patient Disposition Admitted to:: Med/Surg Spoke to:: Juan Guo Admitting Medical Physician:: Juan Guo Condition at Disposition:: Stable, Unchanged
[2018-06-23 17:49] LABS: HEMATOCRIT 30.5 % (41.0-60); HEMOGLOBIN 9.9 gm/dL (12-16); MEAN CELL VOLUME 86.8 fl (80-99); MEAN CORPUSCULAR HEMOGLOBIN 28.1 pg (27.0-31.0); MEAN CORPUSCULAR HGB CONC 32.4 pg (28.0-36.0); PLATELET COUNT 182 Th/cmm (150-400); RED BLOOD COUNT 3.51 Mil/cmm (3.80-5.80); RED CELL DISTRIBUTION WIDTH 13.6 % (11.5-20.0); WHITE BLOOD COUNT 6.4 Th/cmm (4.8-10.8)
[2018-06-23 17:50] LABS: % BASOPHILS 0.2 % (0.0-2.0); % EOSINOPHILS 2.1 % (0.0-5.0); % LYMPHOCYTES 8.6 % (20.0-50.0); % MONOCYTES 7.2 % (2.0-10.0); % NEUTROPHILS 81.9 % (40.0-80.0); EOSINOPHILE ABSOLUTE 0.1 Th/cmm (0.1-0.4); LYMPHOCYTE ABSOLUTE 0.6 Th/cmm (1.5-3.0); MEAN PLATELET VOLUME 6.2 fl; MONOCYTE ABSOLUTE 0.5 Th/cmm (0.3-1.0); NEUTROPHILE ABSOLUTE 5.2 Th/cmm (1.8-8.0)
[2018-06-23 17:59] LABS: ALB/GLOB RATIO 1.2 (1.0-1.8); ALBUMIN 3.1 gm/dL (4.2-5.5); ALKALINE PHOSPHATASE 58 U/L (34-104); ANION GAP 13.7 (7.0-16.0); BILIRUBIN,TOTAL 0.6 mg/dL (0.3-1.0); BUN - UREA NITROGEN 17 mg/dL (7-25); CALCIUM SERUM 8.9 mg/dL (8.6-10.3); CARBON DIOXIDE 21.7 mEq/L (21.0-31.0); CHLORIDE 108 mEq/L (98-107); CHOLESTEROL 112 mg/dL (<200); CREATININE - SERUM 1.1 mg/dL (0.7-1.3); GLUCOSE 101 mg/dL (70-105); HDL -HIGH DENSITY LIPOPROTEIN 25 mg/dL (23-92); POTASSIUM SERUM 3.4 mEq/L (3.5-5.1); SGOT 18 U/L (13-39); SGPT/ALT 3 U/L (7-52); SODIUM SERUM 140 mEq/L (136-145); TOTAL PROTEIN,SERUM 5.8 gm/dL (6.0-8.3); TRIGLYCERIDES 91 mg/dL (<150)
[2018-06-23 21:00] VITALS: BP 124/61
[2018-06-23] MEDS: Sodium Chloride 0.45% 1,000 ML IV SCH (21:24)
[2018-06-24 00:35] LABS: URINE SOURCE CATH
[2018-06-24 00:37] LABS: URINE BILIRUBIN NEGATIVE (NEGATIVE); URINE BLOOD LARGE (NEGATIVE); URINE GLUCOSE (UA) NEGATIVE (NEGATIVE); URINE KETONE TRACE mg/dL (NEGATIVE); URINE LEUKOCYTE ESTERASE SMALL (NEGATIVE); URINE MICROSCOPIC INDICATED? YES; URINE NITRATE NEGATIVE (NEGATIVE); URINE PROTEIN 30 mg/dL (NEGATIVE); URINE UROBILINOGEN 0.2 E.U./dL (0.2 - 1.0)
[2018-06-24 00:43] LABS: URINE CLARITY HAZY (CLEAR); URINE COLOR PINK
[2018-06-24 00:49] LABS: URINE RBC 50-100 /hpf (0-5)
[2018-06-24 00:50] LABS: URINE BACTERIA 3+ /hpf (NONE SEEN); URINE EPITHELIAL CELLS RARE /lpf (FEW)
[2018-06-24 05:11] LABS: % BASOPHILS 0.3 % (0.0-2.0); % EOSINOPHILS 1.9 % (0.0-5.0); % LYMPHOCYTES 11.3 % (20.0-50.0); % MONOCYTES 11.5 % (2.0-10.0); EOSINOPHILE ABSOLUTE 0.1 Th/cmm (0.1-0.4); HEMATOCRIT 29.1 % (41.0-60); HEMOGLOBIN 9.7 gm/dL (12-16); LYMPHOCYTE ABSOLUTE 0.6 Th/cmm (1.5-3.0); MEAN CELL VOLUME 85.3 fl (80-99); MEAN CORPUSCULAR HEMOGLOBIN 28.4 pg (27.0-31.0); MEAN CORPUSCULAR HGB CONC 33.3 pg (28.0-36.0); MEAN PLATELET VOLUME 6.2 fl; MONOCYTE ABSOLUTE 0.6 Th/cmm (0.3-1.0); NEUTROPHILE ABSOLUTE 3.6 Th/cmm (1.8-8.0); PLATELET COUNT 154 Th/cmm (150-400); RED BLOOD COUNT 3.42 Mil/cmm (3.80-5.80); RED CELL DISTRIBUTION WIDTH 13.7 % (11.5-20.0); WHITE BLOOD COUNT 4.9 Th/cmm (4.8-10.8)
[2018-06-24 06:18] LABS: ANION GAP 12.8 (7.0-16.0); BUN - UREA NITROGEN 16 mg/dL (7-25); CALCIUM SERUM 8.8 mg/dL (8.6-10.3); CARBON DIOXIDE 23.8 mEq/L (21.0-31.0); CHLORIDE 109 mEq/L (98-107); CREATININE - SERUM 1.1 mg/dL (0.7-1.3); GLUCOSE 103 mg/dL (70-105); POTASSIUM SERUM 3.6 mEq/L (3.5-5.1); SODIUM SERUM 142 mEq/L (136-145)
[2018-06-24] MEDS: cefTRIAXone 1 GM in Sodium Chloride 0.9% 50 ML IV SCH (10:40)
[2018-06-24] MEDS ORDERED: VTE Chemical Prophylaxis Screen/Admission MC PRN (10:45)
--- NOTE | 2018-06-24 15:52 | Consultation ---
DATE OF CONSULTATION: 06/24/2018 UROLOGY CONSULTATION HISTORY OF PRESENT ILLNESS: The patient [facility] the [facility] with complaints of blood around the catheter of the penis. Details are not clear. He had the suprapubic catheter placed less than a week ago. He has an obstructive urethra and the prostate is difficult to resect as it requires extra-long resectoscope and it also bleeds a lot. Additionally, the patient keeps pulling on this catheter, and therefore, it is almost impossible to keep a catheter postoperatively in the prostate, which is necessary. A suprapubic catheter was therefore felt to be the best compromise. Now even that has been pulled out because the bag was hanging by the bedside and the catheter was not anchored to the skin and the abdominal wall without tension as recommended and explained to the nursing staff postoperatively. PHYSICAL EXAMINATION: GENERAL: The patient is awake and alert and in no distress. He is afebrile. Vital signs are stable. ABDOMEN: Soft. ASSESSMENT AND PLAN: The catheter is not functional when I irrigated it. I tried to negotiate back into the bladder, but it has migrated out due to the pull and the tension provided by the hanging bag and no protection to the catheter. His labs indicate normal white count, stable hemoglobin and a stable creatinine indicating most likely the urine is leaking somewhere around the bladder or through the penis and he is at least not accumulating causing sepsis. Recommend reexploration and reintroduction of the suprapubic catheter. [facility]# [id number]
[2018-06-24] MEDS: Sodium Chloride 0.45% 1,000 ML IV SCH (17:30)
[2018-06-24] MEDS: Albuterol/Ipratropium Neb 3 ML AERS HHN SCH (19:46)
--- NOTE | 2018-06-24 19:52 | Consultation ---
DATE OF CONSULTATION: 06/23/2018 PULMONARY CONSULTATION REASON FOR CONSULTATION: Question shortness of breath with possibly pneumonia. HISTORY OF PRESENT ILLNESS: This is a 72-year-old gentleman who has a severe psychiatric illness with suspect sleep apnea syndrome, also has a history of multiple psychiatric illness. The patient initially was admitted for issues related to suprapubic catheter. Apparently, the patient with shortness of breath, observed by attending physician. Hence, I was asked to see this patient for further care and necessary treatment. The patient is totally confused, disoriented, does not give much of a history, quite obsessed with healthcare worker what their duties, etc. PAST MEDICAL HISTORY: History of dementia, schizoaffective disorder, anxiety, psychosis, neurogenic bladder, urinary retention, and also other suprapubic catheter ____ is not clearcut. PHYSICAL EXAMINATION: GENERAL: This is a fairly good built elderly looking gentleman, awake, disoriented, not in any acute distress. VITAL SIGNS: The patient's recorded vitals temperature is 98.8, blood pressure 140/67, saturation 99% on room air. HEENT: Head is essentially unremarkable. Pupils appear to be equal and reacting to light. Conjunctivae are slightly pallor, otherwise unremarkable. NECK: No nodes in the neck could be palpated. CHEST: Shows diminished air entry with occasional rhonchi. HEART: Regular. ABDOMEN: Soft, nontender with suprapubic catheter. LABORATORY DATA: White count is 4.9, hemoglobin 9.7, and chloride is 109. IMPRESSION: 1. The patient, question mild degree of tracheobronchitis. 2. Severe obstructive sleep apnea syndrome. PLANS AND SUGGESTIONS: Continue current treatment. We will add breathing treatment to current treatment. We will ____ chest x-ray, blood gases, etc. and go from there. JOB# [id number]
--- NOTE | 2018-06-24 20:54 | History & Physical ---
ADMIT DATE: 06/23/2018 HISTORY OF PRESENT ILLNESS: The patient is well known to me. The patient is a resident of [place]. Apparently known to have history of severe dementia, patient is very confused, but he has recently had a prostate problem, obstructive problem, had a suprapubic catheter put in, and the patient had blood around the catheter, around the penis as well. The patient came to the Emergency Room, was admitted for an additional bleeding around the catheter. The patient is awake, alert, and the patient is confused, not oriented. The patient is leaking according to the documents. REVIEW OF SYSTEMS: Negative. The patient has no fever, no chills. The patient has recent suprapubic catheter. PHYSICAL EXAMINATION: GENERAL: The patient is awake, alert, confused. HEAD: Normal. ENT: Normal. NECK: Supple, nontender. LUNGS: Clear. CENTRAL NERVOUS SYSTEM: The patient is confused. LABORATORY DATA: White count 6.4, hemoglobin 9.9. Electrolytes were normal. DIAGNOSES: Very aggressive behavior, dementia, status post suprapubic catheter placement, bleeding through the suprapubic catheter. PLAN: The patient will be admitted and will have Dr. Graham see the patient and also GI and Dr. Morton see the patient. I will follow the patient. JOB# [id number]
--- NOTE | 2018-06-25 00:12 | Consultation ---
DATE OF CONSULTATION: 06/24/2018 REFERRING PHYSICIAN: Dr. Guo. REASON FOR CONSULTATION: UTI. HISTORY OF PRESENT ILLNESS: The patient presented to the emergency room with past medical history of dementia, schizoaffective disorder, anxiety, psychosis, neurogenic bladder with urinary retention, recently admitted to [facility] for agitation and suprapubic catheter, BPH, obstructive uropathy and acute renal failure, secondary to obstructive uropathy, improved, iron deficiency anemia, seizure disorder, thrombocytopenia, schizophrenia, dementia, psychosis, cholelithiasis, status post left nephrectomy, had TURP, performed by Dr. Graham on 06/16/2018. at the same time, the patient had suprapubic catheter placement. The patient was discharged in stable condition. The patient's renal function improved. However, the patient was [facility] the [facility] for hematuria. PAST MEDICAL HISTORY: Includes BPH, obstructive uropathy, which has improved, acute renal failure secondary to obstructive uropathy, improved, suprapubic catheterization, TURP, recently on 06/16/2018, iron deficient anemia, seizure disorder, thrombocytopenia, schizophrenia, dementia, psychosis, cholelithiasis, status post left nephrectomy. SOCIAL HISTORY: No history of smoking, alcohol or drug use. FAMILY HISTORY: Unremarkable. ALLERGIES: NKDA. MEDICATIONS: As per medication reconciliation sheet. ANTIBIOTIC [place]OCK[place]: The patient is receiving Rocephin. SOCIAL HISTORY: The patient lives in nursing facility. No history of smoking, alcohol or drug use. FAMILY HISTORY: Not available. REVIEW OF SYSTEMS: GENERAL: The patient has no fever, no chills. HEENT: No diplopia, no photophobia. RESPIRATORY: No cough, no shortness of breath. CARDIOVASCULAR: No chest pain or palpitation. GASTROINTESTINAL: No nausea, no vomiting, no diarrhea, no constipation. GENITOURINARY: No dysuria. Had hematuria, which cleared. The patient has suprapubic catheter. CENTRAL NERVOUS SYSTEM: No headache, no dizziness, no focal weakness. PHYSICAL EXAMINATION: VITAL SIGNS: Shows temperature is 98.6, pulse 60, respirations 18, blood pressure 134/72, oxygen saturation 98%. GENERAL: The patient is comfortable lying in the bed, not in acute distress. HEENT: Head is atraumatic. Oral cavity moist. NECK: Supple, no JVD, no bruit. Trachea in midline. CHEST: Bilateral breath sounds. No crackles or wheezing. HEART: S1, S2 within normal limits. Regular rhythm. No murmur, no gallop. ABDOMEN: Soft, nontender, nondistended. Bowel sounds present. The patient has a suprapubic catheter. There is some leak. EXTREMITIES: No cyanosis, no clubbing, no edema. NEUROLOGIC: Alert, awake, oriented x 3. No focal deficits. LABORATORY DATA: Current lab shows WBC count is 4900, hemoglobin 9.7, hematocrit 29.1 and platelets are 154,000. Sodium 142, potassium 3.6, chloride 108, bicarbonate is 24, BUN is 16, creatinine 1.1 and glucose is 103. Urinalysis showed large blood leukoesterase small, rbc's 50-100 and 3+ bacteria. IMPRESSION: 1. Hematuria, suspect urinary tract infection. 2. Suprapubic catheter leak. 3. Benign prostatic hypertrophy. 4. Agitation. 5. Chronic obstructive pulmonary disease. 6. Psychosis. 7. Acute kidney injury after uropathy, improved. RECOMMENDATION: Continue Evangelist. JOB# [id number]
[2018-06-25] MEDS: Albuterol/Ipratropium Neb 3 ML AERS HHN SCH ×3 (07:18→18:49)
[2018-06-25 07:26] LABS: % BASOPHILS 0.3 % (0.0-2.0); % EOSINOPHILS 2.7 % (0.0-5.0); % LYMPHOCYTES 16.3 % (20.0-50.0); % MONOCYTES 8.3 % (2.0-10.0); % NEUTROPHILS 72.4 % (40.0-80.0); EOSINOPHILE ABSOLUTE 0.2 Th/cmm (0.1-0.4); HEMATOCRIT 30.8 % (41.0-60); HEMOGLOBIN 10.3 gm/dL (12-16); LYMPHOCYTE ABSOLUTE 1.2 Th/cmm (1.5-3.0); MEAN CELL VOLUME 86.5 fl (80-99); MEAN CORPUSCULAR HGB CONC 33.5 pg (28.0-36.0); MEAN PLATELET VOLUME 6.9 fl; MONOCYTE ABSOLUTE 0.6 Th/cmm (0.3-1.0); NEUTROPHILE ABSOLUTE 5.2 Th/cmm (1.8-8.0); PLATELET COUNT 174 Th/cmm (150-400); RED BLOOD COUNT 3.56 Mil/cmm (3.80-5.80); RED CELL DISTRIBUTION WIDTH 13.4 % (11.5-20.0); WHITE BLOOD COUNT 7.2 Th/cmm (4.8-10.8)
[2018-06-25 07:51] LABS: INR 1.14 (0.5-1.4); PROTHROMBIN TIME (TEST) 11.7 SECONDS (9.5-11.5)
--- NOTE | 2018-06-25 09:07 | Diagnostic Imaging Report ---
Exam: Chest x-ray HISTORY: Shortness of breath. Findings: Frontal examination of the chest reviewed compared to prior study 07/20/2017 demonstrates cardiomegaly mild congestion. No acute pulmonic infiltrates or effusions are noted. Bony thorax intact. IMPRESSION: Cardiomegaly mild congestion.
[2018-06-25] MEDS: cefTRIAXone 1 GM in Sodium Chloride 0.9% 50 ML IV SCH (09:31)
[2018-06-25] MEDS ORDERED: Probiotic Screen MC PRN (09:49)
[2018-06-25] MEDS ORDERED: Propofol 10 mg/mL 20mL Vial **SURGERY USE ONLY IV ONE (10:40)
[2018-06-25] MEDS ORDERED: fentaNYL Citrate 100 mcg/2mL Vial IM ONE (10:40)
[2018-06-25] MEDS ORDERED: Neostigmine 10mg/10mL Vial IM ONE (10:40)
[2018-06-25] MEDS: Lactobacillus Rhamnosus GG 15 Billion CFU CAP.SPRINK PO SCH (15:10)
--- NOTE | 2018-06-25 16:17 | Infectious Disease Prog Note ---
Infectious Disease Subjective - Review of Systems Service Date: 06/25/18 Subjective: No change, no fever. NO hematuria. Agitated. Infectious Disease Objective - Results Result Diagrams: 06/25/18 05:45 06/24/18 04:52 Recent Labs: Laboratory Last Values WBC 7.2 Th/cmm (4.8-10.8) 06/25/18 05:45 RBC 3.56 Mil/cmm (3.80-5.80) L 06/25/18 05:45 Hgb 10.3 gm/dL (12-16) L 06/25/18 05:45 Hct 30.8 % (41.0-60) L 06/25/18 05:45 MCV 86.5 fl (80-99) 06/25/18 05:45 MCH 29.0 pg (27.0-31.0) 06/25/18 05:45 MCHC Differential 33.5 pg (28.0-36.0) 06/25/18 05:45 RDW 13.4 % (11.5-20.0) 06/25/18 05:45 Plt Count 174 Th/cmm (150-400) 06/25/18 05:45 MPV 6.9 fl 06/25/18 05:45 Neutrophils % 72.4 % (40.0-80.0) 06/25/18 05:45 Lymphocytes % 16.3 % (20.0-50.0) L 06/25/18 05:45 Monocytes % 8.3 % (2.0-10.0) 06/25/18 05:45 Eosinophils % 2.7 % (0.0-5.0) 06/25/18 05:45 Basophils % 0.3 % (0.0-2.0) 06/25/18 05:45 PT 11.7 SECONDS (9.5-11.5) H 06/25/18 05:45 INR 1.14 (0.5-1.4) 06/25/18 05:45 PTT (Actin FS) 25.2 SECONDS (26.0-38.0) L 06/25/18 05:45 Sodium 142 mEq/L (136-145) 06/24/18 04:52 Potassium 3.6 mEq/L (3.5-5.1) 06/24/18 04:52 Chloride 109 mEq/L (98-107) H 06/24/18 04:52 Carbon Dioxide 23.8 mEq/L (21.0-31.0) 06/24/18 04:52 Anion Gap 12.8 (7.0-16.0) 06/24/18 04:52 BUN 16 mg/dL (7-25) 06/24/18 04:52 Creatinine 1.1 mg/dL (0.7-1.3) 06/24/18 04:52 Est GFR ( Amer) TNP 06/24/18 04:52 Est GFR (Non-Af Amer) TNP 06/24/18 04:52 BUN/Creatinine Ratio 14.5 06/24/18 04:52 Glucose 103 mg/dL (70-105) 06/24/18 04:52 Calcium 8.8 mg/dL (8.6-10.3) 06/24/18 04:52 Total Bilirubin 0.6 mg/dL (0.3-1.0) 06/23/18 17:38 AST 18 U/L (13-39) 06/23/18 17:38 ALT 3 U/L (7-52) L 06/23/18 17:38 Alkaline Phosphatase 58 U/L (34-104) 06/23/18 17:38 Ammonia 54 umol/L (16-53) H 06/25/18 05:45 Total Protein 5.8 gm/dL (6.0-8.3) L 06/23/18 17:38 Albumin 3.1 gm/dL (4.2-5.5) L 06/23/18 17:38 Globulin 2.7 gm/dL 06/23/18 17:38 Albumin/Globulin Ratio 1.2 (1.0-1.8) 06/23/18 17:38 Triglycerides 91 mg/dL (<150) 06/23/18 17:38 Cholesterol 112 mg/dL (<200) 06/23/18 17:38 LDL Cholesterol Direct 77 mg/dL (75-193) 06/23/18 17:38 HDL Cholesterol 25 mg/dL (23-92) 06/23/18 17:38 TSH 1.70 uIU/ml (0.34-5.60) 06/23/18 17:38 Urine Source CATH 06/24/18 00:33 Urine Color PINK 06/24/18 00:33 Urine Clarity HAZY (CLEAR) 06/24/18 00:33 Urine pH 7.0 (4.6 - 8.0) 06/24/18 00:33 Ur Specific [place] 1.020 (1.005-1.030) 06/24/18 00:33 Urine Protein 30 mg/dL (NEGATIVE) H 06/24/18 00:33 Urine Glucose (UA) NEGATIVE mg/dL (NEGATIVE) 06/24/18 00:33 Urine Ketones TRACE mg/dL (NEGATIVE) 06/24/18 00:33 Urine Blood LARGE (NEGATIVE) H 06/24/18 00:33 Urine Nitrate NEGATIVE (NEGATIVE) 06/24/18 00:33 Urine Bilirubin NEGATIVE (NEGATIVE) 06/24/18 00:33 Urine Urobilinogen 0.2 E.U./dL (0.2 - 1.0) 06/24/18 00:33 Ur Leukocyte Esterase SMALL (NEGATIVE) H 06/24/18 00:33 Urine RBC 50-100 /hpf (0-5) H 06/24/18 00:33 Urine WBC 2-5 /hpf (0-5) 06/24/18 00:33 Ur Epithelial Cells RARE /lpf (FEW) 06/24/18 00:33 Urine Bacteria 3+ /hpf (NONE SEEN) H 06/24/18 00:33 - Physical Exam Vitals and I&O: Vital Signs Temp 98.0 F 06/25/18 08:24 Pulse 68 06/25/18 15:09 Resp 22 06/25/18 15:09 BP 140/70 06/25/18 08:24 Pulse Ox 96 06/25/18 15:09 Intake & Output 06/24/18 06/25/18 06/25/18 18:59 06:59 18:59 Intake Total 2550 50 Balance 2550 50 Weight (lbs) 112.672 kg 114.487 kg Intake: Intake, IV Amount 1050 50 Sodium Chloride 0.45% 1, 1000 000 ml @ 50 mls/hr IV . Q20H CRISTELA Rx#:[id number] cefTRIAXone 1 gm In 50 50 Sodium Chloride 0.9% 50 ml @ 100 mls/hr IV Q24HR CRISTELA Rx#:[id number] Oral 1500 Other: # Voids 2 2 # Bowel Movements 0 1 Weight Source Bedscale Bedscale Active Medications: Current Medications Albuterol/Ipratropium (Duoneb Neb) 3 ml HHN [id number] [facility] Stop: 08/23/18 19:59 Last Admin: 06/25/18 14:52 Dose: Not Given Sodium Chloride (Nacl 0.45%) 1,000 mls @ 50 mls/hr IV .Q20H CRISTELA Stop: 08/22/18 21:14 Last Admin: 06/24/18 17:30 Dose: 50 mls/hr Ceftriaxone Sodium 1 gm/ (Sodium Chloride) 50 mls @ 100 mls/hr IV Q24HR [facility]STELA Stop: 08/23/18 10:29 Last Infusion: 06/25/18 10:36 Dose: Infused Lactobacillus Rhamnosus (Culturelle 15b) 1 each PO DAILY [facility] Stop: 08/24/18 13:59 Last Admin: 06/25/18 15:10 Dose: Not Given Miscellaneous (Vte Chemical Prophylaxis Screen/ Admission) 1 [facility] PRN PRN PRN Reason: PROTOCOL Stop: 08/23/18 10:44 Miscellaneous (Probiotic Screen) 1 [facility] PRN PRN PRN Reason: PROTOCOL Stop: 08/24/18 09:48 General: no acute distress, well developed, well nourished HEENT: atraumatic, normocephalic, PERRLA Neck: supple, no thyromegaly Cardiovascular: S1S2, regular Lungs: clear to auscultation bilaterally, clear to percussion Abdomen: soft, no tender, no distended Extremities: no cyanosis, no clubbing, no edema Neurological: awake, alert, oriented Skin: intact - Procedures Procedures: Procedures Procedure Code Date DESTRUCTION OF PROSTATE, ENDO [id number] 06/11/18 DRAINAGE OF BLADDER WITH DRAINAGE DEVICE, OPEN APPROACH [id number] 06/11/18 RESECTION OF PROSTATE, ENDO [id number] 06/11/18 Infectious Disease Assmt/Plan - Assessment Assessment: 1. Agitation. 2. UTI. 3. Hematuria resolved. 4. Leaking Suprapubic catheter changed. 5. BPH. 6. Obstructive uropathy. 7. Psychosis. - Plan Plan: Psych consult. [facility].
--- NOTE | 2018-06-25 17:41 | General Progress Note ---
Subjective - Review of Systems Service Date: 06/25/18 Objective - Results Result Diagrams: 06/25/18 05:45 06/24/18 04:52 Recent Labs: Laboratory Last Values WBC 7.2 Th/cmm (4.8-10.8) 06/25/18 05:45 RBC 3.56 Mil/cmm (3.80-5.80) L 06/25/18 05:45 Hgb 10.3 gm/dL (12-16) L 06/25/18 05:45 Hct 30.8 % (41.0-60) L 06/25/18 05:45 MCV 86.5 fl (80-99) 06/25/18 05:45 MCH 29.0 pg (27.0-31.0) 06/25/18 05:45 MCHC Differential 33.5 pg (28.0-36.0) 06/25/18 05:45 RDW 13.4 % (11.5-20.0) 06/25/18 05:45 Plt Count 174 Th/cmm (150-400) 06/25/18 05:45 MPV 6.9 fl 06/25/18 05:45 Neutrophils % 72.4 % (40.0-80.0) 06/25/18 05:45 Lymphocytes % 16.3 % (20.0-50.0) L 06/25/18 05:45 Monocytes % 8.3 % (2.0-10.0) 06/25/18 05:45 Eosinophils % 2.7 % (0.0-5.0) 06/25/18 05:45 Basophils % 0.3 % (0.0-2.0) 06/25/18 05:45 PT 11.7 SECONDS (9.5-11.5) H 06/25/18 05:45 INR 1.14 (0.5-1.4) 06/25/18 05:45 PTT (Actin FS) 25.2 SECONDS (26.0-38.0) L 06/25/18 05:45 Sodium 142 mEq/L (136-145) 06/24/18 04:52 Potassium 3.6 mEq/L (3.5-5.1) 06/24/18 04:52 Chloride 109 mEq/L (98-107) H 06/24/18 04:52 Carbon Dioxide 23.8 mEq/L (21.0-31.0) 06/24/18 04:52 Anion Gap 12.8 (7.0-16.0) 06/24/18 04:52 BUN 16 mg/dL (7-25) 06/24/18 04:52 Creatinine 1.1 mg/dL (0.7-1.3) 06/24/18 04:52 Est GFR ( Amer) TNP 06/24/18 04:52 Est GFR (Non-Af Amer) TNP 06/24/18 04:52 BUN/Creatinine Ratio 14.5 06/24/18 04:52 Glucose 103 mg/dL (70-105) 06/24/18 04:52 Calcium 8.8 mg/dL (8.6-10.3) 06/24/18 04:52 Total Bilirubin 0.6 mg/dL (0.3-1.0) 06/23/18 17:38 AST 18 U/L (13-39) 06/23/18 17:38 ALT 3 U/L (7-52) L 06/23/18 17:38 Alkaline Phosphatase 58 U/L (34-104) 06/23/18 17:38 Ammonia 54 umol/L (16-53) H 06/25/18 05:45 Total Protein 5.8 gm/dL (6.0-8.3) L 06/23/18 17:38 Albumin 3.1 gm/dL (4.2-5.5) L 06/23/18 17:38 Globulin 2.7 gm/dL 06/23/18 17:38 Albumin/Globulin Ratio 1.2 (1.0-1.8) 06/23/18 17:38 Triglycerides 91 mg/dL (<150) 06/23/18 17:38 Cholesterol 112 mg/dL (<200) 06/23/18 17:38 LDL Cholesterol Direct 77 mg/dL (75-193) 06/23/18 17:38 HDL Cholesterol 25 mg/dL (23-92) 06/23/18 17:38 TSH 1.70 uIU/ml (0.34-5.60) 06/23/18 17:38 Urine Source CATH 06/24/18 00:33 Urine Color PINK 06/24/18 00:33 Urine Clarity HAZY (CLEAR) 06/24/18 00:33 Urine pH 7.0 (4.6 - 8.0) 06/24/18 00:33 Ur Specific [place] 1.020 (1.005-1.030) 06/24/18 00:33 Urine Protein 30 mg/dL (NEGATIVE) H 06/24/18 00:33 Urine Glucose (UA) NEGATIVE mg/dL (NEGATIVE) 06/24/18 00:33 Urine Ketones TRACE mg/dL (NEGATIVE) 06/24/18 00:33 Urine Blood LARGE (NEGATIVE) H 06/24/18 00:33 Urine Nitrate NEGATIVE (NEGATIVE) 06/24/18 00:33 Urine Bilirubin NEGATIVE (NEGATIVE) 06/24/18 00:33 Urine Urobilinogen 0.2 E.U./dL (0.2 - 1.0) 06/24/18 00:33 Ur Leukocyte Esterase SMALL (NEGATIVE) H 06/24/18 00:33 Urine RBC 50-100 /hpf (0-5) H 06/24/18 00:33 Urine WBC 2-5 /hpf (0-5) 06/24/18 00:33 Ur Epithelial Cells RARE /lpf (FEW) 06/24/18 00:33 Urine Bacteria 3+ /hpf (NONE SEEN) H 06/24/18 00:33 - Physical Exam Vitals and I&O: Vital Signs Temp 98.0 F 06/25/18 08:24 Pulse 68 06/25/18 15:09 Resp 22 06/25/18 15:09 BP 140/70 06/25/18 08:24 Pulse Ox 96 06/25/18 15:09 Intake & Output 06/24/18 06/25/18 06/25/18 18:59 06:59 18:59 Intake Total 2550 50 Balance 2550 50 Weight (lbs) 112.672 kg 114.487 kg Intake: Intake, IV Amount 1050 50 Sodium Chloride 0.45% 1, 1000 000 ml @ 50 mls/hr IV . Q20H CRISTELA Rx#:[id number] cefTRIAXone 1 gm In 50 50 Sodium Chloride 0.9% 50 ml @ 100 mls/hr IV Q24HR CRISTELA Rx#:[id number] Oral 1500 Other: # Voids 2 2 # Bowel Movements 0 1 Weight Source Bedscale Bedscale Active Medications: Current Medications Albuterol/Ipratropium (Duoneb Neb) 3 ml HHN [id number] [facility] Stop: 08/23/18 19:59 Last Admin: 06/25/18 14:52 Dose: Not Given Sodium Chloride (Nacl 0.45%) 1,000 mls @ 50 mls/hr IV .Q20H [facility]STEL[facility] Stop: 08/22/18 21:14 Last Admin: 06/24/18 17:30 Dose: 50 mls/hr Ceftriaxone Sodium 1 gm/ (Sodium Chloride) 50 mls @ 100 mls/hr IV Q24HR [facility] Stop: 08/23/18 10:29 Last Infusion: 06/25/18 10:36 Dose: Infused Lactobacillus Rhamnosus (Culturelle 15b) 1 each PO DAILY [facility] Stop: 08/24/18 13:59 Last Admin: 06/25/18 15:10 Dose: Not Given Lorazepam (Ativan) 1 mg IVP Q6HR PRN; Protocol PRN Reason: Agitation Stop: 08/24/18 17:11 Miscellaneous (Vte Chemical Prophylaxis Screen/ Admission) 1 ea PRN PRN PRN Reason: PROTOCOL Stop: 08/23/18 10:44 Miscellaneous (Probiotic Screen) 1 ea PRN PRN PRN Reason: PROTOCOL Stop: 08/24/18 09:48 - Procedures Procedures: Procedures Procedure Code Date DESTRUCTION OF PROSTATE, ENDO [id number] 06/11/18 DRAINAGE OF BLADDER WITH DRAINAGE DEVICE, OPEN APPROACH [id number] 06/11/18 RESECTION OF PROSTATE, ENDO [id number] 06/11/18
--- NOTE | 2018-06-25 17:41 | Progress Notes ---
DATE: 06/25/2018 PROBLEM LIST: 1. Chronic obstructive pulmonary disease ? 2. Asthmatic bronchitis, now with suprapubic catheter issues. SYMPTOMS: Nil, feeling better and did take a breathing treatment. Denies of any new respiratory issues. PHYSICAL EXAMINATION: VITAL SIGNS: Temperature is 98.0, blood pressure 140/70, saturation in mid 90s on room air. HEENT: Shows no acute changes. CHEST: Shows diminished air entry with occasional rhonchi. HEART: Regular. ABDOMEN: Soft, nontender. LABORATORY DATA: White count is 7.2 and ammonia is 54. ASSESSMENT: The patient clinically appears to be stable, not too much changed. PLANS AND SUGGESTIONS: We will go ahead and continue current treatment and follow along with you. JOB# [id number]
[2018-06-25] MEDS: Sodium Chloride 0.45% 1,000 ML IV SCH (19:06)
--- NOTE | 2018-06-25 23:16 | Consultation ---
DATE of Surgery 06/25/2018 PREOPERATIVE DIAGNOSES: Nonfunctioning versus migrated versus pulled out suprapubic catheter. POSTOPERATIVE DIAGNOSES: Nonfunctioning versus migrated versus pulled out suprapubic catheter. SURGEON: Jennifer Graham M.D. NAME OF PROCEDURE: Exploration of the suprapubic problem, removal of the suprapubic catheter and replacement of a new catheter under general anesthesia. INDICATIONS: This is a 72-year-old gentleman who has had a lot of difficulty since I have been seeing him for retention and hydronephrosis of solitary kidney. We tried a TURP unsuccessfully because his urethra is very long and the instrument does not reach into the bladder easily. Additionally, he pulls out the Baez catheter frequently creating more trauma and bleeding. The suprapubic was placed about a week ago after which he went to a assisted, but returned with a nonfunctioning catheter and urine leaking in the area of the suprapubic wound or through the penis difficult to verify as the patient is very, very uncooperative. However, the suprapubic catheter was not functioning. Therefore, we had to explore again and plan to redo it. FINDINGS: Opening the wound and exploring this area, the catheter seemed to be anchored satisfactorily to the bladder, but for some reason would not irrigate and function well. After the bladder was opened and the catheter was removed there was a chip of prostate tissue in the Baez that may have been responsible for this problem. However, once again very difficult to confirm as there are multiple factors playing into this problem. New catheter was placed through a separate stab wound in the bladder, which was closed satisfactorily in 2 layers after exploring it and opening the cystotomy wider and irrigating the bladder completely free of any clots or tissue. There was no bleeding at all or blood clots in the bladder. Blood loss was less than 50 mL and there were no complications. PROCEDURE: The patient was brought to the operating room, prepped and draped in a supine position after general anesthesia was induced, keeping the penis prepped in the field. The suprapubic wound was opened after removing the sheela and cutting the fascia sutures and following the Baez catheter down to the bladder where it seemed to be well secured to the bladder wall with the Vicryl stitch. The stitch was carefully taken down and the catheter was removed after securing the bladder wall with Allis clamps. The catheter was removed and a soft piece of prostate chip in the Baez catheter causing partial obstruction, but not enough to make it nonfunctional. I then widened the cystotomy so that I could explore it better and looked and felt inside the bladder to find a few prostate chips there from the previous TURP, but no clots or bleeding or any other abnormalities. This was irrigated with lots of antibiotics and then a stab wound was made just lateral to the cystotomy on the right side through which a new 20-Faroese Baez was brought into the bladder as the new cystostomy. Once this was in place, the bladder was closed in 2 layers using running 3-0 Vicryl and running 2-0 Vicryl. The suprapubic catheter was irrigated multiple times with plenty of antibiotics confirming and reconfirming that it was functioning and draining well. The retropubic space was irrigated again with copious amounts of antibiotic and the Spencer-Orellana drain was brought in for another stab wound. After this, the wound was repaired with a running #1 Vicryl and the suprapubic catheter was brought in through a small opening in the fascia providing a straight shot into the bladder. A Spencer-Orellana was checked to make sure it was not caught up with any sutures and then secured to the skin with silk as well as the suprapubic catheter with another silk suture. The skin was closed with sheela and the suprapubic again irrigated several times to make sure it was functioning well. There was no blood whatsoever on irrigation at which point it was secured by a catheter benavides to the abdominal wall and the nurses instructed to maintain this so that it does not get pulled out accidentally or by the patient. He was then returned to recovery in stable condition without complications. JOB# [id number] LISSET
[2018-06-26] MEDS: Albuterol/Ipratropium Neb 3 ML AERS HHN SCH ×3 (07:44→19:00)
[2018-06-26 10:23] LABS: % BASOPHILS 0.6 % (0.0-2.0); % EOSINOPHILS 1.4 % (0.0-5.0); % MONOCYTES 6.1 % (2.0-10.0); % NEUTROPHILS 83.7 % (40.0-80.0); BASOPHILE ABSOLUTE 0.1 Th/cumm (0-0.2); EOSINOPHILE ABSOLUTE 0.1 Th/cmm (0.1-0.4); HEMATOCRIT 29.8 % (41.0-60); HEMOGLOBIN 10.1 gm/dL (12-16); LYMPHOCYTE ABSOLUTE 0.8 Th/cmm (1.5-3.0); MEAN CELL VOLUME 84.1 fl (80-99); MEAN CORPUSCULAR HEMOGLOBIN 28.6 pg (27.0-31.0); MEAN PLATELET VOLUME 6.3 fl; MONOCYTE ABSOLUTE 0.6 Th/cmm (0.3-1.0); PLATELET COUNT 179 Th/cmm (150-400); RED BLOOD COUNT 3.55 Mil/cmm (3.80-5.80); RED CELL DISTRIBUTION WIDTH 13.4 % (11.5-20.0); WHITE BLOOD COUNT 9.6 Th/cmm (4.8-10.8)
[2018-06-26] MEDS: Lactobacillus Rhamnosus GG 15 Billion CFU CAP.SPRINK PO SCH (10:25)
[2018-06-26] MEDS: cefTRIAXone 1 GM in Sodium Chloride 0.9% 50 ML IV SCH (10:26)
[2018-06-26 10:30] LABS: % LYMPHOCYTES 8.2 % (20.0-50.0)
[2018-06-26 10:37] LABS: ANION GAP 12.9 (7.0-16.0); BUN - UREA NITROGEN 14 mg/dL (7-25); CALCIUM SERUM 8.5 mg/dL (8.6-10.3); CARBON DIOXIDE 24.6 mEq/L (21.0-31.0); CHLORIDE 105 mEq/L (98-107); GLUCOSE 111 mg/dL (70-105); POTASSIUM SERUM 3.5 mEq/L (3.5-5.1); SODIUM SERUM 139 mEq/L (136-145)
[2018-06-26] MEDS: Sodium Chloride 0.45% 1,000 ML IV SCH (15:47)
--- NOTE | 2018-06-26 18:26 | Progress Notes ---
DATE: 06/26/2018 HOSPITAL COURSE: The patient is postop day 1 from a redo of suprapubic cystostomy. He did well overnight, but early this morning, he managed to get out of his restraints and pull out the site port of suprapubic catheter. Fortunately, he did not pull out the catheter completely and it is still functioning. If the patient keeps doing this, I am not sure we can help him much and I would have to refer him out to some other facility since we cannot keep operating on him again and again for these problems. He put out about 50 mL in the Spencer-Orellana and more than 2 liters out of the suprapubic catheter. He has remained afebrile. Vital signs have been stable and his labs are also stable and normal. JOB# [id number]
--- NOTE | 2018-06-26 18:39 | General Progress Note ---
Objective - Results Result Diagrams: 06/26/18 10:14 06/26/18 10:14 Recent Labs: Laboratory Last Values WBC 9.6 Th/cmm (4.8-10.8) 06/26/18 10:14 RBC 3.55 Mil/cmm (3.80-5.80) L 06/26/18 10:14 Hgb 10.1 gm/dL (12-16) L 06/26/18 10:14 Hct 29.8 % (41.0-60) L 06/26/18 10:14 MCV 84.1 fl (80-99) 06/26/18 10:14 MCH 28.6 pg (27.0-31.0) 06/26/18 10:14 MCHC Differential 34.0 pg (28.0-36.0) 06/26/18 10:14 RDW 13.4 % (11.5-20.0) 06/26/18 10:14 Plt Count 179 Th/cmm (150-400) 06/26/18 10:14 MPV 6.3 fl 06/26/18 10:14 Neutrophils % 83.7 % (40.0-80.0) H 06/26/18 10:14 Lymphocytes % 8.2 % (20.0-50.0) L 06/26/18 10:14 Monocytes % 6.1 % (2.0-10.0) 06/26/18 10:14 Eosinophils % 1.4 % (0.0-5.0) 06/26/18 10:14 Basophils % 0.6 % (0.0-2.0) 06/26/18 10:14 PT 11.7 SECONDS (9.5-11.5) H 06/25/18 05:45 INR 1.14 (0.5-1.4) 06/25/18 05:45 PTT (Actin FS) 25.2 SECONDS (26.0-38.0) L 06/25/18 05:45 Sodium 139 mEq/L (136-145) 06/26/18 10:14 Potassium 3.5 mEq/L (3.5-5.1) 06/26/18 10:14 Chloride 105 mEq/L (98-107) 06/26/18 10:14 Carbon Dioxide 24.6 mEq/L (21.0-31.0) 06/26/18 10:14 Anion Gap 12.9 (7.0-16.0) 06/26/18 10:14 BUN 14 mg/dL (7-25) 06/26/18 10:14 Creatinine 1.0 mg/dL (0.7-1.3) 06/26/18 10:14 Est GFR ( Amer) TNP 06/26/18 10:14 Est GFR (Non-Af Amer) TNP 06/26/18 10:14 BUN/Creatinine Ratio 14.0 06/26/18 10:14 Glucose 111 mg/dL (70-105) H 06/26/18 10:14 Calcium 8.5 mg/dL (8.6-10.3) L 06/26/18 10:14 Total Bilirubin 0.6 mg/dL (0.3-1.0) 06/23/18 17:38 AST 18 U/L (13-39) 06/23/18 17:38 ALT 3 U/L (7-52) L 06/23/18 17:38 Alkaline Phosphatase 58 U/L (34-104) 06/23/18 17:38 Ammonia 54 umol/L (16-53) H 06/25/18 05:45 Total Protein 5.8 gm/dL (6.0-8.3) L 06/23/18 17:38 Albumin 3.1 gm/dL (4.2-5.5) L 06/23/18 17:38 Globulin 2.7 gm/dL 06/23/18 17:38 Albumin/Globulin Ratio 1.2 (1.0-1.8) 06/23/18 17:38 Triglycerides 91 mg/dL (<150) 06/23/18 17:38 Cholesterol 112 mg/dL (<200) 06/23/18 17:38 LDL Cholesterol Direct 77 mg/dL (75-193) 06/23/18 17:38 HDL Cholesterol 25 mg/dL (23-92) 06/23/18 17:38 TSH 1.70 uIU/ml (0.34-5.60) 06/23/18 17:38 Urine Source CATH 06/24/18 00:33 Urine Color PINK 06/24/18 00:33 Urine Clarity HAZY (CLEAR) 06/24/18 00:33 Urine pH 7.0 (4.6 - 8.0) 06/24/18 00:33 Ur Specific [place] 1.020 (1.005-1.030) 06/24/18 00:33 Urine Protein 30 mg/dL (NEGATIVE) H 06/24/18 00:33 Urine Glucose (UA) NEGATIVE mg/dL (NEGATIVE) 06/24/18 00:33 Urine Ketones TRACE mg/dL (NEGATIVE) 06/24/18 00:33 Urine Blood LARGE (NEGATIVE) H 06/24/18 00:33 Urine Nitrate NEGATIVE (NEGATIVE) 06/24/18 00:33 Urine Bilirubin NEGATIVE (NEGATIVE) 06/24/18 00:33 Urine Urobilinogen 0.2 E.U./dL (0.2 - 1.0) 06/24/18 00:33 Ur Leukocyte Esterase SMALL (NEGATIVE) H 06/24/18 00:33 Urine RBC 50-100 /hpf (0-5) H 06/24/18 00:33 Urine WBC 2-5 /hpf (0-5) 06/24/18 00:33 Ur Epithelial Cells RARE /lpf (FEW) 06/24/18 00:33 Urine Bacteria 3+ /hpf (NONE SEEN) H 06/24/18 00:33 RPR NONREACTIVE (NONREACTIVE) 06/23/18 17:38 - Physical Exam Vitals and I&O: Vital Signs Temp 98.1 F 06/26/18 16:06 Pulse 73 06/26/18 16:06 Resp 18 06/26/18 16:06 BP 140/80 06/26/18 16:06 Pulse Ox 98 06/26/18 16:06 Intake & Output 06/25/18 06/26/18 06/26/18 18:59 06:59 18:59 Intake Total 1050 1250 Output Total 2200 905 Balance 1050 -2200 345 Weight (lbs) 112.309 kg 111.674 kg Intake: Intake, IV Amount 1050 1000 Sodium Chloride 0.45% 1, 1000 1000 000 ml @ 50 mls/hr IV . Q20H [facility] Rx#:[id number] cefTRIAXone 1 gm In 50 Sodium Chloride 0.9% 50 ml @ 100 mls/hr IV Q24HR [facility] Rx#:[id number] Oral 250 Output: Drainage 50 30 Abdomen 50 30 Urine 2150 875 Other: # Bowel Movements 3 Stool Characteristics Soft Soft Brown Brown Weight Source Bedscale Bedscale Active Medications: Current Medications Albuterol/Ipratropium (Duoneb Neb) 3 ml HHN [id number] [facility] Stop: 08/23/18 19:59 Last Admin: 06/26/18 13:43 Dose: 3 ml Sodium Chloride (Nacl 0.45%) 1,000 mls @ 50 mls/hr IV .Q20H [facility] Stop: 08/22/18 21:14 Last Admin: 06/26/18 15:47 Dose: 50 mls/hr Ceftriaxone Sodium 1 gm/ (Sodium Chloride) 50 mls @ 100 mls/hr IV Q24HR [facility] Stop: 08/23/18 10:29 Last Admin: 06/26/18 10:26 Dose: 100 mls/hr Lactobacillus Rhamnosus (Culturelle 15b) 1 each PO DAILY [facility] Stop: 08/24/18 13:59 Last Admin: 06/26/18 10:25 Dose: Not Given Lorazepam (Ativan) 1 mg IVP Q6HR PRN; Protocol PRN Reason: Agitation Stop: 08/24/18 17:11 Last Admin: 06/26/18 15:48 Dose: 1 mg Miscellaneous (Vte Chemical Prophylaxis Screen/ Admission) 1 ea MC PRN PRN PRN Reason: PROTOCOL Stop: 08/23/18 10:44 Miscellaneous (Probiotic Screen) 1 ea PRN PRN PRN Reason: PROTOCOL Stop: 08/24/18 09:48 - Procedures Procedures: Procedures Procedure Code Date DESTRUCTION OF PROSTATE, ENDO [id number] 06/11/18 DRAINAGE OF BLADDER WITH DRAINAGE DEVICE, OPEN APPROACH [id number] 06/11/18 RESECTION OF PROSTATE, ENDO [id number] 06/11/18
[2018-06-26] MEDS ORDERED: Magnesium Hydroxide (MOM) 30 mL UDC PO PRN (19:16)
[2018-06-26] MEDS ORDERED: Fleet Enema 135 mL RC PRN (19:16)
--- NOTE | 2018-06-26 20:24 | Progress Notes ---
DATE: 06/26/2018 PULMONARY PROGRESS NOTE PROBLEM LIST: 1. Mild degree of asthmatic bronchitis. 2. Chronic obstructive pulmonary disease. 3. Suprapubic issues with possibly cystitis. The patient is little bit confused, not violent, not in acute distress etc. PHYSICAL EXAMINATION: VITAL SIGNS: Temperature is 98, blood pressure 140/80, respirations ____, temperature is 98. NECK: Veins not visualized. CHEST: Shows diminished air entry with occasional rhonchi. HEART: Regular. ABDOMEN: Soft, nontender. ASSESSMENT: The patient is clinically stable respiratory alfaro. PLANS: Continue inhalation treatment, etc. We will follow through as needed and go from there. JOB# [id number]
[2018-06-27] MEDS: Albuterol/Ipratropium Neb 3 ML AERS HHN SCH ×3 (07:11→19:15)
[2018-06-27] MEDS: Multivitamin w/ Minerals Tab PO SCH (10:00)
[2018-06-27] MEDS: Lactobacillus Rhamnosus GG 15 Billion CFU CAP.SPRINK PO SCH (10:01)
[2018-06-27] MEDS: cefTRIAXone 1 GM in Sodium Chloride 0.9% 50 ML IV SCH (10:38)
--- NOTE | 2018-06-27 14:53 | Infectious Disease Prog Note ---
Infectious Disease Subjective - Review of Systems Service Date: 06/27/18 Subjective: No change, no fever. NO hematuria. calm and sleeping. Infectious Disease Objective - Results Result Diagrams: 06/26/18 10:14 06/26/18 10:14 Recent Labs: Laboratory Last Values WBC 9.6 Th/cmm (4.8-10.8) 06/26/18 10:14 RBC 3.55 Mil/cmm (3.80-5.80) L 06/26/18 10:14 Hgb 10.1 gm/dL (12-16) L 06/26/18 10:14 Hct 29.8 % (41.0-60) L 06/26/18 10:14 MCV 84.1 fl (80-99) 06/26/18 10:14 MCH 28.6 pg (27.0-31.0) 06/26/18 10:14 MCHC Differential 34.0 pg (28.0-36.0) 06/26/18 10:14 RDW 13.4 % (11.5-20.0) 06/26/18 10:14 Plt Count 179 Th/cmm (150-400) 06/26/18 10:14 MPV 6.3 fl 06/26/18 10:14 Neutrophils % 83.7 % (40.0-80.0) H 06/26/18 10:14 Lymphocytes % 8.2 % (20.0-50.0) L 06/26/18 10:14 Monocytes % 6.1 % (2.0-10.0) 06/26/18 10:14 Eosinophils % 1.4 % (0.0-5.0) 06/26/18 10:14 Basophils % 0.6 % (0.0-2.0) 06/26/18 10:14 PT 11.7 SECONDS (9.5-11.5) H 06/25/18 05:45 INR 1.14 (0.5-1.4) 06/25/18 05:45 PTT (Actin FS) 25.2 SECONDS (26.0-38.0) L 06/25/18 05:45 Sodium 139 mEq/L (136-145) 06/26/18 10:14 Potassium 3.5 mEq/L (3.5-5.1) 06/26/18 10:14 Chloride 105 mEq/L (98-107) 06/26/18 10:14 Carbon Dioxide 24.6 mEq/L (21.0-31.0) 06/26/18 10:14 Anion Gap 12.9 (7.0-16.0) 06/26/18 10:14 BUN 14 mg/dL (7-25) 06/26/18 10:14 Creatinine 1.0 mg/dL (0.7-1.3) 06/26/18 10:14 Est GFR ( Amer) TNP 06/26/18 10:14 Est GFR (Non-Af Amer) TNP 06/26/18 10:14 BUN/Creatinine Ratio 14.0 06/26/18 10:14 Glucose 111 mg/dL (70-105) H 06/26/18 10:14 Calcium 8.5 mg/dL (8.6-10.3) L 06/26/18 10:14 Total Bilirubin 0.6 mg/dL (0.3-1.0) 06/23/18 17:38 AST 18 U/L (13-39) 06/23/18 17:38 ALT 3 U/L (7-52) L 06/23/18 17:38 Alkaline Phosphatase 58 U/L (34-104) 06/23/18 17:38 Ammonia 54 umol/L (16-53) H 06/25/18 05:45 Total Protein 5.8 gm/dL (6.0-8.3) L 06/23/18 17:38 Albumin 3.1 gm/dL (4.2-5.5) L 06/23/18 17:38 Globulin 2.7 gm/dL 06/23/18 17:38 Albumin/Globulin Ratio 1.2 (1.0-1.8) 06/23/18 17:38 Triglycerides 91 mg/dL (<150) 06/23/18 17:38 Cholesterol 112 mg/dL (<200) 06/23/18 17:38 LDL Cholesterol Direct 77 mg/dL (75-193) 06/23/18 17:38 HDL Cholesterol 25 mg/dL (23-92) 06/23/18 17:38 TSH 1.70 uIU/ml (0.34-5.60) 06/23/18 17:38 Urine Source CATH 06/24/18 00:33 Urine Color PINK 06/24/18 00:33 Urine Clarity HAZY (CLEAR) 06/24/18 00:33 Urine pH 7.0 (4.6 - 8.0) 06/24/18 00:33 Ur Specific [place] 1.020 (1.005-1.030) 06/24/18 00:33 Urine Protein 30 mg/dL (NEGATIVE) H 06/24/18 00:33 Urine Glucose (UA) NEGATIVE mg/dL (NEGATIVE) 06/24/18 00:33 Urine Ketones TRACE mg/dL (NEGATIVE) 06/24/18 00:33 Urine Blood LARGE (NEGATIVE) H 06/24/18 00:33 Urine Nitrate NEGATIVE (NEGATIVE) 06/24/18 00:33 Urine Bilirubin NEGATIVE (NEGATIVE) 06/24/18 00:33 Urine Urobilinogen 0.2 E.U./dL (0.2 - 1.0) 06/24/18 00:33 Ur Leukocyte Esterase SMALL (NEGATIVE) H 06/24/18 00:33 Urine RBC 50-100 /hpf (0-5) H 06/24/18 00:33 Urine WBC 2-5 /hpf (0-5) 06/24/18 00:33 Ur Epithelial Cells RARE /lpf (FEW) 06/24/18 00:33 Urine Bacteria 3+ /hpf (NONE SEEN) H 06/24/18 00:33 RPR NONREACTIVE (NONREACTIVE) 06/23/18 17:38 - Physical Exam Vitals and I&O: Vital Signs Temp 98.6 F 06/27/18 00:00 Pulse 84 06/27/18 12:51 Resp 16 06/27/18 12:51 BP 124/64 06/27/18 00:00 Pulse Ox 94 06/27/18 12:51 Intake & Output 06/26/18 06/27/18 06/27/18 18:59 06:59 18:59 Intake Total 1300 150 Output Total 905 805 Balance 395 -655 Weight (lbs) 111.674 kg 112.037 kg Intake: Intake, IV Amount 1050 Sodium Chloride 0.45% 1, 1000 000 ml @ 50 mls/hr IV . Q20H [facility] Rx#:[id number] cefTRIAXone 1 gm In 50 Sodium Chloride 0.9% 50 ml @ 100 mls/hr IV Q24HR [facility] Rx#:[id number] Oral 250 150 Output: Drainage 30 5 Abdomen 30 5 Urine 875 800 Other: Stool Characteristics Soft Soft Brown Brown Weight Source Bedscale Bedscale Active Medications: Current Medications Albuterol/Ipratropium (Duoneb Neb) 3 ml HHN [id number] [facility] Stop: 08/23/18 19:59 Last Admin: 06/27/18 12:51 Dose: 3 ml Bisacodyl (Dulcolax 10 Mg Supp) 10 mg RC DAILY PRN PRN Reason: Constipation Stop: 08/25/18 19:15 Escitalopram Oxalate (Lexapro) 10 mg PO HS [facility]; Protocol Stop: 08/25/18 20:59 Last Admin: 06/26/18 20:27 Dose: 10 mg Folic Acid (Folate) 1 mg PO DAILY [facility] Stop: 08/26/18 08:59 Last Admin: 06/27/18 10:00 Dose: 1 mg Sodium Chloride (Nacl 0.45%) 1,000 mls @ 50 mls/hr IV .Q20H [facility] Stop: 08/22/18 21:14 Last Admin: 06/26/18 15:47 Dose: 50 mls/hr Ceftriaxone Sodium 1 gm/ (Sodium Chloride) 50 mls @ 100 mls/hr IV Q24HR [facility] Stop: 08/23/18 10:29 Last Admin: 06/27/18 10:38 Dose: 100 mls/hr Lactobacillus Rhamnosus (Culturelle 15b) 1 each PO DAILY [facility] Stop: 08/26/18 08:59 Last Admin: 06/27/18 10:01 Dose: 1 each Lorazepam (Ativan) 1 mg IVP Q6HR PRN; Protocol PRN Reason: Agitation Stop: 08/24/18 17:11 Last Admin: 06/26/18 15:48 Dose: 1 mg Magnesium Hydroxide (Milk Of Magnesia) 30 ml PO HS PRN PRN Reason: IF STOOL SOFTENERS INEFFECTIVE Stop: 08/25/18 19:15 Miscellaneous (Vte Chemical Prophylaxis Screen/ Admission) 1 ea MC PRN PRN PRN Reason: PROTOCOL Stop: 08/23/18 10:44 Miscellaneous (Probiotic Screen) 1 ea MC PRN PRN PRN Reason: PROTOCOL Stop: 08/24/18 09:48 Naproxen (Naprosyn) 500 mg PO BID [facility] Stop: 08/26/18 08:59 Last Admin: 06/27/18 09:59 Dose: 500 mg Quetiapine Fumarate (Seroquel) 200 mg PO TID [facility]; Protocol Stop: 08/25/18 20:59 Last Admin: 06/27/18 13:55 Dose: 200 mg Sodium Phosphate (Fleet Enema) 135 ml RC Q48H PRN PRN Reason: Constipation Stop: 08/25/18 19:15 Tamsulosin HCl (Flomax) 0.4 mg PO DAILY [facility] Stop: 08/26/18 08:59 Last Admin: 06/27/18 10:00 Dose: 0.4 mg General: no acute distress, well developed, well nourished HEENT: atraumatic, normocephalic, PERRLA, EOMI Neck: supple, no thyromegaly, no lymphadenopathy Cardiovascular: S1S2, regular Lungs: clear to auscultation bilaterally, clear to percussion Abdomen: soft, no tender, no distended Extremities: no cyanosis, no clubbing, no edema Neurological: awake, alert, oriented Skin: intact - Procedures Procedures: Procedures Procedure Code Date DESTRUCTION OF PROSTATE, ENDO [id number] 06/11/18 DRAINAGE OF BLADDER WITH DRAINAGE DEVICE, OPEN APPROACH [id number] 06/11/18 RESECTION OF PROSTATE, ENDO [id number] 06/11/18 Infectious Disease Assmt/Plan - Assessment Assessment: 1. Agitation. 2. UTI. 3. Hematuria resolved. 4. Leaking Suprapubic catheter changed. 5. BPH. 6. Obstructive uropathy. 7. Psychosis. - Plan Plan: CPM.
[2018-06-27] MEDS: Sodium Chloride 0.45% 1,000 ML IV SCH (21:06)
--- NOTE | 2018-06-27 23:53 | Consultation ---
DATE OF CONSULTATION: 06/27/2018 The patient is currently in the hospital. He is a 72-year-old male who has been to the Geropsych Unit before, history of unspecified psychosis. The patient is now in the hospital, in restraints, very confused, AO to name, not place, not situation, he knows the year, he does not know the month, he believes it is 1979. Does not know the date. Mood "okay." The patient with history of asthmatic bronchitis, COPD, possibly cystitis, noted to be confused, disoriented and restless on exam. PAST PSYCHIATRIC HISTORY: Unspecified psychiatric disorder, Geropsych placement in the past. MEDICAL: Please see full H and P. SOCIAL HISTORY: The patient is a poor historian, but per her face sheet, she is coming in from an address in [place]. There is a son and daughter on the face sheet. MEDICATIONS: Noted. MENTAL STATUS EXAMINATION: Stated age. Fair eye contact, in restraints, mildly restless. Mood "okay." Affect flat. Thought processes were disoriented. No overt SI or HI. Unclear psychosis. Poor insight, poor judgment, poor impulse control. PROVISIONAL DIAGNOSES: Psychosis, unspecified, likely with an overlying delirium. MEDICAL: Please see full H and P. RECOMMENDATIONS AND PLAN: Continue dosing of Seroquel, Lexapro, avoid anticholinergics, avoid benzodiazepines, avoid opiates. We will continue to monitor. If the patient's symptoms do not improve and he remains agitated, he may need Geropsych placement. [facility]# [id number]
--- NOTE | 2018-06-28 02:58 | Progress Notes ---
DATE: 06/27/2018 FINDINGS: He is sleeping and quite at this time and is not fighting everybody which is a big change. On exam, he is afebrile and all vital signs are stable. Abdomen is soft. Dressing is dry. The Spencer-Orellana has put out less than 50 mL and the Baez suprapubic catheter has drained more than 1600 mL of clear urine. IMPRESSION: Postoperative redo suprapubic cystostomy, currently stable. Continue wound care. Prevent pulling of the catheter again by the patient. Change dressing every day. JOB# [id number]
[2018-06-28] MEDS: Albuterol/Ipratropium Neb 3 ML AERS HHN SCH ×3 (07:06→19:57)
[2018-06-28] MEDS: Multivitamin w/ Minerals Tab PO SCH (10:11)
[2018-06-28] MEDS: Lactobacillus Rhamnosus GG 15 Billion CFU CAP.SPRINK PO SCH (10:11)
[2018-06-28] MEDS: cefTRIAXone 1 GM in Sodium Chloride 0.9% 50 ML IV SCH (11:50)
--- NOTE | 2018-06-28 13:33 | Infectious Disease Prog Note ---
Infectious Disease Subjective - Review of Systems Service Date: 06/28/18 Subjective: No change, no fever. NO hematuria. calm and sleeping. Infectious Disease Objective - Results Result Diagrams: 06/26/18 10:14 06/26/18 10:14 Recent Labs: Laboratory Last Values WBC 9.6 Th/cmm (4.8-10.8) 06/26/18 10:14 RBC 3.55 Mil/cmm (3.80-5.80) L 06/26/18 10:14 Hgb 10.1 gm/dL (12-16) L 06/26/18 10:14 Hct 29.8 % (41.0-60) L 06/26/18 10:14 MCV 84.1 fl (80-99) 06/26/18 10:14 MCH 28.6 pg (27.0-31.0) 06/26/18 10:14 MCHC Differential 34.0 pg (28.0-36.0) 06/26/18 10:14 RDW 13.4 % (11.5-20.0) 06/26/18 10:14 Plt Count 179 Th/cmm (150-400) 06/26/18 10:14 MPV 6.3 fl 06/26/18 10:14 Neutrophils % 83.7 % (40.0-80.0) H 06/26/18 10:14 Lymphocytes % 8.2 % (20.0-50.0) L 06/26/18 10:14 Monocytes % 6.1 % (2.0-10.0) 06/26/18 10:14 Eosinophils % 1.4 % (0.0-5.0) 06/26/18 10:14 Basophils % 0.6 % (0.0-2.0) 06/26/18 10:14 PT 11.7 SECONDS (9.5-11.5) H 06/25/18 05:45 INR 1.14 (0.5-1.4) 06/25/18 05:45 PTT (Actin FS) 25.2 SECONDS (26.0-38.0) L 06/25/18 05:45 Sodium 139 mEq/L (136-145) 06/26/18 10:14 Potassium 3.5 mEq/L (3.5-5.1) 06/26/18 10:14 Chloride 105 mEq/L (98-107) 06/26/18 10:14 Carbon Dioxide 24.6 mEq/L (21.0-31.0) 06/26/18 10:14 Anion Gap 12.9 (7.0-16.0) 06/26/18 10:14 BUN 14 mg/dL (7-25) 06/26/18 10:14 Creatinine 1.0 mg/dL (0.7-1.3) 06/26/18 10:14 Est GFR ( Amer) TNP 06/26/18 10:14 Est GFR (Non-Af Amer) TNP 06/26/18 10:14 BUN/Creatinine Ratio 14.0 06/26/18 10:14 Glucose 111 mg/dL (70-105) H 06/26/18 10:14 Calcium 8.5 mg/dL (8.6-10.3) L 06/26/18 10:14 Total Bilirubin 0.6 mg/dL (0.3-1.0) 06/23/18 17:38 AST 18 U/L (13-39) 06/23/18 17:38 ALT 3 U/L (7-52) L 06/23/18 17:38 Alkaline Phosphatase 58 U/L (34-104) 06/23/18 17:38 Ammonia 54 umol/L (16-53) H 06/25/18 05:45 Total Protein 5.8 gm/dL (6.0-8.3) L 06/23/18 17:38 Albumin 3.1 gm/dL (4.2-5.5) L 06/23/18 17:38 Globulin 2.7 gm/dL 06/23/18 17:38 Albumin/Globulin Ratio 1.2 (1.0-1.8) 06/23/18 17:38 Triglycerides 91 mg/dL (<150) 06/23/18 17:38 Cholesterol 112 mg/dL (<200) 06/23/18 17:38 LDL Cholesterol Direct 77 mg/dL (75-193) 06/23/18 17:38 HDL Cholesterol 25 mg/dL (23-92) 06/23/18 17:38 TSH 1.70 uIU/ml (0.34-5.60) 06/23/18 17:38 Urine Source CATH 06/24/18 00:33 Urine Color PINK 06/24/18 00:33 Urine Clarity HAZY (CLEAR) 06/24/18 00:33 Urine pH 7.0 (4.6 - 8.0) 06/24/18 00:33 Ur Specific [place] 1.020 (1.005-1.030) 06/24/18 00:33 Urine Protein 30 mg/dL (NEGATIVE) H 06/24/18 00:33 Urine Glucose (UA) NEGATIVE mg/dL (NEGATIVE) 06/24/18 00:33 Urine Ketones TRACE mg/dL (NEGATIVE) 06/24/18 00:33 Urine Blood LARGE (NEGATIVE) H 06/24/18 00:33 Urine Nitrate NEGATIVE (NEGATIVE) 06/24/18 00:33 Urine Bilirubin NEGATIVE (NEGATIVE) 06/24/18 00:33 Urine Urobilinogen 0.2 E.U./dL (0.2 - 1.0) 06/24/18 00:33 Ur Leukocyte Esterase SMALL (NEGATIVE) H 06/24/18 00:33 Urine RBC 50-100 /hpf (0-5) H 06/24/18 00:33 Urine WBC 2-5 /hpf (0-5) 06/24/18 00:33 Ur Epithelial Cells RARE /lpf (FEW) 06/24/18 00:33 Urine Bacteria 3+ /hpf (NONE SEEN) H 06/24/18 00:33 RPR NONREACTIVE (NONREACTIVE) 06/23/18 17:38 - Physical Exam Vitals and I&O: Vital Signs Temp 97 F 06/28/18 04:00 Pulse 72 06/28/18 07:08 Resp 16 06/28/18 07:08 BP 147/89 06/28/18 04:00 Pulse Ox 95 06/28/18 07:08 Intake & Output 06/27/18 06/28/18 06/28/18 18:59 06:59 18:59 Intake Total 1050 360 Output Total 1305 Balance 1050 -945 Weight (lbs) 112.037 kg Intake: Intake, IV Amount 1050 Sodium Chloride 0.45% 1, 1000 000 ml @ 50 mls/hr IV . Q20H CRISTELA Rx#:[id number] cefTRIAXone 1 gm In 50 Sodium Chloride 0.9% 50 ml @ 100 mls/hr IV Q24HR CRISTELA Rx#:[id number] Oral 360 Output: Urine 1300 Stool 0 Other 5 Other: Stool Characteristics Soft Soft Brown Brown Weight Source Bedscale Active Medications: Current Medications Albuterol/Ipratropium (Duoneb Neb) 3 ml HHN [id number] [facility] Stop: 08/23/18 19:59 Last Admin: 06/28/18 07:06 Dose: 3 ml Bisacodyl (Dulcolax 10 Mg Supp) 10 mg RC DAILY PRN PRN Reason: Constipation Stop: 08/25/18 19:15 Escitalopram Oxalate (Lexapro) 10 mg PO HS CRISTELA; Protocol Stop: 08/25/18 20:59 Last Admin: 06/27/18 21:05 Dose: 10 mg Folic Acid (Folate) 1 mg PO DAILY [facility]EL[facility] Stop: 08/26/18 08:59 Last Admin: 06/28/18 10:11 Dose: 1 mg Sodium Chloride (Nacl 0.45%) 1,000 mls @ 50 mls/hr IV .Q20H [facility]STEL[facility] Stop: 08/22/18 21:14 Last Admin: 06/27/18 21:06 Dose: 50 mls/hr Ceftriaxone Sodium 1 gm/ (Sodium Chloride) 50 mls @ 100 mls/hr IV Q24HR [facility]EL[facility] Stop: 08/23/18 10:29 Last Admin: 06/28/18 11:50 Dose: 100 mls/hr Lactobacillus Rhamnosus (Culturelle 15b) 1 each PO DAILY [facility] Stop: 08/26/18 08:59 Last Admin: 06/28/18 10:11 Dose: 1 each Lorazepam (Ativan) 1 mg IVP Q6HR PRN; Protocol PRN Reason: Agitation Stop: 08/24/18 17:11 Last Admin: 06/26/18 15:48 Dose: 1 mg Magnesium Hydroxide (Milk Of Magnesia) 30 ml PO HS PRN PRN Reason: IF STOOL SOFTENERS INEFFECTIVE Stop: 08/25/18 19:15 Miscellaneous (Vte Chemical Prophylaxis Screen/ Admission) 1 ea MC PRN PRN PRN Reason: PROTOCOL Stop: 08/23/18 10:44 Miscellaneous (Probiotic Screen) 1 ea MC PRN PRN PRN Reason: PROTOCOL Stop: 08/24/18 09:48 Naproxen (Naprosyn) 500 mg PO BID [facility] Stop: 08/26/18 08:59 Last Admin: 06/28/18 10:11 Dose: 500 mg Quetiapine Fumarate (Seroquel) 200 mg PO TID CRISTELA; Protocol Stop: 08/25/18 20:59 Last Admin: 06/28/18 10:11 Dose: 200 mg Sodium Phosphate (Fleet Enema) 135 ml RC Q48H PRN PRN Reason: Constipation Stop: 08/25/18 19:15 Tamsulosin HCl (Flomax) 0.4 mg PO DAILY [facility]STELA Stop: 08/26/18 08:59 Last Admin: 06/28/18 10:11 Dose: 0.4 mg General: no acute distress, well developed, well nourished HEENT: atraumatic, normocephalic, PERRLA, EOMI Neck: supple, no thyromegaly Cardiovascular: S1S2, regular Lungs: clear to auscultation bilaterally, clear to percussion Abdomen: soft, no tender, no distended, no mass Extremities: no cyanosis, no clubbing, no edema Neurological: awake, alert Skin: intact - Procedures Procedures: Procedures Procedure Code Date DESTRUCTION OF PROSTATE, ENDO [id number] 06/11/18 DRAINAGE OF BLADDER WITH DRAINAGE DEVICE, OPEN APPROACH [id number] 06/11/18 RESECTION OF PROSTATE, ENDO [id number] 06/11/18 Infectious Disease Assmt/Plan - Assessment Assessment: 1. Agitation. Controlled. 2. UTI. 3. Hematuria resolved. 4. Leaking Suprapubic catheter changed. 5. BPH. 6. Obstructive uropathy. 7. Psychosis. - Plan Plan: Change antibiotics to cipro. May dc patient frop ID point of view. Nutritional Asmnt/Malnutr-PDOC - Dietary Evaluation Malnutrition Findings (Please click <Entered> for more info): Nutritional Asmnt/Malnutrition Start: 06/24/18 11: 44 Text: Status: Complete Freq: Protocol: Document 06/27/18 14:49 KARIN (Rec: 06/27/18 16:01 KARIN HANKS) Nutritional Asmnt/Malnutrition Patient General Information Nutritional Screening Moderate Risk Diagnosis Anemia Pertinent Medical Hx/Surgical Hx Severe Dementia, Prostate " problem" requiring suprapubic catheter placement, Bleeding around catheter which is also leaking Subjective Information Pt was fast asleep both times he was visited by RD. DUMONT described his breakfast in the monrning as 50-100% of Cereal , Milk & [place] Juice. Pancakes and Eggs were tried but ultimately rejected. 0% of lunch as Pt said he was full. Current Diet Order/ Nutrition Support [facility] Soft Ground Pertinent Medications Folate, MOM, Fleet Enema, culturelle, nacl 0.45% Pertinent Labs (06/26) Hb 3.55, Hct 29.8 (06/26) Gluc 111, Ca++ 8.5 Nutritional Hx/Data Height 1.88 m Height (Calculated Centimeters) 188.0 Current Weight (lbs) 112.037 kg Weight (Calculated Kilograms) 112.0 Weight (Calculated Grams) 461626.3 [place] Body Weight 190 % [place] Body Weight 130 Body Mass Index (BMI) 31.7 Recent Weight Change No Weight Status Obese GI Symptoms GI Symptoms None Last BM (06/26) x2 Difficult in: None Food Allergies No Cultural/Ethnic/Yazidi Belief None indicated Usual diet at home Pt not able to verbalize Skin Integrity/Comment: Josh Score consistently 15 acar to left arm Current %PO Poor (25-49%) Estimated Nutritional Goals BEE in Kcals: Adj wt of IBW Calories/Kcals/Kg 20-25 Kcals Calculated 3428-9136 Protein: Adj wt of IBW Protein g/k.8-0.9 Protein Calculated 74-84 Fluid: ml 1860-2325ml (1ml/kcal) Nutritional Problem No current Nutrition Prob Problem N/A Malnutrition Alert Is there a minimum of two criteria No selected? Query Text:Check all the applicable criteria. A minimum of two criteria are recommended for diagnosis of either severe or non-severe malnutrition. Malnutrition Related to Morbid Obesity Malnutrition related to morbid obesity No Intervention/Recommendation Comments 1. Continue with [facility] soft gorund diet. Add Ensure daily for extra kcal and protein. 2. Monitor wt, PO intake and labs 3. Follow up as low risk in 7 days. PO check 05/31 Expected Outcomes/Goals Expected Outcomes/Goals Increase Hb, Increase food intake to 75% of meals, Increase Josh score
[2018-06-28] MEDS: Sodium Chloride 0.45% 1,000 ML IV SCH (16:53)
--- NOTE | 2018-06-28 17:08 | Progress Notes ---
DATE: 06/28/2018 The patient remains confused, disoriented, not currently in restraints, but really does not know what is going on or where he is. States the year is 1988. Does not know the month. The patient has been hospitalized in the past. He is not eating very well. Staff noting mostly confused. No longer was combative or agitated. ASSESSMENT: The patient remains impulsive, unpredictable, confused, disoriented. PLAN: We will continue to monitor. Medications were noted. JOB# [id number]
--- NOTE | 2018-06-28 18:55 | General Progress Note ---
Objective - Results Result Diagrams: 06/26/18 10:14 06/26/18 10:14 Recent Labs: Laboratory Last Values WBC 9.6 Th/cmm (4.8-10.8) 06/26/18 10:14 RBC 3.55 Mil/cmm (3.80-5.80) L 06/26/18 10:14 Hgb 10.1 gm/dL (12-16) L 06/26/18 10:14 Hct 29.8 % (41.0-60) L 06/26/18 10:14 MCV 84.1 fl (80-99) 06/26/18 10:14 MCH 28.6 pg (27.0-31.0) 06/26/18 10:14 MCHC Differential 34.0 pg (28.0-36.0) 06/26/18 10:14 RDW 13.4 % (11.5-20.0) 06/26/18 10:14 Plt Count 179 Th/cmm (150-400) 06/26/18 10:14 MPV 6.3 fl 06/26/18 10:14 Neutrophils % 83.7 % (40.0-80.0) H 06/26/18 10:14 Lymphocytes % 8.2 % (20.0-50.0) L 06/26/18 10:14 Monocytes % 6.1 % (2.0-10.0) 06/26/18 10:14 Eosinophils % 1.4 % (0.0-5.0) 06/26/18 10:14 Basophils % 0.6 % (0.0-2.0) 06/26/18 10:14 PT 11.7 SECONDS (9.5-11.5) H 06/25/18 05:45 INR 1.14 (0.5-1.4) 06/25/18 05:45 PTT (Actin FS) 25.2 SECONDS (26.0-38.0) L 06/25/18 05:45 Sodium 139 mEq/L (136-145) 06/26/18 10:14 Potassium 3.5 mEq/L (3.5-5.1) 06/26/18 10:14 Chloride 105 mEq/L (98-107) 06/26/18 10:14 Carbon Dioxide 24.6 mEq/L (21.0-31.0) 06/26/18 10:14 Anion Gap 12.9 (7.0-16.0) 06/26/18 10:14 BUN 14 mg/dL (7-25) 06/26/18 10:14 Creatinine 1.0 mg/dL (0.7-1.3) 06/26/18 10:14 Est GFR ( Amer) TNP 06/26/18 10:14 Est GFR (Non-Af Amer) TNP 06/26/18 10:14 BUN/Creatinine Ratio 14.0 06/26/18 10:14 Glucose 111 mg/dL (70-105) H 06/26/18 10:14 Calcium 8.5 mg/dL (8.6-10.3) L 06/26/18 10:14 Total Bilirubin 0.6 mg/dL (0.3-1.0) 06/23/18 17:38 AST 18 U/L (13-39) 06/23/18 17:38 ALT 3 U/L (7-52) L 06/23/18 17:38 Alkaline Phosphatase 58 U/L (34-104) 06/23/18 17:38 Ammonia 54 umol/L (16-53) H 06/25/18 05:45 Total Protein 5.8 gm/dL (6.0-8.3) L 06/23/18 17:38 Albumin 3.1 gm/dL (4.2-5.5) L 06/23/18 17:38 Globulin 2.7 gm/dL 06/23/18 17:38 Albumin/Globulin Ratio 1.2 (1.0-1.8) 06/23/18 17:38 Triglycerides 91 mg/dL (<150) 06/23/18 17:38 Cholesterol 112 mg/dL (<200) 06/23/18 17:38 LDL Cholesterol Direct 77 mg/dL (75-193) 06/23/18 17:38 HDL Cholesterol 25 mg/dL (23-92) 06/23/18 17:38 TSH 1.70 uIU/ml (0.34-5.60) 06/23/18 17:38 Urine Source CATH 06/24/18 00:33 Urine Color PINK 06/24/18 00:33 Urine Clarity HAZY (CLEAR) 06/24/18 00:33 Urine pH 7.0 (4.6 - 8.0) 06/24/18 00:33 Ur Specific [place] 1.020 (1.005-1.030) 06/24/18 00:33 Urine Protein 30 mg/dL (NEGATIVE) H 06/24/18 00:33 Urine Glucose (UA) NEGATIVE mg/dL (NEGATIVE) 06/24/18 00:33 Urine Ketones TRACE mg/dL (NEGATIVE) 06/24/18 00:33 Urine Blood LARGE (NEGATIVE) H 06/24/18 00:33 Urine Nitrate NEGATIVE (NEGATIVE) 06/24/18 00:33 Urine Bilirubin NEGATIVE (NEGATIVE) 06/24/18 00:33 Urine Urobilinogen 0.2 E.U./dL (0.2 - 1.0) 06/24/18 00:33 Ur Leukocyte Esterase SMALL (NEGATIVE) H 06/24/18 00:33 Urine RBC 50-100 /hpf (0-5) H 06/24/18 00:33 Urine WBC 2-5 /hpf (0-5) 06/24/18 00:33 Ur Epithelial Cells RARE /lpf (FEW) 06/24/18 00:33 Urine Bacteria 3+ /hpf (NONE SEEN) H 06/24/18 00:33 RPR NONREACTIVE (NONREACTIVE) 06/23/18 17:38 - Physical Exam Vitals and I&O: Vital Signs Temp 97.9 F 06/28/18 16:00 Pulse 70 06/28/18 16:00 Resp 19 06/28/18 16:00 BP 114/52 06/28/18 16:00 Pulse Ox 97 06/28/18 16:00 Intake & Output 06/27/18 06/28/18 06/28/18 18:59 06:59 18:59 Intake Total 1050 360 989.167 Output Total 1305 Balance 1050 -945 989.167 Weight (lbs) 112.037 kg Intake: Intake, IV Amount 1050 989.167 Sodium Chloride 0.45% 1, 1000 989.167 000 ml @ 50 mls/hr IV . Q20H CRISTELA Rx#:[id number] cefTRIAXone 1 gm In 50 Sodium Chloride 0.9% 50 ml @ 100 mls/hr IV Q24HR CRISTELA Rx#:[id number] Oral 360 Output: Urine 1300 Stool 0 Other 5 Other: Stool Characteristics Soft Soft Soft Brown Brown Brown Weight Source Bedscale Active Medications: Current Medications Albuterol/Ipratropium (Duoneb Neb) 3 ml HHN [id number] [facility] Stop: 08/23/18 19:59 Last Admin: 06/28/18 13:53 Dose: 3 ml Bisacodyl (Dulcolax 10 Mg Supp) 10 mg RC DAILY PRN PRN Reason: Constipation Stop: 08/25/18 19:15 Escitalopram Oxalate (Lexapro) 10 mg PO HS [facility]; Protocol Stop: 08/25/18 20:59 Last Admin: 06/27/18 21:05 Dose: 10 mg Folic Acid (Folate) 1 mg PO DAILY [facility] Stop: 08/26/18 08:59 Last Admin: 06/28/18 10:11 Dose: 1 mg Sodium Chloride (Nacl 0.45%) 1,000 mls @ 50 mls/hr IV .Q20H [facility] Stop: 08/22/18 21:14 Last Admin: 06/28/18 16:53 Dose: 50 mls/hr Lactobacillus Rhamnosus (Culturelle 15b) 1 each PO DAILY [facility] Stop: 08/26/18 08:59 Last Admin: 06/28/18 10:11 Dose: 1 each Lorazepam (Ativan) 1 mg IVP Q6HR PRN; Protocol PRN Reason: Agitation Stop: 08/24/18 17:11 Last Admin: 06/26/18 15:48 Dose: 1 mg Magnesium Hydroxide (Milk Of Magnesia) 30 ml PO HS PRN PRN Reason: IF STOOL SOFTENERS INEFFECTIVE Stop: 08/25/18 19:15 Miscellaneous (Vte Chemical Prophylaxis Screen/ Admission) 1 ea MC PRN PRN PRN Reason: PROTOCOL Stop: 08/23/18 10:44 Miscellaneous (Probiotic Screen) 1 ea MC PRN PRN PRN Reason: PROTOCOL Stop: 08/24/18 09:48 Naproxen (Naprosyn) 500 mg PO BID [facility] Stop: 08/26/18 08:59 Last Admin: 06/28/18 17:08 Dose: 500 mg Quetiapine Fumarate (Seroquel) 200 mg PO TID [facility]; Protocol Stop: 08/25/18 20:59 Last Admin: 06/28/18 14:32 Dose: 200 mg Sodium Phosphate (Fleet Enema) 135 ml RC Q48H PRN PRN Reason: Constipation Stop: 08/25/18 19:15 Tamsulosin HCl (Flomax) 0.4 mg PO DAILY [facility]ELA Stop: 08/26/18 08:59 Last Admin: 06/28/18 10:11 Dose: 0.4 mg - Procedures Procedures: Procedures Procedure Code Date DESTRUCTION OF PROSTATE, ENDO [id number] 06/11/18 DRAINAGE OF BLADDER WITH DRAINAGE DEVICE, OPEN APPROACH [id number] 06/11/18 RESECTION OF PROSTATE, ENDO [id number] 06/11/18 Nutritional Asmnt/Malnutr-PDOC - Dietary Evaluation Malnutrition Findings (Please click <Entered> for more info): Nutritional Asmnt/Malnutrition Start: 06/24/18 11: 44 Text: Status: Complete Freq: Protocol: Document 06/27/18 14:49 KARIN (Rec: 06/27/18 16:01 KARIN HANKS) Nutritional Asmnt/Malnutrition Patient General Information Nutritional Screening Moderate Risk Diagnosis Anemia Pertinent Medical Hx/Surgical Hx Severe Dementia, Prostate " problem" requiring suprapubic catheter placement, Bleeding around catheter which is also leaking Subjective Information Pt was fast asleep both times he was visited by RD. DUMONT described his breakfast in the monrning as 50-100% of Cereal , Milk & [place] Juice. Pancakes and Eggs were tried but ultimately rejected. 0% of lunch as Pt said he was full. Current Diet Order/ Nutrition Support [facility] Soft Ground Pertinent Medications Folate, MOM, Fleet Enema, culturelle, nacl 0.45% Pertinent Labs (06/26) Hb 3.55, Hct 29.8 (06/26) Gluc 111, Ca++ 8.5 Nutritional Hx/Data Height 1.88 m Height (Calculated Centimeters) 188.0 Current Weight (lbs) 112.037 kg Weight (Calculated Kilograms) 112.0 Weight (Calculated Grams) 423568.3 [place] Body Weight 190 % [place] Body Weight 130 Body Mass Index (BMI) 31.7 Recent Weight Change No Weight Status Obese GI Symptoms GI Symptoms None Last BM (06/26) x2 Difficult in: None Food Allergies No Cultural/Ethnic/Pentecostal Belief None indicated Usual diet at home Pt not able to verbalize Skin Integrity/Comment: Josh Score consistently 15 acar to left arm Current %PO Poor (25-49%) Estimated Nutritional Goals BEE in Kcals: Adj wt of IBW Calories/Kcals/Kg 20-25 Kcals Calculated 2933-9820 Protein: Adj wt of IBW Protein g/k.8-0.9 Protein Calculated 74-84 Fluid: ml 1860-2325ml (1ml/kcal) Nutritional Problem No current Nutrition Prob Problem N/A Malnutrition Alert Is there a minimum of two criteria No selected? Query Text:Check all the applicable criteria. A minimum of two criteria are recommended for diagnosis of either severe or non-severe malnutrition. Malnutrition Related to Morbid Obesity Malnutrition related to morbid obesity No Intervention/Recommendation Comments 1. Continue with [facility] soft gorund diet. Add Ensure daily for extra kcal and protein. 2. Monitor wt, PO intake and labs 3. Follow up as low risk in 7 days. PO check 05/31 Expected Outcomes/Goals Expected Outcomes/Goals Increase Hb, Increase food intake to 75% of meals, Increase Josh score
== END 2018-06-28 21:00 | DRG 699 ==
LOC: ER 17:00 → MSI 19:40
PROVIDERS: ADMIT Internal Medicine; ATTEND Internal Medicine
PROC: 0TPBX0Z Removal of Drainage Device from Bladder, External Approach (ICD-10-PCS; principal; 2018-06-25)
PROC: 0T9B30Z Drainage of Bladder with Drainage Device, Percutaneous Approach (ICD-10-PCS; 2018-06-25)
DX: T83.038A Leakage of other urinary catheter, initial encounter (principal); N39.0 Urinary tract infection, site not specified; N17.9 Acute kidney failure, unspecified; N13.8 Other obstructive and reflux uropathy; G47.33 Obstructive sleep apnea (adult) (pediatric); R31.9 Hematuria, unspecified; F03.90 Unspecified dementia, unspecified severity, without behavioral disturbance, psychotic disturbance, mood disturbance, and anxiety; J44.9 Chronic obstructive pulmonary disease, unspecified; E86.0 Dehydration; F25.9 Schizoaffective disorder, unspecified; D64.9 Anemia, unspecified; G40.909 Epilepsy, unspecified, not intractable, without status epilepticus; F29 Unspecified psychosis not due to a substance or known physiological condition; N40.1 Benign prostatic hyperplasia with lower urinary tract symptoms; Y83.8 Other surgical procedures as the cause of abnormal reaction of the patient, or of later complication, without mention of misadventure at the time of the procedure; Y92.89 Other specified places as the place of occurrence of the external cause
CPT/HCPCS: 36415-UA; 71045-TC; 80048-TC; 80053-TC; 80061-TC; 81001-TC; 82140-TC; 84443-TC; 85025-TC; 85610-TC; 86592-TC; 87086-90; 93005; 94760; 96372; A4217; J0696; J2060; J2405; J2704; J2710; J3010; V2790; X5716; X6258; Z7610